=== PATIENT | female | born 1950 | race Caucasian/White ===

== ENCOUNTER 2017-04-21 22:06 | Inpatient (IN) ==
[2017-04-22] MEDS ORDERED: Naloxone 0.4 MG/ML INJ IVP PRN (01:51)
[2017-04-22] MEDS ORDERED: 0.9 % Sodium Chloride 1,000 ML IVC SCH (02:00)
[2017-04-22] MEDS ORDERED: *HR* Dextrose 50 % in Water (Syg) 50 ML SYRINGE IVP PRN (02:02)
[2017-04-22] MEDS ORDERED: D5% in Water 1,000 ML IVC PRN (02:02)
[2017-04-22] MEDS ORDERED: Dextrose Gel 15 GM PO PRN ×2 (02:02)
--- NOTE | 2017-04-22 02:11 | Internal Med History&Physical ---
Date of Encounter: 04/22/17 Time of Encounter: 02:07 Assessment and Plan (1) Pulmonary embolism Current visit: No Status: Acute check TTE for RHS, b/l doppler, lovenox 1mg/kg BID Qualifiers: Pulmonary embolism type: other Chronicity: acute Acute cor pulmonale presence: without acute cor pulmonale Qualified Code(s): I26.99 - Other pulmonary embolism without acute cor pulmonale (2) DMII (diabetes mellitus, type 2) Current visit: Yes Status: Acute she is unsure of her home dose, she tells me that she takes 60 U "humalog" q HS and 75 U "humalog" q AM along with ISS which does not sound accurate. I suspect this is NPH instead of humalog - will place holding insulin consisting of NPH 75 qAM, high dose ISS and await family to bring in accurate insulin prescription to avoid overdosing and resultant hypoglycemia. Qualifiers: Diabetes mellitus complication status: without complication Diabetes mellitus detention insulin use: with detention use Qualified Code(s): E11.9 - Type 2 diabetes mellitus without complications; Z79.4 - jail (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 (3) HTN (hypertension), benign Current visit: Yes Status: Acute continue BP med if BP tolerates (4) Morbid obesity Current visit: Yes Status: Acute education. detention goal setting (5) Spinal stenosis Current visit: Yes Status: Acute conservative management. Continue regular pain med Qualifiers: Spinal region: thoracolumbar Qualified Code(s): M48.05 - Spinal stenosis, thoracolumbar region Internal Medicine - H&P: HPI Chief complaint: SOB History of present illness: Ms. Salmon is a 67 year old female who presents with acute PE b/l. She reported 3-4 weeks of worsening SOB associated with abdominal tightness. ED found b/l PE. She reports a hx of spinal stenosis and is sedentary for most of the days. She is obese and describes herself as a "couch potato". Denies any recent hospitalization. Episode likely provoked due to sedentary lifestyle related to obesity and severe spinal stenosis FINDINGS: Pulmonary Arteries: Pulmonary arteries are adequately opacified for evaluation. Pulmonary emboli are identified within the right middle, lower, and upper lobe segmental arteries and extending into the subsegmental branches. Pulmonary embolus also identified within the left upper lobe segmental branches supplying the anterior segment of the left upper lobe. Main pulmonary artery is normal in caliber.RV:LV ratio measures 1. No significant reflux of contrast into the IVC at this time. Mediastinum: No evidence of mediastinal lymphadenopathy. The heart and pericardium demonstrate no acute abnormality. There is no acute abnormality of the thoracic aorta. Lungs/pleura: The lungs are without acute process. No focal consolidation or pulmonary edema. No evidence of pleural effusion or pneumothorax. Upper Abdomen: Limited images of the upper abdomen again demonstrate partially visualized bilateral adrenal adenomas which appear grossly similar to prior exam from 2013. Soft Tissues/Bones: No acute bone or soft tissue abnormality. CT/CT angio chest IMPRESSION: 1. Bilateral pulmonary emboli, right greater than left. The pulmonary artery is normal in caliber and the RV:LV ratio measures 1. Critical results were called by Dr. Yousfu Mcknight MD to Jama Campos MD on 04/21/2017 at 21:19. Past Med Surg Social Fam HX - Past Medical History Medical history: arthritis, DVT, diabetes, hypertension, pulmonary embolus, RA Psychiatric history: anxiety, depression - Social History Smoking Status: Never smoker Smokeless Tobacco Status: No Alcohol use: none Drug use: none - Family History Father Name: Monroe adam Living Status: Age at : 78 Cause of : CHF Hx Family Cardiac Disorders: Yes Hx Family Medical Disorders: Yes (alzheimer) Internal Medicine - H&P: Meds Amlodipine Besylate 10 mg PO DAILY 04/21/17 [History] Gabapentin [Neurontin] 800 mg PO TID 04/21/17 [History] Insulin NPH, HUMAN [HumuLIN N] 75 unit SQ AD 04/21/17 [History] Insulin Regular, Human [Novolin R] 100 unit IJ AD 04/21/17 [History] Lisinopril [Zestril] 40 mg PO DAILY 04/21/17 [History] Metformin HCl [Glucophage] 1,000 mg PO BID 04/21/17 [History] Metoprolol [Lopressor] 50 mg PO BID 04/21/17 [History] Multivitamin [Multi-Day Vitamins] 1 tab PO DAILY 04/21/17 [History] [place]-3/Dha/Epa/Fish Oil [[place] 3 500 Softgel] 2 cap PO DAILY 04/21/17 [History] Tramadol HCl 100 mg PO TID 04/21/17 [History] Venlafaxine [Effexor] 75 mg PO BID 04/21/17 [History] Zolpidem [Ambien] 10 mg PO HS 04/21/17 [History] hydroCHLOROthiazide [Hydrochlorothiazide] 25 mg PO DAILY 04/21/17 [History] Insulin NPH, HUMAN 60 SQ HS 04/22/17 [History] 3 Allergy/AdvReac Type Severity Reaction Status Date / Time prochlorperazine Allergy See Verified 04/08/17 12:44 [From Compazine] Comments Sulfa (Sulfonamide Allergy See Verified 04/08/17 12:44 Antibiotics) Comments All Systems PM: A 10-system review of systems was performed and is negative for pertinent findings except as documented above in the HPI. Review of systems: ROS 14 point review of systems reviewed as best as possible given presentation. Pertinent positive or negative as per HPI or otherwise reviewed as negative - Constitutional Vitals: Temp Pulse Resp BP Pulse Ox 98.3 F 85 21 153/87 94 04/22/17 00:33 04/22/17 00:33 04/22/17 00:33 04/22/17 00:33 04/22/17 00:33 Exam: General - AAO x 3. Morbidly obese Psych - Appropriate affect/speech. No agitation Eyes - LUIS. Eye lids intact. No scleral icterus Heart - Sinus. RRR. S1 and S2 present. No added HS/murmurs appreciated. No elevated JVD appreciated. B/l LE swelling, appearing symmetrical Lung - Adequate air entry b/l, No crackes/wheezes appreciated GI - Upper abdominal discomfort but no guarding or rigidity. Soft, non-tender. No hepatosplenomegaly/ascites. BS+ - No CVA/suprapubic tenderness or palpable bladder distension Skin - Intact. No rash/petechiae/ecchymosis. Warm extremities MSK - Joints with normal ROM. No joint swellings - VTE Reasons for not Prescribing Prophylaxis: Not indicated-Anticoagulated or INR therapeutic
[2017-04-22] MEDS: Gabapentin 400 MG CAPSULE PO SCH ×4 (02:35→21:09)
[2017-04-22 06:04] LABS: Basophils % 0.4 %; Eosinophils # 0.2 K/mcL (0.0-0.6); Eosinophils % 2.1 %; Hematocrit 42.2 % (35.3-44.9); Hemoglobin 12.7 g/dL (11.5-15.4); Immature Granulocytes % 0.3 % (0-4); Lymphocytes # 2.7 K/mcL (0.6-4.6); Lymphocytes % 27.4 %; Mean Corpuscular HGB Conc 30.1 g/dL (31.6-35.5); Mean Corpuscular Hemoglobin 25.8 pg (28.0-33.3); Mean Corpuscular Volume 85.6 fL (83.0-100.0); Mean Platelet Volume 10.2 fL (9.4-12.4); Monocytes % 10.5 %; Neutrophils # 5.7 K/mcL (1.6-8.9); Platelet Count 268 K/mcL (140-400); Red Blood Count 4.93 M/mcL (3.82-4.97); Red Cell Distribution Width 16.5 % (11.5-14.5); Segmented Neutrophils % 59.3 %
[2017-04-22 06:20] LABS: BUN/Creatinine Ratio 19 (6-26); Blood Urea Nitrogen 19 mg/dL (7-20); Carbon Dioxide 26 mEq/L (19-29); Chloride 104 mEq/L (98-109); Glucose 220 mg/dL (70-99); Osmolality,Calculated 299 (280-300); Potassium 4.1 mEq/L (3.5-4.5); Sodium 140 mEq/L (136-145); eGFR For African Americans > 60 (> 60); eGFR For Non-African Americans 55 (> 60)
[2017-04-22] MEDS: hydroCHLOROthiazide 25 MG TABLET PO SCH (07:42)
[2017-04-22] MEDS: amLODIPine 5 MG TABLET PO SCH (07:42)
[2017-04-22] MEDS: traMADol 50 MG TABLET PO SCH ×3 (07:43→21:09)
[2017-04-22] MEDS: Lisinopril 20 MG TABLET PO SCH (07:44)
[2017-04-22] MEDS: Insulin LISPRO 300 UNITS/3 ML VIAL SQ SCH ×4 (07:48→21:07)
[2017-04-22] MEDS: Insulin NPH 100 UNIT/ML (x5UNIT) SQ SCH ×2 (08:35→17:39)
[2017-04-22] MEDS ORDERED: *HR* Enoxaparin 150 MG/ML SYRINGE SQ SCH (09:00)
--- NOTE | 2017-04-22 16:39 | Event Note ---
Date of Encounter: 04/22/17 Time of Encounter: 12:30 Patient admitted early this morning due to acute pulmonary embolism. Patient has a history of pulmonary embolism in the past and multiple DVTs in the past. She is not on any antiplatelet regulation at home. Currently, she is on Lovenox. Currently, patient states that her breathing is better than yesterday. However , she continues to report shortness of breath with exertion. She is currently on 2 L via nasal cannula oxygen. In mild to moderate respiratory distress. Clear breath sounds bilaterally. Acute pulmonary embolus-continue Lovenox. Patient will be started on Coumadin. Discussed the options of Novel anticoagulants. However, patient is currently in the donut hole and is worried about the cost of anticoagulation. Hence, she would like to continue with Coumadin. She will be started on Coumadin tonight. Anticipate discharge on Tuesday/Tuesday to home. She will likely require home oxygen on discharge for a short period
[2017-04-22] MEDS: *HR* Enoxaparin 150 MG/ML SYRINGE SQ SCH (17:32)
[2017-04-22] MEDS ORDERED: *HR* Warfarin 5 MG TABLET PO ONE (18:00)
[2017-04-22] MEDS ORDERED: Warfarin perPT PO PRN (18:00)
[2017-04-23] MEDS: *HR* Enoxaparin 150 MG/ML SYRINGE SQ SCH ×2 (05:27→17:16)
[2017-04-23 05:34] LABS: INR 1.1; Prothrombin Time 11.3 Seconds (9.4-12.1)
[2017-04-23] MEDS: hydroCHLOROthiazide 25 MG TABLET PO SCH (08:40)
[2017-04-23] MEDS: Insulin NPH 100 UNIT/ML (x5UNIT) SQ SCH ×2 (08:40→18:10)
[2017-04-23] MEDS: Insulin LISPRO 300 UNITS/3 ML VIAL SQ SCH ×4 (08:40→19:51)
[2017-04-23] MEDS: amLODIPine 5 MG TABLET PO SCH (08:41)
[2017-04-23] MEDS: Gabapentin 400 MG CAPSULE PO SCH ×3 (08:41→19:51)
[2017-04-23] MEDS: Lisinopril 20 MG TABLET PO SCH (08:41)
[2017-04-23] MEDS: traMADol 50 MG TABLET PO SCH ×3 (08:41→19:50)
[2017-04-23] MEDS ORDERED: Saline Nasal Spray 44 ML BOTTLE NS PRN (10:45)
--- NOTE | 2017-04-23 10:48 | Internal Med Progress Note ---
Date of Encounter: 04/23/17 Time of Encounter: 10:15 - Assessment and plan (1) Pulmonary embolism Current Visit: Yes Status: Acute Assessment and plan: Continue Lovenox subcutaneously. Continue bridging Coumadin. Anticipate discharge on Tuesday. Monitor INR and adjust Coumadin dose accordingly. Monitor CBC. Patient is is high risk due to need for bridging for Coumadin prior to discharge. Qualifiers: Pulmonary embolism type: other Chronicity: acute Acute cor pulmonale presence: without acute cor pulmonale Qualified Code(s): I26.99 - Other pulmonary embolism without acute cor pulmonale (2) Respiratory failure Current Visit: Yes Status: Acute Assessment and plan: Related to pulmonary embolism. Continue oxygen supplementation. Qualifiers: Chronicity: acute Respiratory failure complication: hypoxia Qualified Code(s): J96.01 - Acute respiratory failure with hypoxia (3) DMII (diabetes mellitus, type 2) Current Visit: Yes Status: Chronic Assessment and plan: Resume home dose of insulin therapy. Continue metformin tomorrow and sliding scale insulin. Qualifiers: Diabetes mellitus complication status: with hyperglycemia Diabetes mellitus computer terminal operator insulin use: with long-term use Qualified Code(s): E11.65 - Type 2 diabetes mellitus with hyperglycemia; Z79.4 - terminal gauger supervisor (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 (4) HTN (hypertension), benign Current Visit: Yes Status: Chronic Assessment and plan: Controlled blood pressure. Continue current medications. (5) Morbid obesity Current Visit: No Status: Chronic - Subjective Interval history: Patient states that she started having diarrhea yesterday evening. She describes it as loose stool but denies any watery stool. Denies any blood in the stool. She also reports continued shortness of breath with exertion especially with going to the restroom. Denies any nausea or vomiting. Denies any abdominal pain, fever or chills. - Constitutional Vitals: Temp Pulse Resp BP Pulse Ox 98.3 F 96 16 119/71 100 04/23/17 08:10 04/23/17 08:10 04/23/17 08:10 04/23/17 08:10 04/23/17 08:10 Exam: Gen.: Sitting in bed. Mild to moderate respiratory distress distress. Chest: Clear to auscultation bilaterally. No adventitious sounds present. CVS: First and second heart sounds present. No murmurs, rubs or gallops. Abdomen: Soft, nontender, obese. Bowel sounds present. No hepatosplenomegaly. Skin: No decubitus ulcers appreciated. Internal Medicine: Result - Labs CBC & Chem 7: 04/22/17 05:37 04/22/17 05:37 - ABG Interpretation ABG results: PT/INR, D-dimer PT 11.3 Seconds (9.4-12.1) 04/23/17 04:31 - VTE Reasons for not Prescribing Prophylaxis: Not indicated-Anticoagulated or INR therapeutic Consult Discharge Plan - Plan Referrals: Alonzo Resendiz MD [Primary Care Provider] - Prescriptions: Enoxaparin [Lovenox] 130 mg SQ Q12HR #10 syr
[2017-04-23] MEDS ORDERED: *HR* Warfarin 5 MG TABLET PO ONE (18:00)
[2017-04-24 04:07] LABS: Basophils % 0.3 %; Eosinophils # 0.2 K/mcL (0.0-0.6); Eosinophils % 1.6 %; Hematocrit 41.9 % (35.3-44.9); Hemoglobin 12.3 g/dL (11.5-15.4); Immature Granulocytes % 0.3 % (0-4); Lymphocytes # 2.1 K/mcL (0.6-4.6); Lymphocytes % 22.4 %; Mean Corpuscular HGB Conc 29.4 g/dL (31.6-35.5); Mean Corpuscular Hemoglobin 25.5 pg (28.0-33.3); Mean Corpuscular Volume 86.7 fL (83.0-100.0); Mean Platelet Volume 10.2 fL (9.4-12.4); Monocytes # 1.1 K/mcL (0.0-1.3); Monocytes % 11.3 %; Platelet Count 269 K/mcL (140-400); Red Blood Count 4.83 M/mcL (3.82-4.97); Red Cell Distribution Width 16.9 % (11.5-14.5); Segmented Neutrophils % 64.1 %
[2017-04-24 04:12] LABS: INR 1.1; Prothrombin Time 11.6 Seconds (9.4-12.1)
[2017-04-24 04:18] LABS: Calcium 9.2 mg/dL (8.6-10.8); Potassium 4.2 mEq/L (3.5-4.5)
[2017-04-24] MEDS: *HR* Enoxaparin 150 MG/ML SYRINGE SQ SCH ×2 (05:36→19:34)
[2017-04-24] MEDS: Gabapentin 400 MG CAPSULE PO SCH ×3 (08:35→20:20)
[2017-04-24] MEDS: traMADol 50 MG TABLET PO SCH ×3 (08:35→20:20)
[2017-04-24] MEDS: hydroCHLOROthiazide 25 MG TABLET PO SCH (08:35)
[2017-04-24] MEDS: amLODIPine 5 MG TABLET PO SCH (08:36)
[2017-04-24] MEDS: Lisinopril 20 MG TABLET PO SCH (08:36)
[2017-04-24] MEDS: Insulin LISPRO 300 UNITS/3 ML VIAL SQ SCH ×4 (08:37→21:32)
[2017-04-24] MEDS: Insulin NPH 100 UNIT/ML (x5UNIT) SQ SCH ×2 (08:38→19:34)
--- NOTE | 2017-04-24 12:32 | Internal Med Progress Note ---
Date of Encounter: 04/24/17 Time of Encounter: 08:45 - Assessment and plan (1) Pulmonary embolism Current Visit: Yes Status: Acute Assessment and plan: Continue Lovenox and Coumadin. Anticipate discharge on Tuesday. Monitor INR and adjust Coumadin dose accordingly. Monitor CBC. Patient is moderate risk due to need for bridging for Coumadin prior to discharge. Qualifiers: Pulmonary embolism type: other Chronicity: acute Acute cor pulmonale presence: without acute cor pulmonale Qualified Code(s): I26.99 - Other pulmonary embolism without acute cor pulmonale (2) Respiratory failure Current Visit: Yes Status: Acute Assessment and plan: Related to pulmonary embolism. Continue oxygen supplementation. Home oxygen has been arranged. Qualifiers: Chronicity: acute Respiratory failure complication: hypoxia Qualified Code(s): J96.01 - Acute respiratory failure with hypoxia (3) DMII (diabetes mellitus, type 2) Current Visit: Yes Status: Chronic Assessment and plan: Continue metformin and sliding scale insulin. Qualifiers: Diabetes mellitus complication status: with hyperglycemia Diabetes mellitus fdc insulin use: with dedicated intermodal truck driver use Qualified Code(s): E11.65 - Type 2 diabetes mellitus with hyperglycemia; Z79.4 - detention (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 (4) HTN (hypertension), benign Current Visit: Yes Status: Chronic Assessment and plan: Controlled blood pressure. Continue current medications. (5) Morbid obesity Current Visit: No Status: Chronic - Subjective Interval history: Patient continues to report shortness of breath with exertion. She states that she does not use oxygen when she goes to the restroom. She denies having any lightheadedness. Denies palpitations or wheezing. - Constitutional Vitals: Temp Pulse Resp BP Pulse Ox 98.0 F 76 16 143/88 99 04/24/17 06:54 04/24/17 06:54 04/24/17 06:54 04/24/17 06:54 04/24/17 07:28 Exam: Gen.: Lying in bed. No acute distress. Chest: Clear to auscultation bilaterally. No adventitious sounds present. CVS: First and second heart sounds present. No murmurs, rubs or gallops. Abdomen: Soft, nontender, obese. Bowel sounds present. Internal Medicine: Result - Labs CBC & Chem 7: 04/24/17 03:12 04/24/17 03:12 Labs: Short CBC 04/24/17 Range/Units 03:12 WBC 9.4 (4.3-11.1) K/mcL Hgb 12.3 (11.5-15.4) g/dL Hct 41.9 (35.3-44.9) % Plt Count 269 (140-400) K/mcL Neutrophils # 6.0 (1.6-8.9) K/mcL BMP 04/24/17 03:12 Sodium 141 Potassium 4.2 Chloride 102 Carbon Dioxide 29 BUN 20 Creatinine 1.15 H Glucose 144 H Calcium 9.2 - ABG Interpretation ABG results: PT/INR, D-dimer PT 11.6 Seconds (9.4-12.1) 04/24/17 03:12 - VTE Reasons for not Prescribing Prophylaxis: Not indicated-Anticoagulated or INR therapeutic Consult Discharge Plan - Plan Referrals: Alonzo Resendiz MD [Primary Care Provider] - Prescriptions: Enoxaparin [Lovenox] 130 mg SQ Q12HR #10 syr
[2017-04-24] MEDS: *HR* Metformin 500 MG TABLET PO SCH ×2 (13:40→19:34)
[2017-04-24] MEDS ORDERED: *HR* Warfarin 5 MG TABLET PO ONE (18:00)
[2017-04-25 04:46] LABS: Prothrombin Time 11.2 Seconds (9.4-12.1)
[2017-04-25 04:56] LABS: Calcium 9.5 mg/dL (8.6-10.8); Potassium 3.6 mEq/L (3.5-4.5)
[2017-04-25] MEDS: *HR* Enoxaparin 150 MG/ML SYRINGE SQ SCH (05:10)
[2017-04-25] MEDS: *HR* Metformin 500 MG TABLET PO SCH (08:23)
[2017-04-25] MEDS: hydroCHLOROthiazide 25 MG TABLET PO SCH (08:23)
[2017-04-25] MEDS: amLODIPine 5 MG TABLET PO SCH (08:23)
[2017-04-25] MEDS: Lisinopril 20 MG TABLET PO SCH (08:23)
[2017-04-25] MEDS: traMADol 50 MG TABLET PO SCH (08:23)
[2017-04-25] MEDS: Gabapentin 400 MG CAPSULE PO SCH (08:24)
[2017-04-25] MEDS: Insulin LISPRO 300 UNITS/3 ML VIAL SQ SCH ×2 (08:26→11:49)
--- NOTE | 2017-04-25 08:31 | Venous Imaging Report ---
LE Venous Duplex Patient Name:Kala Salmon Order Number:[id number] Procedure Date:04/22/2017 Date:1950ge:67 yrs Gender:Female Location:[facility] Room #: [id number] Egg Packer:Rosana Sands RDCS Referring MD:Dory Berry MD logistics planner:Alonzo Resendiz MD Reading MD:Yang Prieto MD Primary Indications:PE, r/o DVT Secondary Indications: Risk Factors Yes/No Hx of DVT Impressions: Bilateral lower extremity: normal superficial and deep exam. Findings Prior Study: No prior study available for comparison. Lower Extremity Venous Duplex Side Vein Compress Spontaneous Flow Augment Diameter (cm) Depth (cm) Right Distal Iliac Normal Yes Phasic Yes Right Common Femoral Normal Yes Phasic Yes Right Superficial Femoral Normal Yes Phasic Yes Right Popliteal Normal Yes Phasic Yes Right Posterior Tibial Normal Yes Phasic Yes Right Peroneal Normal Yes Phasic Yes Right Saphenofemoral [place] Normal Yes Phasic Yes Right Great Saphenous Normal Yes Phasic Yes Right Lesser Saphenous Normal Yes Phasic Yes Left Distal Iliac Normal Yes Phasic Yes Left Common Femoral Normal Yes Phasic Yes Left Superficial Femoral Normal Yes Phasic Yes Left Popliteal Normal Yes Phasic Yes Left Posterior Tibial Normal Yes Phasic Yes Left Peroneal Normal Yes Phasic Yes Left Saphenofemoral [place] Normal Yes Phasic Yes Left Great Saphenous Normal Yes Phasic Yes Left Lesser Saphenous Normal Yes Phasic Yes Updated by Yang Prieto MD on 04/23/2017 4:34:42 PM electronically signed on 04/23/2017 4:35:09 PM with status of Final
[2017-04-25] MEDS ORDERED: Insulin NPH 100 UNIT/ML (x5UNIT) SQ SCH ×2 (09:00→18:00)
--- NOTE | 2017-04-25 10:30 | Discharge Summary ---
Date of Encounter: 04/25/17 Time of Encounter: 10:10 - Discharge Diagnosis (1) Pulmonary embolism Priority: Primary Status: Acute Qualifiers: Pulmonary embolism type: other Chronicity: acute Acute cor pulmonale presence: without acute cor pulmonale Qualified Code(s): I26.99 - Other pulmonary embolism without acute cor pulmonale (2) Respiratory failure Priority: Secondary Status: Acute Qualifiers: Chronicity: acute Respiratory failure complication: hypoxia Qualified Code(s): J96.01 - Acute respiratory failure with hypoxia (3) DMII (diabetes mellitus, type 2) Priority: Secondary Status: Chronic Qualifiers: Diabetes mellitus complication status: with kidney complications Diabetes mellitus complication detail: with chronic kidney disease Diabetes mellitus exterminator termite insulin use: with exterminator termite use Chronic kidney disease stage: stage 3 (moderate) Qualified Code(s): E11.22 - Type 2 diabetes mellitus with diabetic chronic kidney disease; N18.3 - Chronic kidney disease, stage 3 ( moderate); Z79.4 - termite helper (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 (4) HTN (hypertension), benign Priority: Secondary Status: Chronic (5) Morbid obesity Priority: Secondary Status: Chronic - Discharge Medications Prescriptions: Enoxaparin [Lovenox] 130 mg SQ Q12HR #10 syr Metformin HCl [Glucophage] 1,000 mg PO BID #60 Warfarin [Coumadin] 1 mg PO AD #30 tablet Warfarin [Coumadin] 2 mg PO AD #30 tablet Warfarin [Coumadin] 3 mg PO AD #30 tablet Warfarin [Coumadin] 5 mg PO AD #30 tablet Home Medications: Amlodipine Besylate 10 mg PO DAILY 04/21/17 [History] Gabapentin [Neurontin] 800 mg PO TID 04/21/17 [History] Insulin Regular, Human [Novolin R] 21 - 22 unit SQ TID PRN 04/21/17 [History] Lisinopril [Zestril] 40 mg PO DAILY 04/21/17 [History] Metoprolol [Lopressor] 50 mg PO BID 04/21/17 [History] Multivitamin [Multi-Day Vitamins] 1 tab PO DAILY 04/21/17 [History] [place]-3/Dha/Epa/Fish Oil [[place] 3 500 Softgel] 2 cap PO DAILY 04/21/17 [History] Tramadol HCl [Ultram] 50 mg PO TID 04/21/17 [History] Venlafaxine [Effexor] 75 mg PO BID 04/21/17 [History] Zolpidem [Ambien] 10 mg PO HS 04/21/17 [History] hydroCHLOROthiazide [Hydrochlorothiazide] 25 mg PO DAILY 04/21/17 [History] Enoxaparin [Lovenox] 130 mg SQ Q12HR #10 syr 04/22/17 [Rx] Pravastatin Sodium [Pravachol] 40 mg PO DAILY 04/22/17 [History] Insulin NPH, HUMAN [HumuLIN N] 50 unit SQ QPM #0 04/25/17 [Rx] Insulin NPH, HUMAN [HumuLIN N] 65 unit SQ QAM #0 04/25/17 [Rx] Metformin HCl [Glucophage] 1,000 mg PO BID #60 04/25/17 [Rx] Warfarin [Coumadin] 1 mg PO AD #30 tablet 04/25/17 [Rx] Warfarin [Coumadin] 2 mg PO AD #30 tablet 04/25/17 [Rx] Warfarin [Coumadin] 3 mg PO AD #30 tablet 04/25/17 [Rx] Warfarin [Coumadin] 5 mg PO AD #30 tablet 04/25/17 [Rx] Allergies/Adverse Reactions: 3 Allergy/AdvReac Type Severity Reaction Status Date / Time prochlorperazine Allergy See Verified 04/08/17 12:44 [From Compazine] Comments Sulfa (Sulfonamide Allergy See Verified 04/08/17 12:44 Antibiotics) Comments - Notes to Outpatient Provider 1. Follow-up INR on 04/27/2017 and adjust Coumadin accordingly. Patient being discharged on 8 mg by mouth daily of warfarin Date of admission: 04/22/17 01:51 Primary care physician: Alonzo Resendiz MD Discharging clinician: Marito Arriaga Anticipated date of discharge: 04/25/17 - Patient Status Disposition: Home, Self-Care Condition: Good Functional capacity at discharge: uses cane/walker Overall status at discharge: patient is progressing back to baseline - Discharge Instructions Follow Up With: Alonzo Resendiz MD [Primary Care Provider] - (1 week) - Diet and Activity Activity: increase activity as tolerated, resume usual activities as tolerated, wear oxygen at all times Hospital course: Ms. Salmon is a 67 year old female with a history of spinal stenosis, diabetes mellitus type 2 who is mostly sedentary presented to the emergency room due to shortness of breath of 3 weeks' duration. In the emergency room, CT angiogram revealed bilateral pulmonary embolus without any evidence of right heart strain pattern. She was admitted to the hospital and given subcutaneous Lovenox. She was bridged to Coumadin. However, despite receiving 3 doses of 5 mg, her INR has remained at 1. The patient is eager to be discharged home. Hence, she is being given a prescription for subcutaneous Lovenox for 5 more days. She has been instructed to increase the dose of Coumadin to 8 mg daily. She has been instructed to obtain INR test on 04/27/2017. Her primary care physician will be contacted and given report regarding the need for adjustment of Coumadin as an outpatient. The patient has developed hypoxic respiratory failure due to pulmonary embolus and has been qualified for home oxygen. Her shortness of breath has significantly improved and she does not have any lightheadedness. Hence, she has been deemed stable to be discharged home today. - Time Spent with Patient Total time spent providing and/or coordinating discharge services: Greater than 30 minutes (50 min) - Constitutional Vitals: Temp Pulse Resp BP Pulse Ox 98.0 F 72 16 110/36 92 04/25/17 07:21 04/25/17 07:21 04/25/17 07:21 04/25/17 07:21 04/25/17 07:21 Exam: Gen.: Lying in bed. No acute distress. Chest: Clear to auscultation bilaterally. No adventitious sounds present. CVS: First and second heart sounds present. No murmurs, rubs or gallops. Abdomen: Soft, nontender, obese. Bowel sounds present. No hepatosplenomegaly. - VTE Reasons for not Prescribing Prophylaxis: Not indicated-Anticoagulated or INR therapeutic
[2017-04-25 11:43] VITALS: BP 129/82
[2017-04-25] MEDS ORDERED: *HR* Warfarin 7.5 MG TABLET PO ONE (18:00)
== END 2017-04-25 16:00 | disposition home or self-care (01) | DRG 175 ==
LOC: 2NENU → SUATTDRO 04-22 01:51
PROVIDERS: ADMIT Internal Medicine Hematology & Oncology; ATTEND Internal Medicine Sleep Medicine

== ENCOUNTER 2018-03-02 07:43 | Inpatient (IN) ==
--- NOTE | 2018-03-02 07:49 | Emergency Department Note ---
Disposition Clinical Impression: Sepsis, Cellulitis, Hyperglycemia, HERIBERTO (acute kidney injury) Disposition: Admitted As Inpatient Condition: Undetermined General Adult HPI - General Time Seen by Provider: 03/02/18 07:46 - Related Data Home Medications Medication Instructions Recorded Confirmed Amlodipine Besylate 10 mg PO DAILY 04/21/17 03/02/18 Gabapentin [Neurontin] 800 mg PO TID 04/21/17 03/02/18 Insulin Regular, Human [Novolin R] 21 - 22 unit SQ TID PRN 04/21/17 03/02/18 Lisinopril [Zestril] 40 mg PO DAILY 04/21/17 03/02/18 Metoprolol [Lopressor] 50 mg PO BID 04/21/17 03/02/18 [place]-3/Dha/Epa/Fish Oil [[place] 3 2 cap PO DAILY 04/21/17 03/02/18 500 Softgel] Tramadol HCl [Ultram] 100 mg PO TID 04/21/17 03/02/18 Venlafaxine [Effexor] 75 mg PO BID 04/21/17 03/02/18 Zolpidem [Ambien] 10 mg PO HS 04/21/17 03/02/18 hydroCHLOROthiazide 25 mg PO DAILY 04/21/17 03/02/18 [Hydrochlorothiazide] Pravastatin Sodium [Pravachol] 40 mg PO DAILY 04/22/17 03/02/18 Albuterol Sulfate [Albuterol 2 puff IH Q6H PRN 03/02/18 03/02/18 Inhaler] Budesonide/Formoterol 160/4.5 2 puff IH BIDR 03/02/18 03/02/18 [Symbicort 160/4.5] Ferrous Sulfate [Iron] 325 mg PO DAILY 03/02/18 03/02/18 Insulin NPH, HUMAN [HumuLIN N] 55 unit SQ QPM 03/02/18 03/02/18 Insulin NPH, HUMAN [HumuLIN N] 75 unit SQ QAM 03/02/18 03/02/18 Mv W-Ca/Iron/FA/Lutein/Hrb#179 1 each PO DAILY 03/02/18 03/02/18 [Michael Multivit For Women Caplet] Nystatin POWDER [Nystop] 1 appl TP DAILY PRN 03/02/18 03/02/18 Warfarin [Coumadin] 7.5 mg PO MOTUWEFRSA 03/02/18 03/02/18 Warfarin [Coumadin] 10 mg PO SUTH 03/02/18 03/02/18 Previous Rx's Medication Instructions Recorded Metformin HCl [Glucophage] 1,000 mg PO BID #60 04/25/17 Allergies Allergy/AdvReac Type Severity Reaction Status Date / Time prochlorperazine Allergy Dry Mucus Verified 03/02/18 09:30 [From Compazine] Membranes Sulfa (Sulfonamide Allergy Blister Verified 03/02/18 09:30 Antibiotics) Past Medical History - Past Medical History Medical history: Reports: arthritis, DVT, diabetes, hypertension, pulmonary embolus, RA Psychiatric history: Reports: anxiety, depression - Social History Smoking Status: Never smoker Smokeless Tobacco Status: No Alcohol use: Reports: none Drug use: Reports: none Course Vital Signs Temperature 100.3 F H 03/02/18 07:45 Pulse Rate 140 03/02/18 07:45 Respiratory Rate 26 03/02/18 07:45 Blood Pressure 142/105 03/02/18 07:45 O2 Sat by Pulse Oximetry 94 03/02/18 07:45 Temperature 99.3 F 03/02/18 11:19 Pulse Rate 119 03/02/18 11:10 Respiratory Rate 20 03/02/18 10:19 Blood Pressure 125/55 03/02/18 11:13 O2 Sat by Pulse Oximetry 98 03/02/18 11:13 Oxygen Delivery Oxygen Delivery Nasal Cannula Medical Decision Making - Lab Data Result diagrams: 03/02/18 07:59 03/02/18 07:59 Lab Results 03/02/18 03/02/18 03/02/18 Range/Units 07:59 07:59 07:59 WBC 22.1 H (4.3-11.1) K/mcL RBC 4.29 (3.82-4.97) M/mcL Hgb 11.3 L (11.5-15.4) g/dL Hct 35.9 (35.3-44.9) % MCV 83.7 (83.0-100.0) fL MCH 26.3 L (28.0-33.3) pg MCHC 31.5 L (31.6-35.5) g/dL RDW 14.6 H (11.5-14.5) % Plt Count 308 (140-400) K/mcL MPV 10.5 (9.4-12.4) fL Seg Neutrophils % 72.0 % Band Neutrophils % 14.0 H (0-4) % Lymphocytes % 8.0 % Monocytes % 4.0 % Metamyelocytes % 2.0 H (0) % Neutrophils # 19.0 H (1.6-8.9) K/mcL Lymphocytes # 1.8 (0.6-4.6) K/mcL Monocytes # 0.9 (0.0-1.3) K/mcL Toxic Granulation Present A (Not Present) Toxic Vacuolation Present A (Not Present) Platelet Estimate Normal (Normal) PT 23.1 H (9.4-12.1) Seconds INR 2.0 VBG pH (7.32-7.42) pH Units VBG pCO2 (41-51) mmHg VBG pO2 (25-50) mmHg VBG HCO3 (21-27) mEq/L Sodium 132 L (136-145) mEq/L Potassium 4.0 (3.5-5.1) mEq/L Chloride 96 L (98-107) mEq/L Carbon Dioxide 23 (23-29) mEq/L BUN 31 H (8-23) mg/dL Creatinine 1.28 H (0.60-1.20) mg/dL Est GFR ( Amer) 50 L (> 60) Est GFR (Non-Af Amer) 42 L (> 60) BUN/Creatinine Ratio 24 (6-26) Glucose 390 H (70-105) mg/dL Calculated Osmolality 297 (280-300) Lactic Acid (0.5-2.2) mmol/L Calcium 9.0 (8.6-10.3) mg/dL Magnesium 1.5 L (1.6-2.6) mg/dL Total Bilirubin 0.4 (0.3-1.0) mg/dL AST 10 L (13-39) Units/L ALT 11 (7-52) Units/L Alkaline Phosphatase 68 (34-104) Units/L Troponin I < 0.03 (< 0.04) ng/mL Serum Total Protein 7.0 (6.4-8.9) g/dL Albumin 3.5 (3.5-5.7) g/dL Globulin 3.5 (2.4-3.5) g/dL Albumin/Globulin Ratio 1.0 L (1.1-2.2) Beta-Hydroxybutyric Acd (0.02-0.27) mmol/L Urine Color (Yellow) Urine Clarity (Clear) Urine pH (5.0-8.0) pH Units Ur Specific [place] (1.010-1.025) Urine Protein (Neg-Trace) mg/dL Urine Glucose (UA) (Normal) mg/dL Urine Ketones (Negative) mg/dL Urine Blood (Negative) Urine Nitrite (Negative) Urine Bilirubin (Negative) Urine Urobilinogen (Normal) mg/dL Ur Leukocyte Esterase (Negative) Urine Microscopic RBC (0-3) per hpf Urine Microscopic WBC (0-3) per hpf Ur Squamous Epith Cells (None-Few) per lpf Ur Transition Epith Cell (None-Few) per hpf Amorphous Sediment (Few) Urine Bacteria (None-Few) per hpf Granular Casts (None Seen) per lpf 03/02/18 03/02/18 03/02/18 Range/Units 07:59 07:59 08:18 WBC (4.3-11.1) K/mcL RBC (3.82-4.97) M/mcL Hgb (11.5-15.4) g/dL Hct (35.3-44.9) % MCV (83.0-100.0) fL MCH (28.0-33.3) pg MCHC (31.6-35.5) g/dL RDW (11.5-14.5) % Plt Count (140-400) K/mcL MPV (9.4-12.4) fL Seg Neutrophils % % Band Neutrophils % (0-4) % Lymphocytes % % Monocytes % % Metamyelocytes % (0) % Neutrophils # (1.6-8.9) K/mcL Lymphocytes # (0.6-4.6) K/mcL Monocytes # (0.0-1.3) K/mcL Toxic Granulation (Not Present) Toxic Vacuolation (Not Present) Platelet Estimate (Normal) PT (9.4-12.1) Seconds INR VBG pH 7.43 H (7.32-7.42) pH Units VBG pCO2 38 L (41-51) mmHg VBG pO2 94 H (25-50) mmHg VBG HCO3 25 (21-27) mEq/L Sodium (136-145) mEq/L Potassium (3.5-5.1) mEq/L Chloride (98-107) mEq/L Carbon Dioxide (23-29) mEq/L BUN (8-23) mg/dL Creatinine (0.60-1.20) mg/dL Est GFR ( Amer) (> 60) Est GFR (Non-Af Amer) (> 60) BUN/Creatinine Ratio (6-26) Glucose (70-105) mg/dL Calculated Osmolality (280-300) Lactic Acid 2.7 H (0.5-2.2) mmol/L Calcium (8.6-10.3) mg/dL Magnesium (1.6-2.6) mg/dL Total Bilirubin (0.3-1.0) mg/dL AST (13-39) Units/L ALT (7-52) Units/L Alkaline Phosphatase (34-104) Units/L Troponin I (< 0.04) ng/mL Serum Total Protein (6.4-8.9) g/dL Albumin (3.5-5.7) g/dL Globulin (2.4-3.5) g/dL Albumin/Globulin Ratio (1.1-2.2) Beta-Hydroxybutyric Acd 1.02 H (0.02-0.27) mmol/L Urine Color (Yellow) Urine Clarity (Clear) Urine pH (5.0-8.0) pH Units Ur Specific [place] (1.010-1.025) Urine Protein (Neg-Trace) mg/dL Urine Glucose (UA) (Normal) mg/dL Urine Ketones (Negative) mg/dL Urine Blood (Negative) Urine Nitrite (Negative) Urine Bilirubin (Negative) Urine Urobilinogen (Normal) mg/dL Ur Leukocyte Esterase (Negative) Urine Microscopic RBC (0-3) per hpf Urine Microscopic WBC (0-3) per hpf Ur Squamous Epith Cells (None-Few) per lpf Ur Transition Epith Cell (None-Few) per hpf Amorphous Sediment (Few) Urine Bacteria (None-Few) per hpf Granular Casts (None Seen) per lpf 03/02/18 03/02/18 Range/Units 08:45 10:35 WBC (4.3-11.1) K/mcL RBC (3.82-4.97) M/mcL Hgb (11.5-15.4) g/dL Hct (35.3-44.9) % MCV (83.0-100.0) fL MCH (28.0-33.3) pg MCHC (31.6-35.5) g/dL RDW (11.5-14.5) % Plt Count (140-400) K/mcL MPV (9.4-12.4) fL Seg Neutrophils % % Band Neutrophils % (0-4) % Lymphocytes % % Monocytes % % Metamyelocytes % (0) % Neutrophils # (1.6-8.9) K/mcL Lymphocytes # (0.6-4.6) K/mcL Monocytes # (0.0-1.3) K/mcL Toxic Granulation (Not Present) Toxic Vacuolation (Not Present) Platelet Estimate (Normal) PT (9.4-12.1) Seconds INR VBG pH (7.32-7.42) pH Units VBG pCO2 (41-51) mmHg VBG pO2 (25-50) mmHg VBG HCO3 (21-27) mEq/L Sodium (136-145) mEq/L Potassium (3.5-5.1) mEq/L Chloride (98-107) mEq/L Carbon Dioxide (23-29) mEq/L BUN (8-23) mg/dL Creatinine (0.60-1.20) mg/dL Est GFR ( Amer) (> 60) Est GFR (Non-Af Amer) (> 60) BUN/Creatinine Ratio (6-26) Glucose (70-105) mg/dL Calculated Osmolality (280-300) Lactic Acid 2.0 (0.5-2.2) mmol/L Calcium (8.6-10.3) mg/dL Magnesium (1.6-2.6) mg/dL Total Bilirubin (0.3-1.0) mg/dL AST (13-39) Units/L ALT (7-52) Units/L Alkaline Phosphatase (34-104) Units/L Troponin I (< 0.04) ng/mL Serum Total Protein (6.4-8.9) g/dL Albumin (3.5-5.7) g/dL Globulin (2.4-3.5) g/dL Albumin/Globulin Ratio (1.1-2.2) Beta-Hydroxybutyric Acd (0.02-0.27) mmol/L Urine Color Yellow (Yellow) Urine Clarity Turbid A (Clear) Urine pH 5.0 (5.0-8.0) pH Units Ur Specific [place] > 1.030 H (1.010-1.025) Urine Protein 100 H (Neg-Trace) mg/dL Urine Glucose (UA) 500 H (Normal) mg/dL Urine Ketones Trace H (Negative) mg/dL Urine Blood Large H (Negative) Urine Nitrite Negative (Negative) Urine Bilirubin Small H (Negative) Urine Urobilinogen Normal (Normal) mg/dL Ur Leukocyte Esterase Negative (Negative) Urine Microscopic RBC 0-3 (0-3) per hpf Urine Microscopic WBC 5-15 H (0-3) per hpf Ur Squamous Epith Cells Many H (None-Few) per lpf Ur Transition Epith Cell Few (None-Few) per hpf Amorphous Sediment Many H (Few) Urine Bacteria None Seen (None-Few) per hpf Granular Casts Many H (None Seen) per lpf Critical Care Time Critical Care Time: Yes Total Critical Care Time: 30 Attestation: The high probability of a clinically significant, sudden or life threatening deterioration of the [] system(s) required my full and direct attention, intervention and personal management. The aggregate critical care time was [] minutes. This time is in addition to time spent performing reported procedures but includes the following: [] Data Review and interpretation [] Patient assessment and monitoring of vital signs [] Documentation [] Medication orders and management Attestation Statement - Attestation Attestation: I examined this patient and my medical decision-making was reviewed with the Resident Physician. I agree with the documented findings, disposition and treatment plan as described except to the extent set forth below. [id number] time provided Patient evaluated immediately upon arrival. She has experienced increased intermittent confusion. She sustained a fall. She has a history of diabetes and also takes Coumadin. She is alert and lucid at the time of arrival but is somewhat of a limited historian
[2018-03-02] MEDS ORDERED: 0.9 % Sodium Chloride 1,000 ML IVC ONE ×2 (07:52→08:25)
--- NOTE | 2018-03-02 08:02 | Emergency Department Note ---
Disposition Clinical Impression: Hyperglycemia, HERIBERTO (acute kidney injury) Sepsis Qualifiers: Sepsis type: sepsis due to unspecified organism Qualified Code(s): A41.9 - Sepsis, unspecified organism Cellulitis Qualifiers: Site of cellulitis: extremity Site of cellulitis of extremity: lower extremity Laterality: left Qualified Code(s): L03.116 - Cellulitis of left lower limb Disposition: Admitted As Inpatient Condition: Undetermined Referrals: Alonzo Resendiz MD [Primary Care Provider] - Forms: ED Satisfaction Letter Time of Disposition: 09:54 General Adult HPI - General Chief complaint: ED Weakness Stated complaint: Weakness Time Seen by Provider: 03/02/18 07:46 Source: patient, EMS Mode of arrival: EMS Limitations: no limitations Nursing Notes Reviewed: Yes Vital Signs Reviewed: Yes - History of Present Illness HPI Narrative: 68 year old female with history of afib on warfarin, diabetes, arrives to the ED with complaint of fevers, chills and weakness. The patient states that she has been experiencing episodes where her glucose is been elevated as well. The patient is unsure exactly what is going on. The patient denies any cough, abdominal pain but does admit to some nausea and vomiting. The patient denies actually hitting her head on the ground when she fell off the couch. Patient states that her primary concern is weakness and she feels as though "it is all gone in soon". Pain Scale: 0 - Related Data Home Medications Medication Instructions Recorded Confirmed Amlodipine Besylate 10 mg PO DAILY 04/21/17 03/02/18 Gabapentin [Neurontin] 800 mg PO TID 04/21/17 03/02/18 Insulin Regular, Human [Novolin R] 21 - 22 unit SQ TID PRN 04/21/17 03/02/18 Lisinopril [Zestril] 40 mg PO DAILY 04/21/17 03/02/18 Metoprolol [Lopressor] 50 mg PO BID 04/21/17 03/02/18 [place]-3/Dha/Epa/Fish Oil [[place] 3 2 cap PO DAILY 04/21/17 03/02/18 500 Softgel] Tramadol HCl [Ultram] 100 mg PO TID 04/21/17 03/02/18 Venlafaxine [Effexor] 75 mg PO BID 04/21/17 03/02/18 Zolpidem [Ambien] 10 mg PO HS 04/21/17 03/02/18 hydroCHLOROthiazide 25 mg PO DAILY 04/21/17 03/02/18 [Hydrochlorothiazide] Pravastatin Sodium [Pravachol] 40 mg PO DAILY 04/22/17 03/02/18 Albuterol Sulfate [Albuterol 2 puff IH Q6H PRN 03/02/18 03/02/18 Inhaler] Budesonide/Formoterol 160/4.5 2 puff IH BIDR 03/02/18 03/02/18 [Symbicort 160/4.5] Ferrous Sulfate [Iron] 325 mg PO DAILY 03/02/18 03/02/18 Insulin NPH, HUMAN [HumuLIN N] 55 unit SQ QPM 03/02/18 03/02/18 Insulin NPH, HUMAN [HumuLIN N] 75 unit SQ QAM 03/02/18 03/02/18 Mv W-Ca/Iron/FA/Lutein/Hrb#179 1 each PO DAILY 03/02/18 03/02/18 [Michael Multivit For Women Caplet] Nystatin POWDER [Nystop] 1 appl TP DAILY PRN 03/02/18 03/02/18 Warfarin [Coumadin] 7.5 mg PO MOTUWEFRSA 03/02/18 03/02/18 Warfarin [Coumadin] 10 mg PO SUTH 03/02/18 03/02/18 Previous Rx's Medication Instructions Recorded Metformin HCl [Glucophage] 1,000 mg PO BID #60 04/25/17 Allergies Allergy/AdvReac Type Severity Reaction Status Date / Time prochlorperazine Allergy Dry Mucus Verified 03/02/18 09:30 [From Compazine] Membranes Sulfa (Sulfonamide Allergy Blister Verified 03/02/18 09:30 Antibiotics) All systems ED: reviewed and negative except as stated. Constitutional: Reports: fever, chills, weakness ENT ED: Denies: epistaxis Cardiovascular: Denies: chest pain Respiratory: Reports: cough. Denies: dyspnea, wheezes, hemoptysis, sputum production Gastrointestinal: Reports: nausea, vomiting. Denies: abdominal pain, diarrhea, constipation, hematemesis, melena, hematochezia Genitourinary: Denies: urgency, dysuria, frequency, hematuria Musculoskeletal: Reports: back pain, myalgia. Denies: neck pain, arthralgia Integumentary: Denies: rash Neurological: Reports: weakness. Denies: headache, numbness, paresthesias Past Medical History - Past Medical History Attestation: Yes The following information was validated with the patient. Source: patient, old records reviewed Medical history: Reports: arthritis, DVT, diabetes, hypertension, pulmonary embolus, RA Surgical history: Reports: non-contributory Psychiatric history: Reports: anxiety, depression - Social History Smoking Status: Never smoker Smokeless Tobacco Status: No Alcohol use: Reports: none Drug use: Reports: none Physical Exam - General Limitations: no limitations General appearance: alert, in no apparent distress, other (Diaphoretic) - Head Head exam: atraumatic, normocephalic, normal inspection - Eye Eye exam: Present: normal appearance, PERRL, EOMI - ENT ENT exam: normal exam, normal oropharynx, mucous membranes moist - Neck Neck exam: Present: normal inspection, full ROM, trachea midline - Chest Chest inspection: Present: normal inspection, symmetric chest wall rise - Respiratory Respiratory exam: Present: normal lung sounds bilaterally - Cardiovascular Cardiovascular exam: Present: normal rhythm, tachycardia, normal heart sounds - Abdominal Exam Abdominal exam: Present: soft, Non-Tender. Absent: tenderness, distention, guarding, rebound, rigidity, Olivo's sign, Rovsing's sign, tenderness at McBurney's Point, pulsatile mass - Extremities Exam Extremities exam: Present: full ROM, other (Patient has area of erythema on left medial 5. There is no overt abscess but there is some induration noted. It is hot to the touch. Patient is unsure when this started.). Absent: tenderness, pedal edema - Neurological Exam Neurological exam: Present: alert, oriented X3, CN II-XII intact - Skin Skin exam: Present: warm, dry, intact, normal color Course - Reevaluation(s) Reevaluation #1: Patient's labs demonstrate concerning findings for sepsis. The patient appears to have a cellulitis on her left medial 5. There is no abscess associated with it. There is induration. The patient was started on vancomycin and Zosyn. Urine is pending at this time. We will admit the patient to the hospital at this time with diagnosis of sepsis. Time: 09:13 Vital Signs Temperature 100.3 F H 03/02/18 07:45 Pulse Rate 140 03/02/18 07:45 Respiratory Rate 26 03/02/18 07:45 Blood Pressure 142/105 03/02/18 07:45 O2 Sat by Pulse Oximetry 94 03/02/18 07:45 Temperature 100.3 F H 03/02/18 07:45 Pulse Rate 140 03/02/18 07:45 Respiratory Rate 26 03/02/18 07:45 Blood Pressure 142/105 03/02/18 07:45 O2 Sat by Pulse Oximetry 94 03/02/18 07:45 Oxygen Delivery Oxygen Delivery Nasal Cannula Medical Decision Making - [facility] Narrative Medical decision making narrative: Patient's workup in the emergency department given streets findings concerning for sepsis. The patient appears to have cellulitis of her anterior thigh on the medial aspect without concern for [place]. The patient will be admitted to the hospital at this time. Patient is not in septic shock. Cultures were obtained. The patient was given IV fluids. The patient was made aware and agrees to plan. No further questions or concerns noted. Head CT and chest x- ray demonstrate no acute process. Given the patient's sinus tachycardia likely associated with sepsis, the diltiazem drip was discontinued at this time. The patient will be admitted to the hospital, accepted by Dr. Richardson. - Lab Data Lab results reviewed: Yes I reviewed the patient's lab results. Result diagrams: 03/02/18 07:59 03/02/18 07:59 Lab Results 03/02/18 03/02/18 03/02/18 Range/Units 07:59 07:59 07:59 WBC 22.1 H (4.3-11.1) K/mcL RBC 4.29 (3.82-4.97) M/mcL Hgb 11.3 L (11.5-15.4) g/dL Hct 35.9 (35.3-44.9) % MCV 83.7 (83.0-100.0) fL MCH 26.3 L (28.0-33.3) pg MCHC 31.5 L (31.6-35.5) g/dL RDW 14.6 H (11.5-14.5) % Plt Count 308 (140-400) K/mcL MPV 10.5 (9.4-12.4) fL Seg Neutrophils % 72.0 % Band Neutrophils % 14.0 H (0-4) % Lymphocytes % 8.0 % Monocytes % 4.0 % Metamyelocytes % 2.0 H (0) % Neutrophils # 19.0 H (1.6-8.9) K/mcL Lymphocytes # 1.8 (0.6-4.6) K/mcL Monocytes # 0.9 (0.0-1.3) K/mcL Toxic Granulation Present A (Not Present) Toxic Vacuolation Present A (Not Present) Platelet Estimate Normal (Normal) PT 23.1 H (9.4-12.1) Seconds INR 2.0 VBG pH (7.32-7.42) pH Units VBG pCO2 (41-51) mmHg VBG pO2 (25-50) mmHg VBG HCO3 (21-27) mEq/L Sodium 132 L (136-145) mEq/L Potassium 4.0 (3.5-5.1) mEq/L Chloride 96 L (98-107) mEq/L Carbon Dioxide 23 (23-29) mEq/L BUN 31 H (8-23) mg/dL Creatinine 1.28 H (0.60-1.20) mg/dL Est GFR ( Amer) 50 L (> 60) Est GFR (Non-Af Amer) 42 L (> 60) BUN/Creatinine Ratio 24 (6-26) Glucose 390 H (70-105) mg/dL Calculated Osmolality 297 (280-300) Lactic Acid (0.5-2.2) mmol/L Calcium 9.0 (8.6-10.3) mg/dL Magnesium 1.5 L (1.6-2.6) mg/dL Total Bilirubin 0.4 (0.3-1.0) mg/dL AST 10 L (13-39) Units/L ALT 11 (7-52) Units/L Alkaline Phosphatase 68 (34-104) Units/L Troponin I < 0.03 (< 0.04) ng/mL Serum Total Protein 7.0 (6.4-8.9) g/dL Albumin 3.5 (3.5-5.7) g/dL Globulin 3.5 (2.4-3.5) g/dL Albumin/Globulin Ratio 1.0 L (1.1-2.2) Beta-Hydroxybutyric Acd (0.02-0.27) mmol/L Urine Color (Yellow) Urine Clarity (Clear) Urine pH (5.0-8.0) pH Units Ur Specific [place] (1.010-1.025) Urine Protein (Neg-Trace) mg/dL Urine Glucose (UA) (Normal) mg/dL Urine Ketones (Negative) mg/dL Urine Blood (Negative) Urine Nitrite (Negative) Urine Bilirubin (Negative) Urine Urobilinogen (Normal) mg/dL Ur Leukocyte Esterase (Negative) Urine Microscopic RBC (0-3) per hpf Urine Microscopic WBC (0-3) per hpf Ur Squamous Epith Cells (None-Few) per lpf Ur Transition Epith Cell (None-Few) per hpf Amorphous Sediment (Few) Urine Bacteria (None-Few) per hpf Granular Casts (None Seen) per lpf 03/02/18 03/02/18 03/02/18 Range/Units 07:59 07:59 08:18 WBC (4.3-11.1) K/mcL RBC (3.82-4.97) M/mcL Hgb (11.5-15.4) g/dL Hct (35.3-44.9) % MCV (83.0-100.0) fL MCH (28.0-33.3) pg MCHC (31.6-35.5) g/dL RDW (11.5-14.5) % Plt Count (140-400) K/mcL MPV (9.4-12.4) fL Seg Neutrophils % % Band Neutrophils % (0-4) % Lymphocytes % % Monocytes % % Metamyelocytes % (0) % Neutrophils # (1.6-8.9) K/mcL Lymphocytes # (0.6-4.6) K/mcL Monocytes # (0.0-1.3) K/mcL Toxic Granulation (Not Present) Toxic Vacuolation (Not Present) Platelet Estimate (Normal) PT (9.4-12.1) Seconds INR VBG pH 7.43 H (7.32-7.42) pH Units VBG pCO2 38 L (41-51) mmHg VBG pO2 94 H (25-50) mmHg VBG HCO3 25 (21-27) mEq/L Sodium (136-145) mEq/L Potassium (3.5-5.1) mEq/L Chloride (98-107) mEq/L Carbon Dioxide (23-29) mEq/L BUN (8-23) mg/dL Creatinine (0.60-1.20) mg/dL Est GFR ( Amer) (> 60) Est GFR (Non-Af Amer) (> 60) BUN/Creatinine Ratio (6-26) Glucose (70-105) mg/dL Calculated Osmolality (280-300) Lactic Acid 2.7 H (0.5-2.2) mmol/L Calcium (8.6-10.3) mg/dL Magnesium (1.6-2.6) mg/dL Total Bilirubin (0.3-1.0) mg/dL AST (13-39) Units/L ALT (7-52) Units/L Alkaline Phosphatase (34-104) Units/L Troponin I (< 0.04) ng/mL Serum Total Protein (6.4-8.9) g/dL Albumin (3.5-5.7) g/dL Globulin (2.4-3.5) g/dL Albumin/Globulin Ratio (1.1-2.2) Beta-Hydroxybutyric Acd 1.02 H (0.02-0.27) mmol/L Urine Color (Yellow) Urine Clarity (Clear) Urine pH (5.0-8.0) pH Units Ur Specific [place] (1.010-1.025) Urine Protein (Neg-Trace) mg/dL Urine Glucose (UA) (Normal) mg/dL Urine Ketones (Negative) mg/dL Urine Blood (Negative) Urine Nitrite (Negative) Urine Bilirubin (Negative) Urine Urobilinogen (Normal) mg/dL Ur Leukocyte Esterase (Negative) Urine Microscopic RBC (0-3) per hpf Urine Microscopic WBC (0-3) per hpf Ur Squamous Epith Cells (None-Few) per lpf Ur Transition Epith Cell (None-Few) per hpf Amorphous Sediment (Few) Urine Bacteria (None-Few) per hpf Granular Casts (None Seen) per lpf 03/02/18 Range/Units 08:45 WBC (4.3-11.1) K/mcL RBC (3.82-4.97) M/mcL Hgb (11.5-15.4) g/dL Hct (35.3-44.9) % MCV (83.0-100.0) fL MCH (28.0-33.3) pg MCHC (31.6-35.5) g/dL RDW (11.5-14.5) % Plt Count (140-400) K/mcL MPV (9.4-12.4) fL Seg Neutrophils % % Band Neutrophils % (0-4) % Lymphocytes % % Monocytes % % Metamyelocytes % (0) % Neutrophils # (1.6-8.9) K/mcL Lymphocytes # (0.6-4.6) K/mcL Monocytes # (0.0-1.3) K/mcL Toxic Granulation (Not Present) Toxic Vacuolation (Not Present) Platelet Estimate (Normal) PT (9.4-12.1) Seconds INR VBG pH (7.32-7.42) pH Units VBG pCO2 (41-51) mmHg VBG pO2 (25-50) mmHg VBG HCO3 (21-27) mEq/L Sodium (136-145) mEq/L Potassium (3.5-5.1) mEq/L Chloride (98-107) mEq/L Carbon Dioxide (23-29) mEq/L BUN (8-23) mg/dL Creatinine (0.60-1.20) mg/dL Est GFR ( Amer) (> 60) Est GFR (Non-Af Amer) (> 60) BUN/Creatinine Ratio (6-26) Glucose (70-105) mg/dL Calculated Osmolality (280-300) Lactic Acid (0.5-2.2) mmol/L Calcium (8.6-10.3) mg/dL Magnesium (1.6-2.6) mg/dL Total Bilirubin (0.3-1.0) mg/dL AST (13-39) Units/L ALT (7-52) Units/L Alkaline Phosphatase (34-104) Units/L Troponin I (< 0.04) ng/mL Serum Total Protein (6.4-8.9) g/dL Albumin (3.5-5.7) g/dL Globulin (2.4-3.5) g/dL Albumin/Globulin Ratio (1.1-2.2) Beta-Hydroxybutyric Acd (0.02-0.27) mmol/L Urine Color Yellow (Yellow) Urine Clarity Turbid A (Clear) Urine pH 5.0 (5.0-8.0) pH Units Ur Specific [place] > 1.030 H (1.010-1.025) Urine Protein 100 H (Neg-Trace) mg/dL Urine Glucose (UA) 500 H (Normal) mg/dL Urine Ketones Trace H (Negative) mg/dL Urine Blood Large H (Negative) Urine Nitrite Negative (Negative) Urine Bilirubin Small H (Negative) Urine Urobilinogen Normal (Normal) mg/dL Ur Leukocyte Esterase Negative (Negative) Urine Microscopic RBC 0-3 (0-3) per hpf Urine Microscopic WBC 5-15 H (0-3) per hpf Ur Squamous Epith Cells Many H (None-Few) per lpf Ur Transition Epith Cell Few (None-Few) per hpf Amorphous Sediment Many H (Few) Urine Bacteria None Seen (None-Few) per hpf Granular Casts Many H (None Seen) per lpf - Radiology Data Radiology results reviewed: Yes I reviewed the patient's radiology results. Chest X-Ray 03/02/18 07:49 IMPRESSION: No acute cardiopulmonary abnormality. D/ / Del Whitt MD / Del Whitt MD Interpreting Provider: Del Whitt MD Head CT 03/02/18 07:49 IMPRESSION: No acute intracranial abnormality. D/ / Braden Muro MD / Braden Muro MD Interpreting Provider: Braden Muro MD - EKG Data EKG #1 EKG attestation: Yes I reviewed and interpreted this EKG. EKG results narrative: Heart rate 134. Sinus tachycardia. No ST elevation or ST depression noted.
[2018-03-02 08:17] LABS: Hematocrit 35.9 % (35.3-44.9); Hemoglobin 11.3 g/dL (11.5-15.4); Mean Corpuscular HGB Conc 31.5 g/dL (31.6-35.5); Mean Corpuscular Hemoglobin 26.3 pg (28.0-33.3); Mean Corpuscular Volume 83.7 fL (83.0-100.0); Mean Platelet Volume 10.5 fL (9.4-12.4); Platelet Count 308 K/mcL (140-400); Red Blood Count 4.29 M/mcL (3.82-4.97); Red Cell Distribution Width 14.6 % (11.5-14.5)
[2018-03-02 08:21] LABS: VBG HCO3 25 mEq/L (21-27); VBG PCO2 38 mmHg (41-51); VBG PH 7.43 pH Units (7.32-7.42); VBG PO2 94 mmHg (25-50)
[2018-03-02 08:25] LABS: Prothrombin Time 23.1 Seconds (9.4-12.1)
[2018-03-02 08:36] LABS: Lymphocytes # 1.8 K/mcL (0.6-4.6); Monocytes # 0.9 K/mcL (0.0-1.3)
[2018-03-02 08:37] LABS: Platelet Estimate Normal (Normal); Toxic Granulation Present (Not Present); Toxic Vacuolation Present (Not Present)
[2018-03-02 08:39] LABS: Alanine Aminotransferase 11 Units/L (7-52); Albumin 3.5 g/dL (3.5-5.7); Alkaline Phosphatase 68 Units/L (34-104); Aspartate Amino Transferase 10 Units/L (13-39); BUN/Creatinine Ratio 24 (6-26); Bilirubin,Total 0.4 mg/dL (0.3-1.0); Blood Urea Nitrogen 31 mg/dL (8-23); Carbon Dioxide 23 mEq/L (23-29); Chloride 96 mEq/L (98-107); Globulin 3.5 g/dL (2.4-3.5); Glucose 390 mg/dL (70-105); Magnesium 1.5 mg/dL (1.6-2.6); Osmolality,Calculated 297 (280-300); Sodium 132 mEq/L (136-145); eGFR For African Americans 50 (> 60); eGFR For Non-African Americans 42 (> 60)
[2018-03-02 08:40] LABS: Troponin I < 0.03 ng/mL (< 0.04)
[2018-03-02] MEDS ORDERED: cefTRIAXone 1,000 MG in Water for inj. (sterile) 20 ML 10 ML IVP ONE (08:53)
[2018-03-02 09:19] LABS: Bilirubin,Urine Small (Negative); Blood,Urine Large (Negative); Clarity,Urine Turbid (Clear); Color,Urine Yellow (Yellow); Glucose,Urine (UA) 500 mg/dL (Normal); Ketones,Urine Trace mg/dL (Negative); Leukocyte Esterase,Urine Negative (Negative); Nitrite,Urine Negative (Negative); Protein,Urine 100 mg/dL (Neg-Trace); Specific Gravity,Urine > 1.030 (1.010-1.025); Urobilinogen,Urine Normal (Normal)
[2018-03-02 09:21] LABS: Bacteria,Urine None Seen per hpf (None-Few); RBC,Urine 0-3 per hpf (0-3); Squamous Epithelial Cell,Urine Many per lpf (None-Few)
[2018-03-02 09:32] LABS: Granular Casts,Urine Many per lpf (None Seen)
[2018-03-02 09:37] LABS: Amorphous Sediment,Urine Many (Few)
[2018-03-02 09:40] LABS: Transitional Epi Cells,Urine Few per hpf (None-Few)
[2018-03-02] MEDS ORDERED: Naloxone 0.4 MG/ML INJ IVP PRN (10:15)
[2018-03-02] MEDS ORDERED: Nystatin POWDER 30 GM BOTTLE TP PRN (10:19)
[2018-03-02] MEDS ORDERED: D5% in Water 1,000 ML IVC PRN (11:44)
[2018-03-02] MEDS ORDERED: *HR* Dextrose 50 % in Water (Syg) 50 ML SYRINGE IVP PRN (11:44)
[2018-03-02] MEDS ORDERED: Dextrose Gel 15 GM/37.5 ML TUBE PO PRN ×2 (11:44)
--- NOTE | 2018-03-02 11:51 | Internal Med History&Physical ---
Date of Encounter: 03/03/18 Time of Encounter: 11:45 Internal Medicine - H&P: HPI Chief complaint: Swelling and redness of left thigh and not feeling well since tuesday History of present illness: Ms. Salmon is a 68 year old female with pmh of diabetes, PE and DVT on coumadin , presenting with complaints of malaise and generally feeling unwell for about 2 weeks. She notes she has had increased difficulty moving and noticed since tuesday she has had left inner thigh swelling and redness and pain. she also complains of vomiting last night. denies any abdominal pain, admits to subjective fevers. In the ER she was noted to have a leukocytosis of 22 and she was started on vancomycin and ceftriaxone for cellulitis. She is being admitted for further management Past Med Surg Social Fam HX - Past Medical History Medical history: arthritis, DVT, diabetes, hypertension, pulmonary embolus, RA Psychiatric history: anxiety, depression - Past Surgical History Surgical History: non-contributory - Social History Smoking Status: Never smoker Smokeless Tobacco Status: No Alcohol use: none Drug use: none - Family History Father Living Status: Hx Family Cardiac Disorders: Yes Internal Medicine - H&P: Meds Amlodipine Besylate 10 mg PO DAILY 04/21/17 [History] Gabapentin [Neurontin] 800 mg PO TID 04/21/17 [History] Insulin Regular, Human [Novolin R] 21 - 22 unit SQ TID PRN 04/21/17 [History] Lisinopril [Zestril] 40 mg PO DAILY 04/21/17 [History] Metoprolol [Lopressor] 50 mg PO BID 04/21/17 [History] Boqueron-3/Dha/Epa/Fish Oil [Boqueron 3 500 Softgel] 2 cap PO DAILY 04/21/17 [History] Tramadol HCl [Ultram] 100 mg PO TID 04/21/17 [History] Venlafaxine [Effexor] 75 mg PO BID 04/21/17 [History] Zolpidem [Ambien] 10 mg PO HS 04/21/17 [History] hydroCHLOROthiazide [Hydrochlorothiazide] 25 mg PO DAILY 04/21/17 [History] Pravastatin Sodium [Pravachol] 40 mg PO DAILY 04/22/17 [History] Metformin HCl [Glucophage] 1,000 mg PO BID #60 04/25/17 [Rx] Albuterol Sulfate [Albuterol Inhaler] 2 puff IH Q6H PRN 03/02/18 [History] Budesonide/Formoterol 160/4.5 [Symbicort 160/4.5] 2 puff IH BIDR 03/02/18 [ History] Ferrous Sulfate [Iron] 325 mg PO DAILY 03/02/18 [History] Insulin NPH, HUMAN [HumuLIN N] 55 unit SQ QPM 03/02/18 [History] Insulin NPH, HUMAN [HumuLIN N] 75 unit SQ QAM 03/02/18 [History] Mv W-Ca/Iron/FA/Lutein/Hrb#179 [Michael Multivit For Women Caplet] 1 each PO DAILY 03/02/18 [History] Nystatin POWDER [Nystop] 1 appl TP DAILY PRN 03/02/18 [History] Warfarin [Coumadin] 7.5 mg PO MOTUWEFRSA 03/02/18 [History] Warfarin [Coumadin] 10 mg PO SUTH 03/02/18 [History] 3 Allergy/AdvReac Type Severity Reaction Status Date / Time prochlorperazine Allergy Dry Mucus Verified 03/02/18 09:30 [From Compazine] Membranes Sulfa (Sulfonamide Allergy Blister Verified 03/02/18 09:30 Antibiotics) All Systems PM: A 10-system review of systems was performed and is negative for pertinent findings except as documented above in the HPI. - Constitutional Constitutional: fatigue, lethargy, malaise - EENT Eyes: no change in vision, no discharge, no pain, no photophobia Ears: no ear discharge, no ear pain, no tinnitus Nose, mouth and throat: no dysphagia, no nasal discharge, no neck pain, no sore throat - Cardiovascular Cardiovascular ROS IM: no chest pain, no diaphoresis, no dyspnea, no lightheadedness, no palpitations, no syncope - Respiratory Respiratory: no cough, no dyspnea, no wheezing, no excessive phlegm production - Gastrointestinal Gastrointestinal: no abdominal pain, no diarrhea, no hematemesis, no hematochezia, no melena, no nausea, no vomiting - Genitourinary Genitourinary: no change in urinary stream, no dysuria, no flank pain, no hematuria - Musculoskeletal Musculoskeletal ROS IM: no numbness, no tingling - Integumentary Integumentary IM: erythema, no rash, no unusual bruising - Neurological Neurological ROS: no confusion, no convulsions, no focal weakness, no numbness, no tingling, no tremor(s) - Hematologic/Lymphatic Hematologic/Lymphatic: no easy bruising - Constitutional Vitals: Temp Pulse Resp BP Pulse Ox 99.3 F 119 20 125/55 98 03/02/18 11:19 03/02/18 11:10 03/02/18 10:19 03/02/18 11:13 03/02/18 11:13 Exam: obese female - Head Head exam: Present: atraumatic, normocephalic - Eye Eye exam: Present: PERRL, conjuntiva pink, sclera anicteric Pupils: Present: PERRL - Neck Neck exam general surgery: Present: supple, trachea midline. Absent: lymphadenopathy - Respiratory Respiratory exam: Present: CTAB. Absent: accessory muscle use, rales, rhonchi, wheezes - Cardiovascular Cardiovascular exam: Present: RRR, +S1, +S2. Absent: diastolic murmur, gallop, rubs, systolic murmur - GI/Abdominal GI/Abdominal exam: Present: normal bowel sounds, soft, no peritoneal signs. Absent: distended, tenderness - Extremities Exam Extremities exam: Present: warm, radial pulses palpable and symmetrical. Absent : calf tenderness, cyanotic, pedal edema Additional comments: swelling, redness and warmth along left inner thigh - Neurological Exam Neurological exam: Present: CN II-XII intact, oriented X3, no focal deficits. Absent: pronater drift, facial droop, speech deficit - Skin Skin exam: Present: dry, intact Internal Med - H&P Results - Labs CBC & Chem 7: 03/03/18 04:34 03/03/18 04:34 - Assessment and plan (1) Sepsis Current Visit: Yes Status: Acute Assessment and plan: Likely 2/2 to cellulitis of left thigh. CXR negative. F/U blood and urine cultures. Start on vancomycin and zosyn Qualifiers: Sepsis type: sepsis due to unspecified organism Qualified Code(s): A41.9 - Sepsis, unspecified organism (2) Cellulitis Current Visit: Yes Status: Acute Assessment and plan: Continue on vanc and zosyn Qualifiers: Site of cellulitis: extremity Site of cellulitis of extremity: lower extremity Laterality: left Qualified Code(s): L03.116 - Cellulitis of left lower limb (3) DMII (diabetes mellitus, type 2) Current Visit: No Status: Chronic Assessment and plan: Continue home regimen of insulin. Place on MDSS. monitor fingersticks Qualifiers: Diabetes mellitus residential insulin use: with termite control servicer use Diabetes mellitus complication status: with kidney complications Diabetes mellitus complication detail: with chronic kidney disease Chronic kidney disease stage : stage 3 (moderate) Qualified Code(s): E11.22 - Type 2 diabetes mellitus with diabetic chronic kidney disease; N18.3 - Chronic kidney disease, stage 3 ( moderate); Z79.4 - intermediate frame tender (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 (4) HTN (hypertension), benign Current Visit: No Status: Chronic Assessment and plan: Continue home meds (5) DVT prophylaxis Current Visit: Yes Status: Acute Assessment and plan: On heparin (6) HERIBERTO (acute kidney injury) Current Visit: Yes Status: Acute Assessment and plan: On IV fluids - Time Spent With Patient Total time spent is greater than 50% in coordination of care (as documented) at patient's floor/unit and/or counseling patient:
[2018-03-02 12:51] LABS: Estimated Average Glucose 237 mg/dl; Hemoglobin A1C 9.9 %
[2018-03-02] MEDS: Insulin LISPRO 300 UNITS/3 ML VIAL SQ SCH ×2 (13:22→16:59)
[2018-03-02] MEDS: Piperacillin/Tazobactam 3.375 GM in 0.9 % Sodium Chloride Mini Bag 100 ML IVPB SCH ×2 (13:23→15:16)
[2018-03-02] MEDS: 0.9 % Sodium Chloride 1,000 ML IVC SCH ×2 (13:23→23:51)
[2018-03-02] MEDS: Gabapentin 400 MG CAPSULE PO SCH ×2 (15:38→20:02)
[2018-03-02] MEDS: traMADol 50 MG TABLET PO SCH ×2 (15:38→20:02)
[2018-03-02] MEDS: Insulin NPH 100 UNIT/ML (x5UNIT) SQ SCH (16:59)
[2018-03-02] MEDS ORDERED: Warfarin perPT PO PRN (18:00)
[2018-03-02] MEDS ORDERED: *HR* Warfarin 10 MG TABLET PO ONE (18:00)
[2018-03-02] MEDS ORDERED: *HR* Heparin 5,000 UNIT/ML VIAL SQ SCH ×2 (18:00)
[2018-03-02] MEDS ORDERED: *HR* Warfarin 10 MG TABLET PO SCH (18:00)
[2018-03-02] MEDS: Budesonide/Formoterol 160/4.5 MDI IH SCH (20:10)
--- NOTE | 2018-03-02 23:20 | Electrocardiograph Report ---
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
[2018-03-03] MEDS: Piperacillin/Tazobactam 3.375 GM in 0.9 % Sodium Chloride Mini Bag 100 ML IVPB SCH ×2 (01:13→08:55)
[2018-03-03 05:15] LABS: Basophils % 0.1 %; Hematocrit 32.2 % (35.3-44.9); Hemoglobin 9.9 g/dL (11.5-15.4); Immature Granulocytes % 0.6 % (0-4); Lymphocytes # 1.9 K/mcL (0.6-4.6); Lymphocytes % 12.3 %; Mean Corpuscular HGB Conc 30.7 g/dL (31.6-35.5); Mean Corpuscular Hemoglobin 26.1 pg (28.0-33.3); Mean Corpuscular Volume 84.7 fL (83.0-100.0); Mean Platelet Volume 10.7 fL (9.4-12.4); Monocytes % 6.4 %; Platelet Count 267 K/mcL (140-400); Red Cell Distribution Width 14.5 % (11.5-14.5); Segmented Neutrophils % 80.6 %
[2018-03-03 05:27] LABS: Neutrophils # 12.7 K/mcL (1.6-8.9)
[2018-03-03 05:32] LABS: Calcium 8.3 mg/dL (8.6-10.3); INR 1.9; Magnesium 1.6 mg/dL (1.6-2.6); Phosphorous 2.5 mg/dL (2.7-4.5); Potassium 3.8 mEq/L (3.5-5.1); Prothrombin Time 21.1 Seconds (9.4-12.1)
[2018-03-03 05:56] LABS: Platelet Estimate Normal (Normal)
[2018-03-03] MEDS: Budesonide/Formoterol 160/4.5 MDI IH SCH ×2 (08:01→20:01)
[2018-03-03] MEDS: Gabapentin 400 MG CAPSULE PO SCH ×3 (08:54→21:07)
[2018-03-03] MEDS: hydroCHLOROthiazide 25 MG TABLET PO SCH (08:54)
[2018-03-03] MEDS: Lisinopril 20 MG TABLET PO SCH (08:55)
[2018-03-03] MEDS: Multivit/Ca/Min/Fe/FA 1 TAB TABLET PO SCH (08:55)
[2018-03-03] MEDS: traMADol 50 MG TABLET PO SCH ×3 (08:55→21:08)
[2018-03-03] MEDS: Insulin NPH 100 UNIT/ML (x5UNIT) SQ SCH ×2 (08:55→16:04)
[2018-03-03] MEDS: amLODIPine 5 MG TABLET PO SCH (08:55)
[2018-03-03] MEDS: Insulin LISPRO 300 UNITS/3 ML VIAL SQ SCH ×4 (08:56→21:10)
[2018-03-03] MEDS ORDERED: [UNRECOGNIZED DRUG - OTHER] PO SCH (09:00)
[2018-03-03] MEDS ORDERED: OMEGA PO SCH (09:00)
[2018-03-03] MEDS ORDERED: EPA PO SCH (09:00)
[2018-03-03] MEDS ORDERED: DHA PO SCH (09:00)
[2018-03-03] MEDS ORDERED: FISH OIL PO SCH (09:00)
--- NOTE | 2018-03-03 09:22 | Internal Med Progress Note ---
Date of Encounter: 03/03/18 Time of Encounter: 11:00 - Assessment and plan (1) Cellulitis Current Visit: Yes Status: Acute Assessment and plan: Patient with left inner thigh cellulitis extending up to groin area Will discontinue IV Zosyn and continue IV vancomycin. Will also start patient on topical Nystatin for coverage of yeast Qualifiers: Site of cellulitis: extremity Site of cellulitis of extremity: lower extremity Laterality: left Qualified Code(s): L03.116 - Cellulitis of left lower limb (2) Sepsis Current Visit: Yes Status: Resolved Assessment and plan: Resolved; continue IV antibiotics as above Qualifiers: Sepsis type: sepsis due to unspecified organism Qualified Code(s): A41.9 - Sepsis, unspecified organism (3) HERIBERTO (acute kidney injury) Current Visit: Yes Status: Resolved Assessment and plan: Resolved; continue to monitor (4) Impaired ambulation Current Visit: Yes Status: Acute Assessment and plan: Patient reports lower extremity weakness and difficulty with ambulation. Physical therapy was consulted with recommendations for residential facility placement for strengthening/conditioning and rehabilitation (5) HTN (hypertension), benign Current Visit: No Status: Chronic Assessment and plan: Controlled; continue ROSENDA inhibitor (6) DMII (diabetes mellitus, type 2) Current Visit: No Status: Chronic Assessment and plan: Blood glucose levels elevated so will increase sliding scale to high while continue home dose of Humulin Qualifiers: Diabetes mellitus terminal superintendent insulin use: with terminal superintendent use Diabetes mellitus complication status: with kidney complications Diabetes mellitus complication detail: with chronic kidney disease Chronic kidney disease stage : stage 3 (moderate) Qualified Code(s): E11.22 - Type 2 diabetes mellitus with diabetic chronic kidney disease; N18.3 - Chronic kidney disease, stage 3 ( moderate); Z79.4 - long term care administrator (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 (7) DVT prophylaxis Current Visit: Yes Status: Acute Assessment and plan: Continue home dose of Coumadin (INR 1.9) - Time Spent With Patient Total time spent is greater than 50% in coordination of care (as documented) at patient's floor/unit and/or counseling patient: - Subjective Interval history: Patient's leukocytosis has improved on 24 hours of IV antibiotics and acute renal failure has resolved with IV fluids. Patient reports of lower extremity weakness with difficulty ambulating so physical therapy consulted. - Constitutional Vitals: Temp Pulse Resp BP Pulse Ox 98.5 F 99 18 152/82 93 03/03/18 07:02 03/03/18 07:02 03/03/18 08:01 03/03/18 07:02 03/03/18 08:01 General appearance: Present: A&O X 3, no acute distress - Respiratory Respiratory exam: Present: CTAB. Absent: accessory muscle use, rales, rhonchi, wheezes - Cardiovascular Cardiovascular exam: Present: RRR, +S1, +S2. Absent: diastolic murmur, gallop, rubs, systolic murmur - Expanded Skin Exam Description of rash: Present: erythematous (Erythematous rash on left inner thigh extending to groin area) Internal Medicine: Result - Labs CBC & Chem 7: 03/03/18 04:34 03/03/18 04:34 Labs: Short CBC 03/03/18 Range/Units 04:34 WBC 15.7 H (4.3-11.1) K/mcL Hgb 9.9 L (11.5-15.4) g/dL Hct 32.2 L (35.3-44.9) % Plt Count 267 (140-400) K/mcL Neutrophils # 12.7 H (1.6-8.9) K/mcL BMP 03/03/18 04:34 Sodium 135 L Potassium 3.8 Chloride 101 Carbon Dioxide 25 BUN 29 H Creatinine 1.17 Glucose 359 H Calcium 8.3 L - ABG Interpretation ABG results: PT/INR, D-dimer PT 21.1 Seconds (9.4-12.1) H 03/03/18 04:34 Consult Discharge Plan - Plan Referrals: Alonzo Resendiz MD [Primary Care Provider] -
[2018-03-03 09:24] LABS: Acinetobacter baumannii by PCR Not Detected (Not Detect); Candida albicans by PCR Not Detected (Not Detect); Candida glabrata by PCR Not Detected (Not Detect); Candida krusei by PCR Not Detected (Not Detect); Candida parapsilosis by PCR Not Detected (Not Detect); Candida tropicalis by PCR Not Detected (Not Detect); Enterococcus by PCR Not Detected (Not Detect); Escherichia coli by PCR Not Detected (Not Detect); Klebsiella oxytoca by PCR Not Detected (Not Detect); Klebsiella pneumoniae by PCR Not Detected (Not Detect); Pseudomonas aeruginosa by PCR Not Detected (Not Detect); Serratia marcescens by PCR Not Detected (Not Detect); Staphylococcus aureus by PCR Not Detected (Not Detect); Streptococcus agalactiae(B)PCR Not Detected (Not Detect); Streptococcus by PCR Not Detected (Not Detect); Streptococcus pneumoniae PCR Not Detected (Not Detect); Streptococcus pyogenes (A) PCR Not Detected (Not Detect); blaKPC Carbapenem-Resist Gene Not Detected (Not Detect); vanA/B Vancomycin-Resist Genes Not Detected (Not Detect)
[2018-03-03 09:25] LABS: mecA Methicillin-Resist Gene ***DETECTED*** (Not Detect)
[2018-03-03] MEDS: *HR* Warfarin 7.5 MG TABLET PO SCH (16:03)
[2018-03-03] MEDS: Nystatin POWDER 30 GM BOTTLE TP SCH (21:12)
[2018-03-04 03:43] LABS: Hematocrit 33.6 % (35.3-44.9); Hemoglobin 10.1 g/dL (11.5-15.4); Mean Corpuscular HGB Conc 30.1 g/dL (31.6-35.5); Mean Corpuscular Hemoglobin 25.7 pg (28.0-33.3); Mean Corpuscular Volume 85.5 fL (83.0-100.0); Mean Platelet Volume 10.3 fL (9.4-12.4); Platelet Count 309 K/mcL (140-400); Red Blood Count 3.93 M/mcL (3.82-4.97); Red Cell Distribution Width 14.5 % (11.5-14.5)
[2018-03-04 03:53] LABS: INR 2.3; Prothrombin Time 26.3 Seconds (9.4-12.1)
[2018-03-04 04:04] LABS: Calcium 8.3 mg/dL (8.6-10.3); Magnesium 2.1 mg/dL (1.6-2.6); Potassium 3.9 mEq/L (3.5-5.1)
[2018-03-04 04:12] LABS: Lymphocytes # 1.7 K/mcL (0.6-4.6); Monocytes # 2.4 K/mcL (0.0-1.3); Neutrophils # 13.2 K/mcL (1.6-8.9); Platelet Estimate Normal (Normal)
[2018-03-04] MEDS: Budesonide/Formoterol 160/4.5 MDI IH SCH ×2 (07:59→20:30)
[2018-03-04] MEDS: amLODIPine 5 MG TABLET PO SCH (08:22)
[2018-03-04] MEDS: Insulin NPH 100 UNIT/ML (x5UNIT) SQ SCH ×2 (08:22→17:00)
[2018-03-04] MEDS: traMADol 50 MG TABLET PO SCH ×3 (08:22→21:38)
[2018-03-04] MEDS: hydroCHLOROthiazide 25 MG TABLET PO SCH (08:22)
[2018-03-04] MEDS: Multivit/Ca/Min/Fe/FA 1 TAB TABLET PO SCH (08:22)
[2018-03-04] MEDS: Nystatin POWDER 30 GM BOTTLE TP SCH ×2 (08:23→22:02)
[2018-03-04] MEDS: Gabapentin 400 MG CAPSULE PO SCH ×3 (08:23→22:03)
[2018-03-04] MEDS: Lisinopril 20 MG TABLET PO SCH (08:23)
[2018-03-04] MEDS: Insulin LISPRO 300 UNITS/3 ML VIAL SQ SCH ×4 (08:24→21:37)
[2018-03-04] MEDS: *HR* Warfarin 7.5 MG TABLET PO SCH (17:00)
--- NOTE | 2018-03-04 19:48 | Internal Med Progress Note ---
Date of Encounter: 03/05/18 Time of Encounter: 11:00 - Assessment and plan (1) Cellulitis Current Visit: Yes Status: Acute Assessment and plan: Patient with left inner thigh cellulitis extending up to groin area which appears to be improving this morning with decreased erythema Patient with fevers overnight however with a MAXIMUM TEMPERATURE of 101.5 Will continue IV vancomycin and topical Nystatin for coverage of yeast Qualifiers: Site of cellulitis: extremity Site of cellulitis of extremity: lower extremity Laterality: left Qualified Code(s): L03.116 - Cellulitis of left lower limb (2) Sepsis Current Visit: Yes Status: Resolved Assessment and plan: Resolved; continue IV antibiotics as above Qualifiers: Sepsis type: sepsis due to unspecified organism Qualified Code(s): A41.9 - Sepsis, unspecified organism (3) HERIBERTO (acute kidney injury) Current Visit: Yes Status: Resolved Assessment and plan: Resolved; continue to monitor (4) Impaired ambulation Current Visit: Yes Status: Acute Assessment and plan: Patient reports lower extremity weakness and difficulty with ambulation. Physical therapy was consulted with recommendations for [facility] facility placement for strengthening/conditioning and rehabilitation (5) HTN (hypertension), benign Current Visit: No Status: Chronic Assessment and plan: Controlled; continue ROSENDA inhibitor (6) DMII (diabetes mellitus, type 2) Current Visit: No Status: Chronic Assessment and plan: Blood glucose levels elevated so will increase sliding scale to high while continue home dose of Humulin Qualifiers: Diabetes mellitus [facility] insulin use: with lobsterman use Diabetes mellitus complication status: with kidney complications Diabetes mellitus complication detail: with chronic kidney disease Chronic kidney disease stage : stage 3 (moderate) Qualified Code(s): E11.22 - Type 2 diabetes mellitus with diabetic chronic kidney disease; N18.3 - Chronic kidney disease, stage 3 ( moderate); Z79.4 - intermediate (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 (7) DVT prophylaxis Current Visit: Yes Status: Acute Assessment and plan: Continue home dose of Coumadin (INR 1.9) - Time Spent With Patient Total time spent is greater than 50% in coordination of care (as documented) at patient's floor/unit and/or counseling patient: - Subjective Interval history: Patient's leukocytosis continues to improve on IV antibiotics. However patient's mental status more altered this morning in addition of having fevers with a MAXIMUM TEMPERATURE of 101.5 Patient reports of lower extremity weakness with difficulty ambulating so physical therapy consulted with recommendations for [facility] facility placement - Constitutional Vitals: Temp Pulse Resp BP Pulse Ox 100.5 F H 90 17 113/67 95 03/04/18 16:41 03/04/18 16:41 03/04/18 16:41 03/04/18 16:41 03/04/18 16:41 General appearance: Present: A&O X 2, A&O X 3, no acute distress - Respiratory Respiratory exam: Present: CTAB. Absent: accessory muscle use, rales, rhonchi, wheezes - Cardiovascular Cardiovascular exam: Present: RRR, +S1, +S2. Absent: diastolic murmur, gallop, rubs, systolic murmur Internal Medicine: Result - Labs CBC & Chem 7: 03/05/18 05:57 03/04/18 03:07 Labs: Short CBC 03/04/18 Range/Units 03:07 WBC 17.4 H (4.3-11.1) K/mcL Hgb 10.1 L (11.5-15.4) g/dL Hct 33.6 L (35.3-44.9) % Plt Count 309 (140-400) K/mcL Neutrophils # 13.2 H (1.6-8.9) K/mcL BMP 03/04/18 03:07 Sodium 135 L Potassium 3.9 Chloride 101 Carbon Dioxide 25 BUN 35 H Creatinine 1.74 H Glucose 241 H Calcium 8.3 L - ABG Interpretation ABG results: PT/INR, D-dimer PT 26.3 Seconds (9.4-12.1) H 03/04/18 03:07 Consult Discharge Plan - Plan Referrals: Alonzo Resendiz MD [Primary Care Provider] -
[2018-03-05 02:35] LABS: ABG Base Excess 2 mEq/L (-2 to 3); ABG HCO3 28 mEq/L (21-27); ABG Oxygen Saturation 94 % (95-98); ABG PCO2 50 mmHg (35-45); ABG PH 7.36 pH Units (7.32-7.45); ABG PO2 76 mmHg (85-104); ABG TCO2 30 mEq/L (20-26)
[2018-03-05 06:35] LABS: INR 2.9; Prothrombin Time 32.5 Seconds (9.4-12.1)
[2018-03-05] MEDS ORDERED: Aminoglycoside Consult 1 EACH MC ONE (07:37)
[2018-03-05] MEDS: Insulin LISPRO 300 UNITS/3 ML VIAL SQ SCH ×4 (07:42→20:23)
[2018-03-05 07:47] LABS: Hematocrit 32.1 % (35.3-44.9); Hemoglobin 9.9 g/dL (11.5-15.4); Mean Corpuscular HGB Conc 30.8 g/dL (31.6-35.5); Mean Corpuscular Hemoglobin 26.4 pg (28.0-33.3); Mean Corpuscular Volume 85.6 fL (83.0-100.0); Mean Platelet Volume 10.8 fL (9.4-12.4); Platelet Count 312 K/mcL (140-400); Red Blood Count 3.75 M/mcL (3.82-4.97); Red Cell Distribution Width 14.7 % (11.5-14.5)
--- NOTE | 2018-03-05 07:52 | Internal Med Progress Note ---
Date of Encounter: 03/05/18 Time of Encounter: 11:00 - Assessment and plan (1) Cellulitis Current Visit: Yes Status: Acute Assessment and plan: Patient with left inner thigh cellulitis extending up to groin area which continues to improve as erythema resolving Patient with continued fevers overnight however with a MAXIMUM TEMPERATURE of 101.8 Will continue IV vancomycin and started IV Zosyn; continue topical Nystatin for coverage of yeast Qualifiers: Site of cellulitis: extremity Site of cellulitis of extremity: lower extremity Laterality: left Qualified Code(s): L03.116 - Cellulitis of left lower limb (2) Sepsis Current Visit: Yes Status: Resolved Assessment and plan: Resolved; continue IV antibiotics as above Qualifiers: Sepsis type: sepsis due to unspecified organism Qualified Code(s): A41.9 - Sepsis, unspecified organism (3) HERIBERTO (acute kidney injury) Current Visit: Yes Status: Acute Assessment and plan: Function was improving but now worsening Suspect secondary to IV vancomycin Continue to monitor (4) Impaired ambulation Current Visit: Yes Status: Acute Assessment and plan: Patient reports lower extremity weakness and difficulty with ambulation. Physical therapy was consulted with recommendations for [facility] facility placement for strengthening/conditioning and rehabilitation (5) HTN (hypertension), benign Current Visit: No Status: Chronic Assessment and plan: Controlled; continue ROSENDA inhibitor (6) DMII (diabetes mellitus, type 2) Current Visit: No Status: Chronic Assessment and plan: Blood glucose levels elevated so will increase sliding scale to high while continue home dose of Humulin Qualifiers: Diabetes mellitus [facility] insulin use: with terminologist use Diabetes mellitus complication status: with kidney complications Diabetes mellitus complication detail: with chronic kidney disease Chronic kidney disease stage : stage 3 (moderate) Qualified Code(s): E11.22 - Type 2 diabetes mellitus with diabetic chronic kidney disease; N18.3 - Chronic kidney disease, stage 3 ( moderate); Z79.4 - extermination supervisor (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 (7) DVT prophylaxis Current Visit: Yes Status: Acute Assessment and plan: Continue home dose of Coumadin (INR 2.9) - Time Spent With Patient Total time spent is greater than 50% in coordination of care (as documented) at patient's floor/unit and/or counseling patient: - Subjective Interval history: Patient less confused this morning and left thigh cellulitis improving Patient reported of lower extremity weakness with difficulty ambulating so physical therapy consulted with recommendations for [facility] facility placement - Constitutional Vitals: Temp Pulse Resp BP Pulse Ox 99.0 F 91 17 128/73 93 03/05/18 04:53 03/05/18 06:39 03/05/18 06:39 03/05/18 06:39 03/05/18 06:39 General appearance: Present: A&O X 2, A&O X 3, no acute distress - Respiratory Respiratory exam: Present: CTAB. Absent: accessory muscle use, rales, rhonchi, wheezes - Cardiovascular Cardiovascular exam: Present: RRR, +S1, +S2. Absent: diastolic murmur, gallop, rubs, systolic murmur Internal Medicine: Result - Labs CBC & Chem 7: 03/05/18 05:57 03/05/18 05:57 Labs: Short CBC 03/05/18 Range/Units 05:57 WBC 19.0 H (4.3-11.1) K/mcL Hgb 9.9 L (11.5-15.4) g/dL Hct 32.1 L (35.3-44.9) % Plt Count 312 (140-400) K/mcL - ABG Interpretation ABG results: ABG ABG pH 7.36 pH Units (7.32-7.45) 03/05/18 02:31 ABG pCO2 50 mmHg (35-45) H 03/05/18 02:31 ABG pO2 76 mmHg (85-104) L 03/05/18 02:31 ABG O2 Saturation 94 % (95-98) L 03/05/18 02:31 PT/INR, D-dimer PT 32.5 Seconds (9.4-12.1) H 03/05/18 05:57 Consult Discharge Plan - Plan Referrals: Alonzo Resendiz MD [Primary Care Provider] -
[2018-03-05] MEDS: hydroCHLOROthiazide 25 MG TABLET PO SCH (07:58)
[2018-03-05] MEDS: Lisinopril 20 MG TABLET PO SCH (07:59)
[2018-03-05] MEDS: Multivit/Ca/Min/Fe/FA 1 TAB TABLET PO SCH (07:59)
[2018-03-05] MEDS: amLODIPine 5 MG TABLET PO SCH (07:59)
[2018-03-05] MEDS: Budesonide/Formoterol 160/4.5 MDI IH SCH ×2 (08:02→20:54)
[2018-03-05 08:06] LABS: Calcium 8.3 mg/dL (8.6-10.3); Potassium 4.1 mEq/L (3.5-5.1)
[2018-03-05] MEDS: Gabapentin 400 MG CAPSULE PO SCH ×3 (08:07→20:23)
[2018-03-05] MEDS: traMADol 50 MG TABLET PO SCH ×3 (08:07→20:22)
[2018-03-05] MEDS: Insulin NPH 100 UNIT/ML (x5UNIT) SQ SCH ×2 (08:07→16:47)
[2018-03-05 08:14] LABS: Eosinophils # 0.4 K/mcL (0.0-0.6); Lymphocytes # 1.5 K/mcL (0.6-4.6); Monocytes # 2.3 K/mcL (0.0-1.3); Neutrophils # 14.8 K/mcL (1.6-8.9); Platelet Estimate Normal (Normal)
[2018-03-05] MEDS: Piperacillin/Tazobactam 3.375 GM in 0.9 % Sodium Chloride Mini Bag 100 ML IVPB SCH ×2 (08:14→14:40)
[2018-03-05] MEDS: Nystatin POWDER 30 GM BOTTLE TP SCH ×2 (11:47→20:25)
[2018-03-05] MEDS ORDERED: *HR* Warfarin 5 MG TABLET PO ONE (18:00)
[2018-03-06] MEDS: Piperacillin/Tazobactam 3.375 GM in 0.9 % Sodium Chloride Mini Bag 100 ML IVPB SCH (03:17)
[2018-03-06 05:10] LABS: INR 3.5; Prothrombin Time 39.1 Seconds (9.4-12.1)
[2018-03-06] MEDS: Budesonide/Formoterol 160/4.5 MDI IH SCH ×2 (08:05→19:56)
[2018-03-06] MEDS: Insulin LISPRO 300 UNITS/3 ML VIAL SQ SCH ×4 (09:15→20:15)
[2018-03-06 09:53] LABS: Basophils # 0.1 K/mcL (0.0-0.2); Basophils % 0.4 %; Eosinophils # 0.1 K/mcL (0.0-0.6); Eosinophils % 0.4 %; Hematocrit 32.7 % (35.3-44.9); Hemoglobin 9.7 g/dL (11.5-15.4); Immature Granulocytes % 3.9 % (0-4); Lymphocytes # 3.6 K/mcL (0.6-4.6); Lymphocytes % 18.8 %; Mean Corpuscular HGB Conc 29.7 g/dL (31.6-35.5); Mean Corpuscular Hemoglobin 25.3 pg (28.0-33.3); Mean Corpuscular Volume 85.2 fL (83.0-100.0); Mean Platelet Volume 10.2 fL (9.4-12.4); Monocytes # 1.7 K/mcL (0.0-1.3); Monocytes % 8.9 %; Neutrophils # 13.1 K/mcL (1.6-8.9); Nucleated Red Blood Cells 0.3 /100 WBC (0); Platelet Count 388 K/mcL (140-400); Red Blood Count 3.84 M/mcL (3.82-4.97); Red Cell Distribution Width 15.1 % (11.5-14.5); Segmented Neutrophils % 67.6 %
[2018-03-06] MEDS: Insulin NPH 100 UNIT/ML (x5UNIT) SQ SCH (09:57)
[2018-03-06] MEDS: Multivit/Ca/Min/Fe/FA 1 TAB TABLET PO SCH (10:01)
[2018-03-06] MEDS: amLODIPine 5 MG TABLET PO SCH (10:01)
[2018-03-06] MEDS: traMADol 50 MG TABLET PO SCH ×3 (10:01→22:53)
[2018-03-06] MEDS: Nystatin POWDER 30 GM BOTTLE TP SCH ×2 (10:02→20:14)
[2018-03-06 10:10] LABS: Calcium 8.6 mg/dL (8.6-10.3); Potassium 4.5 mEq/L (3.5-5.1)
[2018-03-06] MEDS ORDERED: Piperacillin/Tazobactam 3.375 GM in 0.9 % Sodium Chloride Mini Bag 100 ML IVPB SCH (11:00)
[2018-03-06] MEDS: Gabapentin 400 MG CAPSULE PO SCH ×3 (11:36→20:14)
[2018-03-06] MEDS: 0.9 % Sodium Chloride 1,000 ML IVC SCH ×2 (12:35→22:25)
--- NOTE | 2018-03-06 19:18 | Internal Med Progress Note ---
Date of Encounter: 03/06/18 Time of Encounter: 11:00 - Assessment and plan (1) Pneumonia Current Visit: Yes Status: Acute Assessment and plan: Patient with fevers and no improvement with leukocytosis Chest x-ray was ordered which showed new developing right perihilar airspace of patient the concerning for developing pneumonia Will discontinue IV Zosyn and start patient on IV Unasyn for concerns of aspiration pneumonia. Qualifiers: Lung location: unspecified part of lung Qualified Code(s): J18.9 - Pneumonia, unspecified organism (2) Cellulitis Current Visit: Yes Status: Acute Assessment and plan: Patient with left inner thigh cellulitis extending up to groin area which has almost resolved IV vancomycin discontinued; continue topical Nystatin for coverage of yeast Qualifiers: Site of cellulitis: extremity Site of cellulitis of extremity: lower extremity Laterality: left Qualified Code(s): L03.116 - Cellulitis of left lower limb (3) Sepsis Current Visit: Yes Status: Resolved Assessment and plan: Continue IV antibiotics and IV fluids Qualifiers: Sepsis type: sepsis due to unspecified organism Qualified Code(s): A41.9 - Sepsis, unspecified organism (4) HERIBERTO (acute kidney injury) Current Visit: Yes Status: Acute Assessment and plan: Function was improving but now worsening Suspect secondary to IV vancomycin which was discontinued Continue to monitor with IV fluids (5) Impaired ambulation Current Visit: Yes Status: Acute Assessment and plan: Patient reports lower extremity weakness and difficulty with ambulation. Physical therapy was consulted with recommendations for [facility] facility placement for strengthening/conditioning and rehabilitation (6) HTN (hypertension), benign Current Visit: No Status: Chronic Assessment and plan: Controlled; continue ROSENDA inhibitor (7) DMII (diabetes mellitus, type 2) Current Visit: No Status: Chronic Assessment and plan: Blood glucose levels elevated so will increase sliding scale to high while continue home dose of Humulin Qualifiers: Diabetes mellitus prison insulin use: with prison use Diabetes mellitus complication status: with kidney complications Diabetes mellitus complication detail: with chronic kidney disease Chronic kidney disease stage : stage 3 (moderate) Qualified Code(s): E11.22 - Type 2 diabetes mellitus with diabetic chronic kidney disease; N18.3 - Chronic kidney disease, stage 3 ( moderate); Z79.4 - configuration analyst (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 (8) DVT prophylaxis Current Visit: Yes Status: Acute Assessment and plan: Continue home dose of Coumadin (INR 3.5) - Time Spent With Patient Total time spent is greater than 50% in coordination of care (as documented) at patient's floor/unit and/or counseling patient: - Subjective Interval history: Patient presented with generalized weakness and left thigh cellulitis Patient's altered mental status has resolved but has been febrile with leukocytosis Patient reported of lower extremity weakness with difficulty ambulating so physical therapy consulted with recommendations for snf facility placement - Constitutional Vitals: Temp Pulse Resp BP Pulse Ox 98.7 F 68 19 139/67 94 03/06/18 16:03 03/06/18 16:03 03/06/18 16:03 03/06/18 16:03 03/06/18 16:03 General appearance: Present: A&O X 2, A&O X 3, no acute distress - Respiratory Respiratory exam: Present: CTAB. Absent: accessory muscle use, rales, rhonchi, wheezes - Cardiovascular Cardiovascular exam: Present: RRR, +S1, +S2. Absent: diastolic murmur, gallop, rubs, systolic murmur Internal Medicine: Result - Labs CBC & Chem 7: 03/06/18 09:28 03/06/18 09:28 Labs: Short CBC 03/06/18 Range/Units 09:28 WBC 19.3 H (4.3-11.1) K/mcL Hgb 9.7 L (11.5-15.4) g/dL Hct 32.7 L (35.3-44.9) % Plt Count 388 (140-400) K/mcL Neutrophils # 13.1 H (1.6-8.9) K/mcL BMP 03/06/18 09:28 Sodium 134 L Potassium 4.5 Chloride 101 Carbon Dioxide 22 L BUN 70 H Creatinine 2.91 H Glucose 127 H Calcium 8.6 - ABG Interpretation ABG results: ABG ABG pH 7.36 pH Units (7.32-7.45) 03/05/18 02:31 ABG pCO2 50 mmHg (35-45) H 03/05/18 02:31 ABG pO2 76 mmHg (85-104) L 03/05/18 02:31 ABG O2 Saturation 94 % (95-98) L 03/05/18 02:31 PT/INR, D-dimer PT 39.1 Seconds (9.4-12.1) H 03/06/18 04:20 - Impressions Impressions Chest X-Ray 03/06/18 12:53 IMPRESSION: Low lung volumes with new developing right perihilar airspace opacity, representing either asymmetric edema or developing pneumonia. D/ /06/2018 15:17:19 Korey Hall MD / [facility] Interpreting Provider: Korey Hall MD Consult Discharge Plan - Plan Referrals: Alonzo Resendiz MD [Primary Care Provider] -
[2018-03-06] MEDS: Ampicillin/Sulbactam 3,000 MG in 0.9 % Sodium Chloride Mini Bag 100 ML IVPB SCH (20:14)
[2018-03-07 00:23] LABS: Bilirubin,Urine Negative (Negative); Blood,Urine Small (Negative); Clarity,Urine Cloudy (Clear); Color,Urine Yellow (Yellow); Glucose,Urine (UA) 500 mg/dL (Normal); Ketones,Urine Negative (Negative); Leukocyte Esterase,Urine Negative (Negative); Nitrite,Urine Negative (Negative); PH,Urine 5.5 pH Units (5.0-8.0); Protein,Urine 30 mg/dL (Neg-Trace); Urobilinogen,Urine Normal (Normal)
[2018-03-07 00:24] LABS: Hyaline Casts,Urine None Seen per lpf (None-Few); Squamous Epithelial Cell,Urine Many per lpf (None-Few)
[2018-03-07 00:34] LABS: RBC,Urine 0-3 per hpf (0-3)
[2018-03-07 00:35] LABS: Amorphous Sediment,Urine Moderate (Few); Bacteria,Urine Many per hpf (None-Few)
[2018-03-07 04:50] LABS: INR 3.7; Prothrombin Time 41.3 Seconds (9.4-12.1)
[2018-03-07] MEDS: Budesonide/Formoterol 160/4.5 MDI IH SCH ×2 (08:02→19:52)
[2018-03-07] MEDS: Insulin LISPRO 300 UNITS/3 ML VIAL SQ SCH ×4 (08:28→22:04)
[2018-03-07] MEDS: Gabapentin 400 MG CAPSULE PO SCH ×3 (08:29→22:02)
[2018-03-07] MEDS: amLODIPine 5 MG TABLET PO SCH (08:29)
[2018-03-07] MEDS: traMADol 50 MG TABLET PO SCH ×3 (08:29→22:02)
[2018-03-07] MEDS: Multivit/Ca/Min/Fe/FA 1 TAB TABLET PO SCH (08:29)
[2018-03-07] MEDS: Ampicillin/Sulbactam 3,000 MG in 0.9 % Sodium Chloride Mini Bag 100 ML IVPB SCH (08:30)
[2018-03-07] MEDS: Nystatin POWDER 30 GM BOTTLE TP SCH ×2 (08:30→22:04)
[2018-03-07 09:46] LABS: Basophils # 0.1 K/mcL (0.0-0.2); Basophils % 0.3 %; Eosinophils # 0.1 K/mcL (0.0-0.6); Eosinophils % 0.6 %; Hematocrit 33.7 % (35.3-44.9); Immature Granulocytes % 4.5 % (0-4); Lymphocytes # 2.1 K/mcL (0.6-4.6); Lymphocytes % 12.4 %; Mean Corpuscular HGB Conc 29.7 g/dL (31.6-35.5); Mean Corpuscular Volume 84.3 fL (83.0-100.0); Mean Platelet Volume 10.5 fL (9.4-12.4); Monocytes # 1.2 K/mcL (0.0-1.3); Monocytes % 6.8 %; Neutrophils # 13.1 K/mcL (1.6-8.9); Nucleated Red Blood Cells 0.2 /100 WBC (0); Platelet Count 432 K/mcL (140-400); Red Cell Distribution Width 14.9 % (11.5-14.5); Segmented Neutrophils % 75.4 %
[2018-03-07 10:10] LABS: Potassium 4.7 mEq/L (3.5-5.1)
[2018-03-07] MEDS ORDERED: Acetaminophen 325 MG TABLET PO PRN (10:34)
--- NOTE | 2018-03-07 13:01 | Nephrology Progress Note ---
Date of Encounter: 03/07/18 Time of Encounter: 12:57 - Assessment and Plan (1) HERIBERTO (acute kidney injury) Current Visit: Yes Status: Acute Baseline Scr 1.17 and GFR 42. Retroperitoneal US, urine and serum studies ordered. Continue to renal dose all medications and avoid nephrotoxins. Agree with holding Lasix and Vanco at this time. Was given 2 Liters NS yesterday. (2) Cellulitis Current Visit: Yes Status: Acute Per primary team. Qualifiers: Site of cellulitis: extremity Site of cellulitis of extremity: lower extremity Laterality: left Qualified Code(s): L03.116 - Cellulitis of left lower limb (3) Sepsis Current Visit: Yes Status: Resolved Per primary. Qualifiers: Sepsis type: sepsis due to unspecified organism Qualified Code(s): A41.9 - Sepsis, unspecified organism Subjective Principal diagnosis: fever/chills weakness Interval history: Ms. Salmon is a 68 year old female that came to the ED with fever, chills, and weakness. PMH: afib on warfarin, diabetes, PE, DVT. Denies diarrhea but admited to vomiting before coming to ED. 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 Resendiz. Baseline Scr was normal before entering hospital (1.17). GFR baseline 42 with CKD 3A. Is not on any new medications, does admit she did take Naproxen routinely but that was stopped over a year ago. The patient is being treated for cellulitis with IV vancomycin and this is probably the cause of the HERIBERTO. Will do Retroperitoneal US and lab/ urine studies to rule out other processes. Denies a FH of kidney issues. Objective - Vital Signs Vital signs: Vital Signs Temp Pulse Resp BP Pulse Ox 03/07/18 11:21 97.7 F 62 20 115/53 95 03/07/18 08:52 95 03/07/18 08:02 18 95 03/07/18 06:47 98.0 F 71 20 125/84 96 03/07/18 04:58 98.5 F 85 16 111/61 90 03/07/18 03:37 96 03/07/18 00:00 98.2 F 66 16 118/66 96 03/06/18 19:59 16 92 03/06/18 19:09 98.2 F 72 16 156/92 96 03/06/18 16:03 98.7 F 68 19 139/67 94 Intake and Output 03/06/18 03/07/18 03/07/18 23:59 07:59 15:59 Intake Total 1100 / 1100 0 / 0 1360 / 1360 Output Total 0 / 0 1000 / 1000 Balance 1100 / 1100 -1000 / -1000 1360 / 1360 Intake: IV Fluids 1100 / 1100 1000 / 1000 0.9 % Sodium Chloride 1,000 ML 1000 / 1000 1000 / 1000 @ 100 mls/hr IVC .Q10H [facility] Rx#: [id number] Unasyn 3,000 MG In 0.9 % Sodium 100 / 100 Chloride (Mini-Bag +) 100 ML @ 200 mls/hr IVPB Q12H [facility] Rx#: [id number] Oral 0 / 0 0 / 0 360 / 360 Output: Urine 0 / 0 100 / 100 Catheter 900 / 900 Other: Meal Breakfast Percent of Meal Consumed 100% Weight 147.9 kg Blood Glucose* 254 142 167 Patient Weight 03/07/18 23:59 Weight 147.9 kg - General Appearance General appearance: Present: well-developed, well-nourished, obese EENT: Present: ATNC, hearing intact, vision intact Neck: Present: supple Respiratory: Present: clear Cardiology: Present: no edema, normal S1, normal S2 Gastrointestinal: Present: normoactive bowel sounds, no tenderness, no guarding Integumentary: Present: no rash, warm and dry Neurologic: Present: alert and oriented x3 Psychiatric: Present: mood/affect appropriate, cooperative - Lab 03/07/18 08:54 03/07/18 08:54 Most recent lab results ABG pH 7.36 pH Units (7.32-7.45) 03/05/18 02:31 ABG pCO2 50 mmHg (35-45) H 03/05/18 02:31 ABG pO2 76 mmHg (85-104) L 03/05/18 02:31 ABG HCO3 28 mEq/L (21-27) H 03/05/18 02:31 ABG O2 Saturation 94 % (95-98) L 03/05/18 02:31 Calcium 8.0 mg/dL (8.6-10.3) L 03/07/18 08:54 Phosphorus 2.5 mg/dL (2.7-4.5) L 03/03/18 04:34 Magnesium 2.1 mg/dL (1.6-2.6) 03/04/18 03:07 Consult Discharge Plan - Plan Referrals: Alonzo Resendiz MD [Primary Care Provider] -
--- NOTE | 2018-03-07 13:50 | Internal Med Progress Note ---
<Oseas Allison - Last Filed: 03/07/18 16:44> Date of Encounter: 03/07/18 Time of Encounter: 10:00 - Assessment and plan (1) HERIBERTO (acute kidney injury) Current Visit: Yes Status: Acute Assessment and plan: Function was improving but now worsening Suspect secondary to IV vancomycin which was discontinued Continue to monitor with IV fluids 03/07 The patient continues to have worsening renal function despite adequate fluid rehydration Serum creatinine has risen to 3.1, patient has recieved fluids sufficient to produce +4.7L fluid balance This is most likely secondary to ATN due to Vancomycin use, however I will consult nephrology for evaluation Order urine electrolytes, retroperitoneal ultrasound Appreciate nephrology recommendations (2) DMII (diabetes mellitus, type 2) Current Visit: Yes Status: Chronic Assessment and plan: DM2 which is poorly controlled on this admission, however improving Remain with sliding scale insulin, accu-checks ACHS Maintain medium dose SSI ACHS Consider adding prandial insulin if remains high, goal glucose 120-140 Qualifiers: Diabetes mellitus skilled nursing insulin use: with remote computer terminal operator use Diabetes mellitus complication status: with kidney complications Diabetes mellitus complication detail: with chronic kidney disease Chronic kidney disease stage : stage 3 (moderate) Qualified Code(s): E11.22 - Type 2 diabetes mellitus with diabetic chronic kidney disease; N18.3 - Chronic kidney disease, stage 3 ( moderate); Z79.4 - remote computer terminal operator (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 (3) HTN (hypertension), benign Current Visit: No Status: Chronic Assessment and plan: Controlled; continue ROSENDA inhibitor (4) Sepsis Current Visit: Yes Status: Resolved Assessment and plan: Continue IV antibiotics and IV fluids as needed Sepsis has resolved, see above note for pneumonia for current antibiotic regimen Qualifiers: Sepsis type: sepsis due to unspecified organism Qualified Code(s): A41.9 - Sepsis, unspecified organism (5) Cellulitis Current Visit: Yes Status: Acute Assessment and plan: Patient with left inner thigh cellulitis extending up to groin area which has almost resolved Although this is my first time seeing the patient, it does appear to be healing appropriately, and the patient endorses improvment from previous day IV vancomycin discontinued; continue topical Nystatin for coverage of yeast Patient is being treated for PNA with Augmentin, which has decent skin penetration for possible cellulitis Qualifiers: Site of cellulitis: extremity Site of cellulitis of extremity: lower extremity Laterality: left Qualified Code(s): L03.116 - Cellulitis of left lower limb (6) Impaired ambulation Current Visit: Yes Status: Acute Assessment and plan: Patient reports lower extremity weakness and difficulty with ambulation. Physical therapy was consulted with recommendations for snf facility placement for strengthening/conditioning and rehabilitation (7) DVT prophylaxis Current Visit: Yes Status: Acute Assessment and plan: Continue Coumadin (INR 3.5) Supratherapeutic today, dosed by pharmacy We will recheck INR in the morning (8) Pneumonia Current Visit: Yes Status: Acute Assessment and plan: Patient with fevers and no improvement with leukocytosis Chest x-ray was ordered which showed new developing right perihilar airspace of patient the concerning for developing pneumonia Will discontinue IV Zosyn and start patient on IV Unasyn for concerns of aspiration pneumonia. 03/07 The patient continues to improve on unasyn day 2, previously on zosyn and vancomycin WBC 17.3 (trending down from 19.3), remains afebrile with normal heart rate and without hypotension Blood cultures from 03/05 remain negative We will transition the patient to Augmentin PO, monitor signs of infection Qualifiers: Pneumonia type: due to methicillin-sensitive Staphylococcus aureus (MSSA) Laterality: right Lung location: unspecified part of lung Qualified Code(s) : J15.211 - Pneumonia due to Methicillin susceptible Staphylococcus aureus - Time Spent With Patient Total time spent is greater than 50% in coordination of care (as documented) at patient's floor/unit and/or counseling patient: - Subjective Interval history: The patient is seen and examined at bedside. She has no acute complaints at this time. - Constitutional Vitals: Temp Pulse Resp BP Pulse Ox 97.7 F 62 20 115/53 95 03/07/18 11:21 03/07/18 11:21 03/07/18 11:21 03/07/18 11:21 03/07/18 11:21 General appearance: Present: A&O X 3, no acute distress - Head Head exam: Present: atraumatic, normocephalic - Respiratory Respiratory exam: Present: CTAB. Absent: accessory muscle use, rales, rhonchi, wheezes - Cardiovascular Cardiovascular exam: Present: RRR, +S1, +S2. Absent: diastolic murmur, gallop, rubs, systolic murmur - Extremities Exam Extremities exam: Present: warm, radial pulses palpable and symmetrical. Absent : calf tenderness, cyanotic Additional comments: Left leg cellulitis located on medial thigh which has improved Internal Medicine: Result - Labs CBC & Chem 7: 03/07/18 08:54 03/07/18 08:54 Labs: Short CBC 03/07/18 Range/Units 08:54 WBC 17.3 H (4.3-11.1) K/mcL Hgb 10.0 L (11.5-15.4) g/dL Hct 33.7 L (35.3-44.9) % Plt Count 432 H (140-400) K/mcL Neutrophils # 13.1 H (1.6-8.9) K/mcL BMP 03/07/18 08:54 Sodium 137 Potassium 4.7 Chloride 99 Carbon Dioxide 21 L BUN 90 H Creatinine 3.10 H Glucose 184 H Calcium 8.0 L Urine 03/07/18 Range/Units 00:10 Urine Color Yellow (Yellow) Urine Clarity Cloudy A (Clear) Urine pH 5.5 (5.0-8.0) pH Units Ur Specific [place] 1.020 (1.010-1.025) Urine Protein 30 H (Neg-Trace) mg/dL Urine Glucose (UA) 500 H (Normal) mg/dL - ABG Interpretation ABG results: ABG ABG pH 7.36 pH Units (7.32-7.45) 03/05/18 02:31 ABG pCO2 50 mmHg (35-45) H 03/05/18 02:31 ABG pO2 76 mmHg (85-104) L 03/05/18 02:31 ABG O2 Saturation 94 % (95-98) L 03/05/18 02:31 PT/INR, D-dimer PT 41.3 Seconds (9.4-12.1) H 03/07/18 03:59 - Impressions Impressions Chest X-Ray 03/06/18 12:53 IMPRESSION: Low lung volumes with new developing right perihilar airspace opacity, representing either asymmetric edema or developing pneumonia. D/ /06/2018 15:17:19 Korey Hall MD / [facility] Interpreting Provider: Korey Hall MD Consult Discharge Plan - Plan Referrals: Alonzo Resendiz MD [Primary Care Provider] - <Sarah Rubio - Last Filed: 03/07/18 17:25> Date of Encounter: 03/07/18 - Assessment and plan (1) DMII (diabetes mellitus, type 2) Current Visit: Yes Status: Chronic Qualifiers: Diabetes mellitus skilled nursing insulin use: with skilled nursing use Diabetes mellitus complication status: with kidney complications Diabetes mellitus complication detail: with chronic kidney disease Chronic kidney disease stage : stage 3 (moderate) Qualified Code(s): E11.22 - Type 2 diabetes mellitus with diabetic chronic kidney disease; N18.3 - Chronic kidney disease, stage 3 ( moderate); Z79.4 - nursing home (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 (2) HTN (hypertension), benign Current Visit: No Status: Chronic (3) Sepsis Current Visit: Yes Status: Resolved Qualifiers: Sepsis type: sepsis due to unspecified organism Qualified Code(s): A41.9 - Sepsis, unspecified organism (4) Cellulitis Current Visit: Yes Status: Acute Qualifiers: Site of cellulitis: extremity Site of cellulitis of extremity: lower extremity Laterality: left Qualified Code(s): L03.116 - Cellulitis of left lower limb (5) HERIBERTO (acute kidney injury) Current Visit: Yes Status: Acute (6) DVT prophylaxis Current Visit: Yes Status: Acute (7) Impaired ambulation Current Visit: Yes Status: Acute (8) Pneumonia Current Visit: Yes Status: Acute Qualifiers: Pneumonia type: due to methicillin-sensitive Staphylococcus aureus (MSSA) Laterality: right Lung location: unspecified part of lung Qualified Code(s) : J15.211 - Pneumonia due to Methicillin susceptible Staphylococcus aureus - Time Spent With Patient Total time spent is greater than 50% in coordination of care (as documented) at patient's floor/unit and/or counseling patient: - Constitutional Vitals: Temp Pulse Resp BP Pulse Ox 97.7 F 62 20 115/53 95 03/07/18 11:21 03/07/18 11:21 03/07/18 11:21 03/07/18 11:21 03/07/18 11:21 Internal Medicine: Result - Labs CBC & Chem 7: 03/07/18 08:54 03/07/18 08:54 Labs: Short CBC 03/07/18 Range/Units 08:54 WBC 17.3 H (4.3-11.1) K/mcL Hgb 10.0 L (11.5-15.4) g/dL Hct 33.7 L (35.3-44.9) % Plt Count 432 H (140-400) K/mcL Neutrophils # 13.1 H (1.6-8.9) K/mcL BMP 03/07/18 08:54 Sodium 137 Potassium 4.7 Chloride 99 Carbon Dioxide 21 L BUN 90 H Creatinine 3.10 H Glucose 184 H Calcium 8.0 L Urine 03/07/18 Range/Units 00:10 Urine Color Yellow (Yellow) Urine Clarity Cloudy A (Clear) Urine pH 5.5 (5.0-8.0) pH Units Ur Specific [place] 1.020 (1.010-1.025) Urine Protein 30 H (Neg-Trace) mg/dL Urine Glucose (UA) 500 H (Normal) mg/dL - ABG Interpretation ABG results: ABG ABG pH 7.36 pH Units (7.32-7.45) 03/05/18 02:31 ABG pCO2 50 mmHg (35-45) H 03/05/18 02:31 ABG pO2 76 mmHg (85-104) L 03/05/18 02:31 ABG O2 Saturation 94 % (95-98) L 03/05/18 02:31 PT/INR, D-dimer PT 41.3 Seconds (9.4-12.1) H 03/07/18 03:59 - Impressions Impressions Chest X-Ray 03/06/18 12:53 IMPRESSION: Low lung volumes with new developing right perihilar airspace opacity, representing either asymmetric edema or developing pneumonia. D/ /06/2018 15:17:19 Korey Hall MD / [facility] Interpreting Provider: Korey Hall MD Retroperitoneum Ultrasound 03/07/18 15:30 IMPRESSION: Renal cortical thinning present bilaterally compatible with medical renal disease. No hydronephrosis. Shadowing echogenic focus at the superior pole of the left kidney may represent a vascular calcification or nonobstructing renal stone. D/ / Pipo Ornelas MD / Pipo Ornelas MD Interpreting Provider: Pipo Ornelas MD - Attending Attestation I examined this patient and my medical decision-making was reviewed with the Resident Physician Dr. Allison. I agree with the documented findings, disposition and treatment plan as described except to the extent set forth below. Ms. Salmon is a 68 year old female with pmh of diabetes, PE and DVT on coumadin , presenting with complaints of malaise and generally feeling unwell for about 2 weeks. She did have left thigh cellulites and pneumonia. Pt was treated with empirical abx. Her sob and REYES are better today. Denied any CP. Denied any cough. Gen: A, A, O x 3 Chest: Diminished BS b/l Heart: S1S2+ RRR a/p 1. Acute pneumonia - mostly bacterial switch to PO Abx 2. HERIBERTO with CKD-2 Worsening Cr mostly due to Abx / Medication induced ATN Avoid nephro toxic meds Nephro consulted
[2018-03-07 19:44] LABS: Protein/Creatinine Ratio,Urine 1.59 mg/mg (0.00-0.20); Sodium, Urine 36.5 mEq/L
[2018-03-08 05:26] LABS: INR 3.4; Prothrombin Time 38.6 Seconds (9.4-12.1)
[2018-03-08 05:36] LABS: Uric Acid 11.4 mg/dL (2.3-7.6)
[2018-03-08] MEDS: Budesonide/Formoterol 160/4.5 MDI IH SCH ×2 (07:36→19:58)
[2018-03-08] MEDS: Gabapentin 400 MG CAPSULE PO SCH (09:31)
[2018-03-08] MEDS: amLODIPine 5 MG TABLET PO SCH (09:32)
[2018-03-08] MEDS: Multivit/Ca/Min/Fe/FA 1 TAB TABLET PO SCH (09:33)
[2018-03-08] MEDS: Nystatin POWDER 30 GM BOTTLE TP SCH ×2 (09:34→21:07)
[2018-03-08] MEDS: Insulin LISPRO 300 UNITS/3 ML VIAL SQ SCH ×4 (09:34→21:07)
[2018-03-08] MEDS: traMADol 50 MG TABLET PO SCH (09:46)
[2018-03-08 09:49] LABS: Basophils # 0.1 K/mcL (0.0-0.2); Basophils % 0.5 %; Eosinophils # 0.2 K/mcL (0.0-0.6); Eosinophils % 0.7 %; Hematocrit 35.4 % (35.3-44.9); Hemoglobin 10.5 g/dL (11.5-15.4); Immature Granulocytes % 4.8 % (0-4); Lymphocytes # 2.1 K/mcL (0.6-4.6); Lymphocytes % 10.3 %; Mean Corpuscular HGB Conc 29.7 g/dL (31.6-35.5); Mean Corpuscular Hemoglobin 24.8 pg (28.0-33.3); Mean Corpuscular Volume 83.7 fL (83.0-100.0); Mean Platelet Volume 10.3 fL (9.4-12.4); Monocytes # 0.9 K/mcL (0.0-1.3); Monocytes % 4.6 %; Neutrophils # 16.3 K/mcL (1.6-8.9); Nucleated Red Blood Cells 0.2 /100 WBC (0); Platelet Count 495 K/mcL (140-400); Red Blood Count 4.23 M/mcL (3.82-4.97); Red Cell Distribution Width 15.2 % (11.5-14.5); Segmented Neutrophils % 79.1 %
[2018-03-08] MEDS ORDERED: traMADol 50 MG TABLET PO PRN (10:06)
[2018-03-08 10:14] LABS: Calcium 8.1 mg/dL (8.6-10.3); Potassium 4.7 mEq/L (3.5-5.1)
[2018-03-08] MEDS ORDERED: Doxycycline 100 MG in 0.9 % Sodium Chloride Mini Bag 100 ML IVPB SCH (10:16)
--- NOTE | 2018-03-08 10:45 | Nephrology Progress Note ---
Date of Encounter: 03/08/18 Time of Encounter: 10:43 - Assessment and Plan (1) HERIBERTO (acute kidney injury) Current Visit: Yes Status: Acute Baseline Scr 1.17 and GFR 42. Scr 3.30 and GFR 14. Uop 900 yesterday, 600 today. Retroperitoneal US unremarkable. Continue to renal dose all medications and avoid nephrotoxins. Agree with holding Lasix and Vanco at this time. Sodium Bicarb infusion ordered at 100/hr. Will recheck CK and BMP in am. (2) Cellulitis Current Visit: Yes Status: Acute Per primary team. Qualifiers: Site of cellulitis: extremity Site of cellulitis of extremity: lower extremity Laterality: left Qualified Code(s): L03.116 - Cellulitis of left lower limb (3) DMII (diabetes mellitus, type 2) Current Visit: Yes Status: Chronic Per primary. 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 NAD. Objective - Vital Signs Vital signs: Vital Signs Temp Pulse Resp BP Pulse Ox 03/08/18 07:58 97.5 F L 63 18 138/67 94 03/08/18 07:36 16 96 03/08/18 04:06 61 18 130/63 94 03/07/18 21:56 97.6 F 86 18 136/68 97 03/07/18 19:53 16 98 03/07/18 17:26 97.8 F 63 18 128/63 97 03/07/18 11:21 97.7 F 62 20 115/53 95 Intake and Output 03/07/18 03/08/18 03/08/18 23:59 07:59 15:59 Intake Total 120 / 120 240 / 240 Output Total 500 / 500 600 / 600 400 / 400 Balance -380 / -380 -600 / -600 -160 / -160 Intake: Oral 120 / 120 240 / 240 Output: Urine 500 / 500 400 / 400 Catheter 0 / 0 600 / 600 Other: Meal Breakfast Percent of Meal Consumed 90% Stool Size Copious Small Stool Consistency loose soft Stool Color Brown Green # Bowel Movements 1 1 Weight 149.1 kg Blood Glucose* 223 198 Patient Weight 03/08/18 23:59 Weight 149.1 kg - General Appearance General appearance: Present: obese, chronically ill EENT: Present: ATNC, hearing intact, vision intact Neck: Present: supple Respiratory: Present: clear Cardiology: Present: edema (+1 pitting edema to bilateral lower extremities. ), normal S1, normal S2 Gastrointestinal: Present: normoactive bowel sounds, no tenderness, no guarding Integumentary: Present: no rash, warm and dry Neurologic: Present: alert and oriented x3 Psychiatric: Present: mood/affect appropriate, cooperative - Lab 03/08/18 09:20 03/08/18 09:20 Most recent lab results ABG pH 7.36 pH Units (7.32-7.45) 03/05/18 02:31 ABG pCO2 50 mmHg (35-45) H 03/05/18 02:31 ABG pO2 76 mmHg (85-104) L 03/05/18 02:31 ABG HCO3 28 mEq/L (21-27) H 03/05/18 02:31 ABG O2 Saturation 94 % (95-98) L 03/05/18 02:31 Calcium 8.1 mg/dL (8.6-10.3) L 03/08/18 09:20 Phosphorus 2.5 mg/dL (2.7-4.5) L 03/03/18 04:34 Magnesium 2.1 mg/dL (1.6-2.6) 03/04/18 03:07 Urine Creatinine 87 mg/dL 03/07/18 00:10 Urine Sodium 36.5 mEq/L 03/07/18 00:10 Urine Total Protein 138 mg/dL (1-14) H 03/07/18 00:10 Consult Discharge Plan - Plan Referrals: Alonzo Resendiz MD [Primary Care Provider] -
[2018-03-08] MEDS: Sodium Bicarbonate 75 MEQ in 0.45 % Sodium Chloride 1,000 ML IVC SCH (14:46)
--- NOTE | 2018-03-08 14:53 | Internal Med Progress Note ---
<Oseas Allison - Last Filed: 03/08/18 16:04> Date of Encounter: 03/08/18 Time of Encounter: 09:25 - Assessment and plan (1) Cellulitis Current Visit: Yes Status: Acute Assessment and plan: Patient with left inner thigh cellulitis extending up to groin area which has almost resolved Although this is my first time seeing the patient, it does appear to be healing appropriately, and the patient endorses improvment from previous day IV vancomycin discontinued; continue topical Nystatin for coverage of yeast Patient is being treated for PNA with Augmentin, which has decent skin penetration for possible cellulitis 03/08 Significantly worsened cellulitis of left leg on exam, and much more pain WBC count remains elevated, and increased from prior day I ordered a CT of the LLE in order to evaluate depth of infection which showed large subcutaneous gas without obvious necrotizing fascitis or abscess, hoewver it was a limited CT due to inability to use IV contrast. The patient was started on IV Doxycycline this morning because she could not tolerate vancomycin, and transitioned back to IV Zosyn I did consult Dr. Barnes with surgery who agrees to see this patient for evaluation of surgical needs Consult to Infectious disease, recommendations as below: IV Zosyn IV Clindamycin IV Daptomycin We will continue to monitor this patient closely Treat pain PRN Qualifiers: Site of cellulitis: extremity Site of cellulitis of extremity: lower extremity Laterality: left Qualified Code(s): L03.116 - Cellulitis of left lower limb (2) Sepsis Current Visit: Yes Status: Resolved Assessment and plan: Continue IV antibiotics and IV fluids as needed Sepsis has resolved, see above note for pneumonia for current antibiotic regimen 03/08 Although infection is worsened, patient is still not septic Continue to monitor Qualifiers: Sepsis type: sepsis due to unspecified organism Qualified Code(s): A41.9 - Sepsis, unspecified organism (3) HERIBERTO (acute kidney injury) Current Visit: Yes Status: Acute Assessment and plan: Function was improving but now worsening Suspect secondary to IV vancomycin which was discontinued Continue to monitor with IV fluids 03/07 The patient continues to have worsening renal function despite adequate fluid rehydration Serum creatinine has risen to 3.1, patient has recieved fluids sufficient to produce +4.7L fluid balance This is most likely secondary to ATN due to Vancomycin use, however I will consult nephrology for evaluation Order urine electrolytes, retroperitoneal ultrasound Appreciate nephrology recommendations 03/08 Non-oliguric HERIBERTO Retroperitoneal US shows cortical thinning suggestive of medical renal disease without obvious obstruction or hydronephrosis The patient does continue to make urine, UOP 600 overnight Nephrology did see this patient, recommended bicarb drip which was started We will continue to monitor renal function with daily labs (4) Pneumonia Current Visit: Yes Status: Acute Assessment and plan: Patient with fevers and no improvement with leukocytosis Chest x-ray was ordered which showed new developing right perihilar airspace of patient the concerning for developing pneumonia Will discontinue IV Zosyn and start patient on IV Unasyn for concerns of aspiration pneumonia. 03/07 The patient continues to improve on unasyn day 2, previously on zosyn and vancomycin WBC 17.3 (trending down from 19.3), remains afebrile with normal heart rate and without hypotension Blood cultures from 03/05 remain negative We will transition the patient to Augmentin PO, monitor signs of infection 03/08 Suspect pneumonia is likely limited and resolving Patient had been transitioned to Augmentin PO, however WBC increased again to 20.6 I suspect this elevation is primarily caused by worsened cellulitis and not by worsening lung infection Due to cellulitis, the patient will be transitioned back to zosyn IV Qualifiers: Pneumonia type: due to methicillin-sensitive Staphylococcus aureus (MSSA) Laterality: right Lung location: unspecified part of lung Qualified Code(s) : J15.211 - Pneumonia due to Methicillin susceptible Staphylococcus aureus (5) DMII (diabetes mellitus, type 2) Current Visit: Yes Status: Chronic Assessment and plan: DM2 which is poorly controlled on this admission, however improving Remain with sliding scale insulin, accu-checks ACHS Maintain medium dose SSI ACHS Consider adding prandial insulin if remains high, goal glucose 120-140 03/08 Glucose remains elevated overnight and through the day today SSI is transitioned to High dose Added 15U Levemir BID Continue to monitor Qualifiers: Diabetes mellitus dye range operator insulin use: with dye range operator use Diabetes mellitus complication status: with kidney complications Diabetes mellitus complication detail: with chronic kidney disease Chronic kidney disease stage : stage 3 (moderate) Qualified Code(s): E11.22 - Type 2 diabetes mellitus with diabetic chronic kidney disease; N18.3 - Chronic kidney disease, stage 3 ( moderate); 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 Barnes who agrees that reversal is appropriate in this patient I will give the patient two units FFP this evening in anticipation of procedure Recheck coags in the AM - Time Spent With Patient Total time spent is greater than 50% in coordination of care (as documented) at patient's floor/unit and/or counseling patient: - Subjective Interval history: The patient is seen and examined at bedside. This morning she says that she's having increasing pain in her left leg and that her malaise seems to be worsening. She says that this got particularly bad overnight, and that her pain has increased as well. - Constitutional Vitals: Temp Pulse Resp BP Pulse Ox 97.7 F 55 19 125/67 97 03/08/18 11:55 03/08/18 11:55 03/08/18 11:55 03/08/18 11:55 03/08/18 11:55 General appearance: Present: A&O X 3, no acute distress, obese - Head Head exam: Present: atraumatic, normocephalic - Neck Neck exam general surgery: Present: supple, trachea midline. Absent: lymphadenopathy - Respiratory Respiratory exam: Present: CTAB, rales (few fine inspiratory crackles resolved on multiple inspirations). Absent: accessory muscle use, rhonchi, wheezes - Cardiovascular Cardiovascular exam: Present: RRR, +S1, +S2. Absent: diastolic murmur, gallop, rubs, systolic murmur - GI/Abdominal GI/Abdominal exam: Present: soft. Absent: distended, firm, guarding - Extremities Exam Additional comments: Left thigh significantly more edematous with firm feeling tissue anteriorly and medially. There is erythema present without obvious breaks in the skin or drainage. The area is quite warm to the touch. Right leg is generally normal in gross appearance and examination - Neurological Exam Neurological exam: Present: alert, oriented X3, no focal deficits Internal Medicine: Result - Labs CBC & Chem 7: 03/08/18 09:20 03/08/18 09:20 Labs: Short CBC 03/08/18 Range/Units 09:20 WBC 20.6 H (4.3-11.1) K/mcL Hgb 10.5 L (11.5-15.4) g/dL Hct 35.4 (35.3-44.9) % Plt Count 495 H (140-400) K/mcL Neutrophils # 16.3 H (1.6-8.9) K/mcL BMP 03/08/18 09:20 Sodium 135 L Potassium 4.7 Chloride 100 Carbon Dioxide 18 L BUN 101 H Creatinine 3.30 H Glucose 236 H Calcium 8.1 L - ABG Interpretation ABG results: ABG ABG pH 7.36 pH Units (7.32-7.45) 03/05/18 02:31 ABG pCO2 50 mmHg (35-45) H 03/05/18 02:31 ABG pO2 76 mmHg (85-104) L 03/05/18 02:31 ABG O2 Saturation 94 % (95-98) L 03/05/18 02:31 PT/INR, D-dimer PT 38.6 Seconds (9.4-12.1) H 03/08/18 04:33 - Impressions Impressions Retroperitoneum Ultrasound 03/07/18 15:30 IMPRESSION: Renal cortical thinning present bilaterally compatible with medical renal disease. No hydronephrosis. Shadowing echogenic focus at the superior pole of the left kidney may represent a vascular calcification or nonobstructing renal stone. D/ / Pipo Ornelas MD / Pipo Ornelas MD Interpreting Provider: Pipo Ornelas MD Lower Extremity CT 03/08/18 10:15 IMPRESSION: 1. A large amount of subcutaneous gas centered within the medial and anterior soft tissues of the proximal mid thigh which is most compatible with necrotizing soft tissue infection. No well-defined drainable fluid collection identified within limits of this noncontrast exam. 2. Extensive subcutaneous edema throughout the soft tissues of the left lower extremity and also involving the partially visualized soft tissues of the right lower extremity. While findings may be related to chronic venous stasis in lymph edema, superimposed cellulitis is of concern given findings within proximal left thigh. 3. No acute osseous abnormality identified. No evidence for osteomyelitis. 4. Tricompartmental moderate to severe osteoarthritis of the left knee which is most pronounced within the medial compartment. 5. Moderate left knee effusion. 6. Severe atherosclerotic disease. D/ / Yousuf Mcknight MD / Yousuf Mcknight MD Interpreting Provider: Yousuf Mcknight MD Consult Discharge Plan - Plan Referrals: Alonzo Resendiz MD [Primary Care Provider] - <Sarah Rubio - Last Filed: 03/08/18 16:30> Date of Encounter: 03/08/18 - Assessment and plan (1) DMII (diabetes mellitus, type 2) Current Visit: Yes Status: Chronic Qualifiers: Diabetes mellitus care home insulin use: with dye range operator use Diabetes mellitus complication status: with kidney complications Diabetes mellitus complication detail: with chronic kidney disease Chronic kidney disease stage : stage 3 (moderate) Qualified Code(s): E11.22 - Type 2 diabetes mellitus with diabetic chronic kidney disease; N18.3 - Chronic kidney disease, stage 3 ( moderate); 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 (2) HTN (hypertension), benign Current Visit: No Status: Chronic (3) Sepsis Current Visit: Yes Status: Resolved Qualifiers: Sepsis type: sepsis due to unspecified organism Qualified Code(s): A41.9 - Sepsis, unspecified organism (4) Cellulitis Current Visit: Yes Status: Acute Qualifiers: Site of cellulitis: extremity Site of cellulitis of extremity: lower extremity Laterality: left Qualified Code(s): L03.116 - Cellulitis of left lower limb (5) HERIBERTO (acute kidney injury) Current Visit: Yes Status: Acute (6) DVT prophylaxis Current Visit: Yes Status: Acute (7) Pneumonia Current Visit: Yes Status: Acute Qualifiers: Pneumonia type: due to methicillin-sensitive Staphylococcus aureus (MSSA) Laterality: right Lung location: unspecified part of lung Qualified Code(s) : J15.211 - Pneumonia due to Methicillin susceptible Staphylococcus aureus (8) Supratherapeutic INR Current Visit: Yes Status: Acute - Time Spent With Patient Total time spent is greater than 50% in coordination of care (as documented) at patient's floor/unit and/or counseling patient: - Constitutional Vitals: Temp Pulse Resp BP Pulse Ox 97.7 F 55 19 125/67 97 03/08/18 11:55 03/08/18 11:55 03/08/18 11:55 03/08/18 11:55 03/08/18 11:55 Internal Medicine: Result - Labs CBC & Chem 7: 03/08/18 09:20 03/08/18 09:20 Labs: Short CBC 03/08/18 Range/Units 09:20 WBC 20.6 H (4.3-11.1) K/mcL Hgb 10.5 L (11.5-15.4) g/dL Hct 35.4 (35.3-44.9) % Plt Count 495 H (140-400) K/mcL Neutrophils # 16.3 H (1.6-8.9) K/mcL BMP 03/08/18 09:20 Sodium 135 L Potassium 4.7 Chloride 100 Carbon Dioxide 18 L BUN 101 H Creatinine 3.30 H Glucose 236 H Calcium 8.1 L - ABG Interpretation ABG results: ABG ABG pH 7.36 pH Units (7.32-7.45) 03/05/18 02:31 ABG pCO2 50 mmHg (35-45) H 03/05/18 02:31 ABG pO2 76 mmHg (85-104) L 03/05/18 02:31 ABG O2 Saturation 94 % (95-98) L 03/05/18 02:31 PT/INR, D-dimer PT 38.6 Seconds (9.4-12.1) H 03/08/18 04:33 - Impressions Impressions Retroperitoneum Ultrasound 03/07/18 15:30 IMPRESSION: Renal cortical thinning present bilaterally compatible with medical renal disease. No hydronephrosis. Shadowing echogenic focus at the superior pole of the left kidney may represent a vascular calcification or nonobstructing renal stone. D/ / Pipo Ornelas MD / Pipo Ornelas MD Interpreting Provider: Pipo Ornelas MD Lower Extremity CT 03/08/18 10:15 IMPRESSION: 1. A large amount of subcutaneous gas centered within the medial and anterior soft tissues of the proximal mid thigh which is most compatible with necrotizing soft tissue infection. No well-defined drainable fluid collection identified within limits of this noncontrast exam. 2. Extensive subcutaneous edema throughout the soft tissues of the left lower extremity and also involving the partially visualized soft tissues of the right lower extremity. While findings may be related to chronic venous stasis in lymph edema, superimposed cellulitis is of concern given findings within proximal left thigh. 3. No acute osseous abnormality identified. No evidence for osteomyelitis. 4. Tricompartmental moderate to severe osteoarthritis of the left knee which is most pronounced within the medial compartment. 5. Moderate left knee effusion. 6. Severe atherosclerotic disease. D/ / Yousuf Mcknight MD / Yousuf Mcknight MD Interpreting Provider: Yousuf Mcknight MD - Attending Attestation I examined this patient and my medical decision-making was reviewed with the Resident Physician Dr. Allison. I agree with the documented findings, disposition and treatment plan as described except to the extent set forth below. Ms. Salmon is a 68 year old female with pmh of diabetes, PE and DVT on coumadin , presenting with complaints of malaise and generally feeling unwell for about 2 weeks. She did have left thigh cellulites and pneumonia. Pt was treated with empirical abx. Her sob and REYES are better today. Denied any CP. Denied any cough. However michael Left thigh swelling and erythema seems to be worsening today. Gen: A, A, O x 3 Chest: Diminished BS b/l Heart: S1S2+ RRR Ext; 6x6 cm size induration over left thigh.. Erythema+ Tenderness + a/p 1. Sepsis with Left thigh necrotizing soft tissue infection CT of Thigh showed necrotozing soft tissue infection with gas changed the abx to Clindaycin + Zosyn ID consulted Surgery consulted NPO for now If surgery planning on doing surgery today will give her Vit K IV x 1 dose and FFP x 2 doses 2. Acute pneumonia - mostly bacterial empiricla abx 3. HERIBERTO with CKD-2 Worsening Cr mostly due to Abx / Medication induced ATN Avoid nephro toxic meds Nephro consulted Started on NaHCo3 gtt
--- NOTE | 2018-03-08 15:38 | Infectious Disease Consult ---
Date of Encounter: 03/08/18 Time of Encounter: 15:38 Infectious Disease HPI - Data of Consult Patient: new to practice Consult date: 03/08/18 Requesting Physician: Noé Lopez Primary Care Provider: Alonzo Resendiz MD - Consult Narrative Reason for consult: RLE Cellulitis History of present illness: Ms. Salmon is a 68 year old female with a past medical history of osteoarthritis , DVT on warfarin, diabetes, hypertension, rheumatoid arthritis, anxiety, and depression. The patient was diminished the hospital March 02 for sepsis and left thigh cellulitis. We are consulted March 08 for further recommendations her left thigh cellulitis. Briefly, the patient's a 68-year-old female with past medical history as stated above. The patient presented to the emergency department with complaints of altered mental status, fevers, chills. The patient is somewhat of a poor historian regarding the events leading up to her hospitalization, therefore, most of the information is obtained from the medical record. Apparently, the patient had had increased redness, swelling, and pain to the medial aspect of her left thigh for several days prior to presentation. Upon arrival, the patient was febrile, tachycardic, and tachypneic. She had leukocytosis with bandemia as well as lactic acidosis and acute kidney injury. Urinalysis was obtained and was negative. Blood cultures were +1 out of 2 sets for staph epi. She had a CT of the head that was negative. Chest x-ray was negative. She is started empirically on IV Vanco and Zosyn and admitted to the hospital for further evaluation. Since admission, the patient has had persistent leukocytosis. Zosyn was discontinued on 03/03/18 and Vanc was continued. She continued to have fevers until March 05, but has been afebrile since then. Vancomycin was stopped on due to HERIBERTO and Zosyn was re-started. Repeat blood cultures obtained March 05 are no growth to date 2 sets. She had a chest x-ray on March 06 that showed a possible right perihilar airspace opacity concerning for asymmetric edema versus pneumonia. Zosyn was stopped and Unasyn was started. Nephrology was consulted to assist with the patient's worsening HERIBERTO. She had a retroperitoneal ultrasound that showed findings consistent with medical renal disease. A repeat urinalysis was obtained and appeared contaminated, but the culture was negative. On 03/07/18 Unasyn was discontinued and Augmentin was started in preparation for discharge. Today, the patient reported worsening of her symptoms. She does CT of the left lower extreme and that showed a large amount of subcutaneous gas in the medial and anterior soft tissues of the proximal mid thigh consistent with necrotizing fasciitis and findings consistent with cellulitis. CK level was 354. General surgery has been consulted. Her antibiotics were escalated to include IV clindamycin, IV doxycycline, and IV Zosyn. We have been asked to evaluate and make further recommendations. During my exam today, the patient endorses a history as stated above. She states that overall she feels okay, but continues to have chronic low back and coccyx pain secondary to osteoarthritis. She does report significant pain and tightness in the left lower extremity. She states the pain is from her thigh to her toes. She denies any known fevers or chills or rigors. She denies chest pain or cough. She reports chronic shortness of breath that appears to be at baseline. She denies nausea, vomiting, diarrhea, or constipation. She denies abdominal pain or urinary complaints. She did have a Williamson catheter placed to assist with monitoring of her urinary output with her acute kidney injury. She reports her last bowel movement was this morning. She reports a poor appetite. She denies oral thrush or other skin lesions. She states she is not sure what caused the left thigh cellulitis, but does report a cat bite to the left foot about 3 weeks ago that still has not healed. The patient lives at home with her . She does have an inside cat. She denies any recent travel outside the [facility]. She denies any tobacco, alcohol, or illicit drug use. She does not work outside the home. CC: Noé Lopez Past Med Surg Social Fam HX - Past Medical History Attestation: Yes The following information was validated with the patient. Source: patient, old records reviewed, nursing notes reviewed Medical history: arthritis, DVT, diabetes, hypertension, pulmonary embolus, RA Psychiatric history: anxiety, depression - Past Surgical History Surgical History: non-contributory - Social History Smoking Status: Never smoker Smokeless Tobacco Status: No Alcohol use: none Drug use: none - Family History Father Living Status: Hx Family Cardiac Disorders: Yes Infectious Disease-CN:Meds Amlodipine Besylate 10 mg PO DAILY 04/21/17 [History] Gabapentin [Neurontin] 800 mg PO TID 04/21/17 [History] Insulin Regular, Human [Novolin R] 21 - 22 unit SQ TID PRN 04/21/17 [History] Lisinopril [Zestril] 40 mg PO DAILY 04/21/17 [History] Metoprolol [Lopressor] 50 mg PO BID 04/21/17 [History] [place]-3/Dha/Epa/Fish Oil [[place] 3 500 Softgel] 2 cap PO DAILY 04/21/17 [History] Tramadol HCl [Ultram] 100 mg PO TID 04/21/17 [History] Venlafaxine [Effexor] 75 mg PO BID 04/21/17 [History] Zolpidem [Ambien] 10 mg PO HS 04/21/17 [History] hydroCHLOROthiazide [Hydrochlorothiazide] 25 mg PO DAILY 04/21/17 [History] Pravastatin Sodium [Pravachol] 40 mg PO DAILY 04/22/17 [History] Metformin HCl [Glucophage] 1,000 mg PO BID #60 04/25/17 [Rx] Albuterol Sulfate [Albuterol Inhaler] 2 puff IH Q6H PRN 03/02/18 [History] Budesonide/Formoterol 160/4.5 [Symbicort 160/4.5] 2 puff IH BIDR 03/02/18 [ History] Ferrous Sulfate [Iron] 325 mg PO DAILY 03/02/18 [History] Insulin NPH, HUMAN [HumuLIN N] 55 unit SQ QPM 03/02/18 [History] Insulin NPH, HUMAN [HumuLIN N] 75 unit SQ QAM 03/02/18 [History] Mv W-Ca/Iron/FA/Lutein/Hrb#179 [Michael Multivit For Women Caplet] 1 each PO DAILY 03/02/18 [History] Nystatin POWDER [Nystop] 1 appl TP DAILY PRN 03/02/18 [History] Warfarin [Coumadin] 7.5 mg PO MOTUWEFRSA 03/02/18 [History] Warfarin [Coumadin] 10 mg PO SUTH 03/02/18 [History] 3 Allergy/AdvReac Type Severity Reaction Status Date / Time prochlorperazine Allergy Dry Mucus Verified 03/02/18 09:30 [From Compazine] Membranes Sulfa (Sulfonamide Allergy Blister Verified 03/02/18 09:30 Antibiotics) All systems: reviewed and no additional remarkable complaints except as stated Exam - Constitutional Vitals: Temp Pulse Resp BP Pulse Ox 97.7 F 55 19 125/67 97 03/08/18 11:55 03/08/18 11:55 03/08/18 11:55 03/08/18 11:55 03/08/18 11:55 General appearance: cooperative, morbidly obese, no acute distress - Head Head exam: Present: atraumatic, normal inspection, normocephalic - Eye Eye exam: Present: EOMI, normal appearance, PERRL Pupils: Present: normal accommodation - ENT ENT exam: Present: mucous membranes moist - Neck Neck exam: Present: normal inspection - Respiratory Respiratory exam: Present: CTAB. Absent: rales, respiratory distress, rhonchi, wheezes - Cardiovascular Cardiovascular exam: Present: RRR, +S1, +S2 - GI/Abdominal GI/Abdominal exam: Present: distended (obese), normal bowel sounds, soft. Absent: tenderness Additional comments: Umbilical hernia noted, non-tender. - Extremities Exam Extremities exam: Present: joint swelling (1+ Left knee), pedal edema (2+ LLE), tenderness (Left LE, worse at the site of the cellulitis of the left thigh.) - Expanded Lower Extremity Exam 1 - Erythema, warmth, tenderness, skin thickening consistent with cellulitis to the left anterior, medial, and posterior thigh from the inguinal fold to the middle of the thigh. No open sores or drainage. - Neurological Exam Neurological exam: Present: alert, oriented X3, no focal deficits - Psychiatric Psychiatric exam: Present: normal affect, normal mood - Skin Skin exam: Present: dry, intact, normal color, warm Infectious Disease CN: Results - Labs CBC & Chem 7: 03/09/18 04:18 03/09/18 04:18 Cultures: Cultures 03/07/18 00:10 Urine Culture - Preliminary Urine,Clean Catch No growth. 03/05/18 08:34 Blood Culture - Preliminary Peripheral Venipuncture Culture is incubating and being continuously monitored for growth. Final report to follow. 03/05/18 08:34 Blood Culture - Preliminary Peripheral Venipuncture Culture is incubating and being continuously monitored for growth. Final report to follow. Serology: Serology 03/07/18 03/07/18 03/07/18 Range/Units 19:05 00:10 00:10 Urine Color (Yellow) Urine Clarity (Clear) Urine pH (5.0-8.0) pH Units Ur Specific [place] (1.010-1.025) Urine Protein (Neg-Trace) mg/dL Urine Glucose (UA) (Normal) mg/dL Urine Ketones (Negative) mg/dL Urine Blood (Negative) Urine Nitrite (Negative) Urine Bilirubin (Negative) Urine Urobilinogen (Normal) mg/dL Ur Leukocyte Esterase (Negative) Urine Microscopic RBC (0-3) per hpf Urine Microscopic WBC (0-3) per hpf Ur Eosinophil Smear 0 (None Seen) % Ur Squamous Epith Cells (None-Few) per lpf Amorphous Sediment (Few) Urine Bacteria (None-Few) per hpf Hyaline Casts (None-Few) per lpf Ur Culture Indicated? Urine Osmolality 377 (300-1090) mOsm/kg Urine Creatinine mg/dL Protein/Creatinin Ratio (0.00-0.20) mg/mg Urine Sodium mEq/L Ur Uric Acid 33 mg/dL Urine Total Protein (1-14) mg/dL 03/07/18 03/07/18 Range/Units 00:10 00:10 Urine Color Yellow (Yellow) Urine Clarity Cloudy A (Clear) Urine pH 5.5 (5.0-8.0) pH Units Ur Specific [place] 1.020 (1.010-1.025) Urine Protein 30 H (Neg-Trace) mg/dL Urine Glucose (UA) 500 H (Normal) mg/dL Urine Ketones Negative (Negative) mg/dL Urine Blood Small H (Negative) Urine Nitrite Negative (Negative) Urine Bilirubin Negative (Negative) Urine Urobilinogen Normal (Normal) mg/dL Ur Leukocyte Esterase Negative (Negative) Urine Microscopic RBC 0-3 (0-3) per hpf Urine Microscopic WBC 3-5 H (0-3) per hpf Ur Eosinophil Smear (None Seen) % Ur Squamous Epith Cells Many H (None-Few) per lpf Amorphous Sediment Moderate H (Few) Urine Bacteria Many H (None-Few) per hpf Hyaline Casts None Seen (None-Few) per lpf Ur Culture Indicated? Cancelled Urine Osmolality (300-1090) mOsm/kg Urine Creatinine 87 mg/dL Protein/Creatinin Ratio 1.59 H (0.00-0.20) mg/mg Urine Sodium 36.5 mEq/L Ur Uric Acid mg/dL Urine Total Protein 138 H (1-14) mg/dL Consult Discharge Plan - Plan Referrals: Alonzo Resendiz MD [Primary Care Provider] - - Attending Attestation I examined this patient and my medical decision-making was reviewed with the Resident Physician. I agree with the documented findings, disposition and treatment plan as described except to the extent set forth below. This is an addendum to original report dictated by Kristine Sands CNP. Please refer to Kristine's note for full detail. Patient is 68-year-old woman with past medical history mentioned below presented to the hospital on March 02 with sepsis and left thigh cellulitis. Patient initially came in with complaints of altered mental status, fevers and chills. Patient was noted to have redness and erythema of the left thigh. Patient had blood cultures done which 1 out of 2 came back positive for coag- negative staph. Patient was started on empiric vancomycin and Zosyn but patient went acute kidney injury secondary to ATN and vancomycin was stopped it. A chest x-ray revealed possible pneumonia Zosyn was stopped and Unasyn was started. On 03/07/18 Unasyn was discontinued and Augmentin was started in preparation for discharge. Apparently her symptoms start getting worse. (1) Severe sepsis Status: Acute Assessment and plan: The patient had four SIRS criteria on admission with HERIBERTO and lactic acidosis. Likely we secondary to left thigh cellulitis and necrotizing fasciitis. Patient continues to have persistent leukocytosis, worse today, with intermittent bandemia. Tachycardia has improved. She has been afebrile for 48 hours. Blood cultures drawn March 02 were +1 out of 2 sets for staph epi. Repeat blood cultures drawn March 05 are no growth to date 2 sets. (2) Necrotizing fasciitis Status: Acute Assessment and plan: Location: Left thigh. Causative organism: unclear. Etiology unclear. CT of the LLE showed large amount of subcutaneous gas in the medial and anterior soft tissues of the proximal mid thigh consistent with necrotizing fasciitis and cellulitis. CK level 354. General surgery consulted. Await recommendations. Check ESR and CRP. Repeat blood cultures x 2 sets now. Continue clindamycin, but increase dose to 900mg IV Q8H. Continue Zosyn 3.375 grams IV Q8H. Start Daptomycin 6mg/kg IV daily. Start probiotics. Duration of treatment depends on the clinical picture. Stop simvastatin while on Daptomycin. Monitor renal function and for drug toxicity and dose-adjust antibiotics. (3) Cellulitis Status: Acute Assessment and plan: Location: Left thigh. Causative organism unclear.. Etiology unclear. The patient reports a cat bite to the left foot about three weeks ago that has not healed, but otherwise denies known trauma to the extremity. Continue antibiotics as above. Qualifiers: Site of cellulitis: extremity Site of cellulitis of extremity: lower extremity Laterality: left Qualified Code(s): L03.116 - Cellulitis of left lower limb (4) Pneumonia Status: Acute Assessment and plan: Location: Right perihilar region. Causative organism unclear. Chest XR showed right perihilar airspace opacity concerning for asymmetrical edema vs. PNA. Continue antibiotics as above. Qualifiers: Pneumonia type: due to methicillin-sensitive Staphylococcus aureus (MSSA) Laterality: right Lung location: unspecified part of lung Qualified Code(s) : J15.211 - Pneumonia due to Methicillin susceptible Staphylococcus aureus (5) Bacteremia Status: Acute Assessment and plan: Blood cultures drawn 03/02/18 are positive 1/2 sets for S. epi. Repeat blood cultures drawn 03/05/18 are NGTD x 2 sets. Likely a contaminant. No further treatment indicated. (6) HERIBERTO (acute kidney injury) Status: Acute Assessment and plan: Serum creatinine elevated on admission, likely secondary to sepsis. Resolved initially, but worsened. Nephology consulted. Likely secondary to ATN from Vancomycin, which was discontinued. Serum creatinine continues to worsen despite discontinuance of Vancomycin. Continue to trend. Dose-adjust antibiotics. Avoid nephrotoxins as able. Strict I's and O's. (7) DMII (diabetes mellitus, type 2) Status: Chronic Assessment and plan: Uncontrolled. HgbA1C 9.9% on admission. Recommend aggressive glucose monitoring and control to promote wound healing and prevent re-infection. Management per the primary team. Qualifiers: Diabetes mellitus snf insulin use: with snf use Diabetes mellitus complication status: with kidney complications Diabetes mellitus complication detail: with chronic kidney disease Chronic kidney disease stage : stage 3 (moderate) Qualified Code(s): E11.22 - Type 2 diabetes mellitus with diabetic chronic kidney disease; N18.3 - Chronic kidney disease, stage 3 ( moderate); Z79.4 - penitentiary (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 (8) HTN (hypertension), benign Status: Chronic (9) Morbid obesity Status: Chronic (10) Hyperglycemia Status: Acute
[2018-03-08] MEDS ORDERED: Clindamycin 600 MG/50 ML 600 MG/50 ML IV.SOLN IVPB SCH (16:00)
[2018-03-08 16:32] LABS: ABG Base Excess -7 mEq/L (-2 to 3); ABG HCO3 20 mEq/L (21-27); ABG Oxygen Saturation 95 % (95-98); ABG PCO2 41 mmHg (35-45); ABG PH 7.29 pH Units (7.32-7.45); ABG PO2 87 mmHg (85-104); ABG TCO2 21 mEq/L (20-26)
[2018-03-08] MEDS: Lactobacillus 1 EACH CAP.SPRINK PO SCH (16:54)
[2018-03-08] MEDS: Clindamycin 900 MG/50 ML 900 MG/50 ML IV.SOLN IVPB SCH (16:54)
[2018-03-08] MEDS ORDERED: DAPTOmycin 600 MG in 0.9 % Sodium Chloride 100 ML IVPB SCH (18:00)
[2018-03-08] MEDS ORDERED: DAPTOmycin 900 MG in 0.9 % Sodium Chloride 100 ML IVPB SCH (18:00)
--- NOTE | 2018-03-08 18:24 | General Surgery Consult Note ---
Date of Encounter: 03/08/18 Time of Encounter: 17:30 History of Present Illness Consult date: 03/08/18 Reason for consult: other (Cellulitis, subcutaneous infection upper medial left leg) Requesting physician: Oseas Allison History of present illness: 68-year-old, morbidly obese, diabetic female admitted to [facility] after presenting to the emergency department with progressive pain, swelling, and redness consistent with cellulitis of the left lower extremity, 03/02/2018. The patient was treated for localized infection and seemed to be improving until this date when the patient had recurrent pain and swelling upper medial left thigh. CT of the extremity demonstrated extensive subcutaneous edema with associated skin thickening. A large amount of subcutaneous gas proximal left thigh medially anteriorly extending to the level of the proximal superficial femoral artery is also described. No definite fluid collection was identified, however, the exam was limited by the lack of contrast. Based on the worsening pain, swelling of the proximal left leg and CT finding surgical consultation was placed. Past medical history: Morbid obesity, diabetes, hypertension, history of DVT and pulmonary embolism, chronic anticoagulation. Patient also has a history of generalized anxiety and depression. Allergies: Prochlorperazine and sulfa Medications: (On admission) Amlodipine 10 mg by mouth daily Gabapentin 800 mg by mouth 3 times a day Novolin R 21-22 units subcutaneous 3 times a day as needed Lisinopril 40 mg by mouth daily Metoprolol 50 mg by mouth twice a day [place]-3 fish oil 500 mg 2 caps by mouth daily Tramadol 100 mg by mouth 3 times a day Venlafaxine 75 mg by mouth twice a day Zolpidem 10 mg by mouth daily at bedtime Hydrochlorothiazide 25 mg by mouth daily Pravastatin 40 mg by mouth daily Metformin thousand milligrams by mouth twice a day Albuterol inhaler 2 puffs every 6 hours as needed for shortness of breath or wheezing Budesonide/formoterol 160/4.5 g 2 puffs twice a day Ferrous sulfate 325 mg by mouth daily NPH insulin 75 units subcutaneous every morning; 55 units subcutaneous every afternoon Megavitamin for women 1 by mouth daily Nystatin powder applied topically as needed Coumadin 7.5 mg Tuesday, Tuesday, Tuesday, Tuesday, Tuesday Coumadin 10 mg by mouth every Tuesday and Since admission: Antibiotics have been initiated - current antibiotics include clindamycin 900 mg IV every 8 hours Daptomycin 100 mg IV every 24 hours (initiated by infectious disease consultation today) Zosyn 3.375 g IV every 12 Anticoagulation Has continued through this date - most recent PTT 38.6, INR 3.4 Surgical history: Cholecystectomy with coincidental appendectomy; ORIF of the right lower extremity disease patient describes a fractured leg 2) Tubal ligation Social history: Patient denies alcohol or tobacco use; she is G3, P3. Physical examination: Morbidly obese female who appears to be resting comfortably in her hospital bed. The patient is 1.55 m tall, 149.1 kg with a BMI of 62.1 She is currently afebrile at 97.5, pulse ranging 55-63, respirations 21, blood pressure 140/72. SPO2 on 2-3 L/m nasal cannula, 97-100% Skin: No obvious jaundice; induration, and erythema upper medial left thigh. Obvious skin thickening consistent with the CT findings Lungs: Diminished breath sounds with no audible wheezes or rales; exam limited by body habitus Cardiac: Regular rate with no obvious murmurs, exam limited by body habitus Abdomen: Morbidly obese, soft without obvious tenderness. Bowel sounds were barely audible but exam was limited by body habitus Laboratories: White count 20.6, hemoglobin 10.5 with hematocrit 35.4; platelet count 495,000. Differential notable for 4.8% immature granulocytes, 16.3 neutrophils PT/INR as noted Sodium 135, potassium 4.7, bicarbonate 18, BUN has risen to 101, with creatinine rising to 3.3. Estimated GFR 14 Impression: 68-year-old morbidly obese diabetic woman with subcutaneous infection/abscess upper medial left thigh. There is radiologic evidence of subcutaneous air dispersed throughout the medial/anterior left thigh The patient will require incision and drainage however her current anticoagulated state is problematic. The patient's rapidly deteriorating renal function is a concern. [facility] has been consulted. Recommendations: Stop anticoagulation (Coumadin) Active reversal with fresh frozen plasma - at least 2 units to be administered this evening Check PT/INR in a.m.; surgical incision and drainage if INR less than 1.8 is achieved Nothing by mouth except for medications after midnight in preparation for surgery in the a.m. if possible Discuss further antibiotic therapy with Infectious Disease Past Med Surg Social Fam HX - Past Medical History Medical history: arthritis, DVT, diabetes, hypertension, pulmonary embolus, RA Psychiatric history: anxiety, depression - Past Surgical History Surgical History: non-contributory - Social History Smoking Status: Never smoker Smokeless Tobacco Status: No Alcohol use: none Drug use: none - Family History Father Living Status: Hx Family Cardiac Disorders: Yes Medications and Allergies Amlodipine Besylate 10 mg PO DAILY 04/21/17 [History] Gabapentin [Neurontin] 800 mg PO TID 04/21/17 [History] Insulin Regular, Human [Novolin R] 21 - 22 unit SQ TID PRN 04/21/17 [History] Lisinopril [Zestril] 40 mg PO DAILY 04/21/17 [History] Metoprolol [Lopressor] 50 mg PO BID 04/21/17 [History] [place]-3/Dha/Epa/Fish Oil [[place] 3 500 Softgel] 2 cap PO DAILY 04/21/17 [History] Tramadol HCl [Ultram] 100 mg PO TID 04/21/17 [History] Venlafaxine [Effexor] 75 mg PO BID 04/21/17 [History] Zolpidem [Ambien] 10 mg PO HS 04/21/17 [History] hydroCHLOROthiazide [Hydrochlorothiazide] 25 mg PO DAILY 04/21/17 [History] Pravastatin Sodium [Pravachol] 40 mg PO DAILY 04/22/17 [History] Metformin HCl [Glucophage] 1,000 mg PO BID #60 04/25/17 [Rx] Albuterol Sulfate [Albuterol Inhaler] 2 puff IH Q6H PRN 03/02/18 [History] Budesonide/Formoterol 160/4.5 [Symbicort 160/4.5] 2 puff IH BIDR 03/02/18 [ History] Ferrous Sulfate [Iron] 325 mg PO DAILY 03/02/18 [History] Insulin NPH, HUMAN [HumuLIN N] 55 unit SQ QPM 03/02/18 [History] Insulin NPH, HUMAN [HumuLIN N] 75 unit SQ QAM 03/02/18 [History] Mv W-Ca/Iron/FA/Lutein/Hrb#179 [Michael Multivit For Women Caplet] 1 each PO DAILY 03/02/18 [History] Nystatin POWDER [Nystop] 1 appl TP DAILY PRN 03/02/18 [History] Warfarin [Coumadin] 7.5 mg PO [id number] 03/02/18 [History] Warfarin [Coumadin] 10 mg PO SUTH 03/02/18 [History] 3 Allergy/AdvReac Type Severity Reaction Status Date / Time prochlorperazine Allergy Dry Mucus Verified 03/02/18 09:30 [From Compazine] Membranes Sulfa (Sulfonamide Allergy Blister Verified 03/02/18 09:30 Antibiotics) Review of Systems All systems PM: The remainder of the systems were reviewed and are negative General Surgery Exam Initial Vital Signs Temp Pulse Resp BP Pulse Ox 100.3 F H 140 26 142/105 94 03/02/18 07:45 03/02/18 07:45 03/02/18 07:45 03/02/18 07:45 03/02/18 07:45 Exam Initial Vital Signs Temp Pulse Resp BP Pulse Ox 100.3 F H 140 26 142/105 94 03/02/18 07:45 03/02/18 07:45 03/02/18 07:45 03/02/18 07:45 03/02/18 07:45 Results - Labs 03/08/18 09:20 03/08/18 09:20 Abnormal lab results WBC 20.6 K/mcL (4.3-11.1) H 03/08/18 09:20 Hgb 10.5 g/dL (11.5-15.4) L 03/08/18 09:20 MCH 24.8 pg (28.0-33.3) L 03/08/18 09:20 MCHC 29.7 g/dL (31.6-35.5) L 03/08/18 09:20 RDW 15.2 % (11.5-14.5) H 03/08/18 09:20 Plt Count 495 K/mcL (140-400) H 03/08/18 09:20 Immature Gran % 4.8 % (0-4) H 03/08/18 09:20 Band Neutrophils % 22.0 % (0-4) H 03/05/18 05:57 Metamyelocytes % 2.0 % (0) H 03/02/18 07:59 Neutrophils # 16.3 K/mcL (1.6-8.9) H 07/11/18 09:20 Nucleated RBCs/100 WBC 0.2 /100 WBC (0) H 03/08/18 09:20 Toxic Granulation Present (Not Present) A 03/02/18 07:59 Toxic Vacuolation Present (Not Present) A 03/02/18 07:59 ESR >= 130 mm/hr (0-15) H 03/08/18 16:30 PT 38.6 Seconds (9.4-12.1) H 03/08/18 04:33 ABG pH 7.29 pH Units (7.32-7.45) L 03/08/18 16:28 ABG HCO3 20 mEq/L (21-27) L 03/08/18 16:28 ABG Base Excess -7 mEq/L (-2 to 3) L 03/08/18 16:28 VBG pH 7.43 pH Units (7.32-7.42) H 03/02/18 08:18 VBG pCO2 38 mmHg (41-51) L 03/02/18 08:18 VBG pO2 94 mmHg (25-50) H 03/02/18 08:18 Sodium 135 mEq/L (136-145) L 03/08/18 09:20 Carbon Dioxide 18 mEq/L (23-29) L 03/08/18 09:20 BUN 101 mg/dL (8-23) H 03/08/18 09:20 Creatinine 3.30 mg/dL (0.60-1.20) H 03/08/18 09:20 Est GFR ( Amer) 17 (> 60) L 03/08/18 09:20 Est GFR (Non-Af Amer) 14 (> 60) L 03/08/18 09:20 BUN/Creatinine Ratio 31 (6-26) H 03/08/18 09:20 Glucose 236 mg/dL (70-105) H 03/08/18 09:20 POC Glucose 264 mg/dL (70-99) H 03/08/18 11:58 Hemoglobin A1c 9.9 % (-5.6) H 03/02/18 12:00 Calculated Osmolality 319 (280-300) H 03/08/18 09:20 Uric Acid 11.4 mg/dL (2.3-7.6) H 03/08/18 04:33 Calcium 8.1 mg/dL (8.6-10.3) L 03/08/18 09:20 Phosphorus 2.5 mg/dL (2.7-4.5) L 03/03/18 04:34 AST 10 Units/L (13-39) L 03/02/18 07:59 Creatine Kinase 354 Units/L (30-223) H 03/08/18 04:33 C-Reactive Protein 93 mg/L (Less than 10) H 03/08/18 16:30 Albumin/Globulin Ratio 1.0 (1.1-2.2) L 03/02/18 07:59 Beta-Hydroxybutyric Acd 1.02 mmol/L (0.02-0.27) H 03/02/18 07:59 Urine Clarity Cloudy (Clear) A 03/07/18 00:10 Urine Protein 30 mg/dL (Neg-Trace) H 03/07/18 00:10 Urine Glucose (UA) 500 mg/dL (Normal) H 03/07/18 00:10 Urine Blood Small (Negative) H 03/07/18 00:10 Urine Microscopic WBC 3-5 per hpf (0-3) H 03/07/18 00:10 Ur Squamous Epith Cells Many per lpf (None-Few) H 03/07/18 00:10 Amorphous Sediment Moderate (Few) H 03/07/18 00:10 Urine Bacteria Many per hpf (None-Few) H 03/07/18 00:10 Granular Casts Many per lpf (None Seen) H 03/02/18 08:45 Protein/Creatinin Ratio 1.59 mg/mg (0.00-0.20) H 03/07/18 00:10 Urine Total Protein 138 mg/dL (1-14) H 03/07/18 00:10 Vancomycin Trough 20 mcg/mL (5-10) H 03/04/18 20:54 Staphylococcus sp PCR DETECTED (Not Detect) A 03/02/18 07:59 mecA-Methicil Res Gene DETECTED (Not Detect) A 03/02/18 07:59 Diabetes panel 03/08/18 Range/Units 09:20 Sodium 135 L (136-145) mEq/L Potassium 4.7 (3.5-5.1) mEq/L Chloride 100 (98-107) mEq/L Carbon Dioxide 18 L (23-29) mEq/L BUN 101 H (8-23) mg/dL Creatinine 3.30 H (0.60-1.20) mg/dL Glucose 236 H (70-105) mg/dL Calcium 8.1 L (8.6-10.3) mg/dL Calcium panel 03/08/18 Range/Units 09:20 Calcium 8.1 L (8.6-10.3) mg/dL Pituitary panel 03/08/18 Range/Units 09:20 Sodium 135 L (136-145) mEq/L Potassium 4.7 (3.5-5.1) mEq/L Chloride 100 (98-107) mEq/L Carbon Dioxide 18 L (23-29) mEq/L BUN 101 H (8-23) mg/dL Creatinine 3.30 H (0.60-1.20) mg/dL Glucose 236 H (70-105) mg/dL Calcium 8.1 L (8.6-10.3) mg/dL Adrenal panel 03/08/18 Range/Units 09:20 Sodium 135 L (136-145) mEq/L Potassium 4.7 (3.5-5.1) mEq/L Chloride 100 (98-107) mEq/L Carbon Dioxide 18 L (23-29) mEq/L BUN 101 H (8-23) mg/dL Creatinine 3.30 H (0.60-1.20) mg/dL Glucose 236 H (70-105) mg/dL Calcium 8.1 L (8.6-10.3) mg/dL All other labs normal. Consult Discharge Plan - Plan Referrals: Alonzo Resendiz MD [Primary Care Provider] -
[2018-03-08] MEDS: Piperacillin/Tazobactam 3.375 GM in 0.9 % Sodium Chloride Mini Bag 100 ML IVPB SCH (18:27)
[2018-03-08] MEDS ORDERED: 0.9 % Sodium Chloride 250 ML ONE (20:36)
[2018-03-08] MEDS: Gabapentin 300 MG CAPSULE PO SCH (21:06)
[2018-03-08] MEDS: Insulin DETEMIR 100 UNIT/ML X5UNITS SQ SCH (21:07)
[2018-03-08] MEDS ORDERED: 0.9 % Sodium Chloride 500 ML ONE (23:19)
[2018-03-09] MEDS: Clindamycin 900 MG/50 ML 900 MG/50 ML IV.SOLN IVPB SCH ×3 (00:37→16:26)
[2018-03-09] MEDS: Sodium Bicarbonate 75 MEQ in 0.45 % Sodium Chloride 1,000 ML IVC SCH (02:06)
[2018-03-09 04:24] LABS: Basophils # 0.1 K/mcL (0.0-0.2); Basophils % 0.3 %; Eosinophils # 0.2 K/mcL (0.0-0.6); Hematocrit 27.7 % (35.3-44.9); Immature Granulocytes % 4.1 % (0-4); Lymphocytes # 1.8 K/mcL (0.6-4.6); Lymphocytes % 8.5 %; Mean Corpuscular Hemoglobin 25.4 pg (28.0-33.3); Mean Corpuscular Volume 81.7 fL (83.0-100.0); Mean Platelet Volume 9.9 fL (9.4-12.4); Monocytes # 1.1 K/mcL (0.0-1.3); Nucleated Red Blood Cells 0.1 /100 WBC (0); Platelet Count 448 K/mcL (140-400); Red Blood Count 3.39 M/mcL (3.82-4.97); Red Cell Distribution Width 14.9 % (11.5-14.5); Segmented Neutrophils % 81.1 %
[2018-03-09 04:26] LABS: Hemoglobin 8.6 g/dL (11.5-15.4)
[2018-03-09 04:30] LABS: INR 1.5; Prothrombin Time 17.2 Seconds (9.4-12.1)
[2018-03-09 04:48] LABS: Calcium 7.5 mg/dL (8.6-10.3); Magnesium 2.7 mg/dL (1.6-2.6); Phosphorous 8.9 mg/dL (2.7-4.5); Potassium 4.5 mEq/L (3.5-5.1)
[2018-03-09 04:50] LABS: Albumin 2.6 g/dL (3.5-5.7); Albumin/Globulin Ratio 0.9 (1.1-2.2); Bilirubin,Total 0.2 mg/dL (0.3-1.0); Calcium 7.6 mg/dL (8.6-10.3); Globulin 2.8 g/dL (2.4-3.5); Potassium 4.5 mEq/L (3.5-5.1); Total Protein 5.4 g/dL (6.4-8.9)
[2018-03-09] MEDS: Piperacillin/Tazobactam 3.375 GM in 0.9 % Sodium Chloride Mini Bag 100 ML IVPB SCH ×2 (04:53→18:33)
[2018-03-09] MEDS: Budesonide/Formoterol 160/4.5 MDI IH SCH ×2 (07:30→19:53)
[2018-03-09] MEDS ORDERED: Sodium Bicarbonate 75 MEQ in 0.45 % Sodium Chloride 1,000 ML IVC SCH (09:34)
[2018-03-09] MEDS: Lactobacillus 1 EACH CAP.SPRINK PO SCH (09:56)
[2018-03-09] MEDS: amLODIPine 5 MG TABLET PO SCH (09:57)
[2018-03-09] MEDS: Gabapentin 300 MG CAPSULE PO SCH ×2 (09:57→21:32)
[2018-03-09] MEDS: Multivit/Ca/Min/Fe/FA 1 TAB TABLET PO SCH (09:57)
--- NOTE | 2018-03-09 09:57 | Nephrology Progress Note ---
Date of Encounter: 03/09/18 Time of Encounter: 09:54 - Assessment and Plan (1) HERIBERTO (acute kidney injury) Current Visit: Yes Status: Acute Baseline Scr 1.17 and GFR 42. Scr 3.37 and GFR 14 today Uop 1300 yesterday and 200 today. Continue to renal dose all medications and avoid nephrotoxins. Agree with holding Lasix and Vanco at this time. Sodium Bicarb infusion increased to 150/hr. (2) Cellulitis Current Visit: Yes Status: Acute Surgery consult. Qualifiers: Site of cellulitis: extremity Site of cellulitis of extremity: lower extremity Laterality: left Qualified Code(s): L03.116 - Cellulitis of left lower limb (3) DMII (diabetes mellitus, type 2) Current Visit: Yes Status: Chronic Per primary. Qualifiers: Diabetes mellitus group home insulin use: with group home use Diabetes mellitus complication status: with kidney complications Diabetes mellitus complication detail: with chronic kidney disease Chronic kidney disease stage : stage 3 (moderate) Qualified Code(s): E11.22 - Type 2 diabetes mellitus with diabetic chronic kidney disease; N18.3 - Chronic kidney disease, stage 3 ( moderate); Z79.4 - custodial (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 (4) Anemia Current Visit: Yes Status: Acute Goal Hgb 10-11. Hgb 8.6 today. Will check Iron profile, Vitamin B 12 and Folate in AM. Qualifiers: Qualified Code(s): D64.9 - Anemia, unspecified Subjective Principal diagnosis: fever/chills weakness Interval history: Pt seen and examined. NAD. Objective - Vital Signs Vital signs: Vital Signs Temp Pulse Resp BP Pulse Ox 03/09/18 07:31 17 94 03/09/18 07:00 97.5 F L 61 17 128/55 95 03/09/18 02:47 97.5 F L 58 18 119/65 98 03/09/18 00:18 97.6 F 56 18 107/55 93 03/09/18 00:13 97.7 F 58 15 134/85 95 03/09/18 00:05 98.0 F 56 16 122/64 97 03/08/18 23:31 97.5 F L 55 16 124/65 96 03/08/18 20:57 97.5 F L 61 18 119/60 99 03/08/18 20:52 100 03/08/18 20:42 97.8 F 62 18 116/49 97 03/08/18 19:58 16 98 03/08/18 19:14 97.7 F 61 16 118/60 98 03/08/18 16:38 97.5 F L 60 21 140/72 100 03/08/18 11:55 97.7 F 55 19 125/67 97 Intake and Output 03/08/18 03/09/18 03/09/18 23:59 07:59 15:59 Intake Total 670 / 670 1375 / 1375 0 / 0 Output Total 300 / 300 200 / 200 Balance 370 / 370 1175 / 1175 0 / 0 Intake: IV Fluids 150 / 150 1075 / 1075 Sodium Bicarbonate 75 MEQ In 0. 1075 / 1075 45% Sodium Chloride 1000 Ml 1000 Ml 1,000 ML @ 100 mls/hr IVC .[id number] [facility] Rx#:[id number] Cleocin Premix 900 MG/50 ML 900 50 / 50 mg In 50 ml @ 50 mls/hr IVPB Q8HR [facility] Rx#:[id number] Zosyn 3.375 GM In 0.9 % Sodium 100 / 100 Chloride (Mini-Bag +) 100 ML @ 25 mls/hr IVPB Q12HR [facility] Rx#: [id number] Oral 220 / 220 0 / 0 0 / 0 Blood Product 300 / 300 300 / 300 Plasma Unit [id number] 300 / 300 Plasma Unit [id number] 300 / 300 Output: Urine 0 / 0 Catheter 300 / 300 200 / 200 Other: Meal Dinner Breakfast Percent of Meal Consumed 50% 0% Stool Size Small Stool Consistency liquid Stool Characteristics Tarry Stool Color Brown # Bowel Movements 1 Weight 147.5 kg Blood Glucose* 305 212 Patient Weight 03/09/18 23:59 Weight 147.5 kg - General Appearance General appearance: Present: obese, chronically ill EENT: Present: ATNC, hearing intact, vision intact Neck: Present: supple Respiratory: Present: clear Cardiology: Present: no edema Gastrointestinal: Present: normoactive bowel sounds, no tenderness, no guarding Integumentary: Present: no rash, warm and dry Neurologic: Present: alert and oriented x3 Psychiatric: Present: mood/affect appropriate, cooperative - Lab 03/09/18 04:18 03/09/18 04:18 Most recent lab results ABG pH 7.29 pH Units (7.32-7.45) L 03/08/18 16:28 ABG pCO2 41 mmHg (35-45) 03/08/18 16:28 ABG pO2 87 mmHg (85-104) 03/08/18 16:28 ABG HCO3 20 mEq/L (21-27) L 03/08/18 16:28 ABG O2 Saturation 95 % (95-98) 03/08/18 16:28 Calcium 7.6 mg/dL (8.6-10.3) L 03/09/18 04:18 Phosphorus 8.9 mg/dL (2.7-4.5) H 03/09/18 04:18 Magnesium 2.7 mg/dL (1.6-2.6) H 03/09/18 04:18 Urine Creatinine 87 mg/dL 03/07/18 00:10 Urine Sodium 36.5 mEq/L 03/07/18 00:10 Urine Total Protein 138 mg/dL (1-14) H 03/07/18 00:10 - VTE Documentation of Mechanical Device: Intermittent pneumatic compression device Consult Discharge Plan - Plan Referrals: Alonzo Resendiz MD [Primary Care Provider] -
[2018-03-09] MEDS: Insulin DETEMIR 100 UNIT/ML X5UNITS SQ SCH ×2 (10:00→21:44)
[2018-03-09] MEDS: Insulin LISPRO 300 UNITS/3 ML VIAL SQ SCH ×3 (10:00→16:27)
--- NOTE | 2018-03-09 10:44 | Internal Med Progress Note ---
<Gianni Victor - Last Filed: 03/09/18 20:08> Date of Encounter: 03/09/18 Time of Encounter: 10:44 - Assessment and plan (1) Cellulitis Current Visit: Yes Status: Acute Assessment and plan: Patient with left inner thigh cellulitis extending up to groin area CT of the LLE showed large subcutaneous gas without obvious necrotizing fascitis or abscess, hoewver it was a limited CT due to inability to use IV contrast. 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 Diabetes mellitus complication status: with kidney complications Diabetes mellitus complication detail: with chronic kidney disease Chronic kidney disease stage : stage 3 (moderate) Qualified Code(s): E11.22 - Type 2 diabetes mellitus with diabetic chronic kidney disease; N18.3 - Chronic kidney disease, stage 3 ( moderate); Z79.4 - custodial (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 (3) HERIBERTO (acute kidney injury) Current Visit: Yes Status: Acute Assessment and plan: 03/06: Function was improving but now worsening Suspect secondary to IV vancomycin which was discontinued Continue to monitor with IV fluids 03/07 The patient continues to have worsening renal function despite adequate fluid rehydration Serum creatinine has risen to 3.1, patient has recieved fluids sufficient to produce +4.7L fluid balance This is most likely secondary to ATN due to Vancomycin use, however I will consult nephrology for evaluation Order urine electrolytes, retroperitoneal ultrasound Appreciate nephrology recommendations 03/08 Non-oliguric HERIBERTO Retroperitoneal US shows cortical thinning suggestive of medical renal disease without obvious obstruction or hydronephrosis The patient does continue to make urine, UOP 600 overnight Nephrology did see this patient, recommended bicarb drip which was started We will continue to monitor renal function with daily labs 03/09 Urine output yesterday 1300mL yesterday On bicarb drip per nephrology at 150/hr Continue to hold Lasix and vanco Avoid nephrotoxins Renal dose all medications (4) HTN (hypertension), benign Current Visit: No Status: Chronic Assessment and plan: Controlled Continue Lopressor, hold ROSENDA per HERIBERTO (5) Pneumonia Current Visit: Yes Status: Acute Assessment and plan: Chest x-ray on 03/06 showed new developing right perihilar airspace of patient the concerning for developing pneumonia 03/07 The patient continues to improve on unasyn day 2, previously on zosyn and vancomycin WBC 17.3 (trending down from 19.3), remains afebrile with normal heart rate and without hypotension Blood cultures from 03/05 remain negative We will transition the patient to Augmentin PO, monitor signs of infection 03/08 Suspect pneumonia is likely limited and resolving Patient had been transitioned to Augmentin PO, however WBC increased again to 20.6 I suspect this elevation is primarily caused by worsened cellulitis and not by worsening lung infection Due to cellulitis, the patient will be transitioned back to zosyn IV 03/09 Pt afebrile Persistent leukocytosis at 20.9 PNA picture complicated by cellulitis with subcutaneous necrosis on IV Zosyn, clindamycin, and daptomycin Qualifiers: Pneumonia type: due to methicillin-sensitive Staphylococcus aureus (MSSA) Laterality: right Lung location: unspecified part of lung Qualified Code(s) : J15.211 - Pneumonia due to Methicillin susceptible Staphylococcus aureus (6) Supratherapeutic INR Current Visit: Yes Status: Acute Assessment and plan: Supratherapeutic INR of 3.4 on 03/08 patient received two units FFP INR this AM was 1.5 Will hold anticoagulation after surgery in the event repeat surgery is necessitated Continue SCD use (7) DVT prophylaxis Current Visit: Yes Status: Acute Assessment and plan: as above - Time Spent With Patient Total time spent is greater than 50% in coordination of care (as documented) at patient's floor/unit and/or counseling patient: - Subjective Interval history: Ms. Salmon is a 68F with a hx of diabetes, PE and DVT, was admitted on 03/02 for malaise. She had left inner leg cellulitis as was treated with zosyn and vancomycin 03/06: Cellulitis had improved. Kidney functions worsening with Cr 2.91. Vanco was discontinued and IVF given. nystatin cream for cellulitis. At this time the patient was still experiencing fevers and leukocytosis was not improving. pt was found to have perihilar opacity on CXR suggesting pneumonia. Abx therapy was changed from zosyn to unasyn due to concerns of aspiration PNA. 03/07: Pt was transitioned from Unasyn to Augmentin po. HERIBERTO continues to worsen with Cr 3.10. 03/08: Cellulitis worsens with increasing erythema and pain upon exam. CT revealed subcutaneous air representing necrosis in but not extending to the fascia of the left upper leg and groin area. Started on Doxycycline and transitioned back to Zosyn. After ID consult pt was placed on IV Zosyn, Clindamycin, and Daptomycin. Surgery was consulted and anticoagulation was stopped due to supratherapeutic INR at 3.4. HERIBERTO continues to worsen with Cr at 3.30 03/09: Pt resting comfortably in bed during this encounter, states she did not sleep well last night. No new or acute complaints at this time. Denies any chest pain , increased SOB, increased cough, nausea, vomiting, headache, numbness, or tingling. States she does not believe the cellulitis has changed much overnight. - Constitutional Vitals: Temp Pulse Resp BP Pulse Ox 97.5 F L 61 17 128/55 94 03/09/18 07:00 03/09/18 07:00 03/09/18 07:31 03/09/18 07:00 03/09/18 07:31 General appearance: Present: A&O X 3, no acute distress, obese Exam: Head: normocephalic, atraumatic Eyes: PERRL, EOMI, conjunctiva pink, sclera anicteric Neck: supple, trachea midline, difficult to evaluate JVD due to body habitus Lungs: CTA bilaterally. no wheezes, rales, or rhonchi appreciated Heart: RRR +S1 +S2. no murmurs, clicks, or rubs appreciated GI: abdomen soft, non-tender, distended, normoactive bowel sounds Extremities: Erythema and TTP upper left leg. +2 pitting edema in bilateral LEs. no cyanosis Neuro: A&Ox3. no focal deficits. no speech difficulty Skin: warm, dry, intact. area of erythema on upper left leg and groin as noted above Internal Medicine: Result - Labs CBC & Chem 7: 03/09/18 04:18 03/09/18 04:18 Labs: Short CBC 03/09/18 Range/Units 04:18 WBC 20.9 H (4.3-11.1) K/mcL Hgb 8.6 L D (11.5-15.4) g/dL Hct 27.7 L (35.3-44.9) % Plt Count 448 H (140-400) K/mcL Neutrophils # 17.0 H (1.6-8.9) K/mcL BMP 03/09/18 03/09/18 04:18 04:18 Sodium 137 136 Potassium 4.5 4.5 Chloride 102 101 Carbon Dioxide 19 L 20 L BUN 107 H 107 H Creatinine 3.36 H 3.37 H Glucose 228 H 235 H Calcium 7.5 L 7.6 L Liver Function 03/09/18 Range/Units 04:18 Total Bilirubin 0.2 L (0.3-1.0) mg/dL AST 16 (13-39) Units/L ALT 23 (7-52) Units/L Alkaline Phosphatase 180 H (34-104) Units/L Albumin 2.6 L (3.5-5.7) g/dL Urine 03/07/18 Range/Units 00:10 Urine Color Yellow (Yellow) Urine Clarity Cloudy A (Clear) Urine pH 5.5 (5.0-8.0) pH Units Ur Specific Reading 1.020 (1.010-1.025) Urine Protein 30 H (Neg-Trace) mg/dL Urine Glucose (UA) 500 H (Normal) mg/dL - ABG Interpretation ABG results: ABG ABG pH 7.29 pH Units (7.32-7.45) L 03/08/18 16:28 ABG pCO2 41 mmHg (35-45) 03/08/18 16:28 ABG pO2 87 mmHg (85-104) 03/08/18 16:28 ABG O2 Saturation 95 % (95-98) 03/08/18 16:28 PT/INR, D-dimer PT 17.2 Seconds (9.4-12.1) H D 03/09/18 04:18 - Impressions Impressions Lower Extremity CT 03/08/18 10:15 IMPRESSION: 1. A large amount of subcutaneous gas centered within the medial and anterior soft tissues of the proximal mid thigh which is most compatible with necrotizing soft tissue infection. No well-defined drainable fluid collection identified within limits of this noncontrast exam. 2. Extensive subcutaneous edema throughout the soft tissues of the left lower extremity and also involving the partially visualized soft tissues of the right lower extremity. While findings may be related to chronic venous stasis in lymph edema, superimposed cellulitis is of concern given findings within proximal left thigh. 3. No acute osseous abnormality identified. No evidence for osteomyelitis. 4. Tricompartmental moderate to severe osteoarthritis of the left knee which is most pronounced within the medial compartment. 5. Moderate left knee effusion. 6. Severe atherosclerotic disease. 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 Diabetes mellitus complication status: with kidney complications Diabetes mellitus complication detail: with chronic kidney disease Chronic kidney disease stage : stage 3 (moderate) Qualified Code(s): E11.22 - Type 2 diabetes mellitus with diabetic chronic kidney disease; N18.3 - Chronic kidney disease, stage 3 ( moderate); Z79.4 - custodial (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 (2) HTN (hypertension), benign Current Visit: No Status: Chronic (3) Sepsis Current Visit: Yes Status: Resolved Qualifiers: Sepsis type: sepsis due to unspecified organism Qualified Code(s): A41.9 - Sepsis, unspecified organism (4) Cellulitis Current Visit: Yes Status: Acute Qualifiers: Site of cellulitis: extremity Site of cellulitis of extremity: lower extremity Laterality: left Qualified Code(s): L03.116 - Cellulitis of left lower limb (5) HERIBERTO (acute kidney injury) Current Visit: Yes Status: Acute (6) DVT prophylaxis Current Visit: Yes Status: Acute (7) Pneumonia Current Visit: Yes Status: Acute Qualifiers: Pneumonia type: due to methicillin-sensitive Staphylococcus aureus (MSSA) Laterality: right Lung location: unspecified part of lung Qualified Code(s) : J15.211 - Pneumonia due to Methicillin susceptible Staphylococcus aureus (8) Supratherapeutic INR Current Visit: Yes Status: Acute - Time Spent With Patient Total time spent is greater than 50% in coordination of care (as documented) at patient's floor/unit and/or counseling patient: - Constitutional Vitals: Temp Pulse Resp BP Pulse Ox 97.9 F 74 14 140/99 92 03/09/18 16:00 03/09/18 16:00 03/09/18 16:00 03/09/18 16:00 03/09/18 16:00 Internal Medicine: Result - Labs CBC & Chem 7: 03/10/18 04:04 03/10/18 04:04 Labs: Short CBC 03/09/18 Range/Units 04:18 WBC 20.9 H (4.3-11.1) K/mcL Hgb 8.6 L D (11.5-15.4) g/dL Hct 27.7 L (35.3-44.9) % Plt Count 448 H (140-400) K/mcL Neutrophils # 17.0 H (1.6-8.9) K/mcL BMP 03/09/18 03/09/18 04:18 04:18 Sodium 137 136 Potassium 4.5 4.5 Chloride 102 101 Carbon Dioxide 19 L 20 L BUN 107 H 107 H Creatinine 3.36 H 3.37 H Glucose 228 H 235 H Calcium 7.5 L 7.6 L Liver Function 03/09/18 Range/Units 04:18 Total Bilirubin 0.2 L (0.3-1.0) mg/dL AST 16 (13-39) Units/L ALT 23 (7-52) Units/L Alkaline Phosphatase 180 H (34-104) Units/L Albumin 2.6 L (3.5-5.7) g/dL Urine 03/07/18 Range/Units 00:10 Urine Color Yellow (Yellow) Urine Clarity Cloudy A (Clear) Urine pH 5.5 (5.0-8.0) pH Units Ur Specific Reading 1.020 (1.010-1.025) Urine Protein 30 H (Neg-Trace) mg/dL Urine Glucose (UA) 500 H (Normal) mg/dL - ABG Interpretation ABG results: ABG ABG pH 7.29 pH Units (7.32-7.45) L 03/08/18 16:28 ABG pCO2 41 mmHg (35-45) 03/08/18 16:28 ABG pO2 87 mmHg (85-104) 03/08/18 16:28 ABG O2 Saturation 95 % (95-98) 03/08/18 16:28 PT/INR, D-dimer PT 17.2 Seconds (9.4-12.1) H D 03/09/18 04:18 - Attending Attestation I examined this patient and my medical decision-making was reviewed with the Resident Physician Dr. Victor. I agree with the documented findings, disposition and treatment plan as described except to the extent set forth below. Ms. Salmon is a 68 year old female with pmh of diabetes, PE and DVT on coumadin , presenting with complaints of malaise and generally feeling unwell for about 2 weeks. She did have left thigh cellulites and pneumonia. Pt was treated with empirical abx. Her sob and REYES are better today. Denied any CP. Denied any cough. Her Left thigh swelling and erythema seems to no change. Gen: A, A, O x 3 Chest: Diminished BS b/l Heart: S1S2+ RRR Ext; 6x6 cm size induration over left thigh.. Erythema+ Tenderness + a/p 1. Sepsis with Left thigh necrotizing soft tissue infection CT of Thigh showed necrotozing soft tissue infection with gas changed the abx to Clindamycin + Zosyn + Daptomycin ID consulted Surgery consulted NPO for now INR 1.5 Scheduled for surgery today 2. Acute pneumonia - mostly bacterial empirical abx 3. HERIBERTO with CKD-2 Worsening Cr mostly due to Abx / Medication induced ATN Avoid nephro toxic meds Nephro consulted Cont NaHCo3 gtt
[2018-03-09] MEDS ORDERED: *HR* FentaNYL (PF) 100 MCG/2 ML VIAL ONE (10:45)
[2018-03-09] MEDS ORDERED: Lidocaine -MPF 2% 2 ML VIAL ONE (10:45)
[2018-03-09] MEDS ORDERED: Dexamethasone 4 MG/ML VIAL ONE (10:45)
[2018-03-09] MEDS ORDERED: Ondansetron 4 MG/2 ML VIAL ONE (10:45)
[2018-03-09] MEDS ORDERED: *HR* Propofol 200 MG/20 ML VIAL IVP ONE (10:46)
[2018-03-09] MEDS ORDERED: *HR* Midazolam HCl 2 MG/2 ML VIAL ONE (10:46)
--- NOTE | 2018-03-09 10:58 | Anesthesia Evaluation PreOp ---
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: Other (chronic back pain) Other Medical History: Renal (acute kidney injury), Diabetes Type II, Other ( obesity BMI=61.4, anxiety/depression, OA) Anesthesia History: No Prior Anesthetic Complications, Past Anesthesia Alcohol Use: none Drug use: none Medications and Allergies Amlodipine Besylate 10 mg PO DAILY 04/21/17 [History] Gabapentin [Neurontin] 800 mg PO TID 04/21/17 [History] Insulin Regular, Human [Novolin R] 21 - 22 unit SQ TID PRN 04/21/17 [History] Lisinopril [Zestril] 40 mg PO DAILY 04/21/17 [History] Metoprolol [Lopressor] 50 mg PO BID 04/21/17 [History] Troy-3/Dha/Epa/Fish Oil [[place]roy 3 500 Softgel] 2 cap PO DAILY 04/21/17 [History] Tramadol HCl [Ultram] 100 mg PO TID 04/21/17 [History] Venlafaxine [Effexor] 75 mg PO BID 04/21/17 [History] Zolpidem [Ambien] 10 mg PO HS 04/21/17 [History] hydroCHLOROthiazide [Hydrochlorothiazide] 25 mg PO DAILY 04/21/17 [History] Pravastatin Sodium [Pravachol] 40 mg PO DAILY 04/22/17 [History] Metformin HCl [Glucophage] 1,000 mg PO BID #60 04/25/17 [Rx] Albuterol Sulfate [Albuterol Inhaler] 2 puff IH Q6H PRN 03/02/18 [History] Budesonide/Formoterol 160/4.5 [Symbicort 160/4.5] 2 puff IH BIDR 03/02/18 [ History] Ferrous Sulfate [Iron] 325 mg PO DAILY 03/02/18 [History] Insulin NPH, HUMAN [HumuLIN N] 55 unit SQ QPM 03/02/18 [History] Insulin NPH, HUMAN [HumuLIN N] 75 unit SQ QAM 03/02/18 [History] Mv W-Ca/Iron/FA/Lutein/Hrb#179 [Michael Multivit For Women Caplet] 1 each PO DAILY 03/02/18 [History] Nystatin POWDER [Nystop] 1 appl TP DAILY PRN 03/02/18 [History] Warfarin [Coumadin] 7.5 mg PO MOTUWEFRSA 03/02/18 [History] Warfarin [Coumadin] 10 mg PO SUTH 03/02/18 [History] 3 Allergy/AdvReac Type Severity Reaction Status Date / Time prochlorperazine Allergy Dry Mucus Verified 03/02/18 09:30 [From Compazine] Membranes Sulfa (Sulfonamide Allergy Blister Verified 03/02/18 09:30 Antibiotics) - Meds/Allergy Pre-op Review Medications Reviewed: Yes Allergies Reviewed: Yes Beta Blockers on Current Med List: Yes If Beta Blockers taken, Date/Time (Last Dose taken): 03/09/2018 at 0957 Anesthesia Results - Labs 03/09/18 04:18 03/09/18 04:18 - Imaging EKG: report reviewed (03/02/2018 SINUS TACHYCARDIA BORDERLINE LEFT AXIS DEVIATION [QRS AXIS < -20] ABNORMAL RHYTHM ECG POOR R WAVE PROGRESSION) Additional studies: 12/27/2017 Stress Impression: Perfusion imaging was negative for ischemia or infarct. Pharmacologic stress ECG is negative for ischemia at level of heart rate achieved. No appreciable change from baseline ECG. Patient described 2/10 chest pressure prior to the start of testing, increasing to 3/10 during pharmacologic infusion. Recommend clinical correlation. Gated EF = 50%. 04/22/2017 Echo Impressions: LVEF 60-65%. Normal LV chamber size and function. Mild concentric left ventricular hypertrophy. Mild left ventricular diastolic dysfunction. Normal right ventricular structure and function. No evidence of pulmonary hypertension. RVSP not well obtained and could be underestimated. No significant valvular dysfunction. No significant right ventricular strain noted on this study. Anesthesia Exam Vital Signs/O2 Sat/Glucose, Most Recent Temp Pulse Resp BP Pulse Ox 97.5 F L 61 17 128/55 94 03/09/18 07:00 03/09/18 07:00 03/09/18 07:31 03/09/18 07:00 03/09/18 07:31 Blood Glucose* 212 Height: 5'1''/1.55m Weight: 325 lbs/147.5 kg NPO (# of Hours): 8 Pain Scale: 0 Pain Scale Used: Numeric (1 - 10) - HEENT Pupil (Motor): EOMI Mallampati: III Teeth: Normal Oral Opening: Greater than 3 - PAPER CORE MACHINE OPERATOR LOC: Oriented PAPER CORE MACHINE OPERATOR Motor: Normal RUE, Normal LUE, Normal RLE, Normal LLE, Normal Face PAPER CORE MACHINE OPERATOR Sensory: Normal: RUE, LUE, Face, Deficit: RLE, LLE - Cardiac Rhythm: Regular Murmur: None - Pulmonary Breath Sounds: bilateral Clear, bilateral Rhonchi Respiratory Effort: Labored Anesthesia Assess/Plan ASA Score: 4 Modified [place] Scale for Level of Consciousness: Cooperative, oriented, and tranquil Anesthetic Plan: MAC Monitoring Plan: Standard Monitors
--- NOTE | 2018-03-09 11:08 | Infectious Disease Progress No ---
Date of Encounter: 03/09/18 Time of Encounter: 10:30 - Assessment and Plan (1) Severe sepsis Current Visit: Yes Status: Acute The patient had four SIRS criteria on admission with HERIBERTO and lactic acidosis. Likely we secondary to left thigh cellulitis and necrotizing fasciitis. Patient continues to have persistent leukocytosis, worse today, with intermittent bandemia. Tachycardia has improved. She has been afebrile for 48 hours. Blood cultures drawn March 02 were +1 out of 2 sets for staph epi. Repeat blood cultures drawn March 05 are no growth to date 2 sets. Additional blood cultures drawn March 08 2 sets are pending. (2) Necrotizing fasciitis Current Visit: Yes Status: Acute Location: Left thigh. Causative organism: unclear. Etiology unclear. CT of the LLE showed large amount of subcutaneous gas in the medial and anterior soft tissues of the proximal mid thigh consistent with necrotizing fasciitis and cellulitis. CK level 354. Repeat CK level this morning is normal. General surgery consulted. Planning for surgery later today. ESR and CRP markedly elevated. Repeat blood cultures x 2 sets drawn March 08 are pending. Continue clindamycin 900mg IV Q8H. Continue Zosyn 3.375 grams IV Q8H. Continue Daptomycin 6mg/kg IV daily. Continue probiotics. Duration of treatment depends on the clinical picture. Hold simvastatin while on Daptomycin. Monitor renal function and for drug toxicity and dose-adjust antibiotics. (3) Cellulitis Current Visit: Yes Status: Acute Location: Left thigh. Causative organism unclear.. Etiology unclear. The patient reports a cat bite to the left foot about three weeks ago that has not healed, but otherwise denies known trauma to the extremity. Continue antibiotics as above. Qualifiers: Site of cellulitis: extremity Site of cellulitis of extremity: lower extremity Laterality: left Qualified Code(s): L03.116 - Cellulitis of left lower limb (4) Pneumonia Current Visit: Yes Status: Acute Location: Right perihilar region. Causative organism unclear. Chest XR showed right perihilar airspace opacity concerning for asymmetrical edema vs. PNA. Continue antibiotics as above. Qualifiers: Pneumonia type: due to methicillin-sensitive Staphylococcus aureus (MSSA) Laterality: right Lung location: unspecified part of lung Qualified Code(s) : J15.211 - Pneumonia due to Methicillin susceptible Staphylococcus aureus (5) Bacteremia Current Visit: Yes Status: Acute Blood cultures drawn 03/02/18 are positive 1/2 sets for S. epi. Repeat blood cultures drawn 03/05/18 are NGTD x 2 sets. Likely a contaminant. No further treatment indicated. (6) HERIBERTO (acute kidney injury) Current Visit: Yes Status: Acute Serum creatinine elevated on admission, likely secondary to sepsis. Resolved initially, but worsened. Nephology consulted. Likely secondary to ATN from Vancomycin per hospitalist, which was discontinued , but nephrology not sure yet. Serum creatinine continues to worsen despite discontinuance of Vancomycin. Continue to trend. Dose-adjust antibiotics. Avoid nephrotoxins as able. Strict I's and O's. (7) DMII (diabetes mellitus, type 2) Current Visit: Yes Status: Chronic Uncontrolled. HgbA1C 9.9% on admission. Recommend aggressive glucose monitoring and control to promote wound healing and prevent re-infection. Management per the primary team. 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: with detention use Diabetes mellitus complication status: with kidney complications Diabetes mellitus complication detail: with chronic kidney disease Chronic kidney disease stage : stage 3 (moderate) Qualified Code(s): E11.22 - Type 2 diabetes mellitus with diabetic chronic kidney disease; N18.3 - Chronic kidney disease, stage 3 ( moderate); Z79.4 - FDC (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 (8) HTN (hypertension), benign Current Visit: No Status: Chronic (9) Morbid obesity Current Visit: No Status: Chronic (10) Hyperglycemia Current Visit: Yes Status: Acute - Subjective Interval history: Patient seen and examined. No acute events noted overnight. Patient states overall she does not feel very well today. She denies any fevers or chills or rigors. She denies any headache or neck pain. She does complain of chronic lower back pain that is at baseline. His chest pain, shortness of breath, or cough. She denies nausea or vomiting he reached his report some loose stools yesterday 2. She denies abdominal pain. She is currently nothing by mouth. Williamson catheter remains patent. She denies oral thrush or new skin lesions. She states her left lower extremity is unchanged from yesterday. Infect Dis PN-Objective Data - Labs CBC & Chem 7: 03/09/18 04:18 03/09/18 04:18 Labs: Laboratory Results - last 24 hr 03/07/18 03/08/1803/08/18 00:10 11:58 15:46 WBC RBC Hgb Hct MCV MCH MCHC RDW Plt Count MPV Immature Gran % Seg Neutrophils % Lymphocytes % Monocytes % Eosinophils % Basophils % Neutrophils # Lymphocytes # Monocytes # Eosinophils # Basophils # Nucleated RBCs/100 WBC ESR PT INR Sample Site ABG pH ABG pCO2 ABG pO2 ABG HCO3 ABG Total CO2 ABG O2 Saturation ABG Base Excess Pepe Test O2 Delivery Device Inspired O2 Sodium Potassium Chloride Carbon Dioxide BUN Creatinine Est GFR ( Amer) Est GFR (Non-Af Amer) BUN/Creatinine Ratio Glucose POC Glucose 264 H Calculated Osmolality Lactic Acid Calcium Phosphorus Magnesium Total Bilirubin AST ALT Alkaline Phosphatase Creatine Kinase C-Reactive Protein Serum Total Protein Albumin Globulin Albumin/Globulin Ratio Urine Color Yellow Urine Clarity Cloudy A Urine pH 5.5 Ur Specific [place] 1.020 Urine Protein 30 H Urine Glucose (UA) 500 H Urine Ketones Negative Urine Blood Small H Urine Nitrite Negative Urine Bilirubin Negative Urine Urobilinogen Normal Ur Leukocyte Esterase Negative Urine Microscopic RBC 0-3 Urine Microscopic WBC 3-5 H Ur Squamous Epith Cells Many H Amorphous Sediment Moderate H Urine Bacteria Many H Hyaline Casts None Seen Ur Culture Indicated? Cancelled Blood Type A POSITIVE Antibody Screen NEGATIVE 03/08/18 03/08/18 03/08/18 16:28 16:30 16:30 WBC RBC Hgb Hct MCV MCH MCHC RDW Plt Count MPV Immature Gran % Seg Neutrophils % Lymphocytes % Monocytes % Eosinophils % Basophils % Neutrophils # Lymphocytes # Monocytes # Eosinophils # Basophils # Nucleated RBCs/100 WBC ESR >= 130 H PT INR Sample Site L Radial ABG pH 7.29 L ABG pCO2 41 ABG pO2 87 ABG HCO3 20 L ABG Total CO2 21 ABG O2 Saturation 95 ABG Base Excess -7 L Pepe Test Positive O2 Delivery Device Cannula Inspired O2 28.0 Sodium Potassium Chloride Carbon Dioxide BUN Creatinine Est GFR ( Amer) Est GFR (Non-Af Amer) BUN/Creatinine Ratio Glucose POC Glucose Calculated Osmolality Lactic Acid Calcium Phosphorus Magnesium Total Bilirubin AST ALT Alkaline Phosphatase Creatine Kinase C-Reactive Protein 93 H Serum Total Protein Albumin Globulin Albumin/Globulin Ratio Urine Color Urine Clarity Urine pH Ur Specific [place] Urine Protein Urine Glucose (UA) Urine Ketones Urine Blood Urine Nitrite Urine Bilirubin Urine Urobilinogen Ur Leukocyte Esterase Urine Microscopic RBC Urine Microscopic WBC Ur Squamous Epith Cells Amorphous Sediment Urine Bacteria Hyaline Casts Ur Culture Indicated? Blood Type Antibody Screen 03/08/18 03/08/18 03/08/18 16:40 16:45 20:22 WBC RBC Hgb Hct MCV MCH MCHC RDW Plt Count MPV Immature Gran % Seg Neutrophils % Lymphocytes % Monocytes % Eosinophils % Basophils % Neutrophils # Lymphocytes # Monocytes # Eosinophils # Basophils # Nucleated RBCs/100 WBC ESR PT INR Sample Site ABG pH ABG pCO2 ABG pO2 ABG HCO3 ABG Total CO2 ABG O2 Saturation ABG Base Excess Pepe Test O2 Delivery Device Inspired O2 Sodium Potassium Chloride Carbon Dioxide BUN Creatinine Est GFR ( Amer) Est GFR (Non-Af Amer) BUN/Creatinine Ratio Glucose POC Glucose 286 H 305 H Calculated Osmolality Lactic Acid 0.8 Calcium Phosphorus Magnesium Total Bilirubin AST ALT Alkaline Phosphatase Creatine Kinase C-Reactive Protein Serum Total Protein Albumin Globulin Albumin/Globulin Ratio Urine Color Urine Clarity Urine pH Ur Specific [place] Urine Protein Urine Glucose (UA) Urine Ketones Urine Blood Urine Nitrite Urine Bilirubin Urine Urobilinogen Ur Leukocyte Esterase Urine Microscopic RBC Urine Microscopic WBC Ur Squamous Epith Cells Amorphous Sediment Urine Bacteria Hyaline Casts Ur Culture Indicated? Blood Type Antibody Screen 03/09/18 03/09/18 03/09/18 04:18 04:18 04:18 WBC 20.9 H RBC 3.39 L Hgb 8.6 L D Hct 27.7 L MCV 81.7 L MCH 25.4 L MCHC 31.0 L RDW 14.9 H Plt Count 448 H MPV 9.9 Immature Gran % 4.1 H Seg Neutrophils % 81.1 Lymphocytes % 8.5 Monocytes % 5.0 Eosinophils % 1.0 Basophils % 0.3 Neutrophils # 17.0 H Lymphocytes # 1.8 Monocytes # 1.1 Eosinophils # 0.2 Basophils # 0.1 Nucleated RBCs/100 WBC 0.1 H ESR PT 17.2 H D INR 1.5 D Sample Site ABG pH ABG pCO2 ABG pO2 ABG HCO3 ABG Total CO2 ABG O2 Saturation ABG Base Excess Pepe Test O2 Delivery Device Inspired O2 Sodium 137 Potassium 4.5 Chloride 102 Carbon Dioxide 19 L BUN 107 H Creatinine 3.36 H Est GFR ( Amer) 17 L Est GFR (Non-Af Amer) 14 L BUN/Creatinine Ratio 32 H Glucose 228 H POC Glucose Calculated Osmolality 325 H Lactic Acid Calcium 7.5 L Phosphorus 8.9 H Magnesium 2.7 H Total Bilirubin AST ALT Alkaline Phosphatase Creatine Kinase 163 C-Reactive Protein Serum Total Protein Albumin Globulin Albumin/Globulin Ratio Urine Color Urine Clarity Urine pH Ur Specific [place] Urine Protein Urine Glucose (UA) Urine Ketones Urine Blood Urine Nitrite Urine Bilirubin Urine Urobilinogen Ur Leukocyte Esterase Urine Microscopic RBC Urine Microscopic WBC Ur Squamous Epith Cells Amorphous Sediment Urine Bacteria Hyaline Casts Ur Culture Indicated? Blood Type Antibody Screen 03/09/18 03/09/18 03/09/18 04:18 05:57 07:26 WBC RBC Hgb Hct MCV MCH MCHC RDW Plt Count MPV Immature Gran % Seg Neutrophils % Lymphocytes % Monocytes % Eosinophils % Basophils % Neutrophils # Lymphocytes # Monocytes # Eosinophils # Basophils # Nucleated RBCs/100 WBC ESR PT INR Sample Site ABG pH ABG pCO2 ABG pO2 ABG HCO3 ABG Total CO2 ABG O2 Saturation ABG Base Excess Pepe Test O2 Delivery Device Inspired O2 Sodium 136 Potassium 4.5 Chloride 101 Carbon Dioxide 20 L BUN 107 H Creatinine 3.37 H Est GFR ( Amer) 16 L Est GFR (Non-Af Amer) 14 L BUN/Creatinine Ratio 32 H Glucose 235 H POC Glucose 220 H 212 H Calculated Osmolality 323 H Lactic Acid Calcium 7.6 L Phosphorus Magnesium Total Bilirubin 0.2 L AST 16 ALT 23 Alkaline Phosphatase 180 H Creatine Kinase C-Reactive Protein Serum Total Protein 5.4 L Albumin 2.6 L Globulin 2.8 Albumin/Globulin Ratio 0.9 L Urine Color Urine Clarity Urine pH Ur Specific [place] Urine Protein Urine Glucose (UA) Urine Ketones Urine Blood Urine Nitrite Urine Bilirubin Urine Urobilinogen Ur Leukocyte Esterase Urine Microscopic RBC Urine Microscopic WBC Ur Squamous Epith Cells Amorphous Sediment Urine Bacteria Hyaline Casts Ur Culture Indicated? Blood Type Antibody Screen Cultures: Cultures 03/07/18 00:10 Urine Culture - Final Urine,Clean Catch No growth. 03/08/18 15:16 Blood Culture - Preliminary Peripheral Venipuncture Culture is incubating and being continuously monitored for growth. Final report to follow. 03/08/18 15:46 Blood Culture - Preliminary Peripheral Venipuncture Culture is incubating and being continuously monitored for growth. Final report to follow. 03/05/18 08:34 Blood Culture - Preliminary Peripheral Venipuncture Culture is incubating and being continuously monitored for growth. Final report to follow. 03/05/18 08:34 Blood Culture - Preliminary Peripheral Venipuncture Culture is incubating and being continuously monitored for growth. Final report to follow. Serology 03/07/18 03/07/1818 Range/Units 19:05 00:10 00:10 Urine Color (Yellow) Urine Clarity (Clear) Urine pH (5.0-8.0) pH Units Ur Specific [place] (1.010-1.025) Urine Protein (Neg-Trace) mg/dL Urine Glucose (UA) (Normal) mg/dL Urine Ketones (Negative) mg/dL Urine Blood (Negative) Urine Nitrite (Negative) Urine Bilirubin (Negative) Urine Urobilinogen (Normal) mg/dL Ur Leukocyte Esterase (Negative) Urine Microscopic RBC (0-3) per hpf Urine Microscopic WBC (0-3) per hpf Ur Eosinophil Smear 0 (None Seen) % Ur Squamous Epith Cells (None-Few) per lpf Amorphous Sediment (Few) Urine Bacteria (None-Few) per hpf Hyaline Casts (None-Few) per lpf Ur Culture Indicated? Urine Osmolality 377 (300-1090) mOsm/kg Urine Creatinine mg/dL Protein/Creatinin Ratio (0.00-0.20) mg/mg Urine Sodium mEq/L Ur Uric Acid 33 mg/dL Urine Total Protein (1-14) mg/dL 03/07/18 03/07/18 Range/Units 00:10 00:10 Urine Color Yellow (Yellow) Urine Clarity Cloudy A (Clear) Urine pH 5.5 (5.0-8.0) pH Units Ur Specific [place] 1.020 (1.010-1.025) Urine Protein 30 H (Neg-Trace) mg/dL Urine Glucose (UA) 500 H (Normal) mg/dL Urine Ketones Negative (Negative) mg/dL Urine Blood Small H (Negative) Urine Nitrite Negative (Negative) Urine Bilirubin Negative (Negative) Urine Urobilinogen Normal (Normal) mg/dL Ur Leukocyte Esterase Negative (Negative) Urine Microscopic RBC 0-3 (0-3) per hpf Urine Microscopic WBC 3-5 H (0-3) per hpf Ur Eosinophil Smear (None Seen) % Ur Squamous Epith Cells Many H (None-Few) per lpf Amorphous Sediment Moderate H (Few) Urine Bacteria Many H (None-Few) per hpf Hyaline Casts None Seen (None-Few) per lpf Ur Culture Indicated? Cancelled Urine Osmolality (300-1090) mOsm/kg Urine Creatinine 87 mg/dL Protein/Creatinin Ratio 1.59 H (0.00-0.20) mg/mg Urine Sodium 36.5 mEq/L Ur Uric Acid mg/dL Urine Total Protein 138 H (1-14) mg/dL - Impressions Impressions Lower Extremity CT 03/08/18 10:15 IMPRESSION: 1. A large amount of subcutaneous gas centered within the medial and anterior soft tissues of the proximal mid thigh which is most compatible with necrotizing soft tissue infection. No well-defined drainable fluid collection identified within limits of this noncontrast exam. 2. Extensive subcutaneous edema throughout the soft tissues of the left lower extremity and also involving the partially visualized soft tissues of the right lower extremity. While findings may be related to chronic venous stasis in lymph edema, superimposed cellulitis is of concern given findings within proximal left thigh. 3. No acute osseous abnormality identified. No evidence for osteomyelitis. 4. Tricompartmental moderate to severe osteoarthritis of the left knee which is most pronounced within the medial compartment. 5. Moderate left knee effusion. 6. Severe atherosclerotic disease. D/ / Yousuf Mcknight MD / Yousuf Mcknight MD Interpreting Provider: Yousuf Mcknight MD Exam - Constitutional Vitals: Temp Pulse Resp BP Pulse Ox 97.5 F L 61 17 128/55 94 03/09/18 07:00 03/09/18 07:00 03/09/18 07:31 03/09/18 07:00 03/09/18 07:31 General appearance: cooperative, morbidly obese, no acute distress - Head Head exam: Present: atraumatic, normal inspection, normocephalic - Eye Eye exam: Present: EOMI, normal appearance, PERRL Pupils: Present: normal accommodation - ENT ENT exam: Present: mucous membranes dry - Neck Neck exam: Present: normal inspection - Respiratory Respiratory exam: Present: CTAB. Absent: rales, respiratory distress, rhonchi, wheezes - Cardiovascular Cardiovascular exam: Present: RRR, +S1, +S2 - GI/Abdominal GI/Abdominal exam: Present: distended (Obese), normal bowel sounds, soft. Absent: tenderness - Extremities Exam Extremities exam: Present: pedal edema (2+ left lower extremity.), tenderness ( Left lower extremity) Additional comments: Erythema and skin thickening with tenderness and warmth noted to the anterior, medial, and posterior aspects of the left upper thigh. No open lesions or purulence noted. - Neurological Exam Neurological exam: Present: alert, oriented X3, no focal deficits - Psychiatric Psychiatric exam: Present: normal affect, normal mood - Skin Skin exam: Present: dry, intact, normal color, warm - VTE Documentation of Mechanical Device: Intermittent pneumatic compression device Consult Discharge Plan - Plan Referrals: Alonzo Resendiz MD [Primary Care Provider] - - Attending Attestation I examined this patient and my medical decision-making was reviewed with the Resident Physician. I agree with the documented findings, disposition and treatment plan as described except to the extent set forth below.
[2018-03-09] MEDS: Nystatin POWDER 30 GM BOTTLE TP SCH ×2 (11:12→21:33)
[2018-03-09] MEDS ORDERED: Lidocaine -MPF 4% 5 ML AMPUL ONE (11:29)
[2018-03-09] MEDS ORDERED: *HR* Succinylcholine 200 MG/10 ML VIAL IVP ONE (11:30)
[2018-03-09] MEDS ORDERED: Calcium Acetate 667 MG CAPSULE PO SCH (12:00)
--- NOTE | 2018-03-09 12:31 | Operative Note ---
Date of procedure: 03/09/18 Pre-op diagnosis: abscess proximal medial left thigh Post-op diagnosis: same Procedure: incision and drainage abscess medial left thigh Complications: None apparent Anesthesia: GETA Surgeon: Paul Barnes Was there an assistant store manager trainee present: No Estimated blood loss (cc): 25 IV fluids (cc): 100 Specimen: aerobic and anaerobic cultures Condition: stable Disposition: PACU Procedure in Detail: The patient was brought to the operating room where she was placed supine on the procedure table. The patient was appropriately identified as to person, procedure, and laterality. The accuracy of this information confirmed by the patient and procedure team. The patient was intubated and anesthetized under the supervision of Dr. Carlos Pennington. The abdominal pannus was retracted cephalad , the legs were frog legged. The readily apparent abscess proximal, medial, left thigh was prepped and draped in usual sterile fashion. An oblique skin incision was placed over the area of maximal fluctuance. Pus was immediately encountered. Aerobic and anaerobic cultures were obtained. Internal loculations were divided. The wound was copiously irrigated with 2 L of sterile saline using a pulsatile irrigation system (Pulsavac Plus). Cutaneous bleeding points were controlled with electrocautery. The wound was packed with one-inch iodoform gauze covered by 4 x 4 gauze followed by ABDs and tape. The patient was taken to recovery in stable condition. Needle, sponge, and instrument counts were correct at the close of the case.
[2018-03-09] MEDS ORDERED: Acetaminophen IV 1,000 MG/100 ML INFUS..BTL IVPB ONE (12:36)
[2018-03-09] MEDS ORDERED: *HR* Promethazine 25 MG/ML VIAL IVP PRN (12:36)
[2018-03-09] MEDS ORDERED: Albuterol 2.5 MG/3 ML NEBULIZER IH PRN (12:36)
--- NOTE | 2018-03-09 12:54 | Anesthesia Evaluation Post Op ---
Date of Encounter: 03/09/18 Time of Encounter: 12:53 - Vital Signs Vital Signs: Vital Signs/O2 Sat, Most Current Temp Pulse Resp BP Pulse Ox 97.4 F L 63 12 133/56 94 03/09/18 12:25 03/09/18 12:25 03/09/18 12:25 03/09/18 12:25 03/09/18 12:25 - Lungs Lungs: Clear Ascult./Percussion - Airway Airway: Non-obstructed - Cardiovascular Regular Rate - Mental Status Mental Status: Alert & Oriented, Answers Appropriately - Pain Pain Scale: 0 Pain Scale used: Numeric (1 - 10) - Nausea Vomiting Nausea Vomiting: Not Present - Hydration Hydration: Ice chips, Has not voided Notes: 03/09/18 12:53 pt resting quietly, denies any complaints - Discharge PostOp Status: Transfer Patient to floor
[2018-03-09] MEDS ORDERED: D5% in Water 1,000 ML IVC PRN (15:22)
[2018-03-09] MEDS ORDERED: Dextrose Gel 15 GM/37.5 ML TUBE PO PRN ×2 (15:22)
[2018-03-09] MEDS ORDERED: Naloxone 0.4 MG/ML INJ IVP PRN (15:22)
[2018-03-09] MEDS ORDERED: *HR* OxyCODONE Immed Rel 5 MG TABLET PO PRN (15:22)
[2018-03-09] MEDS ORDERED: *HR* Dextrose 50 % in Water (Syg) 50 ML SYRINGE IVP PRN (15:22)
[2018-03-09] MEDS: Calcium Acetate 667 MG CAPSULE PO SCH (16:26)
[2018-03-09] MEDS ORDERED: Insulin LISPRO 300 UNITS/3 ML VIAL SQ SCH (21:00)
[2018-03-09 21:41] LABS: Lymphocytes % 6.1 %; Mean Platelet Volume 10.1 fL (9.4-12.4); Nucleated Red Blood Cells 0.1 /100 WBC (0)
[2018-03-09 21:42] LABS: Basophils # 0.1 K/mcL (0.0-0.2); Basophils % 0.2 %; Hemoglobin 9.3 g/dL (11.5-15.4); Immature Granulocytes % 4.8 % (0-4); Mean Corpuscular HGB Conc 32.1 g/dL (31.6-35.5); Mean Corpuscular Hemoglobin 26.3 pg (28.0-33.3); Mean Corpuscular Volume 82.2 fL (83.0-100.0); Monocytes # 0.3 K/mcL (0.0-1.3); Monocytes % 1.2 %; Platelet Count 474 K/mcL (140-400); Red Blood Count 3.53 M/mcL (3.82-4.97); Segmented Neutrophils % 87.7 %
[2018-03-09 22:22] LABS: Lymphocytes # 1.6 K/mcL (0.6-4.6); Neutrophils # 23.6 K/mcL (1.6-8.9)
[2018-03-09 22:24] LABS: Toxic Granulation Present (Not Present)
[2018-03-10] MEDS: Sodium Bicarbonate 75 MEQ in 0.45 % Sodium Chloride 1,000 ML IVC SCH ×3 (00:39→17:35)
[2018-03-10] MEDS: Clindamycin 900 MG/50 ML 900 MG/50 ML IV.SOLN IVPB SCH ×2 (00:39→08:19)
[2018-03-10 04:12] LABS: VBG Ionized Calcium 0.89 mmol/L (1.15-1.35)
[2018-03-10 04:28] LABS: INR 1.3; Prothrombin Time 14.6 Seconds (9.4-12.1)
[2018-03-10 04:34] LABS: Calcium 7.4 mg/dL (8.6-10.3); Potassium 4.6 mEq/L (3.5-5.1)
[2018-03-10 04:36] LABS: % Iron Saturation 15 % (15-50); Iron 40 mcg/dL (50-170); Transferrin 191 mg/dL (203-362)
[2018-03-10 04:40] LABS: Basophils # 0.1 K/mcL (0.0-0.2); Basophils % 0.2 %; Hematocrit 26.5 % (35.3-44.9); Hemoglobin 8.2 g/dL (11.5-15.4); Immature Granulocytes % 4.4 % (0-4); Lymphocytes # 1.7 K/mcL (0.6-4.6); Mean Corpuscular HGB Conc 30.9 g/dL (31.6-35.5); Mean Corpuscular Hemoglobin 25.2 pg (28.0-33.3); Mean Corpuscular Volume 81.5 fL (83.0-100.0); Mean Platelet Volume 10.3 fL (9.4-12.4); Monocytes # 0.6 K/mcL (0.0-1.3); Monocytes % 2.5 %; Neutrophils # 20.8 K/mcL (1.6-8.9); Nucleated Red Blood Cells 0.1 /100 WBC (0); Platelet Count 439 K/mcL (140-400); Red Blood Count 3.25 M/mcL (3.82-4.97); Red Cell Distribution Width 14.9 % (11.5-14.5); Segmented Neutrophils % 85.9 %
[2018-03-10 04:54] LABS: Ferritin 154 ng/mL (10-120); Folate 18.9 ng/mL (3.0-16.0)
[2018-03-10] MEDS: Piperacillin/Tazobactam 3.375 GM in 0.9 % Sodium Chloride Mini Bag 100 ML IVPB SCH ×2 (06:08→16:52)
[2018-03-10] MEDS: Budesonide/Formoterol 160/4.5 MDI IH SCH ×2 (07:39→20:30)
[2018-03-10] MEDS: Lactobacillus 1 EACH CAP.SPRINK PO SCH (08:18)
[2018-03-10] MEDS: Calcium Acetate 667 MG CAPSULE PO SCH ×3 (08:18→16:42)
[2018-03-10] MEDS: Gabapentin 300 MG CAPSULE PO SCH ×2 (08:18→20:25)
[2018-03-10] MEDS: Multivit/Ca/Min/Fe/FA 1 TAB TABLET PO SCH (08:18)
[2018-03-10] MEDS: amLODIPine 5 MG TABLET PO SCH (08:19)
[2018-03-10] MEDS: Insulin DETEMIR 100 UNIT/ML X5UNITS SQ SCH ×2 (08:21→20:30)
[2018-03-10] MEDS: Insulin LISPRO 300 UNITS/3 ML VIAL SQ SCH ×5 (08:23→20:27)
--- NOTE | 2018-03-10 09:21 | Infectious Disease Progress No ---
Date of Encounter: 03/09/18 Time of Encounter: 09:19 - Assessment and Plan (1) Severe sepsis Current Visit: Yes Status: Acute The patient had four SIRS criteria on admission with HERIBERTO and lactic acidosis. Likely we secondary to left thigh cellulitis and necrotizing fasciitis. Patient continues to have persistent leukocytosis, initially worse yesterday after surgery, but improved this morning. Tachycardia has improved. She has been afebrile. Blood cultures drawn March 02 were +1 out of 2 sets for staph epi. Repeat blood cultures drawn March 05 are negative 2 sets. Additional blood cultures drawn March 08 2 sets are NGTD. (2) Necrotizing fasciitis Current Visit: Yes Status: Acute Location: Left thigh. Causative organism: unclear. Etiology unclear. CT of the LLE showed large amount of subcutaneous gas in the medial and anterior soft tissues of the proximal mid thigh consistent with necrotizing fasciitis and cellulitis. CK level 354. Repeat CK level this morning is normal. General surgery consulted. Status post I & D 03/09/[address] Barnes. Operative note reviewed. Large amount of pus noted intra-op. Cultures are pending. ESR and CRP markedly elevated. Repeat blood cultures x 2 sets drawn March 08 are NGTD. Continue clindamycin 900mg IV Q8H. Continue Zosyn 3.375 grams IV Q8H. Continue Daptomycin 6mg/kg IV daily. Continue probiotics. Duration of treatment depends on the clinical picture. Hold simvastatin while on Daptomycin. Monitor renal function and for drug toxicity and dose-adjust antibiotics. (3) Cellulitis Current Visit: Yes Status: Acute Location: Left thigh. Causative organism unclear.. Etiology unclear. The patient reports a cat bite to the left foot about three weeks ago that has not healed, but otherwise denies known trauma to the extremity. Continue antibiotics as above. Qualifiers: Site of cellulitis: extremity Site of cellulitis of extremity: lower extremity Laterality: left Qualified Code(s): L03.116 - Cellulitis of left lower limb (4) Pneumonia Current Visit: Yes Status: Acute Location: Right perihilar region. Causative organism unclear. Chest XR showed right perihilar airspace opacity concerning for asymmetrical edema vs. PNA. Continue antibiotics as above. Qualifiers: Pneumonia type: due to methicillin-sensitive Staphylococcus aureus (MSSA) Laterality: right Lung location: unspecified part of lung Qualified Code(s) : J15.211 - Pneumonia due to Methicillin susceptible Staphylococcus aureus (5) Bacteremia Current Visit: Yes Status: Acute Blood cultures drawn 03/02/18 are positive 1/2 sets for S. epi. Repeat blood cultures drawn 03/05/18 are negative x 2 sets. Likely a contaminant. No further treatment indicated. (6) HERIBERTO (acute kidney injury) Current Visit: Yes Status: Acute Serum creatinine elevated on admission, likely secondary to sepsis. Resolved initially, but worsened. Nephology consulted. Likely secondary to ATN from Vancomycin per hospitalist, which was discontinued , but nephrology not sure yet. Serum creatinine improved today. Continue to trend. Dose-adjust antibiotics. Avoid nephrotoxins as able. Strict I's and O's. (7) DMII (diabetes mellitus, type 2) Current Visit: Yes Status: Chronic Uncontrolled. HgbA1C 9.9% on admission. Recommend aggressive glucose monitoring and control to promote wound healing and prevent re-infection. Management per the primary team. Qualifiers: Diabetes mellitus intermediate insulin use: with intermediate use Diabetes mellitus complication status: with kidney complications Diabetes mellitus complication detail: with chronic kidney disease Chronic kidney disease stage : stage 3 (moderate) Qualified Code(s): E11.22 - Type 2 diabetes mellitus with diabetic chronic kidney disease; N18.3 - Chronic kidney disease, stage 3 ( moderate); Z79.4 - shelter (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 (8) HTN (hypertension), benign Current Visit: No Status: Chronic (9) Morbid obesity Current Visit: No Status: Chronic (10) Hyperglycemia Current Visit: Yes Status: Acute - Subjective Interval history: Patient seen and examined. No acute events noted overnight. Status post I&D of the left thigh 03/09/[address] Barnes. The patient states that she feels better today. She denies any fevers or chills or rigors. She denies any headache or neck pain. She does complain of chronic lower back pain that is at baseline. Denies chest pain, shortness of breath, or cough. She denies nausea or vomiting. She report some loose stools yesterday 2. She denies abdominal pain. She states her appetite is better. Williamson catheter remains patent. She denies oral thrush or new skin lesions. She states her left lower extremity is better today. Infect Dis PN-Objective Data - Labs CBC & Chem 7: 07/13/18 04:04 03/10/18 04:04 Labs: Laboratory Results - last 24 hr 03/09/18 03/09/18 03/09/18 07:26 15:39 21:28 WBC 26.9 H RBC 3.53 L Hgb 9.3 L Hct 29.0 L MCV 82.2 L MCH 26.3 L MCHC 32.1 RDW 15.0 H Plt Count 474 H MPV 10.1 Immature Gran % 4.8 H Seg Neutrophils % 87.7 Lymphocytes % 6.1 Monocytes % 1.2 Eosinophils % 0.0 Basophils % 0.2 Neutrophils # 23.6 H Lymphocytes # 1.6 Monocytes # 0.3 Eosinophils # 0.0 Basophils # 0.1 Nucleated RBCs/100 WBC 0.1 H Toxic Granulation Present A PT INR Sodium Potassium Chloride Carbon Dioxide BUN Creatinine Est GFR ( Amer) Est GFR (Non-Af Amer) BUN/Creatinine Ratio Glucose POC Glucose 212 H 280 H Calculated Osmolality Calcium Venous Ioniz Calcium Iron % Saturation Transferrin Ferritin Vitamin B12 Folate 03/09/18 03/10/18 03/10/18 21:42 04:04 04:04 WBC RBC Hgb Hct MCV MCH MCHC RDW Plt Count MPV Immature Gran % Seg Neutrophils % Lymphocytes % Monocytes % Eosinophils % Basophils % Neutrophils # Lymphocytes # Monocytes # Eosinophils # Basophils # Nucleated RBCs/100 WBC Toxic Granulation PT 14.6 H INR 1.3 Sodium Potassium Chloride Carbon Dioxide BUN Creatinine Est GFR ( Amer) Est GFR (Non-Af Amer) BUN/Creatinine Ratio Glucose POC Glucose 259 H Calculated Osmolality Calcium Venous Ioniz Calcium Iron % Saturation Transferrin Ferritin Vitamin B12 552 Folate 18.9 H 03/10/18 03/10/18 03/10/18 04:04 04:04 04:04 WBC 24.2 H RBC 3.25 L Hgb 8.2 L Hct 26.5 L MCV 81.5 L MCH 25.2 L MCHC 30.9 L RDW 14.9 H Plt Count 439 H MPV 10.3 Immature Gran % 4.4 H Seg Neutrophils % 85.9 Lymphocytes % 7.0 Monocytes % 2.5 Eosinophils % 0.0 Basophils % 0.2 Neutrophils # 20.8 H Lymphocytes # 1.7 Monocytes # 0.6 Eosinophils # 0.0 Basophils # 0.1 Nucleated RBCs/100 WBC 0.1 H Toxic Granulation PT INR Sodium 136 Potassium 4.6 Chloride 101 Carbon Dioxide 22 L BUN 110 H Creatinine 3.13 H Est GFR ( Amer) 18 L Est GFR (Non-Af Amer) 15 L BUN/Creatinine Ratio 35 H Glucose 264 H POC Glucose Calculated Osmolality 326 H Calcium 7.4 L Venous Ioniz Calcium Iron 40 L % Saturation 15 Transferrin 191 L Ferritin 154 H Vitamin B12 Folate 03/10/18 03/10/18 04:09 08:03 WBC RBC Hgb Hct MCV MCH MCHC RDW Plt Count MPV Immature Gran % Seg Neutrophils % Lymphocytes % Monocytes % Eosinophils % Basophils % Neutrophils # Lymphocytes # Monocytes # Eosinophils # Basophils # Nucleated RBCs/100 WBC Toxic Granulation PT INR Sodium Potassium Chloride Carbon Dioxide BUN Creatinine Est GFR ( Amer) Est GFR (Non-Af Amer) BUN/Creatinine Ratio Glucose POC Glucose 228 H Calculated Osmolality Calcium Venous Ioniz Calcium 0.89 L Iron % Saturation Transferrin Ferritin Vitamin B12 Folate Cultures: Cultures 03/07/18 00:10 Urine Culture - Final Urine,Clean Catch No growth. 03/08/18 15:16 Blood Culture - Preliminary Peripheral Venipuncture Culture is incubating and being continuously monitored for growth. Final report to follow. 03/08/18 15:46 Blood Culture - Preliminary Peripheral Venipuncture Culture is incubating and being continuously monitored for growth. Final report to follow. 03/05/18 08:34 Blood Culture - Preliminary Peripheral Venipuncture Culture is incubating and being continuously monitored for growth. Final report to follow. 03/05/18 08:34 Blood Culture - Preliminary Peripheral Venipuncture Culture is incubating and being continuously monitored for growth. Final report to follow. Serology 03/07/18 03/07/18 03/07/18 Range/Units 19:05 00:10 00:10 Urine Color (Yellow) Urine Clarity (Clear) Urine pH (5.0-8.0) pH Units Ur Specific Shirley (1.010-1.025) Urine Protein (Neg-Trace) mg/dL Urine Glucose (UA) (Normal) mg/dL Urine Ketones (Negative) mg/dL Urine Blood (Negative) Urine Nitrite (Negative) Urine Bilirubin (Negative) Urine Urobilinogen (Normal) mg/dL Ur Leukocyte Esterase (Negative) Urine Microscopic RBC (0-3) per hpf Urine Microscopic WBC (0-3) per hpf Ur Eosinophil Smear 0 (None Seen) % Ur Squamous Epith Cells (None-Few) per lpf Amorphous Sediment (Few) Urine Bacteria (None-Few) per hpf Hyaline Casts (None-Few) per lpf Ur Culture Indicated? Urine Osmolality 377 (300-1090) mOsm/kg Urine Creatinine mg/dL Protein/Creatinin Ratio (0.00-0.20) mg/mg Urine Sodium mEq/L Ur Uric Acid 33 mg/dL Urine Total Protein (1-14) mg/dL 03/07/18 03/07/18 Range/Units 00:10 00:10 Urine Color Yellow (Yellow) Urine Clarity Cloudy A (Clear) Urine pH 5.5 (5.0-8.0) pH Units Ur Specific Shirley 1.020 (1.010-1.025) Urine Protein 30 H (Neg-Trace) mg/dL Urine Glucose (UA) 500 H (Normal) mg/dL Urine Ketones Negative (Negative) mg/dL Urine Blood Small H (Negative) Urine Nitrite Negative (Negative) Urine Bilirubin Negative (Negative) Urine Urobilinogen Normal (Normal) mg/dL Ur Leukocyte Esterase Negative (Negative) Urine Microscopic RBC 0-3 (0-3) per hpf Urine Microscopic WBC 3-5 H (0-3) per hpf Ur Eosinophil Smear (None Seen) % Ur Squamous Epith Cells Many H (None-Few) per lpf Amorphous Sediment Moderate H (Few) Urine Bacteria Many H (None-Few) per hpf Hyaline Casts None Seen (None-Few) per lpf Ur Culture Indicated? Cancelled Urine Osmolality (300-1090) mOsm/kg Urine Creatinine 87 mg/dL Protein/Creatinin Ratio 1.59 H (0.00-0.20) mg/mg Urine Sodium 36.5 mEq/L Ur Uric Acid mg/dL Urine Total Protein 138 H (1-14) mg/dL Exam - Constitutional Vitals: Temp Pulse Resp BP Pulse Ox 97.8 F 59 20 131/76 95 03/10/18 07:29 03/10/18 07:29 03/10/18 07:40 03/10/18 07:29 03/10/18 07:40 General appearance: cooperative, morbidly obese, no acute distress - Head Head exam: Present: atraumatic, normal inspection, normocephalic - Eye Eye exam: Present: EOMI, normal appearance, PERRL Pupils: Present: normal accommodation - ENT ENT exam: Present: mucous membranes moist - Neck Neck exam: Present: normal inspection - Respiratory Respiratory exam: Present: CTAB. Absent: rales, respiratory distress, rhonchi, wheezes - Cardiovascular Cardiovascular exam: Present: RRR, +S1, +S2 - GI/Abdominal GI/Abdominal exam: Present: distended (Obese), normal bowel sounds, soft. Absent: tenderness - Extremities Exam Extremities exam: Present: pedal edema (2+ LLE), tenderness (Left thigh) Additional comments: Left thigh dressing with small amount of shadow drainage. Erythema surrounding the dressing improved. - Neurological Exam Neurological exam: Present: alert, oriented X3, no focal deficits - Psychiatric Psychiatric exam: Present: normal affect, normal mood - Skin Skin exam: Present: dry, intact, normal color, warm - VTE Documentation of Mechanical Device: Intermittent pneumatic compression device Consult Discharge Plan - Plan Referrals: Alonzo Resendiz MD [Primary Care Provider] - - Attending Attestation I examined this patient and my medical decision-making was reviewed with the Resident Physician. I agree with the documented findings, disposition and treatment plan as described except to the extent set forth below.
--- NOTE | 2018-03-10 09:29 | Internal Med Progress Note ---
<Gianni Victor - Last Filed: 03/10/18 16:10> Date of Encounter: 03/10/18 Time of Encounter: 09:00 - Assessment and plan (1) DMII (diabetes mellitus, type 2) Current Visit: Yes Status: Chronic Assessment and plan: DM2 which was poorly controlled on this admission Glucose remains elevated at 280 Levemir 20u BID Lispro 5u TIDWM and medium dose SSI Qualifiers: Diabetes mellitus fdc insulin use: with terminal operations manager use Diabetes mellitus complication status: with kidney complications Diabetes mellitus complication detail: with chronic kidney disease Chronic kidney disease stage : stage 3 (moderate) Qualified Code(s): E11.22 - Type 2 diabetes mellitus with diabetic chronic kidney disease; N18.3 - Chronic kidney disease, stage 3 ( moderate); Z79.4 - alf (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 (2) Cellulitis Current Visit: Yes Status: Acute Assessment and plan: Patient with left inner thigh cellulitis extending up to groin area CT of the LLE showed large subcutaneous gas without obvious necrotizing fascitis or abscess, hoewver it was a limited CT due to inability to use IV contrast. Per Infectious disease: -IV Zosyn -IV Daptomycin I&D with cultures collected on 03/09 Erythema on left leg has improved Wound care post op per surgery Qualifiers: Site of cellulitis: extremity Site of cellulitis of extremity: lower extremity Laterality: left Qualified Code(s): L03.116 - Cellulitis of left lower limb (3) Sepsis Current Visit: Yes Status: Resolved Assessment and plan: Continue IV antibiotics and IV fluids as needed Sepsis has resolved, see above note for pneumonia for current antibiotic regimen 03/10 Although infection is persistent, patient is still not septic afebrile stable leukocytosis no hypotension Continue to monitor Qualifiers: Sepsis type: sepsis due to unspecified organism Qualified Code(s): A41.9 - Sepsis, unspecified organism (4) DVT prophylaxis Current Visit: Yes Status: Acute Assessment and plan: spoke with surgery, no need for repeat I&D at this time ok to restart Coumadin (5) HTN (hypertension), benign Current Visit: No Status: Chronic Assessment and plan: Controlled Continue Lopressor, hold ROSENDA per HERIBERTO (6) HERIBERTO (acute kidney injury) Current Visit: Yes Status: Acute Assessment and plan: 03/06: Function was improving but now worsening Suspect secondary to IV vancomycin which was discontinued Continue to monitor with IV fluids 03/07 The patient continues to have worsening renal function despite adequate fluid rehydration Serum creatinine has risen to 3.1, patient has recieved fluids sufficient to produce +4.7L fluid balance This is most likely secondary to ATN due to Vancomycin use, however I will consult nephrology for evaluation Order urine electrolytes, retroperitoneal ultrasound Appreciate nephrology recommendations 03/08 Non-oliguric HERIBERTO Retroperitoneal US shows cortical thinning suggestive of medical renal disease without obvious obstruction or hydronephrosis The patient does continue to make urine, UOP 600 overnight Nephrology did see this patient, recommended bicarb drip which was started We will continue to monitor renal function with daily labs 03/09 Urine output yesterday 1300mL yesterday On bicarb drip per nephrology at 150/hr Continue to hold Lasix and vanco Avoid nephrotoxins Renal dose all medications 03/10 Urine output yesterday 1275mL Cr 3.13 today which is improved from 3.37 yesterday Continue bicarb drip at 100/hr per nephrology Continue to hold Lasix and vanco Avoid nephrotoxins Renal dose all medications (7) Pneumonia Current Visit: Yes Status: Acute Assessment and plan: Chest x-ray on 03/06 showed new developing right perihilar airspace of patient the concerning for developing pneumonia 03/07 The patient continues to improve on unasyn day 2, previously on zosyn and vancomycin WBC 17.3 (trending down from 19.3), remains afebrile with normal heart rate and without hypotension Blood cultures from 03/05 remain negative We will transition the patient to Augmentin PO, monitor signs of infection 03/08 Suspect pneumonia is likely limited and resolving Patient had been transitioned to Augmentin PO, however WBC increased again to 20.6 I suspect this elevation is primarily caused by worsened cellulitis and not by worsening lung infection Due to cellulitis, the patient will be transitioned back to zosyn IV 03/09 Pt afebrile Persistent leukocytosis at 20.9 PNA picture complicated by cellulitis with subcutaneous necrosis on IV Zosyn, clindamycin, and daptomycin 03/10 remains afebrile WBC 24.2 abx per ID on Zosyn and daptomycin Qualifiers: Pneumonia type: due to methicillin-sensitive Staphylococcus aureus (MSSA) Laterality: right Lung location: unspecified part of lung Qualified Code(s) : J15.211 - Pneumonia due to Methicillin susceptible Staphylococcus aureus - Time Spent With Patient Total time spent is greater than 50% in coordination of care (as documented) at patient's floor/unit and/or counseling patient: - Subjective Interval history: Ms. Salmon is a 68F with a hx of diabetes, PE and DVT, was admitted on 03/02 for malaise. She had left inner leg cellulitis as was treated with zosyn and vancomycin 03/06: Cellulitis had improved. Kidney functions worsening with Cr 2.91. Vanco was discontinued and IVF given. nystatin cream for cellulitis. At this time the patient was still experiencing fevers and leukocytosis was not improving. pt was found to have perihilar opacity on CXR suggesting pneumonia. Abx therapy was changed from zosyn to unasyn due to concerns of aspiration PNA. 03/07: Pt was transitioned from Unasyn to Augmentin po. HERIBERTO continues to worsen with Cr 3.10. 03/08: Cellulitis worsens with increasing erythema and pain upon exam. CT revealed subcutaneous air representing necrosis in but not extending to the fascia of the left upper leg and groin area. Started on Doxycycline and transitioned back to Zosyn. After ID consult pt was placed on IV Zosyn, Clindamycin, and Daptomycin. Surgery was consulted and anticoagulation was stopped due to supratherapeutic INR at 3.4. HERIBERTO continues to worsen with Cr at 3.30 03/09: Pt resting comfortably in bed during this encounter, states she did not sleep well last night. No new or acute complaints at this time. Denies any chest pain , increased SOB, increased cough, nausea, vomiting, headache, numbness, or tingling. States she does not believe the cellulitis has changed much overnight. 03/10: No acute events overnight. Pt sitting in bed eating breakfast. States she feels much better today. Admits to some increased cough with brown sputum production, but states she feels like she can breathe easier now Denies chest pain, increased SOB, nausea, vomiting, headache, numbness, or tingling - Constitutional Vitals: Temp Pulse Resp BP Pulse Ox 97.8 F 59 20 131/76 95 03/10/18 07:29 03/10/18 07:29 03/10/18 07:40 07/13/18 07:29 03/10/18 07:40 General appearance: Present: A&O X 3, no acute distress, obese Exam: Head: normocephalic, atraumatic Eyes: PERRL, EOMI, conjunctiva pink, sclera anicteric Neck: supple, trachea midline Lungs: CTA bilaterally. non-labored breathing. no wheezes, rales, or rhonchi noted Heart: RRR. distant heart sounds. no murmurs, clicks, or rubs appreciated GI: abdomen soft, distended, tender near lower left pannus crease. normoactive bowel sounds Extremities: warm, radial pulses palpable and symmetrical. +1 pitting pedal edema. no cyanosis Neuro: A&Ox3. No focal deficits. no speech difficulty or abnormality. Skin: warm, dry, intact. Internal Medicine: Result - Labs CBC & Chem 7: 03/10/18 04:04 03/10/18 04:04 Labs: Short CBC 03/09/18 03/10/18 Range/Units 21:28 04:04 WBC 26.9 H 24.2 H (4.3-11.1) K/mcL Hgb 9.3 L 8.2 L (11.5-15.4) g/dL Hct 29.0 L 26.5 L (35.3-44.9) % Plt Count 474 H 439 H (140-400) K/mcL Neutrophils # 23.6 H 20.8 H (1.6-8.9) K/mcL BMP 03/10/18 04:04 Sodium 136 Potassium 4.6 Chloride 101 Carbon Dioxide 22 L BUN 110 H Creatinine 3.13 H Glucose 264 H Calcium 7.4 L - ABG Interpretation ABG results: ABG ABG pH 7.29 pH Units (7.32-7.45) L 03/08/18 16:28 ABG pCO2 41 mmHg (35-45) 03/08/18 16:28 ABG pO2 87 mmHg (85-104) 03/08/18 16:28 ABG O2 Saturation 95 % (95-98) 03/08/18 16:28 PT/INR, D-dimer PT 14.6 Seconds (9.4-12.1) H 03/10/18 04:04 - VTE Documentation of Mechanical Device: Intermittent pneumatic compression device Consult Discharge Plan - Plan Referrals: Alonzo Resendiz MD [Primary Care Provider] - <HollandyovanygurpreetSarah pedersen - Last Filed: 03/10/18 16:59> Date of Encounter: 03/10/18 - Assessment and plan (1) DMII (diabetes mellitus, type 2) Current Visit: Yes Status: Chronic Qualifiers: Diabetes mellitus fdc insulin use: with terminal operations manager use Diabetes mellitus complication status: with kidney complications Diabetes mellitus complication detail: with chronic kidney disease Chronic kidney disease stage : stage 3 (moderate) Qualified Code(s): E11.22 - Type 2 diabetes mellitus with diabetic chronic kidney disease; N18.3 - Chronic kidney disease, stage 3 ( moderate); Z79.4 - alf (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 (2) HTN (hypertension), benign Current Visit: No Status: Chronic (3) Sepsis Current Visit: Yes Status: Resolved Qualifiers: Sepsis type: sepsis due to unspecified organism Qualified Code(s): A41.9 - Sepsis, unspecified organism (4) Cellulitis Current Visit: Yes Status: Acute Qualifiers: Site of cellulitis: extremity Site of cellulitis of extremity: lower extremity Laterality: left Qualified Code(s): L03.116 - Cellulitis of left lower limb (5) HERIBERTO (acute kidney injury) Current Visit: Yes Status: Acute (6) DVT prophylaxis Current Visit: Yes Status: Acute (7) Pneumonia Current Visit: Yes Status: Acute Qualifiers: Pneumonia type: due to methicillin-sensitive Staphylococcus aureus (MSSA) Laterality: right Lung location: unspecified part of lung Qualified Code(s) : J15.211 - Pneumonia due to Methicillin susceptible Staphylococcus aureus - Time Spent With Patient Total time spent is greater than 50% in coordination of care (as documented) at patient's floor/unit and/or counseling patient: - Constitutional Vitals: Temp Pulse Resp BP Pulse Ox 97.4 F L 60 18 126/59 93 03/10/18 15:43 03/10/18 15:43 03/10/18 15:43 03/10/18 15:43 03/10/18 15:43 Internal Medicine: Result - Labs CBC & Chem 7: 03/10/18 04:04 03/10/18 04:04 Labs: Short CBC 03/09/18 03/10/18 Range/Units 21:28 04:04 WBC 26.9 H 24.2 H (4.3-11.1) K/mcL Hgb 9.3 L 8.2 L (11.5-15.4) g/dL Hct 29.0 L 26.5 L (35.3-44.9) % Plt Count 474 H 439 H (140-400) K/mcL Neutrophils # 23.6 H 20.8 H (1.6-8.9) K/mcL BMP 03/10/18 04:04 Sodium 136 Potassium 4.6 Chloride 101 Carbon Dioxide 22 L BUN 110 H Creatinine 3.13 H Glucose 264 H Calcium 7.4 L - ABG Interpretation ABG results: ABG ABG pH 7.29 pH Units (7.32-7.45) L 03/08/18 16:28 ABG pCO2 41 mmHg (35-45) 03/08/18 16:28 ABG pO2 87 mmHg (85-104) 03/08/18 16:28 ABG O2 Saturation 95 % (95-98) 03/08/18 16:28 PT/INR, D-dimer PT 14.6 Seconds (9.4-12.1) H 03/10/18 04:04 - Attending Attestation I examined this patient and my medical decision-making was reviewed with the Resident Physician Dr. Victor. I agree with the documented findings, disposition and treatment plan as described except to the extent set forth below. Ms. Salmon is a 68 year old female with pmh of diabetes, PE and DVT on coumadin , presenting with complaints of malaise and generally feeling unwell for about 2 weeks. She did have left thigh cellulites and pneumonia. Pt was treated with empirical abx. Her sob and REYES are better today. Denied any CP. Denied any cough. No diarrhea. Gen: A, A, O x 3 Chest: Diminished BS b/l Heart: S1S2+ RRR Ext: dressing placed over Left thigh.. Wound packed + a/p 1. Sepsis with Left thigh necrotizing soft tissue infection s/p I & D - POD # 1 CT of Thigh showed necrotizing soft tissue infection with gas Cont empirical abx to Zosyn + Daptomycin Appreciate ID recommendations Appreciate surgery help Resumed Coumadin 2. Acute pneumonia - mostly bacterial empirical abx 3. HERIBERTO with CKD-2 mostly due to Abx / Medication induced ATN Cr started trending down slowly Avoid nephro toxic meds Nephro consulted Cont NaHCo3 gtt
--- NOTE | 2018-03-10 09:33 | Nephrology Progress Note ---
Date of Encounter: 03/10/18 Time of Encounter: 09:30 - Assessment and Plan (1) HERIBERTO (acute kidney injury) Current Visit: Yes Status: Acute Baseline Scr 1.17 and GFR 42. Scr 3.13 GFR 15. Uop 375 yesterday 450 for today. Continue to renal dose all medications and avoid nephrotoxins. Sodium Bicarb infusion decreased to100/hr, primary team to change order. No signs/symptoms of uremia with patient. Will continue to watch for signs of renal recovery. (2) Cellulitis Current Visit: Yes Status: Acute Surgery consult. Qualifiers: Site of cellulitis: extremity Site of cellulitis of extremity: lower extremity Laterality: left Qualified Code(s): L03.116 - Cellulitis of left lower limb (3) DMII (diabetes mellitus, type 2) Current Visit: Yes Status: Chronic Per primary. Qualifiers: Diabetes mellitus rn long term care insulin use: with rn long term care use Diabetes mellitus complication status: with kidney complications Diabetes mellitus complication detail: with chronic kidney disease Chronic kidney disease stage : stage 3 (moderate) Qualified Code(s): E11.22 - Type 2 diabetes mellitus with diabetic chronic kidney disease; N18.3 - Chronic kidney disease, stage 3 ( moderate); Z79.4 - residential (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 (4) Anemia Current Visit: Yes Status: Acute Goal Hgb 10-11. Hgb 8.6 today. Will check Iron profile, Vitamin B 12 and Folate in AM. Iron 40, on Ferrous Sulfate 325 daily. Qualifiers: Qualified Code(s): D64.9 - Anemia, unspecified (5) Hypocalcemia Current Visit: Yes Status: Acute Ionized Ca 0.89, Calcium gluconate ordered by primary. Subjective Principal diagnosis: fever/chills weakness Interval history: Pt seen and examined. NAD. Objective - Vital Signs Vital signs: Vital Signs Temp Pulse Resp BP Pulse Ox 03/10/18 07:40 20 95 03/10/18 07:29 97.8 F 59 16 131/76 99 03/10/18 06:21 97.4 F L 56 15 132/76 96 03/10/18 00:30 97.4 F L 58 22 138/72 97 03/09/18 22:03 93 03/09/18 19:54 18 97 03/09/18 19:00 98.1 F 67 20 121/61 97 03/09/18 16:00 97.9 F 74 14 140/99 92 03/09/18 13:05 97.9 F 69 12 121/65 92 03/09/18 12:55 97.8 F 69 12 129/69 92 03/09/18 12:45 60 12 122/67 92 03/09/18 12:35 61 12 134/65 93 03/09/18 12:25 97.4 F L 63 12 133/56 94 Intake and Output 03/09/18 03/10/18 03/10/18 23:59 07:59 15:59 Intake Total 150 / 150 1125 / 1125 Output Total 150 / 150 450 / 450 Balance 0 / 0 675 / 675 Intake: IV Fluids 150 / 150 1125 / 1125 Sodium Bicarbonate 75 MEQ In 0. 1075 / 1075 45% Sodium Chloride 1000 Ml 1000 Ml 1,000 ML @ 150 mls/hr IVC .[id number] [facility] Rx#:[id number] Cleocin Premix 900 MG/50 ML 900 50 / 50 50 / 50 mg In 50 ml @ 50 mls/hr IVPB Q8HR [facility] Rx#:[id number] Zosyn 3.375 GM In 0.9 % Sodium 100 / 100 Chloride (Mini-Bag +) 100 ML @ 25 mls/hr IVPB Q12HR [facility] Rx#: [id number] Oral 0 / 0 0 / 0 Output: Catheter 150 / 150 450 / 450 Other: Stool Size Large Moderate Moderate Stool Consistency liquid loose loose Stool Color Brown Brown Brown Green # Bowel Movements 1 Weight 148.9 kg Blood Glucose* 280 Patient Weight 03/10/18 23:59 Weight 148.9 kg - General Appearance General appearance: Present: obese, chronically ill EENT: Present: ATNC, hearing intact, vision intact Neck: Present: supple Respiratory: Present: clear Cardiology: Present: edema (+2 pitting edema noted bilat lower extremities.), normal S1, normal S2 Gastrointestinal: Present: normoactive bowel sounds, no tenderness, no guarding Integumentary: Present: no rash, warm and dry Neurologic: Present: alert and oriented x3 Psychiatric: Present: mood/affect appropriate, cooperative - Lab 03/10/18 04:04 03/10/18 04:04 Most recent lab results ABG pH 7.29 pH Units (7.32-7.45) L 07/11/18 16:28 ABG pCO2 41 mmHg (35-45) 03/08/18 16:28 ABG pO2 87 mmHg (85-104) 03/08/18 16:28 ABG HCO3 20 mEq/L (21-27) L 03/08/18 16:28 ABG O2 Saturation 95 % (95-98) 03/08/18 16:28 Calcium 7.4 mg/dL (8.6-10.3) L 03/10/18 04:04 Phosphorus 8.9 mg/dL (2.7-4.5) H 03/09/18 04:18 Magnesium 2.7 mg/dL (1.6-2.6) H 03/09/18 04:18 Urine Creatinine 87 mg/dL 03/07/18 00:10 Urine Sodium 36.5 mEq/L 03/07/18 00:10 Urine Total Protein 138 mg/dL (1-14) H 03/07/18 00:10 - VTE Documentation of Mechanical Device: Intermittent pneumatic compression device Consult Discharge Plan - Plan Referrals: Alonzo Resendiz MD [Primary Care Provider] -
[2018-03-10] MEDS: Nystatin POWDER 30 GM BOTTLE TP SCH ×2 (12:23→20:30)
--- NOTE | 2018-03-10 13:10 | General Surgery Progress Note ---
Date of Encounter: 03/10/18 Time of Encounter: 13:04 Subjective Patient reports: feels better Narrative: General Surgery - POD #1 Patient feeling better; denies pain at the surgical site proximal, medial left thigh. Patient has remained afebrile, most recently 97.8, pulse 59, respirations 20 , blood pressure 131/76. Wound proximal medial left thigh appears intact. Dressing was changed due to the expected serosanguineous drainage Surrounding erythema and induration is much improved Operative cultures pending Abdomen: Obese, soft, nontender. Patient is complaining of diarrhea; possibly due to antibiotic associated colitis. Laboratories: White count 24.2 (slightly improved) hemoglobin 8.2, hematocrit 26.5.. Neutrophiles slightly improved to 20.8 (previously 23.6) PT 14.6, INR 1.3 Electrolytes notable for bicarbonate 22, BUN 110; creatinine slightly improved to 3.13, estimated GFR slightly improved to 15 (previously 14) Impression: Postoperative day 1, status post incision and drainage abscess medial left thigh. Acceptable postoperative status. Wound appears significantly improved Plan: Will begin to remove packing tomorrow Recommendations: May resume anticoagulation with daily monitoring PT/INR Monitor diarrhea; treat appropriately if C. difficile colitis is identified Objective Vital Signs - Last 8 Hours Temp Pulse Resp BP Pulse Ox 03/10/18 07:40 20 95 03/10/18 07:29 97.8 F 59 16 131/76 99 03/10/18 06:21 97.4 F L 56 15 132/76 96 Intake and Output 03/09/18 03/10/18 03/10/18 23:59 07:59 15:59 Intake Total 150 / 150 1125 / 1125 Output Total 150 / 150 450 / 450 Balance 0 / 0 675 / 675 Intake: IV Fluids 150 / 150 1125 / 1125 Sodium Bicarbonate 75 MEQ In 0. 1075 / 1075 45% Sodium Chloride 1000 Ml 1000 Ml 1,000 ML @ 150 mls/hr IVC .[id number] [facility] Rx#:[id number] Cleocin Premix 900 MG/50 ML 900 50 / 50 50 / 50 mg In 50 ml @ 50 mls/hr IVPB Q8HR [facility] Rx#:[id number] Zosyn 3.375 GM In 0.9 % Sodium 100 / 100 Chloride (Mini-Bag +) 100 ML @ 25 mls/hr IVPB Q12HR [facility] Rx#: [id number] Oral 0 / 0 0 / 0 Output: Catheter 150 / 150 450 / 450 Other: Stool Size Large Moderate Small Stool Consistency liquid loose loose Stool Color Brown Brown Brown Green Yellow # Bowel Movements 1 Weight 148.9 kg Blood Glucose* 280 Patient Weight 03/10/18 23:59 Weight 148.9 kg - Labs 03/10/18 04:04 03/10/18 04:04 Diabetes panel 03/10/18 Range/Units 04:04 Sodium 136 (136-145) mEq/L Potassium 4.6 (3.5-5.1) mEq/L Chloride 101 (98-107) mEq/L Carbon Dioxide 22 L (23-29) mEq/L BUN 110 H (8-23) mg/dL Creatinine 3.13 H (0.60-1.20) mg/dL Glucose 264 H (70-105) mg/dL Calcium 7.4 L (8.6-10.3) mg/dL Calcium panel 03/10/18 Range/Units 04:04 Calcium 7.4 L (8.6-10.3) mg/dL Pituitary panel 03/10/18 Range/Units 04:04 Sodium 136 (136-145) mEq/L Potassium 4.6 (3.5-5.1) mEq/L Chloride 101 (98-107) mEq/L Carbon Dioxide 22 L (23-29) mEq/L BUN 110 H (8-23) mg/dL Creatinine 3.13 H (0.60-1.20) mg/dL Glucose 264 H (70-105) mg/dL Calcium 7.4 L (8.6-10.3) mg/dL Adrenal panel 03/10/18 Range/Units 04:04 Sodium 136 (136-145) mEq/L Potassium 4.6 (3.5-5.1) mEq/L Chloride 101 (98-107) mEq/L Carbon Dioxide 22 L (23-29) mEq/L BUN 110 H (8-23) mg/dL Creatinine 3.13 H (0.60-1.20) mg/dL Glucose 264 H (70-105) mg/dL Calcium 7.4 L (8.6-10.3) mg/dL - VTE Documentation of Mechanical Device: Intermittent pneumatic compression device Consult Discharge Plan - Plan Referrals: Alonzo Resendiz MD [Primary Care Provider] -
[2018-03-10 16:57] LABS: VBG Ionized Calcium 0.92 mmol/L (1.15-1.35)
[2018-03-10] MEDS: DAPTOmycin 900 MG in 0.9 % Sodium Chloride 100 ML IVPB SCH (17:36)
[2018-03-10] MEDS ORDERED: DAPTOmycin 900 MG in 0.9 % Sodium Chloride 100 ML IVPB SCH (18:00)
[2018-03-10] MEDS ORDERED: *HR* Warfarin 5 MG TABLET PO ONE (18:00)
[2018-03-10] MEDS ORDERED: Warfarin perPT PO PRN (18:00)
[2018-03-11 04:46] LABS: Basophils # 0.1 K/mcL (0.0-0.2); Basophils % 0.3 %; Eosinophils # 0.3 K/mcL (0.0-0.6); Eosinophils % 1.7 %; Hematocrit 28.5 % (35.3-44.9); Hemoglobin 9.1 g/dL (11.5-15.4); Immature Granulocytes % 5.4 % (0-4); Lymphocytes # 2.3 K/mcL (0.6-4.6); Lymphocytes % 11.8 %; Mean Corpuscular HGB Conc 31.9 g/dL (31.6-35.5); Mean Corpuscular Volume 81.4 fL (83.0-100.0); Mean Platelet Volume 9.9 fL (9.4-12.4); Monocytes # 0.8 K/mcL (0.0-1.3); Nucleated Red Blood Cells 0.2 /100 WBC (0); Platelet Count 448 K/mcL (140-400); Segmented Neutrophils % 76.8 %
[2018-03-11] MEDS: Piperacillin/Tazobactam 3.375 GM in 0.9 % Sodium Chloride Mini Bag 100 ML IVPB SCH ×2 (04:48→17:48)
[2018-03-11] MEDS: Sodium Bicarbonate 75 MEQ in 0.45 % Sodium Chloride 1,000 ML IVC SCH (04:51)
[2018-03-11 04:52] LABS: INR 1.2; Prothrombin Time 13.7 Seconds (9.4-12.1)
[2018-03-11 04:57] LABS: Calcium 7.4 mg/dL (8.6-10.3); Potassium 4.2 mEq/L (3.5-5.1)
[2018-03-11 05:18] LABS: Hypochromasia Present (Not Present)
[2018-03-11] MEDS: Acetaminophen 325 MG TABLET PO PRN (05:40)
[2018-03-11] MEDS: Budesonide/Formoterol 160/4.5 MDI IH SCH ×2 (08:10→20:39)
[2018-03-11] MEDS: Lactobacillus 1 EACH CAP.SPRINK PO SCH (10:06)
[2018-03-11] MEDS: Gabapentin 300 MG CAPSULE PO SCH ×2 (10:07→23:38)
[2018-03-11] MEDS: amLODIPine 5 MG TABLET PO SCH (10:07)
[2018-03-11] MEDS: Calcium Acetate 667 MG CAPSULE PO SCH ×3 (10:07→17:48)
[2018-03-11] MEDS: Multivit/Ca/Min/Fe/FA 1 TAB TABLET PO SCH (10:07)
[2018-03-11] MEDS: Nystatin POWDER 30 GM BOTTLE TP SCH ×2 (10:08→23:38)
[2018-03-11] MEDS: Insulin DETEMIR 100 UNIT/ML X5UNITS SQ SCH (10:14)
[2018-03-11] MEDS: Insulin LISPRO 300 UNITS/3 ML VIAL SQ SCH ×6 (10:15→17:50)
--- NOTE | 2018-03-11 11:03 | General Surgery Progress Note ---
Date of Encounter: 03/11/18 Time of Encounter: 11:20 Subjective Narrative: General Surgery - POD #2 Wound status appears stable; patient not complaining of left thigh pain, she is complaining of severe "tailbone" pain Patient has remained afebrile, hemodynamically stable. Preliminary operative culture results - negative for growth Exam: Wound appears clean and dry; dressing removed; approximately half of the packing placed during surgery was removed without difficulty. The deep tissue is healthy without obvious recurrent purulence or abscess. The wound was dressed with 4 x 4's and tape. Laboratories: White count continues to improve, 19.5; hemoglobin stable 9.1 with hematocrit 28.5. Platelet count 448,000. Neutrophils have improved from 20.8 to 15.0. PT 13.7, INR 1.2 Electrolytes within acceptable range, bicarbonate 21. BUN 111, creatinine 3.74 with estimated GFR decreasing to 12 Impression: Postoperative day #2, status post incision and drainage abscess proximal, medial left thigh Acceptable postoperative status - abscess proximal, medial left thigh appears intact, responding to intervention. Worsening renal status. Objective Vital Signs - Last 8 Hours Temp Pulse Resp BP Pulse Ox 03/11/18 08:14 97.4 F L 61 18 147/73 94 03/11/18 08:10 16 94 03/11/18 03:00 97.4 F L 59 18 130/72 97 Intake and Output 03/10/18 03/11/18 03/11/18 23:59 07:59 15:59 Intake Total 100 / 100 1315 / 1315 120 / 120 Output Total 700 / 700 200 / 200 Balance 100 / 100 615 / 615 -80 / -80 Intake: IV Fluids 100 / 100 1075 / 1075 Sodium Bicarbonate 75 MEQ In 0. 1075 / 1075 45% Sodium Chloride 1000 Ml 1000 Ml 1,000 ML @ 100 mls/hr IVC .[id number] [facility] Rx#:[id number] Zosyn 3.375 GM In 0.9 % Sodium 100 / 100 Chloride (Mini-Bag +) 100 ML @ 25 mls/hr IVPB Q12HR [facility] Rx#: [id number] Oral 240 / 240 120 / 120 Output: Urine 700 / 700 Catheter 200 / 200 Other: Meal Breakfast Percent of Meal Consumed 95% Stool Size Large Large Stool Consistency loose loose liquid Stool Color Brown Brown Green # Bowel Movements 1 Weight 150 kg Blood Glucose* 164 Patient Weight 03/11/18 23:59 Weight 150 kg - Labs 03/11/18 04:00 03/11/18 04:00 Diabetes panel 03/10/18 03/11/18 Range/Units 16:54 04:00 Sodium 138 (136-145) mEq/L Potassium 4.2 (3.5-5.1) mEq/L Chloride 101 (98-107) mEq/L Carbon Dioxide 21 L (23-29) mEq/L BUN 111 H (8-23) mg/dL Creatinine 3.74 H (0.60-1.20) mg/dL Glucose 138 H (70-105) mg/dL Calcium 7.4 L 7.4 L (8.6-10.3) mg/dL Calcium panel 03/10/18 03/11/18 Range/Units 16:54 04:00 Calcium 7.4 L 7.4 L (8.6-10.3) mg/dL Pituitary panel 03/10/18 03/11/18 Range/Units 16:54 04:00 Sodium 138 (136-145) mEq/L Potassium 4.2 (3.5-5.1) mEq/L Chloride 101 (98-107) mEq/L Carbon Dioxide 21 L (23-29) mEq/L BUN 111 H (8-23) mg/dL Creatinine 3.74 H (0.60-1.20) mg/dL Glucose 138 H (70-105) mg/dL Calcium 7.4 L 7.4 L (8.6-10.3) mg/dL Adrenal panel 03/10/18 03/11/18 Range/Units 16:54 04:00 Sodium 138 (136-145) mEq/L Potassium 4.2 (3.5-5.1) mEq/L Chloride 101 (98-107) mEq/L Carbon Dioxide 21 L (23-29) mEq/L BUN 111 H (8-23) mg/dL Creatinine 3.74 H (0.60-1.20) mg/dL Glucose 138 H (70-105) mg/dL Calcium 7.4 L 7.4 L (8.6-10.3) mg/dL - VTE Documentation of Mechanical Device: Venous foot pump, device Consult Discharge Plan - Plan Referrals: Alonzo Resendiz MD [Primary Care Provider] -
--- NOTE | 2018-03-11 12:14 | Internal Med Progress Note ---
Date of Encounter: 03/11/18 Time of Encounter: 11:00 - Assessment and plan (1) Sepsis Current Visit: Yes Status: Resolved Assessment and plan: Due to necrotizing soft tissue infection of thigh s/p I & D improving WBC started trending down cont broad spec abx Qualifiers: Sepsis type: sepsis due to unspecified organism Qualified Code(s): A41.9 - Sepsis, unspecified organism (2) Cellulitis Current Visit: Yes Status: Acute Assessment and plan: CT of the LLE showed large subcutaneous gas without obvious necrotizing fascitis or absces Cont IV Zosyn and IV Daptomycin Wound cx - no growth so far Wound care post op per surgery Qualifiers: Site of cellulitis: extremity Site of cellulitis of extremity: lower extremity Laterality: left Qualified Code(s): L03.116 - Cellulitis of left lower limb (3) Diarrhea Current Visit: Yes Status: Acute Assessment and plan: Due to abx d/c Clindamycin check C. Diff Qualifiers: Diarrhea type: unspecified type Qualified Code(s): R19.7 - Diarrhea, unspecified (4) HERIBERTO (acute kidney injury) Current Visit: Yes Status: Acute Assessment and plan: HERIBERTO with CKD-2 Cr started trending up again today.. 3.74 Pt is non oliguric most likely due to ATN induced by sepsis and medications Nephro on board d/c NahCo3 gtt cont close monitoring If no improvement on Cr by Tuesday may need to go for temporary HD (5) DMII (diabetes mellitus, type 2) Current Visit: Yes Status: Chronic Assessment and plan: with changed regimen Levemir 20u BID and Lispro 5U TIDWM and medium dose SSI her BS are better now Qualifiers: Diabetes mellitus penitentiary insulin use: with terminal block assembler use Diabetes mellitus complication status: with kidney complications Diabetes mellitus complication detail: with chronic kidney disease Chronic kidney disease stage : stage 3 (moderate) Qualified Code(s): E11.22 - Type 2 diabetes mellitus with diabetic chronic kidney disease; N18.3 - Chronic kidney disease, stage 3 ( moderate); 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.4 - 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 dispatcher (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 (6) HTN (hypertension), benign Current Visit: No Status: Chronic Assessment and plan: Controlled Continue Lopressor, hold ROSENDA per HERIBERTO (7) DVT prophylaxis Current Visit: Yes Status: Acute Assessment and plan: resumed coumadin (8) Pneumonia Current Visit: Yes Status: Acute Assessment and plan: Chest x-ray on 03/06 showed new developing right perihilar airspace of patient the concerning for developing pneumonia cont empirical abx on Zosyn and daptomycin Qualifiers: Pneumonia type: due to methicillin-sensitive Staphylococcus aureus (MSSA) Laterality: right Lung location: unspecified part of lung Qualified Code(s) : J15.211 - Pneumonia due to Methicillin susceptible Staphylococcus aureus - Time Spent With Patient Total time spent is greater than 50% in coordination of care (as documented) at patient's floor/unit and/or counseling patient: - Subjective Interval history: Ms. Salmon is a 68 year old female with pmh of diabetes, PE and DVT on coumadin , presenting with complaints of malaise and generally feeling unwell for about 2 weeks. She did have left thigh cellulites and pneumonia. Pt was started on empirical abx initially. however her Left thigh swelling / cellulities have not improved. So CT of the Left thigh performed which showed necorotizine soft tissue infection. She had an I & D done by surgery Dr. Barnes on 03/09/18. Her pain is better today. Thigh swelling also better. Denied any fever / chills. Started having diarrhea again today. - Constitutional Vitals: Temp Pulse Resp BP Pulse Ox 97.4 F L 77 18 164/69 98 03/11/18 11:51 03/11/18 11:51 03/11/18 11:51 03/11/18 11:51 03/11/18 11:51 General appearance: Present: A&O X 3, no acute distress, obese - Head Head exam: Present: atraumatic, normal inspection - Neck Neck exam general surgery: Present: supple - Respiratory Respiratory exam: Present: decreased breath sounds. Absent: rales, respiratory distress, rhonchi, wheezes - Cardiovascular Cardiovascular exam: Present: RRR, +S1, +S2. Absent: tachycardia - GI/Abdominal GI/Abdominal exam: Present: distended, normal bowel sounds, soft. Absent: rebound, rigid - Extremities Exam Extremities exam: Present: pedal edema. Absent: calf tenderness, tenderness Additional comments: improved erythema and swelling over Letf thigh.. Dressing placed over Left thigh medially. Wound packing removed by surgery today. - Back Exam Back exam: Absent: CVA tenderness (L), CVA tenderness (R) - Neurological Exam Neurological exam: Present: alert, oriented X3 - Psychiatric Psychiatric exam: Present: normal affect, normal mood Internal Medicine: Result - Labs CBC & Chem 7: 03/11/18 04:00 03/11/18 04:00 Labs: Short CBC 03/11/18 Range/Units 04:00 WBC 19.5 H (4.3-11.1) K/mcL Hgb 9.1 L (11.5-15.4) g/dL Hct 28.5 L (35.3-44.9) % Plt Count 448 H (140-400) K/mcL Neutrophils # 15.0 H (1.6-8.9) K/mcL BMP 03/10/18 03/11/18 16:54 04:00 Sodium 138 Potassium 4.2 Chloride 101 Carbon Dioxide 21 L BUN 111 H Creatinine 3.74 H Glucose 138 H Calcium 7.4 L 7.4 L - ABG Interpretation ABG results: ABG ABG pH 7.29 pH Units (7.32-7.45) L 03/08/18 16:28 ABG pCO2 41 mmHg (35-45) 03/08/18 16:28 ABG pO2 87 mmHg (85-104) 03/08/18 16:28 ABG O2 Saturation 95 % (95-98) 03/08/18 16:28 PT/INR, D-dimer PT 13.7 Seconds (9.4-12.1) H 03/11/18 04:00 - VTE Documentation of Mechanical Device: Venous foot pump, device Consult Discharge Plan - Plan Referrals: Alonzo Resendiz MD [Primary Care Provider] -
[2018-03-11] MEDS: traMADol 50 MG TABLET PO PRN ×2 (14:29→20:00)
--- NOTE | 2018-03-11 16:46 | Nephrology Progress Note ---
Date of Encounter: 03/11/18 Time of Encounter: 16:44 - Assessment and Plan (1) HERIBERTO (acute kidney injury) Current Visit: Yes Status: Acute Patient with multifactorial HERIBERTO. No immediate need for dialysis. Will continue current management, but she is euvolemic so I will discontinue MIV. Avoid nephrotoxins. Adjust medications as needed. Subjective Principal diagnosis: fever/chills weakness Interval history: Patient has no new complaint. She feels better. Objective - Vital Signs Vital signs: Vital Signs Temp Pulse Resp BP Pulse Ox 03/11/18 16:35 97.6 F 62 136/60 98 03/11/18 11:51 97.4 F L 77 18 164/69 98 03/11/18 10:36 94 03/11/18 08:14 97.4 F L 61 18 147/73 94 03/11/18 08:10 16 94 03/11/18 03:00 97.4 F L 59 18 130/72 97 03/10/18 21:01 95 03/10/18 20:32 14 96 Intake and Output 03/11/18 03/11/18 03/11/18 07:59 15:59 23:59 Intake Total 1315 / 1315 120 / 120 Output Total 700 / 700 200 / 200 Balance 615 / 615 -80 / -80 Intake: IV Fluids 1075 / 1075 Sodium Bicarbonate 75 MEQ In 0. 1075 / 1075 45% Sodium Chloride 1000 Ml 1000 Ml 1,000 ML @ 100 mls/hr IVC .[id number] [facility] Rx#:[id number] Oral 240 / 240 120 / 120 Output: Urine 700 / 700 Catheter 200 / 200 Other: Meal Breakfast Percent of Meal Consumed 95% Stool Size Large Stool Consistency loose Stool Color Brown # Bowel Movements 1 Weight 150 kg Blood Glucose* 233 340 Patient Weight 03/11/18 23:59 Weight 150 kg - General Appearance General appearance: Present: well-developed, well-nourished, obese EENT: Present: ATNC Neck: Present: supple Neurologic: Present: alert and oriented x3 Musculoskeletal: Present: no cyanosis - Lab 03/11/18 04:00 03/11/18 04:00 Most recent lab results ABG pH 7.29 pH Units (7.32-7.45) L 03/08/18 16:28 ABG pCO2 41 mmHg (35-45) 03/08/18 16:28 ABG pO2 87 mmHg (85-104) 03/08/18 16:28 ABG HCO3 20 mEq/L (21-27) L 03/08/18 16:28 ABG O2 Saturation 95 % (95-98) 03/08/18 16:28 Calcium 7.4 mg/dL (8.6-10.3) L 03/11/18 04:00 Phosphorus 8.9 mg/dL (2.7-4.5) H 03/09/18 04:18 Magnesium 2.7 mg/dL (1.6-2.6) H 03/09/18 04:18 Urine Creatinine 87 mg/dL 03/07/18 00:10 Urine Sodium 36.5 mEq/L 03/07/18 00:10 Urine Total Protein 138 mg/dL (1-14) H 03/07/18 00:10 - VTE Documentation of Mechanical Device: Intermittent pneumatic compression device Consult Discharge Plan - Plan Referrals: Alonzo Resendiz MD [Primary Care Provider] -
[2018-03-11] MEDS ORDERED: *HR* Warfarin 5 MG TABLET PO ONE (18:00)
[2018-03-12] MEDS: Insulin DETEMIR 100 UNIT/ML X5UNITS SQ SCH ×3 (00:08→22:41)
[2018-03-12] MEDS: Insulin LISPRO 300 UNITS/3 ML VIAL SQ SCH ×8 (00:08→22:38)
[2018-03-12 01:38] LABS: Hematocrit 28.7 % (35.3-44.9)
[2018-03-12] MEDS: Piperacillin/Tazobactam 3.375 GM in 0.9 % Sodium Chloride Mini Bag 100 ML IVPB SCH ×2 (06:07→17:14)
[2018-03-12 06:42] LABS: INR 1.2; Prothrombin Time 13.1 Seconds (9.4-12.1)
[2018-03-12] MEDS: Gabapentin 300 MG CAPSULE PO SCH ×2 (08:29→22:37)
[2018-03-12] MEDS: amLODIPine 5 MG TABLET PO SCH (08:29)
[2018-03-12] MEDS: Calcium Acetate 667 MG CAPSULE PO SCH ×3 (08:30→17:13)
[2018-03-12] MEDS: Multivit/Ca/Min/Fe/FA 1 TAB TABLET PO SCH (08:30)
[2018-03-12] MEDS: Nystatin POWDER 30 GM BOTTLE TP SCH ×2 (08:31→22:38)
[2018-03-12] MEDS: Lactobacillus 1 EACH CAP.SPRINK PO SCH (08:31)
[2018-03-12] MEDS: traMADol 50 MG TABLET PO PRN ×2 (10:37→18:39)
--- NOTE | 2018-03-12 11:47 | General Surgery Progress Note ---
Date of Encounter: 03/12/18 Time of Encounter: 11:43 Subjective Patient reports: no new complaints Narrative: General Surgery - POD #3 Patient voicing no new complaints Afebrile, pulse 63, respirations 16, blood pressure 176/95 Wound appears clean with minimal seropurulent drainage. The remainder of the packing is been removed. Operative cultures: No growth to date Plan: Begin wound irrigations with half-strength hydrogen peroxide BID Care discussed with Dr Rubio Objective Vital Signs - Last 8 Hours Temp Pulse BP Pulse Ox 03/12/18 07:49 97.5 F L 63 176/95 94 Intake and Output 03/11/18 03/12/18 03/12/18 23:59 07:59 15:59 Intake Total 700 / 700 200 / 200 460 / 460 Output Total 850 / 850 200 / 200 Balance -150 / -150 0 / 0 460 / 460 Intake: IV Fluids 100 / 100 100 / 100 Zosyn 3.375 GM In 0.9 % Sodium 100 / 100 100 / 100 Chloride (Mini-Bag +) 100 ML @ 25 mls/hr IVPB Q12HR [facility] Rx#: [id number] Oral 600 / 600 200 / 200 360 / 360 Output: Catheter 850 / 850 200 / 200 Other: Meal Dinner Breakfast Percent of Meal Consumed 75% 100% Stool Size Smear Large Stool Consistency soft loose soft Stool Characteristics Normal for Patient Stool Color Brown Brown Green # Bowel Movements 1 Weight 159.8 kg Blood Glucose* 263 Patient Weight 03/12/18 23:59 Weight 159.8 kg - Labs 03/12/18 01:10 03/11/18 04:00 - VTE Documentation of Mechanical Device: Venous foot pump, device Consult Discharge Plan - Plan Referrals: Alonzo Resendiz MD [Primary Care Provider] -
[2018-03-12] MEDS: Budesonide/Formoterol 160/4.5 MDI IH SCH ×2 (11:52→20:07)
[2018-03-12 12:45] LABS: Basophils # 0.1 K/mcL (0.0-0.2); Basophils % 0.3 %; Eosinophils # 0.3 K/mcL (0.0-0.6); Eosinophils % 1.7 %; Hematocrit 30.5 % (35.3-44.9); Hemoglobin 9.4 g/dL (11.5-15.4); Immature Granulocytes % 4.9 % (0-4); Lymphocytes # 2.4 K/mcL (0.6-4.6); Lymphocytes % 13.4 %; Mean Corpuscular HGB Conc 30.8 g/dL (31.6-35.5); Mean Corpuscular Volume 84.3 fL (83.0-100.0); Mean Platelet Volume 9.7 fL (9.4-12.4); Monocytes # 0.7 K/mcL (0.0-1.3); Monocytes % 3.9 %; Neutrophils # 13.6 K/mcL (1.6-8.9); Nucleated Red Blood Cells 0.2 /100 WBC (0); Platelet Count 466 K/mcL (140-400); Red Blood Count 3.62 M/mcL (3.82-4.97); Red Cell Distribution Width 15.1 % (11.5-14.5); Segmented Neutrophils % 75.8 %
--- NOTE | 2018-03-12 13:00 | Internal Med Progress Note ---
Date of Encounter: 03/12/18 Time of Encounter: 11:00 - Assessment and plan (1) Sepsis Current Visit: Yes Status: Resolved Assessment and plan: Due to necrotizing soft tissue infection of thigh s/p I & D improving WBC started trending down cont broad spec abx Wound cx no growth so far Qualifiers: Sepsis type: sepsis due to unspecified organism Qualified Code(s): A41.9 - Sepsis, unspecified organism (2) Cellulitis Current Visit: Yes Status: Acute Assessment and plan: CT of the LLE showed large subcutaneous gas without obvious necrotizing fascitis or absces Cont IV Zosyn and IV Daptomycin Wound cx - no growth so far Wound care post op per surgery Qualifiers: Site of cellulitis: extremity Site of cellulitis of extremity: lower extremity Laterality: left Qualified Code(s): L03.116 - Cellulitis of left lower limb (3) Diarrhea Current Visit: Yes Status: Acute Assessment and plan: Due to abx improving d/c Clindamycin check C. Diff Qualifiers: Diarrhea type: unspecified type Qualified Code(s): R19.7 - Diarrhea, unspecified (4) HERIBERTO (acute kidney injury) Current Visit: Yes Status: Acute Assessment and plan: HERIBERTO with CKD-2 Cr started trending up again - 3.74 y.d today's labs pending Pt is non oliguric most likely due to ATN induced by sepsis and medications Nephro on board d/c NahCo3 gtt cont close monitoring If no improvement of Cr by Tuesday may need to go for temporary HD (5) DMII (diabetes mellitus, type 2) Current Visit: Yes Status: Chronic Assessment and plan: with changed regimen Levemir 20u BID and Lispro 5U TIDWM and medium dose SSI her BS are better now Qualifiers: Diabetes mellitus halfway insulin 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 use Diabetes mellitus complication status: with kidney complications Diabetes mellitus complication detail: with chronic kidney disease Chronic kidney disease stage : stage 3 (moderate) Qualified Code(s): E11.22 - Type 2 diabetes mellitus with diabetic chronic kidney disease; N18.3 - Chronic kidney disease, stage 3 ( moderate); 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 (6) HTN (hypertension), benign Current Visit: No Status: Chronic Assessment and plan: Controlled Continue Lopressor, hold ROSENDA per HERIBERTO (7) DVT prophylaxis Current Visit: Yes Status: Acute Assessment and plan: resumed coumadin (8) Pneumonia Current Visit: Yes Status: Acute Assessment and plan: Chest x-ray on 03/06 showed new developing right perihilar airspace of patient the concerning for developing pneumonia cont empirical abx on Zosyn and daptomycin Qualifiers: Pneumonia type: due to methicillin-sensitive Staphylococcus aureus (MSSA) Laterality: right Lung location: unspecified part of lung Qualified Code(s) : J15.211 - Pneumonia due to Methicillin susceptible Staphylococcus aureus - Time Spent With Patient Total time spent is greater than 50% in coordination of care (as documented) at patient's floor/unit and/or counseling patient: - Subjective Interval history: Ms. Salmon is a 68 year old female with pmh of diabetes, PE and DVT on coumadin , presenting with complaints of malaise and generally feeling unwell for about 2 weeks. She did have left thigh cellulites and pneumonia. Pt was started on empirical abx initially. however her Left thigh swelling / cellulities have not improved. So CT of the Left thigh performed which showed necrotizing soft tissue infection. She had an I & D done by surgery Dr. Barnes on 03/09/18. Her pain is better today. Thigh swelling also better. Denied any fever / chills. Her diarrhea better today. - Constitutional Vitals: Temp Pulse Resp BP Pulse Ox 98.0 F 55 16 137/66 98 03/12/18 11:51 03/12/18 11:51 03/12/18 03:38 03/12/18 11:51 03/12/18 11:51 General appearance: Present: A&O X 3, no acute distress, obese - Head Head exam: Present: atraumatic, normal inspection - Neck Neck exam general surgery: Present: supple - Respiratory Respiratory exam: Present: decreased breath sounds. Absent: rales, respiratory distress, rhonchi, wheezes - Cardiovascular Cardiovascular exam: Present: RRR, +S1, +S2. Absent: tachycardia - GI/Abdominal GI/Abdominal exam: Present: normal bowel sounds, soft. Absent: rebound, rigid, tenderness - Extremities Exam Extremities exam: Absent: calf tenderness, pedal edema, tenderness Additional comments: improved erythema and swelling of Left thigh.. Wound dressing + - Back Exam Back exam: Absent: CVA tenderness (L), CVA tenderness (R) - Neurological Exam Neurological exam: Present: alert, oriented X3 - Psychiatric Psychiatric exam: Present: normal affect, normal mood Internal Medicine: Result - Labs CBC & Chem 7: 03/12/18 06:16 03/11/18 04:00 Labs: Short CBC 03/12/18 03/12/18 Range/Units 01:10 06:16 WBC 18.0 H (4.3-11.1) K/mcL Hgb 9.0 L 9.4 L (11.5-15.4) g/dL Hct 28.7 L 30.5 L (35.3-44.9) % Plt Count 466 H (140-400) K/mcL Neutrophils # 13.6 H (1.6-8.9) K/mcL - ABG Interpretation ABG results: ABG ABG pH 7.29 pH Units (7.32-7.45) L 03/08/18 16:28 ABG pCO2 41 mmHg (35-45) 03/08/18 16:28 ABG pO2 87 mmHg (85-104) 03/08/18 16:28 ABG O2 Saturation 95 % (95-98) 03/08/18 16:28 PT/INR, D-dimer PT 13.1 Seconds (9.4-12.1) H 03/12/18 06:16 - VTE Documentation of Mechanical Device: Venous foot pump, device Consult Discharge Plan - Plan Referrals: Alonzo Resendiz MD [Primary Care Provider] -
[2018-03-12 13:07] LABS: Calcium 7.5 mg/dL (8.6-10.3); Potassium 4.7 mEq/L (3.5-5.1)
[2018-03-12] MEDS: DAPTOmycin 900 MG in 0.9 % Sodium Chloride 100 ML IVPB SCH (17:16)
[2018-03-12] MEDS ORDERED: *HR* Warfarin 5 MG TABLET PO ONE (18:00)
--- NOTE | 2018-03-12 18:36 | Nephrology Progress Note ---
Date of Encounter: 03/12/18 Time of Encounter: 18:39 - Assessment and Plan (1) HERIBERTO (acute kidney injury) Current Visit: Yes Status: Acute Patient with multifactorial HERIBERTO on CKD. Likely mostly secondary to vancomycin use. Renal function was stabilizing, but now seems to be getting worse. It is nonoliguric. Her MIV was discontinued and the patient appears to be in a volume overload state. She may need a trial of diuretic once her renal function stabilizes. Recheck urine sodium. No immediate need for dialysis, and has been informed that this a possibility if her renal function does not improve. She is not hyperkalemic, but she does have metabolic acidosis. I will medically manage her metabolic acidosis with intravenous sodium bicarbonate. The patient has hyperphosphatemia and this is being managed with phosphate binders. She has underlying chronic kidney disease secondary to uncontrolled diabetes mellitus. There is always a possibility that her renal function is simply worsening secondary to significant diabetic nephropathy. At the very least this may make her chances of recovery from acute kidney injury less likely. Avoid nephrotoxins. Adjust medications as needed. (2) Anemia Current Visit: Yes Status: Acute Her hemoglobin is overall stable. Transfuse as needed. She is on iron supplementation. I also added vitamin B12 supplements. Qualifiers: Vitamin B12 deficiency anemia type: other dietary B12 deficiency Qualified Code(s): D51.3 - Other dietary vitamin B12 deficiency anemia (3) Necrotizing fasciitis Current Visit: Yes Status: Acute Patient is status post surgical intervention by general surgery. (4) DMII (diabetes mellitus, type 2) Current Visit: Yes Status: Chronic Uncontrolled diabetes mellitus. The primary team. 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 She feels better. She does have some pain at the surgical site. She is awaiting her pain medication. She denies dyspnea or chest pain. Objective - Vital Signs Vital signs: Vital Signs Temp Pulse Resp BP Pulse Ox 03/12/18 15:41 97.6 F 60 134/70 99 03/12/18 11:52 16 99 03/12/18 11:51 98.0 F 55 137/66 98 03/12/18 07:49 97.5 F L 63 176/95 94 03/12/18 03:38 97.6 F 55 16 115/63 96 03/11/18 23:29 97.8 F 63 16 144/63 95 03/11/18 20:46 14 97 03/11/18 19:04 97.7 F 64 16 144/63 98 Intake and Output 03/12/18 03/12/18 03/12/18 07:59 15:59 23:59 Intake Total 200 / 200 700 / 700 Output Total 200 / 200 Balance 0 / 0 700 / 700 Intake: IV Fluids 100 / 100 Zosyn 3.375 GM In 0.9 % Sodium 100 / 100 Chloride (Mini-Bag +) 100 ML @ 25 mls/hr IVPB Q12HR MARITZA Rx#: [id number] Oral 200 / 200 600 / 600 Output: Catheter 200 / 200 Other: Meal Lunch Percent of Meal Consumed 100% Stool Size Large Stool Consistency loose soft Stool Characteristics Normal for Patient Stool Color Brown Green # Bowel Movements 1 Weight 159.8 kg Blood Glucose* 213 Patient Weight 03/12/18 23:59 Weight 159.8 kg - General Appearance General appearance: Present: well-developed, well-nourished, obese EENT: Present: ATNC Neck: Present: supple Respiratory: Present: clear Cardiology: Present: edema (2+ pitting edema in the bilateral lower extremities) , regular rate Gastrointestinal: Present: no tenderness Neurologic: Present: alert and oriented x3 Musculoskeletal: Present: no cyanosis Psychiatric: Present: mood/affect appropriate - Lab 03/12/18 06:16 03/12/18 06:16 Most recent lab results ABG pH 7.29 pH Units (7.32-7.45) L 03/08/18 16:28 ABG pCO2 41 mmHg (35-45) 03/08/18 16:28 ABG pO2 87 mmHg (85-104) 03/08/18 16:28 ABG HCO3 20 mEq/L (21-27) L 03/08/18 16:28 ABG O2 Saturation 95 % (95-98) 03/08/18 16:28 Calcium 7.5 mg/dL (8.6-10.3) L 03/12/18 06:16 Phosphorus 8.9 mg/dL (2.7-4.5) H 03/09/18 04:18 Magnesium 2.7 mg/dL (1.6-2.6) H 03/09/18 04:18 Urine Creatinine 87 mg/dL 03/07/18 00:10 Urine Sodium 36.5 mEq/L 03/07/18 00:10 Urine Total Protein 138 mg/dL (1-14) H 03/07/18 00:10 - VTE Documentation of Mechanical Device: Venous foot pump, device Consult Discharge Plan - Plan Referrals: Alonzo Resendiz MD [Primary Care Provider] -
[2018-03-13 05:18] LABS: Basophils # 0.1 K/mcL (0.0-0.2); Basophils % 0.4 %; Eosinophils # 0.3 K/mcL (0.0-0.6); Eosinophils % 2.1 %; Hematocrit 28.6 % (35.3-44.9); Hemoglobin 8.7 g/dL (11.5-15.4); Immature Granulocytes % 3.8 % (0-4); Lymphocytes # 1.7 K/mcL (0.6-4.6); Lymphocytes % 12.2 %; Mean Corpuscular HGB Conc 30.4 g/dL (31.6-35.5); Mean Corpuscular Hemoglobin 25.1 pg (28.0-33.3); Mean Corpuscular Volume 82.4 fL (83.0-100.0); Mean Platelet Volume 9.8 fL (9.4-12.4); Monocytes # 0.6 K/mcL (0.0-1.3); Monocytes % 4.4 %; Neutrophils # 10.9 K/mcL (1.6-8.9); Platelet Count 424 K/mcL (140-400); Red Blood Count 3.47 M/mcL (3.82-4.97); Red Cell Distribution Width 15.3 % (11.5-14.5); Segmented Neutrophils % 77.1 %
[2018-03-13 05:23] LABS: INR 1.2; Prothrombin Time 13.6 Seconds (9.4-12.1)
[2018-03-13 05:33] LABS: Calcium 7.5 mg/dL (8.6-10.3); Potassium 4.6 mEq/L (3.5-5.1)
[2018-03-13] MEDS: Piperacillin/Tazobactam 3.375 GM in 0.9 % Sodium Chloride Mini Bag 100 ML IVPB SCH ×2 (06:02→16:41)
[2018-03-13] MEDS: Budesonide/Formoterol 160/4.5 MDI IH SCH ×2 (08:10→20:29)
[2018-03-13] MEDS: Insulin LISPRO 300 UNITS/3 ML VIAL SQ SCH ×7 (09:17→23:19)
--- NOTE | 2018-03-13 09:20 | Internal Med Progress Note ---
<Gianni Victor - Last Filed: 03/13/18 16:51> Date of Encounter: 03/13/18 Time of Encounter: 09:20 - Assessment and plan (1) HERIBERTO (acute kidney injury) Current Visit: Yes Status: Acute Assessment and plan: HERIBERTO with CKD-2 Cr trending up again - 4.42 today Pt is non oliguric, making adequate urine at 1200mL yday and 1850mL today most likely due to ATN induced by sepsis and medications Lasix 40 IV BID Nephro on board cont close monitoring (2) DMII (diabetes mellitus, type 2) Current Visit: Yes Status: Chronic Assessment and plan: BS running in the 230s Levemir 20u BID Lispro 5U TIDWM and medium dose SSI Continue to monitor closely Qualifiers: 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 Diabetes mellitus complication status: with kidney complications Diabetes mellitus complication detail: with chronic kidney disease Chronic kidney disease stage : stage 3 (moderate) Qualified Code(s): E11.22 - Type 2 diabetes mellitus with diabetic chronic kidney disease; N18.3 - Chronic kidney disease, stage 3 ( moderate); Z79.4 - assisted (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 (3) HTN (hypertension), benign Current Visit: No Status: Chronic Assessment and plan: Controlled Continue Lopressor, hold ROSENDA per HERIBERTO (4) Sepsis Current Visit: Yes Status: Resolved Assessment and plan: Due to necrotizing soft tissue infection of thigh s/p I & D improving WBC started trending down at 14.1 today cont broad spec abx - Zosyn and Daptomycin per ID Wound cx no growth Qualifiers: Sepsis type: sepsis due to unspecified organism Qualified Code(s): A41.9 - Sepsis, unspecified organism (5) Cellulitis Current Visit: Yes Status: Acute Assessment and plan: CT of the LLE showed large subcutaneous gas without obvious necrotizing fascitis or absces Cont IV Zosyn and IV Daptomycin per ID Wound cx - no growth Wound care post op per surgery Qualifiers: Site of cellulitis: extremity Site of cellulitis of extremity: lower extremity Laterality: left Qualified Code(s): L03.116 - Cellulitis of left lower limb (6) DVT prophylaxis Current Visit: Yes Status: Acute Assessment and plan: resumed coumadin Heparin drip due to subtherapeutic INR (7) Pneumonia Current Visit: Yes Status: Acute Assessment and plan: Chest x-ray on 03/06 showed new developing right perihilar airspace of patient the concerning for developing pneumonia cont empirical abx on Zosyn and daptomycin Qualifiers: Pneumonia type: due to methicillin-sensitive Staphylococcus aureus (MSSA) Laterality: right Lung location: unspecified part of lung Qualified Code(s) : J15.211 - Pneumonia due to Methicillin susceptible Staphylococcus aureus (8) Diarrhea Current Visit: Yes Status: Acute Assessment and plan: Due to abx improving d/c Clindamycin C Diff negative Qualifiers: Diarrhea type: unspecified type Qualified Code(s): R19.7 - Diarrhea, unspecified - Time Spent With Patient Total time spent is greater than 50% in coordination of care (as documented) at patient's floor/unit and/or counseling patient: - Subjective Interval history: Ms. Salmon is a 68F with a hx of diabetes, PE and DVT, was admitted on 03/02 for malaise. She had left inner leg cellulitis as was treated with zosyn and vancomycin 03/06: Cellulitis had improved. Kidney functions worsening with Cr 2.91. Vanco was discontinued and IVF given. nystatin cream for cellulitis. At this time the patient was still experiencing fevers and leukocytosis was not improving. pt was found to have perihilar opacity on CXR suggesting pneumonia. Abx therapy was changed from zosyn to unasyn due to concerns of aspiration PNA. 03/07: Pt was transitioned from Unasyn to Augmentin po. HERIBERTO continues to worsen with Cr 3.10. 03/08: Cellulitis worsens with increasing erythema and pain upon exam. CT revealed subcutaneous air representing necrosis in but not extending to the fascia of the left upper leg and groin area. Started on Doxycycline and transitioned back to Zosyn. After ID consult pt was placed on IV Zosyn, Clindamycin, and Daptomycin. Surgery was consulted and anticoagulation was stopped due to supratherapeutic INR at 3.4. HERIBERTO continues to worsen with Cr at 3.30 03/09: Pt resting comfortably in bed during this encounter, states she did not sleep well last night. No new or acute complaints at this time. Denies any chest pain , increased SOB, increased cough, nausea, vomiting, headache, numbness, or tingling. States she does not believe the cellulitis has changed much overnight. 03/10: No acute events overnight. Pt sitting in bed eating breakfast. States she feels much better today. Admits to some increased cough with brown sputum production, but states she feels like she can breathe easier now Denies chest pain, increased SOB, nausea, vomiting, headache, numbness, or tingling. 03/13: No acute events overnight. Pt states she feels "ok" today. Denies any headache, chest pain, increased SOB, increased cough, sputum production, abdominal pain, nausea, vomiting, numbness, or tingling. States she has had multiple watery bowel movements. - Constitutional Vitals: Temp Pulse Resp BP Pulse Ox 97.7 F 59 18 159/81 96 03/13/18 04:30 03/13/18 07:36 03/13/18 08:11 03/13/18 07:36 03/13/18 08:11 General appearance: Present: A&O X 3, no acute distress, obese Exam: Head: atraumatic, normocephalic Eyes: PERR, EOMI, conjunctiva pink, sclera anicteric Neck: supple, trachea midline Lungs: CTA bilaterally. grossly diminished breath sounds. non-labored breathing. No wheezes, rales, or rhonchi noted. Heart: RRR. +S1 +S2. no murmurs, clicks, or rubs appreciated GI: abdomen soft, distended, non-tender. normoactive bowel sounds Extremities: warm, radial pulses palpable and symmetrical, +3 pitting pedal edema bilaterally. no cyanosis. Neuro: A&Ox3. no focal deficits. no speech difficulty or abnormality Skin: warm, dry, intact. Dry dressing in place over left leg/groin I&D site with no extending erythema. Internal Medicine: Result - Labs CBC & Chem 7: 03/13/18 04:06 03/13/18 04:06 Labs: Short CBC 03/12/18 03/13/18 Range/Units : 04:06 WBC 18.0 H 14.1 H (4.3-11.1) K/mcL Hgb 9.4 L 8.7 L (11.5-15.4) g/dL Hct 30.5 L 28.6 L (35.3-44.9) % Plt Count 466 H 424 H (140-400) K/mcL Neutrophils # 13.6 H 10.9 H (1.6-8.9) K/mcL BMP 03/12/18 03/13/18 06:16 04:06 Sodium 139 140 Potassium 4.7 4.6 Chloride 102 102 Carbon Dioxide 20 L 23 BUN 108 H 110 H Creatinine 4.14 H 4.42 H Glucose 201 H 233 H Calcium 7.5 L 7.5 L - ABG Interpretation ABG results: ABG ABG pH 7.29 pH Units (7.32-7.45) L 03/08/18 16:28 ABG pCO2 41 mmHg (35-45) 03/08/18 16:28 ABG pO2 87 mmHg (85-104) 03/08/18 16:28 ABG O2 Saturation 95 % (95-98) 03/08/18 16:28 PT/INR, D-dimer PT 13.6 Seconds (9.4-12.1) H 03/13/18 04:06 - VTE Documentation of Mechanical Device: Venous foot pump, device Consult Discharge Plan - Plan Referrals: Alonzo Resendiz MD [Primary Care Provider] - <Sarah Rubio - Last Filed: 03/13/18 17:31> Date of Encounter: 03/13/18 - Assessment and plan (1) DMII (diabetes mellitus, type 2) Current Visit: Yes Status: Chronic Qualifiers: 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 Diabetes mellitus complication status: with kidney complications Diabetes mellitus complication detail: with chronic kidney disease Chronic kidney disease stage : stage 3 (moderate) Qualified Code(s): E11.22 - Type 2 diabetes mellitus with diabetic chronic kidney disease; N18.3 - Chronic kidney disease, stage 3 ( moderate); 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 (2) HTN (hypertension), benign Current Visit: No Status: Chronic (3) Sepsis Current Visit: Yes Status: Resolved Qualifiers: Sepsis type: sepsis due to unspecified organism Qualified Code(s): A41.9 - Sepsis, unspecified organism (4) Cellulitis Current Visit: Yes Status: Acute Qualifiers: Site of cellulitis: extremity Site of cellulitis of extremity: lower extremity Laterality: left Qualified Code(s): L03.116 - Cellulitis of left lower limb (5) HERIBERTO (acute kidney injury) Current Visit: Yes Status: Acute (6) DVT prophylaxis Current Visit: Yes Status: Acute (7) Pneumonia Current Visit: Yes Status: Acute Qualifiers: Pneumonia type: due to methicillin-sensitive Staphylococcus aureus (MSSA) Laterality: right Lung location: unspecified part of lung Qualified Code(s) : J15.211 - Pneumonia due to Methicillin susceptible Staphylococcus aureus (8) Diarrhea Current Visit: Yes Status: Acute Qualifiers: Diarrhea type: unspecified type Qualified Code(s): R19.7 - Diarrhea, unspecified - Time Spent With Patient Total time spent is greater than 50% in coordination of care (as documented) at patient's floor/unit and/or counseling patient: - Constitutional Vitals: Temp Pulse Resp BP Pulse Ox 97.6 F 71 16 187/90 94 03/13/18 15:47 03/13/18 15:47 03/13/18 15:47 03/13/18 15:47 03/13/18 15:47 Internal Medicine: Result - Labs CBC & Chem 7: 03/13/18 16:23 03/13/18 04:06 Labs: Short CBC 03/13/18 03/13/18 Range/Units 04:06 16:23 WBC 14.1 H 17.4 H (4.3-11.1) K/mcL Hgb 8.7 L 10.0 L (11.5-15.4) g/dL Hct 28.6 L 31.8 L (35.3-44.9) % Plt Count 424 H 459 H (140-400) K/mcL Neutrophils # 10.9 H (1.6-8.9) K/mcL BMP 03/13/18 04:06 Sodium 140 Potassium 4.6 Chloride 102 Carbon Dioxide 23 BUN 110 H Creatinine 4.42 H Glucose 233 H Calcium 7.5 L - ABG Interpretation ABG results: ABG ABG pH 7.29 pH Units (7.32-7.45) L 03/08/18 16:28 ABG pCO2 41 mmHg (35-45) 03/08/18 16:28 ABG pO2 87 mmHg (85-104) 03/08/18 16:28 ABG O2 Saturation 95 % (95-98) 03/08/18 16:28 PT/INR, D-dimer PT 12.9 Seconds (9.4-12.1) H 03/13/18 16:23 - Attending Attestation I examined this patient and my medical decision-making was reviewed with the Resident Physician Dr. Victor. I agree with the documented findings, disposition and treatment plan as described except to the extent set forth below. Ms. Salmon is a 68 year old female with pmh of diabetes, PE and DVT on coumadin , presenting with complaints of malaise and generally feeling unwell for about 2 weeks. She did have left thigh cellulites and pneumonia. Pt was started on empirical abx initially. however her Left thigh swelling / cellulities have not improved. So CT of the Left thigh performed which showed necrotizing soft tissue infection. She had an I & D done by surgery Dr. Barnes on 03/09/18. Her pain is better today. Thigh swelling also better. Denied any fever / chills. Her diarrhea better today. Gen: A, A< O x3 Chest: Diminished BS b/l Ext: 2+ pitting edema a/p 1. Acute necrotizing soft tissue infection of thigh 2. Sepsis cont empirical abx Zosyn + Zyvox Will defer to ID further abx management 3. HERIBERTO with CKD-2 Worsening Cr need temporary HD Nephro on board
[2018-03-13] MEDS: Calcium Acetate 667 MG CAPSULE PO SCH ×3 (09:26→16:41)
[2018-03-13] MEDS: Multivit/Ca/Min/Fe/FA 1 TAB TABLET PO SCH (09:26)
[2018-03-13] MEDS: Gabapentin 300 MG CAPSULE PO SCH ×2 (09:26→20:19)
[2018-03-13] MEDS: traMADol 50 MG TABLET PO PRN ×2 (09:26→16:41)
[2018-03-13] MEDS: Lactobacillus 1 EACH CAP.SPRINK PO SCH (09:26)
[2018-03-13] MEDS: Insulin DETEMIR 100 UNIT/ML X5UNITS SQ SCH ×2 (09:27→20:20)
[2018-03-13] MEDS: amLODIPine 5 MG TABLET PO SCH (09:32)
--- NOTE | 2018-03-13 09:32 | Infectious Disease Progress No ---
Date of Encounter: 03/13/18 Time of Encounter: 09:30 - Assessment and Plan (1) Severe sepsis Current Visit: Yes Status: Acute The patient had four SIRS criteria on admission with HERIBERTO and lactic acidosis. Likely we secondary to left thigh cellulitis and necrotizing fasciitis. Improved. WBC trending down. Tachycardia has resolved. She has been afebrile. Blood cultures drawn March 02 were +1 out of 2 sets for staph epi. Repeat blood cultures drawn March 05 are negative 2 sets. Additional blood cultures drawn March 08 2 sets are negative. (2) Necrotizing fasciitis Current Visit: Yes Status: Acute Location: Left thigh. Causative organism: unclear. Intra-op cultures are negative. Etiology unclear. CT of the LLE showed large amount of subcutaneous gas in the medial and anterior soft tissues of the proximal mid thigh consistent with necrotizing fasciitis and cellulitis. CK level 354. Repeat CK level normal. General surgery consulted. Status post I & D 03/09/[address] Barnes. Operative note reviewed. Large amount of pus noted intra-op. Cultures are negative. ESR and CRP markedly elevated. Repeat blood cultures x 2 sets drawn March 08 are negative. Continue Zosyn 3.375 grams IV Q8H. Continue Daptomycin 6mg/kg IV daily. Continue probiotics. Duration of treatment depends on the clinical picture. Hold simvastatin while on Daptomycin. Monitor renal function and for drug toxicity and dose-adjust antibiotics. (3) Cellulitis Current Visit: Yes Status: Acute Location: Left thigh. Causative organism unclear. Etiology unclear. The patient reports a cat bite to the left foot about three weeks ago that has not healed, but otherwise denies known trauma to the extremity. Continue antibiotics as above. Qualifiers: Site of cellulitis: extremity Site of cellulitis of extremity: lower extremity Laterality: left Qualified Code(s): L03.116 - Cellulitis of left lower limb (4) Pneumonia Current Visit: Yes Status: Acute Location: Right perihilar region. Causative organism unclear. Chest XR showed right perihilar airspace opacity concerning for asymmetrical edema vs. PNA. Continue antibiotics as above. Qualifiers: Pneumonia type: due to methicillin-sensitive Staphylococcus aureus (MSSA) Laterality: right Lung location: unspecified part of lung Qualified Code(s) : J15.211 - Pneumonia due to Methicillin susceptible Staphylococcus aureus (5) Bacteremia Current Visit: Yes Status: Acute Blood cultures drawn 03/02/18 are positive 1/2 sets for S. epi. Repeat blood cultures drawn 03/05/18 are negative x 2 sets. Likely a contaminant. No further treatment indicated. (6) HERIBERTO (acute kidney injury) Current Visit: Yes Status: Acute Serum creatinine elevated on admission, likely secondary to sepsis. Resolved initially, but worsened. Nephology consulted. Serum creatinine has worsened. Continue to trend. Dose-adjust antibiotics. Avoid nephrotoxins as able. Strict I's and O's. (7) DMII (diabetes mellitus, type 2) Current Visit: Yes Status: Chronic Uncontrolled. HgbA1C 9.9% on admission. Recommend aggressive glucose monitoring and control to promote wound healing and prevent re-infection. Management per the primary team. 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 C. diff negative. Continue probiotics. Qualifiers: Diarrhea type: unspecified type Qualified Code(s): R19.7 - Diarrhea, unspecified - Subjective Interval history: Patient seen and examined. No acute events noted overnight. Status post I&D of the left thigh 03/09/[address] Barnes. The patient states that she feels better today physically, but got news that she will likely have to start HD and is upset. She denies any fevers or chills or rigors. She denies any headache or neck pain. She does complain of chronic lower back pain that is at baseline. Denies chest pain or cough. She reports chronic DENZEL that is at baseline. She denies nausea or vomiting. She report some loose stools yesterday 2. C. diff was checked and was negative. She denies abdominal pain. She states her appetite is better. Williamson catheter remains patent. She denies oral thrush or new skin lesions. She states her left lower extremity isn't bothering her at all. Infect Dis PN-Objective Data - Labs CBC & Chem 7: 03/13/18 04:06 03/13/18 04:06 Labs: Laboratory Results - last 24 hr 03/11/18 03/11/18 03/12/18 21:13 23:42 06:16 WBC 18.0 H RBC 3.62 L Hgb 9.4 L Hct 30.5 L MCV 84.3 MCH 26.0 L MCHC 30.8 L RDW 15.1 H Plt Count 466 H MPV 9.7 Immature Gran % 4.9 H Seg Neutrophils % 75.8 Lymphocytes % 13.4 Monocytes % 3.9 Eosinophils % 1.7 Basophils % 0.3 Neutrophils # 13.6 H Lymphocytes # 2.4 Monocytes # 0.7 Eosinophils # 0.3 Basophils # 0.1 Nucleated RBCs/100 WBC 0.2 H PT INR Sodium Potassium Chloride Carbon Dioxide BUN Creatinine Est GFR ( Amer) Est GFR (Non-Af Amer) BUN/Creatinine Ratio Glucose POC Glucose 282 H 263 H Calculated Osmolality Calcium Stl C. diff Tox B Gene 03/12/18 03/12/18 03/12/18 06:16 10:30 11:42 WBC RBC Hgb Hct MCV MCH MCHC RDW Plt Count MPV Immature Gran % Seg Neutrophils % Lymphocytes % Monocytes % Eosinophils % Basophils % Neutrophils # Lymphocytes # Monocytes # Eosinophils # Basophils # Nucleated RBCs/100 WBC PT INR Sodium 139 Potassium 4.7 Chloride 102 Carbon Dioxide 20 L BUN 108 H Creatinine 4.14 H Est GFR ( Amer) 13 L Est GFR (Non-Af Amer) 11 L BUN/Creatinine Ratio 26 Glucose 201 H POC Glucose 213 H Calculated Osmolality 328 H Calcium 7.5 L Stl C. diff Tox B Gene Negative 03/12/18 03/12/18 03/13/18 16:30 20:28 04:06 WBC RBC Hgb Hct MCV MCH MCHC RDW Plt Count MPV Immature Gran % Seg Neutrophils % Lymphocytes % Monocytes % Eosinophils % Basophils % Neutrophils # Lymphocytes # Monocytes # Eosinophils # Basophils # Nucleated RBCs/100 WBC PT 13.6 H INR 1.2 Sodium Potassium Chloride Carbon Dioxide BUN Creatinine Est GFR ( Amer) Est GFR (Non-Af Amer) BUN/Creatinine Ratio Glucose POC Glucose 265 H 265 H Calculated Osmolality Calcium Stl C. diff Tox B Gene 03/13/18 03/13/18 03/13/18 04:06 04:06 07:38 WBC 14.1 H RBC 3.47 L Hgb 8.7 L Hct 28.6 L MCV 82.4 L MCH 25.1 L MCHC 30.4 L RDW 15.3 H Plt Count 424 H MPV 9.8 Immature Gran % 3.8 Seg Neutrophils % 77.1 Lymphocytes % 12.2 Monocytes % 4.4 Eosinophils % 2.1 Basophils % 0.4 Neutrophils # 10.9 H Lymphocytes # 1.7 Monocytes # 0.6 Eosinophils # 0.3 Basophils # 0.1 Nucleated RBCs/100 WBC PT INR Sodium 140 Potassium 4.6 Chloride 102 Carbon Dioxide 23 BUN 110 H Creatinine 4.42 H Est GFR ( Amer) 12 L Est GFR (Non-Af Amer) 10 L BUN/Creatinine Ratio 25 Glucose 233 H POC Glucose 204 H Calculated Osmolality 332 H Calcium 7.5 L Stl C. diff Tox B Gene Cultures: Cultures 03/09/18 12:18 Anaerobic Culture - Preliminary Other-Specify in Comments At this time, no anaerobic growth is present. The culture will be finalized after 5 days of incubation. 03/09/18 12:18 Wound Culture - Final Other-Specify in Comments No growth. 03/05/18 08:34 Blood Culture - Final Peripheral Venipuncture No growth. Final report. 03/05/18 08:34 Blood Culture - Final Peripheral Venipuncture No growth. Final report. 03/07/18 00:10 Urine Culture - Final Urine,Clean Catch No growth. 03/08/18 15:16 Blood Culture - Preliminary Peripheral Venipuncture Culture is incubating and being continuously monitored for growth. Final report to follow. 03/08/18 15:46 Blood Culture - Preliminary Peripheral Venipuncture Culture is incubating and being continuously monitored for growth. Final report to follow. Serology 03/12/18 03/07/18 03/07/18 Range/Units 10:30 19:05 00:10 Urine Color (Yellow) Urine Clarity (Clear) Urine pH (5.0-8.0) pH Units Ur Specific [place] (1.010-1.025) Urine Protein (Neg-Trace) mg/dL Urine Glucose (UA) (Normal) mg/dL Urine Ketones (Negative) mg/dL Urine Blood (Negative) Urine Nitrite (Negative) Urine Bilirubin (Negative) Urine Urobilinogen (Normal) mg/dL Ur Leukocyte Esterase (Negative) Urine Microscopic RBC (0-3) per hpf Urine Microscopic WBC (0-3) per hpf Ur Eosinophil Smear 0 (None Seen) % Ur Squamous Epith Cells (None-Few) per lpf Amorphous Sediment (Few) Urine Bacteria (None-Few) per hpf Hyaline Casts (None-Few) per lpf Ur Culture Indicated? Urine Osmolality 377 (300-1090) mOsm/kg Urine Creatinine mg/dL Protein/Creatinin Ratio (0.00-0.20) mg/mg Urine Sodium mEq/L Ur Uric Acid mg/dL Urine Total Protein (1-14) mg/dL Stl C. diff Tox B Gene Negative (Negative) 03/07/18 03/07/18 03/07/18 Range/Units 00:10 00:10 00:10 Urine Color Yellow (Yellow) Urine Clarity Cloudy A (Clear) Urine pH 5.5 (5.0-8.0) pH Units Ur Specific [place] 1.020 (1.010-1.025) Urine Protein 30 H (Neg-Trace) mg/dL Urine Glucose (UA) 500 H (Normal) mg/dL Urine Ketones Negative (Negative) mg/dL Urine Blood Small H (Negative) Urine Nitrite Negative (Negative) Urine Bilirubin Negative (Negative) Urine Urobilinogen Normal (Normal) mg/dL Ur Leukocyte Esterase Negative (Negative) Urine Microscopic RBC 0-3 (0-3) per hpf Urine Microscopic WBC 3-5 H (0-3) per hpf Ur Eosinophil Smear (None Seen) % Ur Squamous Epith Cells Many H (None-Few) per lpf Amorphous Sediment Moderate H (Few) Urine Bacteria Many H (None-Few) per hpf Hyaline Casts None Seen (None-Few) per lpf Ur Culture Indicated? Cancelled Urine Osmolality (300-1090) mOsm/kg Urine Creatinine 87 mg/dL Protein/Creatinin Ratio 1.59 H (0.00-0.20) mg/mg Urine Sodium 36.5 mEq/L Ur Uric Acid 33 mg/dL Urine Total Protein 138 H (1-14) mg/dL Stl C. diff Tox B Gene (Negative) Exam - Constitutional Vitals: Temp Pulse Resp BP Pulse Ox 97.7 F 59 18 159/81 96 03/13/18 04:30 03/13/18 07:36 03/13/18 08:11 03/13/18 07:36 03/13/18 08:11 General appearance: cooperative, morbidly obese, no acute distress - Head Head exam: Present: atraumatic, normal inspection, normocephalic - Eye Eye exam: Present: EOMI, normal appearance, PERRL Pupils: Present: normal accommodation - ENT ENT exam: Present: mucous membranes moist - Neck Neck exam: Present: normal inspection - Respiratory Respiratory exam: Present: CTAB. Absent: rales, respiratory distress, rhonchi, wheezes - Cardiovascular Cardiovascular exam: Present: RRR, +S1, +S2 - GI/Abdominal GI/Abdominal exam: Present: distended (obese), normal bowel sounds, soft. Absent: tenderness Additional comments: Williamson catheter noted to be draining clear yellow urine. - Extremities Exam Extremities exam: Present: pedal edema (1+ BLE). Absent: joint swelling, tenderness Additional comments: Left upper thigh dressing C/D/I. Skin surrounding the dressing is non- erythematous. Non-tender. No warmth on palpation. - Neurological Exam Neurological exam: Present: alert, oriented X3, no focal deficits - Psychiatric Psychiatric exam: Present: normal affect, normal mood - Skin Skin exam: Present: dry, intact, normal color, warm - VTE Documentation of Mechanical Device: Venous foot pump, device Consult Discharge Plan - Plan Referrals: Alonzo Resendiz MD [Primary Care Provider] - - Attending Attestation I examined this patient and my medical decision-making was reviewed with the Resident Physician. I agree with the documented findings, disposition and treatment plan as described except to the extent set forth below.
[2018-03-13] MEDS: Nystatin POWDER 30 GM BOTTLE TP SCH ×2 (10:08→23:19)
[2018-03-13] MEDS: Acetaminophen 325 MG TABLET PO PRN (10:11)
[2018-03-13] MEDS ORDERED: 0.9 % Sodium Chloride 250 ML IVC PRN (12:38)
[2018-03-13 14:05] LABS: Hepatitis B Surface Antigen Nonreactive (Nonreactive)
[2018-03-13 14:07] LABS: Hepatitis B Surface Antibody 107.97 mIU/mL
--- NOTE | 2018-03-13 14:32 | Nephrology Progress Note ---
Date of Encounter: 03/13/18 Time of Encounter: 11:05 - Assessment and Plan (1) HERIBERTO (acute kidney injury) Current Visit: Yes Status: Acute Progressively worsening nonoliguric HERIBERTO. At this point the benefits of dialysis outweigh the risks of HD. I'd recommend starting with a temporary HD catheter, and plan for HD for the next 2-3 consecutive days with slowly/safely increasing the Qb and Qd flows. I spoke to IR and they may not be able to place the line until late today or early tomorrow AM (this would be reasonably safe since she is not urgently fluid overloaded nearing intubation and not hyperkalemic). For a temporary HD catheter, she does not need to be NPO. Discussed with the floor RN and dialysis RNs. Subjective Principal diagnosis: fever/chills weakness Interval history: Pt was s/e earlier today. She affirmed feeling fatigued and said that her son has renal failure s/p renal transplant, though she could not recall the reason for his ESRD. I spoke with Lizett GUAJARDO today as well. Objective - Vital Signs Vital signs: Vital Signs Temp Pulse Resp BP Pulse Ox 03/13/18 08:11 18 96 03/13/18 07:36 59 18 159/81 96 03/13/18 04:30 97.7 F 58 20 139/65 96 03/12/18 20:08 14 95 03/12/18 20:00 97.4 F L 61 20 131/55 95 03/12/18 15:41 97.6 F 60 134/70 99 Intake and Output 03/12/18 03/13/18 03/13/18 23:59 07:59 15:59 Intake Total 200 / 200 100 / 100 240 / 240 Output Total 1000 / 1000 1200 / 1200 Balance -800 / -800 -1100 / -1100 240 / 240 Intake: IV Fluids 200 / 200 Cubicin 900 MG In 0.9 % Sodium 100 / 100 Chloride 100 ML @ 200 mls/hr IVPB Q48H [facility] Rx#:[id number] Zosyn 3.375 GM In 0.9 % Sodium 100 / 100 Chloride (Mini-Bag +) 100 ML @ 25 mls/hr IVPB Q12HR [facility] Rx#: [id number] Oral 0 / 0 100 / 100 240 / 240 Output: Catheter 1000 / 1000 1200 / 1200 Other: Meal Breakfast Percent of Meal Consumed 50% Stool Size Moderate Moderate Stool Consistency loose loose liquid liquid Stool Color Brown Brown # Bowel Movements 1 1 Weight 154.5 kg Blood Glucose* 265 204 239 Patient Weight 03/13/18 23:59 Weight 154.5 kg - General Appearance General appearance: Present: well-developed, well-nourished, obese, fatigue, frail EENT: Present: ATNC, PERRL, mucous membranes moist Neck: Present: supple Respiratory: Present: clear Cardiology: Present: edema, regular rate, normal S1, normal S2 Gastrointestinal: Present: normoactive bowel sounds, no tenderness, no guarding Additional Comments: Reported posterior wound Neurologic: Present: no focal deficit, no asterixis, alert and oriented x3 Musculoskeletal: Present: no deformities, no erythema Psychiatric: Present: mood/affect appropriate, cooperative - Lab 03/13/18 16:23 03/13/18 04:06 Most recent lab results ABG pH 7.29 pH Units (7.32-7.45) L 03/08/18 16:28 ABG pCO2 41 mmHg (35-45) 03/08/18 16:28 ABG pO2 87 mmHg (85-104) 03/08/18 16:28 ABG HCO3 20 mEq/L (21-27) L 03/08/18 16:28 ABG O2 Saturation 95 % (95-98) 03/08/18 16:28 Calcium 7.5 mg/dL (8.6-10.3) L 03/13/18 04:06 Phosphorus 8.9 mg/dL (2.7-4.5) H 03/09/18 04:18 Magnesium 2.7 mg/dL (1.6-2.6) H 03/09/18 04:18 Urine Creatinine 87 mg/dL 03/07/18 00:10 Urine Sodium 36.5 mEq/L 03/07/18 00:10 Urine Total Protein 138 mg/dL (1-14) H 03/07/18 00:10 - Imaging Kidney/bladder ultrasound: image reviewed (and no hydronephrosis) - VTE Documentation of Mechanical Device: Venous foot pump, device Consult Discharge Plan - Plan Referrals: Alonzo Resendiz MD [Primary Care Provider] -
[2018-03-13] MEDS ORDERED: *HR* Heparin 5,000 UNIT/ML VIAL IVP PRN (16:15)
[2018-03-13] MEDS ORDERED: *HR* Heparin 5,000 UNIT/ML VIAL IVP ONE (16:15)
[2018-03-13] MEDS: Heparin 25,000 UNIT/500 ML D5W 25,000 UNIT/500 ML BAG IVC SCH (16:42)
[2018-03-13 17:00] LABS: Hematocrit 31.8 % (35.3-44.9); Mean Corpuscular HGB Conc 31.4 g/dL (31.6-35.5); Mean Corpuscular Hemoglobin 26.1 pg (28.0-33.3); Mean Platelet Volume 9.8 fL (9.4-12.4); Platelet Count 459 K/mcL (140-400); Red Blood Count 3.83 M/mcL (3.82-4.97); Red Cell Distribution Width 15.2 % (11.5-14.5)
[2018-03-13 17:11] LABS: Heparin anti-factor XA UFH 0.03 IU/mL (0.30-0.70); INR 1.1; Prothrombin Time 12.9 Seconds (9.4-12.1)
[2018-03-13] MEDS: Furosemide 40 MG/4 ML VIAL IVP SCH (20:19)
[2018-03-14] MEDS: Piperacillin/Tazobactam 3.375 GM in 0.9 % Sodium Chloride Mini Bag 100 ML IVPB SCH (06:11)
[2018-03-14] MEDS: Heparin 25,000 UNIT/500 ML D5W 25,000 UNIT/500 ML BAG IVC SCH ×2 (06:12→20:32)
[2018-03-14] MEDS ORDERED: 0.9 % Sodium Chloride 1,000 ML ONE (07:17)
[2018-03-14 07:25] LABS: Basophils % 0.3 %; Eosinophils # 0.3 K/mcL (0.0-0.6); Eosinophils % 1.9 %; Hematocrit 30.4 % (35.3-44.9); Hemoglobin 9.5 g/dL (11.5-15.4); Immature Granulocytes % 2.7 % (0-4); Lymphocytes % 13.1 %; Mean Corpuscular HGB Conc 31.3 g/dL (31.6-35.5); Mean Corpuscular Hemoglobin 25.9 pg (28.0-33.3); Mean Corpuscular Volume 82.8 fL (83.0-100.0); Mean Platelet Volume 9.6 fL (9.4-12.4); Monocytes # 0.6 K/mcL (0.0-1.3); Monocytes % 3.6 %; Neutrophils # 12.1 K/mcL (1.6-8.9); Nucleated Red Blood Cells 0.2 /100 WBC (0); Platelet Count 415 K/mcL (140-400); Red Blood Count 3.67 M/mcL (3.82-4.97); Red Cell Distribution Width 15.2 % (11.5-14.5); Segmented Neutrophils % 78.4 %
[2018-03-14 07:27] LABS: Heparin anti-factor XA UFH 0.37 IU/mL (0.30-0.70)
[2018-03-14 07:28] LABS: INR 1.2; Prothrombin Time 13.7 Seconds (9.4-12.1)
[2018-03-14] MEDS: Budesonide/Formoterol 160/4.5 MDI IH SCH ×2 (07:35→21:51)
[2018-03-14 07:42] LABS: Calcium 7.7 mg/dL (8.6-10.3); Potassium 4.9 mEq/L (3.5-5.1)
[2018-03-14] MEDS ORDERED: 0.9 % Sodium Chloride 250 ML IVC PRN (07:51)
[2018-03-14] MEDS: Furosemide 40 MG/4 ML VIAL IVP SCH (08:12)
[2018-03-14] MEDS: Gabapentin 300 MG CAPSULE PO SCH ×2 (08:13→20:21)
[2018-03-14] MEDS: Lactobacillus 1 EACH CAP.SPRINK PO SCH (08:13)
[2018-03-14] MEDS: Multivit/Ca/Min/Fe/FA 1 TAB TABLET PO SCH (08:13)
[2018-03-14] MEDS: Calcium Acetate 667 MG CAPSULE PO SCH ×3 (08:14→17:29)
[2018-03-14] MEDS: Nystatin POWDER 30 GM BOTTLE TP SCH ×2 (08:14→22:38)
[2018-03-14] MEDS: Insulin LISPRO 300 UNITS/3 ML VIAL SQ SCH ×7 (08:14→20:21)
[2018-03-14] MEDS: amLODIPine 5 MG TABLET PO SCH (08:14)
[2018-03-14] MEDS: Insulin DETEMIR 100 UNIT/ML X5UNITS SQ SCH (08:33)
--- NOTE | 2018-03-14 08:49 | Internal Med Progress Note ---
<Gianni Victor - Last Filed: 03/14/18 17:52> Date of Encounter: 03/14/18 Time of Encounter: 08:49 - Assessment and plan (1) HERIBERTO (acute kidney injury) Current Visit: Yes Status: Acute Assessment and plan: HERIBERTO with CKD-2 Cr stable today - 4.40 Pt is non oliguric, making adequate urine at 2550mL yday most likely due to ATN induced by sepsis and medications Dialysis planned for today Nephro on board cont close monitoring (2) DMII (diabetes mellitus, type 2) Current Visit: Yes Status: Chronic Assessment and plan: BS running in the 230s-300s Increase Levemir to 30u BID Lispro 5U TIDWM and high dose SSI Continue to monitor closely Qualifiers: Diabetes mellitus helpdesk analyst insulin use: with helpdesk analyst use Diabetes mellitus complication status: with kidney complications Diabetes mellitus complication detail: with chronic kidney disease Chronic kidney disease stage : stage 3 (moderate) Qualified Code(s): E11.22 - Type 2 diabetes mellitus with diabetic chronic kidney disease; N18.3 - Chronic kidney disease, stage 3 ( moderate); Z79.4 - imaging nurse (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 (3) HTN (hypertension), benign Current Visit: No Status: Chronic Assessment and plan: Controlled Continue Lopressor, hold ROSENDA per HERIBERTO (4) Sepsis Current Visit: Yes Status: Resolved Assessment and plan: Due to necrotizing soft tissue infection of thigh s/p I & D improving WBC stable - 15.4 today cont broad spec abx - Zosyn and Daptomycin per ID Wound cx no growth Qualifiers: Sepsis type: sepsis due to unspecified organism Qualified Code(s): A41.9 - Sepsis, unspecified organism (5) Cellulitis Current Visit: Yes Status: Acute Assessment and plan: CT of the LLE showed large subcutaneous gas without obvious necrotizing fascitis or absces Cont IV Zosyn and IV Daptomycin per ID Wound cx - no growth Wound care post op per surgery Qualifiers: Site of cellulitis: extremity Site of cellulitis of extremity: lower extremity Laterality: left Qualified Code(s): L03.116 - Cellulitis of left lower limb (6) DVT prophylaxis Current Visit: Yes Status: Acute Assessment and plan: Heparin drip due to subtherapeutic INR (7) Pneumonia Current Visit: Yes Status: Acute Assessment and plan: Chest x-ray on 03/06 showed new developing right perihilar airspace of patient the concerning for developing pneumonia cont empirical abx on Zosyn and daptomycin Qualifiers: Pneumonia type: due to methicillin-sensitive Staphylococcus aureus (MSSA) Laterality: right Lung location: unspecified part of lung Qualified Code(s) : J15.211 - Pneumonia due to Methicillin susceptible Staphylococcus aureus (8) Diarrhea Current Visit: Yes Status: Acute Assessment and plan: Due to abx improving d/c Clindamycin C Diff negative Qualifiers: Diarrhea type: unspecified type Qualified Code(s): R19.7 - Diarrhea, unspecified - Time Spent With Patient Total time spent is greater than 50% in coordination of care (as documented) at patient's floor/unit and/or counseling patient: - Subjective Interval history: Ms. Salmon is a 68F with a hx of diabetes, PE and DVT, was admitted on 03/02 for malaise. She had left inner leg cellulitis as was treated with zosyn and vancomycin 03/06: Cellulitis had improved. Kidney functions worsening with Cr 2.91. Vanco was discontinued and IVF given. nystatin cream for cellulitis. At this time the patient was still experiencing fevers and leukocytosis was not improving. pt was found to have perihilar opacity on CXR suggesting pneumonia. Abx therapy was changed from zosyn to unasyn due to concerns of aspiration PNA. 03/07: Pt was transitioned from Unasyn to Augmentin po. HERIBERTO continues to worsen with Cr 3.10. 03/08: Cellulitis worsens with increasing erythema and pain upon exam. CT revealed subcutaneous air representing necrosis in but not extending to the fascia of the left upper leg and groin area. Started on Doxycycline and transitioned back to Zosyn. After ID consult pt was placed on IV Zosyn, Clindamycin, and Daptomycin. Surgery was consulted and anticoagulation was stopped due to supratherapeutic INR at 3.4. HERIBERTO continues to worsen with Cr at 3.30 03/09: Pt resting comfortably in bed during this encounter, states she did not sleep well last night. No new or acute complaints at this time. Denies any chest pain , increased SOB, increased cough, nausea, vomiting, headache, numbness, or tingling. States she does not believe the cellulitis has changed much overnight. 03/10: No acute events overnight. Pt sitting in bed eating breakfast. States she feels much better today. Admits to some increased cough with brown sputum production, but states she feels like she can breathe easier now Denies chest pain, increased SOB, nausea, vomiting, headache, numbness, or tingling. 03/13: No acute events overnight. Pt states she feels "ok" today. Denies any headache, chest pain, increased SOB, increased cough, sputum production, abdominal pain, nausea, vomiting, numbness, or tingling. States she has had multiple watery bowel movements. 03/14: No acute events overnight. Pt states she feels "the same" today. Denies any headache, chest pain, increased SOB, cough, sputum production, abdominal pain, nausea, vomiting, numbness, or tingling. Received R IJ dialysis cath this morning with plans for dialysis later today. - Constitutional Vitals: Temp Pulse Resp BP Pulse Ox 98 F 63 16 161/75 99 03/14/18 07:23 03/14/18 07:23 03/14/18 07:37 03/14/18 07:23 03/14/18 07:37 General appearance: Present: A&O X 3, no acute distress, obese Exam: Head: normocephalic and atraumatic. no lesions notedd Eyes: PERRL, EOMI, conjunctiva pink, sclera anicteric Neck: supple, trachea midline, R IJ dialysis catheter in place Lungs: grossly diminished breath sounds. No wheezes, rales, or rhonchi Heart: RRR +S1 +S2. no murmurs, clicks, or rubs appreciated GI: abdomen soft, non-tender, distended. normoactive bowel sounds Extremities: warm, radial pulses palpable and symmetrical. +2 pitting pedal edema bilaterally. no cyanosis Neuro: A&Ox3. no focal deficits. no speech abnormality or difficulty skin: warm, dry and intact Internal Medicine: Result - Labs CBC & Chem 7: 03/14/18 07:10 03/14/18 07:10 Labs: Short CBC 03/13/18 03/14/18 Range/Units 16:23 07:10 WBC 17.4 H 15.4 H (4.3-11.1) K/mcL Hgb 10.0 L 9.5 L (11.5-15.4) g/dL Hct 31.8 L 30.4 L (35.3-44.9) % Plt Count 459 H 415 H (140-400) K/mcL Neutrophils # 12.1 H (1.6-8.9) K/mcL BMP 03/14/18 07:10 Sodium 140 Potassium 4.9 Chloride 104 Carbon Dioxide 19 L BUN 109 H Creatinine 4.40 H Glucose 240 H Calcium 7.7 L - ABG Interpretation ABG results: ABG ABG pH 7.29 pH Units (7.32-7.45) L 03/08/18 16:28 ABG pCO2 41 mmHg (35-45) 03/08/18 16:28 ABG pO2 87 mmHg (85-104) 03/08/18 16:28 ABG O2 Saturation 95 % (95-98) 03/08/18 16:28 PT/INR, D-dimer PT 13.7 Seconds (9.4-12.1) H 03/14/18 07:10 - VTE Documentation of Mechanical Device: Venous foot pump, device Consult Discharge Plan - Plan Referrals: Alonzo Resendiz MD [Primary Care Provider] - <Doroteo Howard A - Last Filed: 03/14/18 19:42> Date of Encounter: 03/14/18 - Assessment and plan (1) DMII (diabetes mellitus, type 2) Current Visit: Yes Status: Chronic Qualifiers: Diabetes mellitus usp insulin use: with usp use Diabetes mellitus complication status: with kidney complications Diabetes mellitus complication detail: with chronic kidney disease Chronic kidney disease stage : stage 3 (moderate) Qualified Code(s): E11.22 - Type 2 diabetes mellitus with diabetic chronic kidney disease; N18.3 - Chronic kidney disease, stage 3 ( moderate); Z79.4 - [facility] (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 (2) HTN (hypertension), benign Current Visit: No Status: Chronic (3) Sepsis Current Visit: Yes Status: Resolved Qualifiers: Sepsis type: sepsis due to unspecified organism Qualified Code(s): A41.9 - Sepsis, unspecified organism (4) Cellulitis Current Visit: Yes Status: Acute Qualifiers: Site of cellulitis: extremity Site of cellulitis of extremity: lower extremity Laterality: left Qualified Code(s): L03.116 - Cellulitis of left lower limb (5) HERIBERTO (acute kidney injury) Current Visit: Yes Status: Acute (6) DVT prophylaxis Current Visit: Yes Status: Acute (7) Pneumonia Current Visit: Yes Status: Suspected Qualifiers: Pneumonia type: due to methicillin-sensitive Staphylococcus aureus (MSSA) Laterality: right Lung location: unspecified part of lung Qualified Code(s) : J15.211 - Pneumonia due to Methicillin susceptible Staphylococcus aureus (8) Diarrhea Current Visit: Yes Status: Acute Qualifiers: Diarrhea type: unspecified type Qualified Code(s): R19.7 - Diarrhea, unspecified (9) Morbid obesity Current Visit: No Status: Chronic (10) Gross hematuria Current Visit: Yes Status: Acute (11) Renal failure Current Visit: Yes Status: Acute Assessment and plan: Multifactorial. Probably vancomycin related. Qualifiers: Renal failure chronicity: acute Acute renal failure type: with other specified pathological lesion Qualified Code(s): N17.8 - Other acute kidney failure - Time Spent With Patient Total time spent is greater than 50% in coordination of care (as documented) at patient's floor/unit and/or counseling patient: - Constitutional Vitals: Temp Pulse Resp BP Pulse Ox 98.3 F 68 16 149/84 95 03/14/18 15:57 03/14/18 15:57 03/14/18 15:57 03/14/18 15:57 03/14/18 15:57 Internal Medicine: Result - Labs CBC & Chem 7: 03/14/18 07:10 03/14/18 07:10 Labs: Short CBC 03/14/18 Range/Units 07:10 WBC 15.4 H (4.3-11.1) K/mcL Hgb 9.5 L (11.5-15.4) g/dL Hct 30.4 L (35.3-44.9) % Plt Count 415 H (140-400) K/mcL Neutrophils # 12.1 H (1.6-8.9) K/mcL BMP 03/14/18 07:10 Sodium 140 Potassium 4.9 Chloride 104 Carbon Dioxide 19 L BUN 109 H Creatinine 4.40 H Glucose 240 H Calcium 7.7 L - ABG Interpretation ABG results: ABG ABG pH 7.29 pH Units (7.32-7.45) L 03/08/18 16:28 ABG pCO2 41 mmHg (35-45) 03/08/18 16:28 ABG pO2 87 mmHg (85-104) 03/08/18 16:28 ABG O2 Saturation 95 % (95-98) 03/08/18 16:28 PT/INR, D-dimer PT 13.7 Seconds (9.4-12.1) H 03/14/18 07:10 - Impressions Impressions Guidance Needle Placement Ultrasound 03/14/18 00:00 IMPRESSION: Successful ultrasound guided non-tunneled temporary hemodialysis catheter placement. D/ / Yousuf Wolfe MD / Yousuf Wolfe MD Interpreting Provider: Yousuf Wolfe MD Insertion Non-Tunneled Catheter 03/14/18 00:00 IMPRESSION: Successful ultrasound guided non-tunneled temporary hemodialysis catheter placement. D/ / Yousuf Wolfe MD / Yousuf Wolfe MD Interpreting Provider: Yousuf Wolfe MD Chest X-Ray 03/14/18 09:17 IMPRESSION: Right IJ central venous catheter with tip in the SVC. No pneumothorax. Mild pulmonary vascular congestion. Mild patchy airspace opacities, right more than left, may relate to atelectasis, multifocal infiltrates or could reflect some asymmetric pulmonary edema. Small left pleural effusion. D/ / 03/14/2018 09:55:02 Marvin Burgess MD / krysten Interpreting Provider: Marvin Burgess MD - Attending Attestation I examined this patient and my medical decision-making was reviewed with the Resident Physician on 03/14/18. I agree with the documented findings, disposition and treatment plan as described except to the extent set forth below. Ms Salmon is currently admitted for necrotizing cellulitis of L leg s/p I&D. She remains moderate to high risk due to potential for worsening clinical status. Ms Salmon is doing OK. She had brief dialysis today and was able to tolerate. Still with some drainage from wound. No fever or chills. Pain controlled currently. Noticed some blood in jones. Exam alert Comfortable Mucus membranes dry Heart reg and not tachy Lungs diminished Abd soft L leg with open incision - some purulent drainage with pressure. Blood noted in jones I/P 1. Hematuria most likely traumatic 2. Necrotizing cellulitis - continue wound care 3. Renal failure Further diagnoses and plan as above.
[2018-03-14] MEDS ORDERED: *HR* Heparin 5,000 UNIT/ML VIAL ONE (09:02)
--- NOTE | 2018-03-14 10:22 | Nephrology Progress Note ---
Date of Encounter: 03/14/18 Time of Encounter: 10:20 - Assessment and Plan (1) HERIBERTO (acute kidney injury) Current Visit: Yes Status: Acute Baseline Scr 1.17 and GFR 42. Scr 4.40 and GFR 10. Uop 2550 yesterday and 1500 today. Continue to renal dose all medications and avoid nephrotoxins. Temp line placed yesterday. HD today. (2) Cellulitis Current Visit: Yes Status: Acute Per primary. Qualifiers: Site of cellulitis: extremity Site of cellulitis of extremity: lower extremity Laterality: left Qualified Code(s): L03.116 - Cellulitis of left lower limb (3) DMII (diabetes mellitus, type 2) Current Visit: Yes Status: Chronic Per primary. 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 Hgb 9.5 today. Qualifiers: Vitamin B12 deficiency anemia type: other dietary B12 deficiency Qualified Code(s): D51.3 - Other dietary vitamin B12 deficiency anemia Subjective Principal diagnosis: fever/chills weakness Interval history: Pt seen and examined. NAD. Objective - Vital Signs Vital signs: Vital Signs Temp Pulse Resp BP Pulse Ox 03/14/18 07:37 16 99 03/14/18 07:23 98 F 63 16 161/75 99 03/14/18 04:30 62 16 161/75 96 03/13/18 23:26 98.7 F 60 18 156/79 94 03/13/18 22:33 94 03/13/18 20:29 20 94 03/13/18 15:47 97.6 F 71 16 187/90 94 Intake and Output 03/13/18 03/14/18 03/14/18 23:59 07:59 15:59 Intake Total 600 / 600 473 / 473 Output Total 1350 / 1350 1500 / 1500 Balance -1350 / -1350 -900 / -900 473 / 473 Intake: IV Fluids 600 / 600 113 / 113 Heparin 25,000 UNIT/500 ML D5W 500 / 500 113 / 113 25,000 unit In 500 ml @ 14 UNIT /KG/HR 43.26 mls/hr IVC . [id number] [facility]ITZA Rx#:[id number] Zosyn 3.375 GM In 0.9 % Sodium 100 / 100 Chloride (Mini-Bag +) 100 ML @ 25 mls/hr IVPB Q12HR [facility] Rx#: [id number] Oral 360 / 360 Output: Catheter 1350 / 1350 1500 / 1500 Other: Meal Breakfast Percent of Meal Consumed 35% Weight 155 kg Blood Glucose* 316 234 Patient Weight 03/14/18 23:59 Weight 155 kg - General Appearance General appearance: Present: well-developed, well-nourished, obese EENT: Present: ATNC, hearing intact, vision intact Neck: Present: supple Respiratory: Present: clear Cardiology: Present: edema (+2 pitting edema noted. ), normal S1, normal S2 Dialysis Vascular Access: Venous Catheter Additional Comments: DRSG C/D/I. Gastrointestinal: Present: normoactive bowel sounds, no tenderness, no guarding Integumentary: Present: no rash, warm and dry Neurologic: Present: alert and oriented x3 Psychiatric: Present: mood/affect appropriate, cooperative - Lab 03/14/18 07:10 03/14/18 07:10 Most recent lab results ABG pH 7.29 pH Units (7.32-7.45) L 03/08/18 16:28 ABG pCO2 41 mmHg (35-45) 03/08/18 16:28 ABG pO2 87 mmHg (85-104) 03/08/18 16:28 ABG HCO3 20 mEq/L (21-27) L 03/08/18 16:28 ABG O2 Saturation 95 % (95-98) 03/08/18 16:28 Calcium 7.7 mg/dL (8.6-10.3) L 03/14/18 07:10 Phosphorus 8.9 mg/dL (2.7-4.5) H 03/09/18 04:18 Magnesium 2.7 mg/dL (1.6-2.6) H 03/09/18 04:18 Urine Creatinine 87 mg/dL 03/07/18 00:10 Urine Sodium 36.5 mEq/L 03/07/18 00:10 Urine Total Protein 138 mg/dL (1-14) H 03/07/18 00:10 - VTE Documentation of Mechanical Device: Venous foot pump, device Consult Discharge Plan - Plan Referrals: Alonzo Resendiz MD [Primary Care Provider] -
[2018-03-14] MEDS ORDERED: *HR* Heparin 10,000 UNIT/10 ML VIAL IV PRN (10:37)
--- NOTE | 2018-03-14 12:01 | Infectious Disease Progress No ---
Date of Encounter: 03/14/18 Time of Encounter: 09:30 - Assessment and Plan (1) Severe sepsis Current Visit: Yes Status: Acute The patient had four SIRS criteria on admission with HERIBERTO and lactic acidosis. Likely we secondary to left thigh cellulitis and necrotizing fasciitis. Improved. WBC trending down. Tachycardia has resolved. She has been afebrile. Blood cultures drawn March 02 were +1 out of 2 sets for staph epi. Repeat blood cultures drawn March 05 are negative 2 sets. Additional blood cultures drawn March 08 2 sets are negative. (2) Necrotizing fasciitis Current Visit: Yes Status: Acute Location: Left thigh. Causative organism: unclear. Intra-op cultures are negative. Etiology unclear. CT of the LLE showed large amount of subcutaneous gas in the medial and anterior soft tissues of the proximal mid thigh consistent with necrotizing fasciitis and cellulitis. CK level 354. Repeat CK level normal. General surgery consulted. Status post I & D 03/09/[address] Barnes. Operative note reviewed. Large amount of pus noted intra-op. Cultures are negative. ESR and CRP markedly elevated. Repeat blood cultures x 2 sets drawn March 08 are negative. Discontinue Dapto and Zosyn (day 5 post-op). Start Augmentin 500mg PO daily (dose-adjusted for HD status). Start doxycycline 100mg PO BID. Continue probiotics. Duration of treatment depends on the clinical picture. Hold simvastatin while on Daptomycin. Monitor renal function and for drug toxicity and dose-adjust antibiotics. (3) Cellulitis Current Visit: Yes Status: Acute Location: Left thigh. Causative organism unclear. Etiology unclear. The patient reports a cat bite to the left foot about three weeks ago that has not healed, but otherwise denies known trauma to the extremity. Appears improved. Continue antibiotics as above. Qualifiers: Site of cellulitis: extremity Site of cellulitis of extremity: lower extremity Laterality: left Qualified Code(s): L03.116 - Cellulitis of left lower limb (4) Pneumonia Current Visit: Yes Status: Acute Location: Right perihilar region. Causative organism unclear. Chest XR showed right perihilar airspace opacity concerning for asymmetrical edema vs. PNA. Has likely received adequate antibiotic therapy, but will require prolonged antibiotic therapy for LLE cellulitis and necrotizing fasciitis. Qualifiers: Pneumonia type: due to methicillin-sensitive Staphylococcus aureus (MSSA) Laterality: right Lung location: unspecified part of lung Qualified Code(s) : J15.211 - Pneumonia due to Methicillin susceptible Staphylococcus aureus (5) Bacteremia Current Visit: Yes Status: Resolved Blood cultures drawn 03/02/18 are positive 1/2 sets for S. epi. Repeat blood cultures drawn 03/05/18 are negative x 2 sets. Likely a contaminant. No further treatment indicated. (6) HERIBERTO (acute kidney injury) Current Visit: Yes Status: Acute Serum creatinine elevated on admission, likely secondary to sepsis. Resolved initially, but worsened. Nephology consulted. Status post temporary dialysis catheter placement 03/14/18. Plans for HD later today. Serum creatinine has worsened. Continue to trend. Dose-adjust antibiotics. Avoid nephrotoxins as able. Strict I's and O's. (7) DMII (diabetes mellitus, type 2) Current Visit: Yes Status: Chronic Uncontrolled. HgbA1C 9.9% on admission. Recommend aggressive glucose monitoring and control to promote wound healing and prevent re-infection. Management per the primary team. Qualifiers: Diabetes mellitus care home insulin use: with filterer use Diabetes mellitus complication status: with kidney complications Diabetes mellitus complication detail: with chronic kidney disease Chronic kidney disease stage : stage 3 (moderate) Qualified Code(s): E11.22 - Type 2 diabetes mellitus with diabetic chronic kidney disease; N18.3 - Chronic kidney disease, stage 3 ( moderate); Z79.4 - skilled nursing (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 (8) HTN (hypertension), benign Current Visit: No Status: Chronic (9) Morbid obesity Current Visit: No Status: Chronic (10) Hyperglycemia Current Visit: Yes Status: Acute (11) Diarrhea Current Visit: Yes Status: Acute Likely antibiotic-related. C. diff negative. Appears to be improving. Continue probiotics. Qualifiers: Diarrhea type: unspecified type Qualified Code(s): R19.7 - Diarrhea, unspecified - Subjective Interval history: Patient seen and examined. No acute events noted overnight. Status post I&D of the left thigh 03/09/[address] Barnes. The patient states that she feels better today. She denies any fevers or chills or rigors. She denies any headache or neck pain. She does complain of chronic lower back pain that is at baseline. Denies chest pain or cough. She reports chronic DENZEL that is at baseline. She denies nausea or vomiting. She report some loose stools yesterday 2, but states it seems to be more firm. C. diff was checked and was negative. She denies abdominal pain. She states her appetite is better. Jones catheter remains patent. She denies oral thrush or new skin lesions. She states her left lower extremity isn't bothering her at all. Status post TDC placement this morning with HD scheduled for this afternoon. Infect Dis PN-Objective Data - Labs CBC & Chem 7: 03/14/18 07:10 03/14/18 07:10 Labs: Laboratory Results - last 24 hr 03/13/18 03/13/18 03/13/18 12:55 16:13 16:23 WBC 17.4 H RBC 3.83 Hgb 10.0 L Hct 31.8 L MCV 83.0 MCH 26.1 L MCHC 31.4 L RDW 15.2 H Plt Count 459 H MPV 9.8 Immature Gran % Seg Neutrophils % Lymphocytes % Monocytes % Eosinophils % Basophils % Neutrophils # Lymphocytes # Monocytes # Eosinophils # Basophils # Nucleated RBCs/100 WBC PT INR Heparin Anti-Xa, Unfract Sodium Potassium Chloride Carbon Dioxide BUN Creatinine Est GFR ( Amer) Est GFR (Non-Af Amer) BUN/Creatinine Ratio Glucose POC Glucose 296 H Calculated Osmolality Calcium Hep Bs Antigen Nonreactive Hep Bs Antibody 107.97 03/13/18 03/13/18 03/13/18 16:23 22:57 22:59 WBC RBC Hgb Hct MCV MCH MCHC RDW Plt Count MPV Immature Gran % Seg Neutrophils % Lymphocytes % Monocytes % Eosinophils % Basophils % Neutrophils # Lymphocytes # Monocytes # Eosinophils # Basophils # Nucleated RBCs/100 WBC PT 12.9 H INR 1.1 Heparin Anti-Xa, Unfract 0.03 L 0.93 H Sodium Potassium Chloride Carbon Dioxide BUN Creatinine Est GFR ( Amer) Est GFR (Non-Af Amer) BUN/Creatinine Ratio Glucose POC Glucose 316 H Calculated Osmolality Calcium Hep Bs Antigen Hep Bs Antibody 03/14/18 03/14/18 03/14/18 07:10 07:10 07:10 WBC 15.4 H RBC 3.67 L Hgb 9.5 L Hct 30.4 L MCV 82.8 L MCH 25.9 L MCHC 31.3 L RDW 15.2 H Plt Count 415 H MPV 9.6 Immature Gran % 2.7 Seg Neutrophils % 78.4 Lymphocytes % 13.1 Monocytes % 3.6 Eosinophils % 1.9 Basophils % 0.3 Neutrophils # 12.1 H Lymphocytes # 2.0 Monocytes # 0.6 Eosinophils # 0.3 Basophils # 0.0 Nucleated RBCs/100 WBC 0.2 H PT 13.7 H INR 1.2 Heparin Anti-Xa, Unfract 0.37 Sodium 140 Potassium 4.9 Chloride 104 Carbon Dioxide 19 L BUN 109 H Creatinine 4.40 H Est GFR ( Amer) 12 L Est GFR (Non-Af Amer) 10 L BUN/Creatinine Ratio 25 Glucose 240 H POC Glucose Calculated Osmolality 332 H Calcium 7.7 L Hep Bs Antigen Hep Bs Antibody 03/14/18 07:25 WBC RBC Hgb Hct MCV MCH MCHC RDW Plt Count MPV Immature Gran % Seg Neutrophils % Lymphocytes % Monocytes % Eosinophils % Basophils % Neutrophils # Lymphocytes # Monocytes # Eosinophils # Basophils # Nucleated RBCs/100 WBC PT INR Heparin Anti-Xa, Unfract Sodium Potassium Chloride Carbon Dioxide BUN Creatinine Est GFR ( Amer) Est GFR (Non-Af Amer) BUN/Creatinine Ratio Glucose POC Glucose 234 H Calculated Osmolality Calcium Hep Bs Antigen Hep Bs Antibody Cultures: Cultures 03/08/18 15:16 Blood Culture - Final Peripheral Venipuncture No growth. Final report. 03/08/18 15:46 Blood Culture - Final Peripheral Venipuncture No growth. Final report. 03/09/18 12:18 Anaerobic Culture - Preliminary Other-Specify in Comments At this time, no anaerobic growth is present. The culture will be finalized after 5 days of incubation. 03/09/18 12:18 Wound Culture - Final Other-Specify in Comments No growth. 03/05/18 08:34 Blood Culture - Final Peripheral Venipuncture No growth. Final report. 03/05/18 08:34 Blood Culture - Final Peripheral Venipuncture No growth. Final report. 03/07/18 00:10 Urine Culture - Final Urine,Clean Catch No growth. Serology 03/13/18 03/12/18 03/07/18 Range/Units 12:55 10:30 19:05 Urine Color (Yellow) Urine Clarity (Clear) Urine pH (5.0-8.0) pH Units Ur Specific Sharon (1.010-1.025) Urine Protein (Neg-Trace) mg/dL Urine Glucose (UA) (Normal) mg/dL Urine Ketones (Negative) mg/dL Urine Blood (Negative) Urine Nitrite (Negative) Urine Bilirubin (Negative) Urine Urobilinogen (Normal) mg/dL Ur Leukocyte Esterase (Negative) Urine Microscopic RBC (0-3) per hpf Urine Microscopic WBC (0-3) per hpf Ur Eosinophil Smear 0 (None Seen) % Ur Squamous Epith Cells (None-Few) per lpf Amorphous Sediment (Few) Urine Bacteria (None-Few) per hpf Hyaline Casts (None-Few) per lpf Ur Culture Indicated? Urine Osmolality (300-1090) mOsm/kg Urine Creatinine mg/dL Protein/Creatinin Ratio (0.00-0.20) mg/mg Urine Sodium mEq/L Ur Uric Acid mg/dL Urine Total Protein (1-14) mg/dL Stl C. diff Tox B Gene Negative (Negative) Hep Bs Antigen Nonreactive (Nonreactive) Hep Bs Antibody 107.97 mIU/mL 03/07/18 03/07/18 03/07/18 Range/Units 00:10 00:10 00:10 Urine Color (Yellow) Urine Clarity (Clear) Urine pH (5.0-8.0) pH Units Ur Specific Sharon (1.010-1.025) Urine Protein (Neg-Trace) mg/dL Urine Glucose (UA) (Normal) mg/dL Urine Ketones (Negative) mg/dL Urine Blood (Negative) Urine Nitrite (Negative) Urine Bilirubin (Negative) Urine Urobilinogen (Normal) mg/dL Ur Leukocyte Esterase (Negative) Urine Microscopic RBC (0-3) per hpf Urine Microscopic WBC (0-3) per hpf Ur Eosinophil Smear (None Seen) % Ur Squamous Epith Cells (None-Few) per lpf Amorphous Sediment (Few) Urine Bacteria (None-Few) per hpf Hyaline Casts (None-Few) per lpf Ur Culture Indicated? Urine Osmolality 377 (300-1090) mOsm/kg Urine Creatinine 87 mg/dL Protein/Creatinin Ratio 1.59 H (0.00-0.20) mg/mg Urine Sodium 36.5 mEq/L Ur Uric Acid 33 mg/dL Urine Total Protein 138 H (1-14) mg/dL Stl C. diff Tox B Gene (Negative) Hep Bs Antigen (Nonreactive) Hep Bs Antibody mIU/mL 03/07/18 Range/Units 00:10 Urine Color Yellow (Yellow) Urine Clarity Cloudy A (Clear) Urine pH 5.5 (5.0-8.0) pH Units Ur Specific Sharon 1.020 (1.010-1.025) Urine Protein 30 H (Neg-Trace) mg/dL Urine Glucose (UA) 500 H (Normal) mg/dL Urine Ketones Negative (Negative) mg/dL Urine Blood Small H (Negative) Urine Nitrite Negative (Negative) Urine Bilirubin Negative (Negative) Urine Urobilinogen Normal (Normal) mg/dL Ur Leukocyte Esterase Negative (Negative) Urine Microscopic RBC 0-3 (0-3) per hpf Urine Microscopic WBC 3-5 H (0-3) per hpf Ur Eosinophil Smear (None Seen) % Ur Squamous Epith Cells Many H (None-Few) per lpf Amorphous Sediment Moderate H (Few) Urine Bacteria Many H (None-Few) per hpf Hyaline Casts None Seen (None-Few) per lpf Ur Culture Indicated? Cancelled Urine Osmolality (300-1090) mOsm/kg Urine Creatinine mg/dL Protein/Creatinin Ratio (0.00-0.20) mg/mg Urine Sodium mEq/L Ur Uric Acid mg/dL Urine Total Protein (1-14) mg/dL Stl C. diff Tox B Gene (Negative) Hep Bs Antigen (Nonreactive) Hep Bs Antibody mIU/mL - Impressions Impressions Chest X-Ray 03/14/18 09:17 IMPRESSION: Right IJ central venous catheter with tip in the SVC. No pneumothorax. Mild pulmonary vascular congestion. Mild patchy airspace opacities, right more than left, may relate to atelectasis, multifocal infiltrates or could reflect some asymmetric pulmonary edema. Small left pleural effusion. D/ / 03/14/2018 09:55:02 Marvin Burgess MD / [facility] Interpreting Provider: Marvin Burgess MD Exam - Constitutional Vitals: Temp Pulse Resp BP Pulse Ox 98.2 F 61 16 145/77 99 03/14/18 11:09 03/14/18 11:09 03/14/18 11:09 03/14/18 11:09 03/14/18 11:09 General appearance: cooperative, morbidly obese, no acute distress - Head Head exam: Present: atraumatic, normal inspection, normocephalic - Eye Eye exam: Present: EOMI, normal appearance, PERRL Pupils: Present: normal accommodation - ENT ENT exam: Present: mucous membranes moist - Neck Neck exam: Present: normal inspection Additional comments: Temporary dialysis catheter noted to the right neck with transparent dressing C/ D/I. - Respiratory Respiratory exam: Present: CTAB. Absent: rales, respiratory distress, rhonchi, wheezes - Cardiovascular Cardiovascular exam: Present: RRR, +S1, +S2 - GI/Abdominal GI/Abdominal exam: Present: distended (obese), normal bowel sounds, soft. Absent: tenderness Additional comments: jones catheter noted to be draining clear yellow urine. - Extremities Exam Extremities exam: Present: pedal edema (1+ BLE). Absent: joint swelling, tenderness Additional comments: Left upper thigh dressing C/D/I. No erythema or warmth noted to be surrounding the dressing. - Neurological Exam Neurological exam: Present: alert, oriented X3, no focal deficits - Psychiatric Psychiatric exam: Present: normal affect, normal mood - Skin Skin exam: Present: dry, intact, normal color, warm - VTE Documentation of Mechanical Device: Venous foot pump, device Consult Discharge Plan - Plan Referrals: Alonzo Resendiz MD [Primary Care Provider] - - Attending Attestation I examined this patient and my medical decision-making was reviewed with the Resident Physician. I agree with the documented findings, disposition and treatment plan as described except to the extent set forth below.
[2018-03-14] MEDS: traMADol 50 MG TABLET PO PRN (12:34)
[2018-03-14] MEDS ORDERED: Insulin LISPRO 300 UNITS/3 ML VIAL SQ SCH (13:56)
[2018-03-14] MEDS: Amoxicillin/Clavulanate 500 MG TABLET PO SCH (17:29)
[2018-03-14] MEDS ORDERED: *HR* Warfarin 7.5 MG TABLET PO ONE (18:00)
[2018-03-14] MEDS: Acetaminophen 325 MG TABLET PO PRN (20:21)
[2018-03-14] MEDS: Doxycycline 100 MG CAPSULE PO SCH (20:21)
[2018-03-14] MEDS ORDERED: Insulin DETEMIR 100 UNIT/ML X5UNITS SQ SCH (21:00)
[2018-03-15 05:12] LABS: Basophils % 0.3 %; Eosinophils # 0.3 K/mcL (0.0-0.6); Hematocrit 28.7 % (35.3-44.9); Hemoglobin 8.8 g/dL (11.5-15.4); Immature Granulocytes % 1.9 % (0-4); Lymphocytes # 2.1 K/mcL (0.6-4.6); Lymphocytes % 16.6 %; Mean Corpuscular HGB Conc 30.7 g/dL (31.6-35.5); Mean Corpuscular Hemoglobin 25.2 pg (28.0-33.3); Mean Corpuscular Volume 82.2 fL (83.0-100.0); Mean Platelet Volume 9.7 fL (9.4-12.4); Monocytes # 0.5 K/mcL (0.0-1.3); Monocytes % 3.8 %; Neutrophils # 9.6 K/mcL (1.6-8.9); Nucleated Red Blood Cells 0.2 /100 WBC (0); Platelet Count 383 K/mcL (140-400); Red Blood Count 3.49 M/mcL (3.82-4.97); Red Cell Distribution Width 15.4 % (11.5-14.5); Segmented Neutrophils % 75.4 %
[2018-03-15 05:26] LABS: INR 1.2; Prothrombin Time 13.4 Seconds (9.4-12.1)
[2018-03-15 05:27] LABS: Calcium 8.1 mg/dL (8.6-10.3); Potassium 4.2 mEq/L (3.5-5.1)
[2018-03-15] MEDS: Acetaminophen 325 MG TABLET PO PRN ×2 (05:47→15:04)
[2018-03-15] MEDS ORDERED: 0.9 % Sodium Chloride 250 ML IVC PRN (06:33)
[2018-03-15] MEDS ORDERED: 0.9 % Sodium Chloride 1,000 ML ONE (07:03)
[2018-03-15] MEDS: Budesonide/Formoterol 160/4.5 MDI IH SCH ×2 (07:58→21:27)
[2018-03-15] MEDS: Gabapentin 300 MG CAPSULE PO SCH ×2 (09:22→21:27)
[2018-03-15] MEDS: Calcium Acetate 667 MG CAPSULE PO SCH ×3 (09:22→18:36)
[2018-03-15] MEDS: Multivit/Ca/Min/Fe/FA 1 TAB TABLET PO SCH (09:22)
[2018-03-15] MEDS: Lactobacillus 1 EACH CAP.SPRINK PO SCH (09:22)
[2018-03-15] MEDS: Insulin LISPRO 300 UNITS/3 ML VIAL SQ SCH ×7 (09:22→21:28)
--- NOTE | 2018-03-15 09:28 | Internal Med Progress Note ---
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 (2) HTN (hypertension), benign Current Visit: No Status: Chronic (3) Morbid obesity Current Visit: No Status: Chronic (4) Sepsis Current Visit: Yes Status: Resolved Qualifiers: Sepsis type: sepsis due to unspecified organism Qualified Code(s): A41.9 - Sepsis, unspecified organism (5) Cellulitis Current Visit: Yes Status: Acute Qualifiers: Site of cellulitis: extremity Site of cellulitis of extremity: lower extremity Laterality: left Qualified Code(s): L03.116 - Cellulitis of left lower limb (6) HERIBERTO (acute kidney injury) Current Visit: Yes Status: Acute (7) DVT prophylaxis Current Visit: Yes Status: Acute (8) Pneumonia Current Visit: Yes Status: Suspected Qualifiers: Pneumonia type: due to methicillin-sensitive Staphylococcus aureus (MSSA) Laterality: right Lung location: unspecified part of lung Qualified Code(s) : J15.211 - Pneumonia due to Methicillin susceptible Staphylococcus aureus (9) Diarrhea Current Visit: Yes Status: Acute Qualifiers: Diarrhea type: unspecified type Qualified Code(s): R19.7 - Diarrhea, unspecified (10) Gross hematuria Current Visit: Yes Status: Acute (11) Renal failure Current Visit: Yes Status: Acute Qualifiers: Renal failure chronicity: acute Acute renal failure type: with other specified pathological lesion Qualified Code(s): N17.8 - Other acute kidney failure - Time Spent With Patient Total time spent is greater than 50% in coordination of care (as documented) at patient's floor/unit and/or counseling patient: - Constitutional Vitals: Temp Pulse Resp BP Pulse Ox 99.2 F 72 16 158/67 97 03/15/18 15:47 03/15/18 15:47 07/18/18 15:47 03/15/18 15:47 03/15/18 15:47 Internal Medicine: Result - Labs CBC & Chem 7: 03/15/18 04:46 03/15/18 04:46 Labs: Short CBC 03/15/18 Range/Units 04:46 WBC 12.7 H (4.3-11.1) K/mcL Hgb 8.8 L (11.5-15.4) g/dL Hct 28.7 L (35.3-44.9) % Plt Count 383 (140-400) K/mcL Neutrophils # 9.6 H (1.6-8.9) K/mcL BMP 03/15/18 04:46 Sodium 140 Potassium 4.2 Chloride 101 Carbon Dioxide 25 BUN 72 H Creatinine 3.75 H Glucose 236 H Calcium 8.1 L - ABG Interpretation ABG results: ABG ABG pH 7.29 pH Units (7.32-7.45) L 03/08/18 16:28 ABG pCO2 41 mmHg (35-45) 03/08/18 16:28 ABG pO2 87 mmHg (85-104) 03/08/18 16:28 ABG O2 Saturation 95 % (95-98) 03/08/18 16:28 PT/INR, D-dimer PT 13.4 Seconds (9.4-12.1) H 03/15/18 04:46 Consult Discharge Plan - Plan Referrals: Alonzo Resendiz MD [Primary Care Provider] - - Attending Attestation I examined this patient and my medical decision-making was reviewed with the Resident Physician on 03/15/18. I agree with the documented findings, disposition and treatment plan as described except to the extent set forth below. Ms Salmon is currently admitted for acute renal failure and cellulitis with abscess. She remains moderate to high risk due to potential worsening clinical status. Ms Salmon tolerated dialysis today. No fever or chills. No GI issues at this time. Wound is healing. Exam Alert Comfortable Mucus membranes dry Heart reg No wheeze abd soft I/P 1. Cellulitis/abscess - continue abx for 2 weeks per ID 2. Acute renal failure - tolerating dialysis Further diagnoses and plan as above <Gianni Victor - Last Filed: 03/15/18 20:05> Date of Encounter: 03/15/18 Time of Encounter: 09:27 - Assessment and plan (1) DMII (diabetes mellitus, type 2) Current Visit: Yes Status: Chronic Assessment and plan: BS running in the 300s. 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 188/91 Holding ACEI for HERIBERTO Since pt is getting dialysis, will hold on aggressive medical management for changing volume status Continue Metoprolol 50mg BID Continue Amlodipine 10mg qd Hydralazine 10mg prn q6h (3) Morbid obesity Current Visit: No Status: Inactive (4) Sepsis Current Visit: Yes Status: Inactive Qualifiers: Sepsis type: sepsis due to unspecified organism Qualified Code(s): A41.9 - Sepsis, unspecified organism (5) Cellulitis Current Visit: Yes Status: Acute Assessment and plan: CT of the LLE showed large subcutaneous gas without obvious necrotizing fascitis or absces Cont IV Zosyn and IV Daptomycin per ID Wound cx - no growth Wound care per surgery with twice daily irrigation and dressing changes Qualifiers: Site of cellulitis: extremity Site of cellulitis of extremity: lower extremity Laterality: left Qualified Code(s): L03.116 - Cellulitis of left lower limb (6) HERIBERTO (acute kidney injury) Current Visit: Yes Status: Acute Assessment and plan: HERIBERTO with CKD-2 Receiving dialysis per nephro BUN and Cr improved today - 72 and 3.75 respectively Pt is non oliguric, making adequate urine at 3425mL yday most likely due to ATN induced by sepsis and medications Nephro on board cont close monitoring (7) DVT prophylaxis Current Visit: Yes Status: Acute Assessment and plan: Heparin drip due to subtherapeutic INR (8) Pneumonia Current Visit: Yes Status: Suspected Assessment and plan: Chest x-ray on 03/06 showed new developing right perihilar airspace of patient the concerning for developing pneumonia cont empirical abx on Zosyn and daptomycin per ID Qualifiers: Pneumonia type: due to methicillin-sensitive Staphylococcus aureus (MSSA) Laterality: right Lung location: unspecified part of lung Qualified Code(s) : J15.211 - Pneumonia due to Methicillin susceptible Staphylococcus aureus (9) Diarrhea Current Visit: Yes Status: Inactive Assessment and plan: Due to abx improving d/c Clindamycin C Diff negative Qualifiers: Diarrhea type: unspecified type Qualified Code(s): R19.7 - Diarrhea, unspecified (10) Gross hematuria Current Visit: Yes Status: Inactive (11) Renal failure Current Visit: Yes Status: Acute Assessment and plan: Multifactorial. Likely vancomycin related. Qualifiers: Renal failure chronicity: acute Acute renal failure type: with other specified pathological lesion Qualified Code(s): N17.8 - Other acute kidney failure - Time Spent With Patient Total time spent is greater than 50% in coordination of care (as documented) at patient's floor/unit and/or counseling patient: - Subjective Interval history: Ms. Salmon is a 68F with a hx of diabetes, PE and DVT, was admitted on 03/02 for malaise. She had left inner leg cellulitis as was treated with zosyn and vancomycin 03/06: Cellulitis had improved. Kidney functions worsening with Cr 2.91. Vanco was discontinued and IVF given. nystatin cream for cellulitis. At this time the patient was still experiencing fevers and leukocytosis was not improving. pt was found to have perihilar opacity on CXR suggesting pneumonia. Abx therapy was changed from zosyn to unasyn due to concerns of aspiration PNA. 03/07: Pt was transitioned from Unasyn to Augmentin po. HERIBERTO continues to worsen with Cr 3.10. 03/08: Cellulitis worsens with increasing erythema and pain upon exam. CT revealed subcutaneous air representing necrosis in but not extending to the fascia of the left upper leg and groin area. Started on Doxycycline and transitioned back to Zosyn. After ID consult pt was placed on IV Zosyn, Clindamycin, and Daptomycin. Surgery was consulted and anticoagulation was stopped due to supratherapeutic INR at 3.4. HERIBERTO continues to worsen with Cr at 3.30 03/09: Pt resting comfortably in bed during this encounter, states she did not sleep well last night. No new or acute complaints at this time. Denies any chest pain , increased SOB, increased cough, nausea, vomiting, headache, numbness, or tingling. States she does not believe the cellulitis has changed much overnight. 03/10: No acute events overnight. Pt sitting in bed eating breakfast. States she feels much better today. Admits to some increased cough with brown sputum production, but states she feels like she can breathe easier now Denies chest pain, increased SOB, nausea, vomiting, headache, numbness, or tingling. 03/13: No acute events overnight. Pt states she feels "ok" today. Denies any headache, chest pain, increased SOB, increased cough, sputum production, abdominal pain, nausea, vomiting, numbness, or tingling. States she has had multiple watery bowel movements. 03/14: No acute events overnight. Pt states she feels "the same" today. Denies any headache, chest pain, increased SOB, cough, sputum production, abdominal pain, nausea, vomiting, numbness, or tingling. Received R IJ dialysis cath this morning with plans for dialysis later today. 03/15: No acute events overnight. Pt resting comfortably in bed during this encounter. States she feels tired. Denies any chest pain, worsening SOB, cough, sputum production, abdominal pain, nausea, vomiting, numbness, or tingling. - Constitutional Vitals: Temp Pulse Resp BP Pulse Ox 97.6 F 61 16 166/74 96 03/15/18 07:26 03/15/18 07:26 03/15/18 07:59 03/15/18 07:26 03/15/18 07:59 General appearance: Present: A&O X 3, no acute distress, obese Exam: Head: normocephalic and atruamatic. no lesions Eyes: PERRL, EOMI, sclera anicteric, conjunctiva pink Neck: supple, trachea midline, Right IJ dialysis catheter in place Lungs: grossly diminished breath sounds. non-labored breathing. No wheezes, rales, or rhonchi appreciated. Heart: RRR, +S1, +S2. no murmurs, clicks, or rubs GI: abdomen soft, distended, non-tender. normoactive bowel sounds Extremities: warm, radial pulses palpable and symmetrical. +2 pitting pedal edema bilaterally. no cyanosis Neuro: A&Ox3, no focal deficits. no speech abnormality or difficulty Skin: warm, dry, intact. dressing in place over left upper leg wound with no extending erythema Internal Medicine: Result - Labs CBC & Chem 7: 03/15/18 04:46 03/15/18 04:46 Labs: Short CBC 03/15/18 Range/Units 04:46 WBC 12.7 H (4.3-11.1) K/mcL Hgb 8.8 L (11.5-15.4) g/dL Hct 28.7 L (35.3-44.9) % Plt Count 383 (140-400) K/mcL Neutrophils # 9.6 H (1.6-8.9) K/mcL BMP 03/15/18 04:46 Sodium 140 Potassium 4.2 Chloride 101 Carbon Dioxide 25 BUN 72 H Creatinine 3.75 H Glucose 236 H Calcium 8.1 L - ABG Interpretation ABG results: ABG ABG pH 7.29 pH Units (7.32-7.45) L 03/08/18 16:28 ABG pCO2 41 mmHg (35-45) 03/08/18 16:28 ABG pO2 87 mmHg (85-104) 03/08/18 16:28 ABG O2 Saturation 95 % (95-98) 03/08/18 16:28 PT/INR, D-dimer PT 13.4 Seconds (9.4-12.1) H 03/15/18 04:46 - Impressions Impressions Guidance Needle Placement Ultrasound 03/14/18 00:00 IMPRESSION: Successful ultrasound guided non-tunneled temporary hemodialysis catheter placement. D/ / Yousuf Wolfe MD / Yousuf Wolfe MD Interpreting Provider: Yousuf Wolfe MD Insertion Non-Tunneled Catheter 03/14/18 00:00 IMPRESSION: Successful ultrasound guided non-tunneled temporary hemodialysis catheter placement. D/ / Yousuf Wolfe MD / Yousuf Wolfe MD Interpreting Provider: Yousuf Wolfe MD Chest X-Ray 03/14/18 09:17 IMPRESSION: Right IJ central venous catheter with tip in the SVC. No pneumothorax. Mild pulmonary vascular congestion. Mild patchy airspace opacities, right more than left, may relate to atelectasis, multifocal infiltrates or could reflect some asymmetric pulmonary edema. Small left pleural effusion. D/ / 03/14/2018 09:55:02 Marvin Burgess MD / [facility] Interpreting Provider: Marvin Burgess MD - VTE Documentation of Mechanical Device: Venous foot pump, device
[2018-03-15] MEDS: Nystatin POWDER 30 GM BOTTLE TP SCH ×2 (09:31→21:43)
--- NOTE | 2018-03-15 09:36 | Nephrology Progress Note ---
Date of Encounter: 03/15/18 Time of Encounter: 09:32 - Assessment and Plan (1) HERIBERTO (acute kidney injury) Current Visit: Yes Status: Acute Baseline Scr 1.17 and GFR 42. Scr 3.75 nad GFR 12 UF today. Uop 3425 and 700 today. Continue to renal dose all medications and avoid nephrotoxins. (2) Cellulitis Current Visit: Yes Status: Acute Per primary. Qualifiers: Site of cellulitis: extremity Site of cellulitis of extremity: lower extremity Laterality: left Qualified Code(s): L03.116 - Cellulitis of left lower limb (3) DMII (diabetes mellitus, type 2) Current Visit: Yes Status: Chronic Per primary. Qualifiers: Diabetes mellitus retirement insulin use: with retirement use Diabetes mellitus complication status: with kidney complications Diabetes mellitus complication detail: with chronic kidney disease Chronic kidney disease stage : stage 3 (moderate) Qualified Code(s): E11.22 - Type 2 diabetes mellitus with diabetic chronic kidney disease; N18.3 - Chronic kidney disease, stage 3 ( moderate); Z79.4 - snf (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 (4) Anemia Current Visit: Yes Status: Acute Goal Hgb 10-11. Hgb 8.8 today. Will defer transfusions to primary team. Qualifiers: Vitamin B12 deficiency anemia type: other dietary B12 deficiency Qualified Code(s): D51.3 - Other dietary vitamin B12 deficiency anemia Subjective Principal diagnosis: fever/chills weakness Interval history: Pt seen and examined. NAD. Objective - Vital Signs Vital signs: Vital Signs Temp Pulse Resp BP Pulse Ox 03/15/18 07:59 16 96 03/15/18 07:26 97.6 F 61 16 166/74 96 03/15/18 04:51 97.8 F 62 18 188/91 95 03/15/18 01:02 98.6 F 61 18 189/89 96 03/14/18 21:57 18 96 03/14/18 20:00 98 03/14/18 19:51 98.2 F 74 18 162/74 98 03/14/18 15:57 98.3 F 68 16 149/84 95 03/14/18 15:35 97.5 F L 16 164/71 03/14/18 15:25 161/72 03/14/18 15:10 154/73 03/14/18 14:55 156/73 03/14/18 14:40 147/68 03/14/18 14:25 154/64 03/14/18 14:10 146/67 03/14/18 13:55 159/71 03/14/18 13:40 155/69 03/14/18 13:25 97.5 F L 15 145/70 03/14/18 11:09 98.2 F 61 16 145/77 99 Intake and Output 03/14/18 03/15/18 03/15/18 23:59 07:59 15:59 Intake Total 752 / 752 418 / 418 Output Total 400 / 400 700 / 700 Balance 352 / 352 -282 / -282 Intake: IV Fluids 452 / 452 318 / 318 Heparin 25,000 UNIT/500 ML D5W 452 / 452 318 / 318 25,000 unit In 500 ml @ 14 UNIT /KG/HR 43.26 mls/hr IVC . [id number] MARITZA Rx#:[id number] Oral 300 / 300 100 / 100 Output: Catheter 400 / 400 700 / 700 Other: Stool Size Moderate Stool Consistency liquid soft Stool Characteristics [place] Stool Color Brown Green # Voids 1 # Bowel Movements 1 Weight 152 kg Blood Glucose* 275 217 Patient Weight 03/15/18 23:59 Weight 152 kg - General Appearance General appearance: Present: well-developed, well-nourished, obese EENT: Present: ATNC, hearing intact, vision intact Neck: Present: supple Respiratory: Present: clear Cardiology: Present: edema (+1 pitting edema noted bilat lower extremities.), normal S1, normal S2 Dialysis Vascular Access: Venous Catheter (Temp line, DRSG C/D/I.) Gastrointestinal: Present: normoactive bowel sounds, no tenderness, no guarding Integumentary: Present: no rash, warm and dry Neurologic: Present: alert and oriented x3 Psychiatric: Present: mood/affect appropriate, cooperative - Lab 03/15/18 04:46 03/15/18 04:46 Most recent lab results ABG pH 7.29 pH Units (7.32-7.45) L 03/08/18 16:28 ABG pCO2 41 mmHg (35-45) 03/08/18 16:28 ABG pO2 87 mmHg (85-104) 03/08/18 16:28 ABG HCO3 20 mEq/L (21-27) L 03/08/18 16:28 ABG O2 Saturation 95 % (95-98) 03/08/18 16:28 Calcium 8.1 mg/dL (8.6-10.3) L 03/15/18 04:46 Phosphorus 8.9 mg/dL (2.7-4.5) H 03/09/18 04:18 Magnesium 2.7 mg/dL (1.6-2.6) H 03/09/18 04:18 Urine Creatinine 87 mg/dL 03/07/18 00:10 Urine Sodium 36.5 mEq/L 03/07/18 00:10 Urine Total Protein 138 mg/dL (1-14) H 03/07/18 00:10 - VTE Documentation of Mechanical Device: Venous foot pump, device Consult Discharge Plan - Plan Referrals: Alonzo Resendiz MD [Primary Care Provider] -
[2018-03-15] MEDS: Heparin 25,000 UNIT/500 ML D5W 25,000 UNIT/500 ML BAG IVC SCH (12:20)
[2018-03-15] MEDS: Amoxicillin/Clavulanate 500 MG TABLET PO SCH ×2 (13:29→18:36)
[2018-03-15] MEDS: Doxycycline 100 MG CAPSULE PO SCH ×2 (13:30→21:27)
--- NOTE | 2018-03-15 14:56 | Infectious Disease Progress No ---
Date of Encounter: 03/15/18 Time of Encounter: 12:30 - Assessment and Plan (1) Severe sepsis Current Visit: Yes Status: Acute The patient had four SIRS criteria on admission with HERIBERTO and lactic acidosis. Likely we secondary to left thigh cellulitis and necrotizing fasciitis. Improved. WBC trending down. Tachycardia has resolved. She has been afebrile. Blood cultures drawn March 02 were +1 out of 2 sets for staph epi. Repeat blood cultures drawn March 05 are negative 2 sets. Additional blood cultures drawn March 08 2 sets are negative. (2) Necrotizing fasciitis Current Visit: Yes Status: Acute Location: Left thigh. Causative organism: unclear. Intra-op cultures are negative. Etiology unclear. CT of the LLE showed large amount of subcutaneous gas in the medial and anterior soft tissues of the proximal mid thigh consistent with necrotizing fasciitis and cellulitis. CK level 354. Repeat CK level normal. General surgery consulted. Status post I & D 03/09/[address] Barnes. Operative note reviewed. Large amount of pus noted intra-op. Cultures are negative. ESR and CRP markedly elevated. Repeat blood cultures x 2 sets drawn March 08 are negative. Continue Augmentin 500mg PO daily (dose-adjusted for HD status). Continue doxycycline 100mg PO BID. Continue probiotics. Duration of treatment depends on the clinical picture, but likely a total of 14 days from surgery. Okay to re-start simvastatin since Daptomycin stopped. Monitor renal function and for drug toxicity and dose-adjust antibiotics. (3) Cellulitis Current Visit: Yes Status: Acute Location: Left thigh. Causative organism unclear. Etiology unclear. The patient reports a cat bite to the left foot about three weeks ago that has not healed, but otherwise denies known trauma to the extremity. Appears improved. Continue antibiotics as above. Qualifiers: Site of cellulitis: extremity Site of cellulitis of extremity: lower extremity Laterality: left Qualified Code(s): L03.116 - Cellulitis of left lower limb (4) Pneumonia Current Visit: Yes Status: Suspected Location: Right perihilar region. Causative organism unclear. Chest XR showed right perihilar airspace opacity concerning for asymmetrical edema vs. PNA. Has likely received adequate antibiotic therapy, but will require prolonged antibiotic therapy for LLE cellulitis and necrotizing fasciitis. Qualifiers: Pneumonia type: due to methicillin-sensitive Staphylococcus aureus (MSSA) Laterality: right Lung location: unspecified part of lung Qualified Code(s) : J15.211 - Pneumonia due to Methicillin susceptible Staphylococcus aureus (5) Bacteremia Current Visit: Yes Status: Resolved Blood cultures drawn 03/02/18 are positive 1/2 sets for S. epi. Repeat blood cultures drawn 03/05/18 are negative x 2 sets. Likely a contaminant. No further treatment indicated. (6) HERIBERTO (acute kidney injury) Current Visit: Yes Status: Acute Serum creatinine elevated on admission, likely secondary to sepsis. Resolved initially, but worsened. Nephology consulted. Status post temporary dialysis catheter placement 03/14/18. HD initiated 03/14/18. Serum creatinine has worsened. Continue to trend. Dose-adjust antibiotics. Avoid nephrotoxins as able. Strict I's and O's. (7) DMII (diabetes mellitus, type 2) Current Visit: Yes Status: Chronic Uncontrolled. HgbA1C 9.9% on admission. Recommend aggressive glucose monitoring and control to promote wound healing and prevent re-infection. Management per the primary team. 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 C. diff negative. Appears to be improving. Continue probiotics. Qualifiers: Diarrhea type: unspecified type Qualified Code(s): R19.7 - Diarrhea, unspecified - Subjective Interval history: Patient seen and examined. No acute events noted overnight. Status post I&D of the left thigh 03/09/[address] Barnes. The patient states that she feels better today. She denies any fevers or chills or rigors. She denies any headache or neck pain. She does complain of chronic lower back pain that is at baseline. Denies chest pain or cough. She reports chronic DENZEL that is at baseline. She denies nausea or vomiting. She report reports her stools are more formed. She denies abdominal pain. She states her appetite is better. Williamson catheter remains patent. She denies oral thrush or new skin lesions. She states her left lower extremity isn't bothering her at all. Seen in the HD unit. Infect Dis PN-Objective Data - Labs CBC & Chem 7: 03/16/18 03:48 03/16/18 03:48 Labs: Laboratory Results - last 24 hr 03/14/18 03/14/18 03/14/18 11:12 16:07 16:43 WBC RBC Hgb Hct MCV MCH MCHC RDW Plt Count MPV Immature Gran % Seg Neutrophils % Lymphocytes % Monocytes % Eosinophils % Basophils % Neutrophils # Lymphocytes # Monocytes # Eosinophils # Basophils # Nucleated RBCs/100 WBC PT INR Heparin Anti-Xa, Unfract 0.42 Sodium Potassium Chloride Carbon Dioxide BUN Creatinine Est GFR ( Amer) Est GFR (Non-Af Amer) BUN/Creatinine Ratio Glucose POC Glucose 232 H 209 H Calculated Osmolality Calcium 03/14/18 03/14/18 03/15/18 19:55 21:45 04:46 WBC RBC Hgb Hct MCV MCH MCHC RDW Plt Count MPV Immature Gran % Seg Neutrophils % Lymphocytes % Monocytes % Eosinophils % Basophils % Neutrophils # Lymphocytes # Monocytes # Eosinophils # Basophils # Nucleated RBCs/100 WBC PT 13.4 H INR 1.2 Heparin Anti-Xa, Unfract 0.30 Sodium Potassium Chloride Carbon Dioxide BUN Creatinine Est GFR ( Amer) Est GFR (Non-Af Amer) BUN/Creatinine Ratio Glucose POC Glucose 275 H Calculated Osmolality Calcium 03/15/18 03/15/18 03/15/18 04:46 04:46 04:46 WBC 12.7 H RBC 3.49 L Hgb 8.8 L Hct 28.7 L MCV 82.2 L MCH 25.2 L MCHC 30.7 L RDW 15.4 H Plt Count 383 MPV 9.7 Immature Gran % 1.9 Seg Neutrophils % 75.4 Lymphocytes % 16.6 Monocytes % 3.8 Eosinophils % 2.0 Basophils % 0.3 Neutrophils # 9.6 H Lymphocytes # 2.1 Monocytes # 0.5 Eosinophils # 0.3 Basophils # 0.0 Nucleated RBCs/100 WBC 0.2 H PT INR Heparin Anti-Xa, Unfract 0.31 Sodium 140 Potassium 4.2 Chloride 101 Carbon Dioxide 25 BUN 72 H Creatinine 3.75 H Est GFR ( Amer) 15 L Est GFR (Non-Af Amer) 12 L BUN/Creatinine Ratio 19 Glucose 236 H POC Glucose Calculated Osmolality 319 H Calcium 8.1 L Cultures: Cultures 03/09/18 12:18 Anaerobic Culture - Final Other-Specify in Comments No anaerobes were recovered. 03/08/18 15:16 Blood Culture - Final Peripheral Venipuncture No growth. Final report. 03/08/18 15:46 Blood Culture - Final Peripheral Venipuncture No growth. Final report. 03/09/18 12:18 Wound Culture - Final Other-Specify in Comments No growth. 03/05/18 08:34 Blood Culture - Final Peripheral Venipuncture No growth. Final report. 03/05/18 08:34 Blood Culture - Final Peripheral Venipuncture No growth. Final report. 03/07/18 00:10 Urine Culture - Final Urine,Clean Catch No growth. Serology 03/13/18 03/12/18 03/07/18 Range/Units 12:55 10:30 19:05 Urine Color (Yellow) Urine Clarity (Clear) Urine pH (5.0-8.0) pH Units Ur Specific [place] (1.010-1.025) Urine Protein (Neg-Trace) mg/dL Urine Glucose (UA) (Normal) mg/dL Urine Ketones (Negative) mg/dL Urine Blood (Negative) Urine Nitrite (Negative) Urine Bilirubin (Negative) Urine Urobilinogen (Normal) mg/dL Ur Leukocyte Esterase (Negative) Urine Microscopic RBC (0-3) per hpf Urine Microscopic WBC (0-3) per hpf Ur Eosinophil Smear 0 (None Seen) % Ur Squamous Epith Cells (None-Few) per lpf Amorphous Sediment (Few) Urine Bacteria (None-Few) per hpf Hyaline Casts (None-Few) per lpf Ur Culture Indicated? Urine Osmolality (300-1090) mOsm/kg Urine Creatinine mg/dL Protein/Creatinin Ratio (0.00-0.20) mg/mg Urine Sodium mEq/L Ur Uric Acid mg/dL Urine Total Protein (1-14) mg/dL Stl C. diff Tox B Gene Negative (Negative) Hep Bs Antigen Nonreactive (Nonreactive) Hep Bs Antibody 107.97 mIU/mL 03/07/18 03/07/18 03/07/18 Range/Units 00:10 00:10 00:10 Urine Color (Yellow) Urine Clarity (Clear) Urine pH (5.0-8.0) pH Units Ur Specific [place] (1.010-1.025) Urine Protein (Neg-Trace) mg/dL Urine Glucose (UA) (Normal) mg/dL Urine Ketones (Negative) mg/dL Urine Blood (Negative) Urine Nitrite (Negative) Urine Bilirubin (Negative) Urine Urobilinogen (Normal) mg/dL Ur Leukocyte Esterase (Negative) Urine Microscopic RBC (0-3) per hpf Urine Microscopic WBC (0-3) per hpf Ur Eosinophil Smear (None Seen) % Ur Squamous Epith Cells (None-Few) per lpf Amorphous Sediment (Few) Urine Bacteria (None-Few) per hpf Hyaline Casts (None-Few) per lpf Ur Culture Indicated? Urine Osmolality 377 (300-1090) mOsm/kg Urine Creatinine 87 mg/dL Protein/Creatinin Ratio 1.59 H (0.00-0.20) mg/mg Urine Sodium 36.5 mEq/L Ur Uric Acid 33 mg/dL Urine Total Protein 138 H (1-14) mg/dL Stl C. diff Tox B Gene (Negative) Hep Bs Antigen (Nonreactive) Hep Bs Antibody mIU/mL 03/07/18 Range/Units 00:10 Urine Color Yellow (Yellow) Urine Clarity Cloudy A (Clear) Urine pH 5.5 (5.0-8.0) pH Units Ur Specific [place] 1.020 (1.010-1.025) Urine Protein 30 H (Neg-Trace) mg/dL Urine Glucose (UA) 500 H (Normal) mg/dL Urine Ketones Negative (Negative) mg/dL Urine Blood Small H (Negative) Urine Nitrite Negative (Negative) Urine Bilirubin Negative (Negative) Urine Urobilinogen Normal (Normal) mg/dL Ur Leukocyte Esterase Negative (Negative) Urine Microscopic RBC 0-3 (0-3) per hpf Urine Microscopic WBC 3-5 H (0-3) per hpf Ur Eosinophil Smear (None Seen) % Ur Squamous Epith Cells Many H (None-Few) per lpf Amorphous Sediment Moderate H (Few) Urine Bacteria Many H (None-Few) per hpf Hyaline Casts None Seen (None-Few) per lpf Ur Culture Indicated? Cancelled Urine Osmolality (300-1090) mOsm/kg Urine Creatinine mg/dL Protein/Creatinin Ratio (0.00-0.20) mg/mg Urine Sodium mEq/L Ur Uric Acid mg/dL Urine Total Protein (1-14) mg/dL Stl C. diff Tox B Gene (Negative) Hep Bs Antigen (Nonreactive) Hep Bs Antibody mIU/mL Exam - Constitutional Vitals: Temp Pulse Resp BP Pulse Ox 97.8 F 61 18 210/104 96 03/15/18 10:25 03/15/18 07:26 03/15/18 10:25 03/15/18 10:40 03/15/18 07:59 General appearance: cooperative, morbidly obese, no acute distress - Head Head exam: Present: atraumatic, normal inspection, normocephalic - Eye Eye exam: Present: EOMI, normal appearance, PERRL Pupils: Present: normal accommodation - ENT ENT exam: Present: mucous membranes moist - Neck Neck exam: Present: normal inspection Additional comments: Temporary dialysis catheter noted to the right neck with transparent dressing C/ D/I. - Respiratory Respiratory exam: Present: CTAB. Absent: rales, respiratory distress, rhonchi, wheezes - Cardiovascular Cardiovascular exam: Present: RRR, +S1, +S2 - GI/Abdominal GI/Abdominal exam: Present: distended (obese), normal bowel sounds, soft. Absent: tenderness Additional comments: Williamson catheter noted to be draining clear yellow urine. - Extremities Exam Extremities exam: Present: pedal edema (1+ BLE). Absent: joint swelling, tenderness Additional comments: Left upper thigh dressing C/D/I. - Neurological Exam Neurological exam: Present: alert, oriented X3, no focal deficits - Psychiatric Psychiatric exam: Present: normal affect, normal mood - Skin Skin exam: Present: dry, intact, normal color, warm - VTE Documentation of Mechanical Device: Venous foot pump, device Consult Discharge Plan - Plan Referrals: Alonzo Resendiz MD [Primary Care Provider] - - Attending Attestation I examined this patient and my medical decision-making was reviewed with the Resident Physician. I agree with the documented findings, disposition and treatment plan as described except to the extent set forth below.
[2018-03-15] MEDS: amLODIPine 5 MG TABLET PO SCH (15:04)
--- NOTE | 2018-03-15 16:18 | General Surgery Progress Note ---
Date of Encounter: 03/15/18 Time of Encounter: 16:12 Subjective Narrative: General Surgery - POD #6 The patient is voicing no complaints, she is feeling well. In fact she is feeling better after initiating dialysis with significant improvement in renal status The wound proximal medial left thigh is clean with healthy granulation tissue. The patient remains afebrile, maximum temperature 99.2, pulse 72, respirations 16, blood pressure 158/67. Leukocytosis continues to improve, currently 12.7; neutrophils also improving , 9.6 (previously 12.1) Operative cultures: Negative any gross, no pathogens identified. Impression: Postoperative day #6; status post incision and drainage subcutaneous abscess proximal medial left thigh. The patient has been on IV antibiotics since admission, 03/02/18. Surgical intervention on 03/09/18. The infection encountered at the time of surgery was limited to the skin and subcutaneous fat; no obvious fascial or muscle involvement. Improved renal status with dialysis - BUN 72, creatinine 3.75, estimated GFR 12 Recommendations: Continue local wound care, twice a day irrigations with half- strength agitated and peroxide. Consider discontinuation antibiotics as the patient has responded favorably to both ATB and surgical debridement. Objective Vital Signs - Last 8 Hours Temp Pulse Resp BP Pulse Ox 03/15/18 15:47 99.2 F 72 16 158/67 97 03/15/18 13:40 97.8 F 16 178/68 03/15/18 13:25 167/79 03/15/18 13:10 183/77 03/15/18 12:55 185/72 03/15/18 12:40 177/73 03/15/18 12:25 173/77 03/15/18 12:10 180/77 03/15/18 11:55 198/85 03/15/18 11:40 184/83 03/15/18 11:25 200/97 03/15/18 11:10 189/97 03/15/18 10:55 179/101 03/15/18 10:40 210/104 03/15/18 10:25 97.8 F 18 201/97 Intake and Output 03/15/18 03/15/18 03/15/18 07:59 15:59 23:59 Intake Total 418 / 418 957 / 957 Output Total 700 / 700 4500 / 4500 Balance -282 / -282 -4343 / -3543 Intake: IV Fluids 318 / 318 117 / 117 Heparin 25,000 UNIT/500 ML D5W 318 / 318 117 / 117 25,000 unit In 500 ml @ 14 UNIT /KG/HR 43.26 mls/hr IVC . [id number] [facility] Rx#:[id number] Oral 100 / 100 240 / 240 Intake, Rinseback and Flushes 600 / 600 Output: Urine 0 / 0 Total Dialysis (HD) Output 4100 / 4100 Catheter 700 / 700 400 / 400 Other: Meal Breakfast Percent of Meal Consumed 40% Stool Size Moderate Moderate Stool Consistency liquid loose soft Stool Characteristics [place] Stool Color Brown Brown Green # Voids 1 # Bowel Movements 1 Weight 152 kg Blood Glucose* 217 207 Hemodialysis Net Fluid Removed 3500 (mL) Patient Weight 03/15/18 23:59 Weight 152 kg - Labs 03/15/18 04:46 03/15/18 04:46 Diabetes panel 03/15/18 Range/Units 04:46 Sodium 140 (136-145) mEq/L Potassium 4.2 (3.5-5.1) mEq/L Chloride 101 (98-107) mEq/L Carbon Dioxide 25 (23-29) mEq/L BUN 72 H (8-23) mg/dL Creatinine 3.75 H (0.60-1.20) mg/dL Glucose 236 H (70-105) mg/dL Calcium 8.1 L (8.6-10.3) mg/dL Calcium panel 03/15/18 Range/Units 04:46 Calcium 8.1 L (8.6-10.3) mg/dL Pituitary panel 03/15/18 Range/Units 04:46 Sodium 140 (136-145) mEq/L Potassium 4.2 (3.5-5.1) mEq/L Chloride 101 (98-107) mEq/L Carbon Dioxide 25 (23-29) mEq/L BUN 72 H (8-23) mg/dL Creatinine 3.75 H (0.60-1.20) mg/dL Glucose 236 H (70-105) mg/dL Calcium 8.1 L (8.6-10.3) mg/dL Adrenal panel 03/15/18 Range/Units 04:46 Sodium 140 (136-145) mEq/L Potassium 4.2 (3.5-5.1) mEq/L Chloride 101 (98-107) mEq/L Carbon Dioxide 25 (23-29) mEq/L BUN 72 H (8-23) mg/dL Creatinine 3.75 H (0.60-1.20) mg/dL Glucose 236 H (70-105) mg/dL Calcium 8.1 L (8.6-10.3) mg/dL - VTE Documentation of Mechanical Device: Venous foot pump, device Consult Discharge Plan - Plan Referrals: Alonzo Resendiz MD [Primary Care Provider] -
[2018-03-15] MEDS: traMADol 50 MG TABLET PO PRN (17:03)
[2018-03-15] MEDS ORDERED: *HR* Warfarin 10 MG TABLET PO ONE (18:00)
[2018-03-15] MEDS: Insulin DETEMIR 100 UNIT/ML X5UNITS SQ SCH (21:29)
[2018-03-16] MEDS: traMADol 50 MG TABLET PO PRN ×2 (01:21→11:54)
[2018-03-16] MEDS: Heparin 25,000 UNIT/500 ML D5W 25,000 UNIT/500 ML BAG IVC SCH ×2 (02:49→16:14)
[2018-03-16 04:12] LABS: Basophils % 0.2 %; Eosinophils # 0.2 K/mcL (0.0-0.6); Eosinophils % 1.8 %; Hematocrit 27.3 % (35.3-44.9); Hemoglobin 8.4 g/dL (11.5-15.4); Immature Granulocytes % 1.5 % (0-4); Lymphocytes # 1.9 K/mcL (0.6-4.6); Lymphocytes % 14.6 %; Mean Corpuscular HGB Conc 30.8 g/dL (31.6-35.5); Mean Corpuscular Hemoglobin 25.8 pg (28.0-33.3); Mean Platelet Volume 9.8 fL (9.4-12.4); Monocytes # 0.7 K/mcL (0.0-1.3); Monocytes % 5.1 %; Neutrophils # 9.7 K/mcL (1.6-8.9); Nucleated Red Blood Cells 0.2 /100 WBC (0); Platelet Count 328 K/mcL (140-400); Red Blood Count 3.25 M/mcL (3.82-4.97); Red Cell Distribution Width 15.1 % (11.5-14.5); Segmented Neutrophils % 76.8 %
[2018-03-16 04:21] LABS: INR 1.3; Prothrombin Time 14.9 Seconds (9.4-12.1)
[2018-03-16 04:31] LABS: Calcium 8.2 mg/dL (8.6-10.3); Potassium 3.8 mEq/L (3.5-5.1)
[2018-03-16] MEDS: *HR* Heparin 5,000 UNIT/ML VIAL IVP PRN ×2 (06:09→13:41)
[2018-03-16] MEDS: Budesonide/Formoterol 160/4.5 MDI IH SCH ×2 (07:28→21:55)
[2018-03-16] MEDS: Doxycycline 100 MG CAPSULE PO SCH ×2 (08:27→21:41)
[2018-03-16] MEDS: Calcium Acetate 667 MG CAPSULE PO SCH ×3 (08:28→18:05)
[2018-03-16] MEDS: Gabapentin 300 MG CAPSULE PO SCH ×2 (08:28→21:42)
[2018-03-16] MEDS: Lactobacillus 1 EACH CAP.SPRINK PO SCH (08:28)
[2018-03-16] MEDS: Multivit/Ca/Min/Fe/FA 1 TAB TABLET PO SCH (08:28)
[2018-03-16] MEDS: Nystatin POWDER 30 GM BOTTLE TP SCH ×2 (08:29→21:55)
[2018-03-16] MEDS: Amoxicillin/Clavulanate 500 MG TABLET PO SCH ×2 (08:37→16:14)
[2018-03-16] MEDS: Insulin LISPRO 300 UNITS/3 ML VIAL SQ SCH ×7 (08:37→21:52)
[2018-03-16] MEDS: Insulin DETEMIR 100 UNIT/ML X5UNITS SQ SCH ×2 (08:38→21:49)
--- NOTE | 2018-03-16 09:05 | Nephrology Progress Note ---
Date of Encounter: 03/16/18 Time of Encounter: 09:03 - Assessment and Plan (1) HERIBERTO (acute kidney injury) Current Visit: Yes Status: Acute Baseline Scr 1.17 and GFR 42. Scr 3.02 and GFR 15 both improved, expected with HD and UF. Dr. Santoyo will determine if UF is needed for today. Uop 1650 yesterday and 650 already today. Continue to renal dose all medications and avoid nephrotoxins. (2) Cellulitis Current Visit: Yes Status: Acute Per primary. Qualifiers: Site of cellulitis: extremity Site of cellulitis of extremity: lower extremity Laterality: left Qualified Code(s): L03.116 - Cellulitis of left lower limb (3) DMII (diabetes mellitus, type 2) Current Visit: Yes Status: Chronic Per primary. Qualifiers: Diabetes mellitus fpc insulin use: with fpc use Diabetes mellitus complication status: with kidney complications Diabetes mellitus complication detail: with chronic kidney disease Chronic kidney disease stage : stage 3 (moderate) Qualified Code(s): E11.22 - Type 2 diabetes mellitus with diabetic chronic kidney disease; N18.3 - Chronic kidney disease, stage 3 ( moderate); Z79.4 - care home (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 (4) Anemia Current Visit: Yes Status: Acute Goal Hgb 10-11. Hgb 8.4 today. Will defer transfusions to primary team. Qualifiers: Vitamin B12 deficiency anemia type: other dietary B12 deficiency Qualified Code(s): D51.3 - Other dietary vitamin B12 deficiency anemia Subjective Principal diagnosis: fever/chills weakness Interval history: Pt seen and examined. NAD. Objective - Vital Signs Vital signs: Vital Signs Temp Pulse Resp BP Pulse Ox 03/16/18 07:35 98.5 F 79 18 164/67 93 03/16/18 07:30 16 95 03/16/18 06:15 73 160/63 03/16/18 04:29 98.3 F 75 18 167/68 95 03/16/18 01:00 97.6 F 75 18 141/61 94 03/15/18 22:59 65 169/63 03/15/18 21:30 14 95 03/15/18 20:57 98.5 F 83 18 190/97 94 03/15/18 15:47 99.2 F 72 16 158/67 97 03/15/18 13:40 97.8 F 16 178/68 03/15/18 13:25 167/79 03/15/18 13:10 183/77 03/15/18 12:55 185/72 03/15/18 12:40 177/73 03/15/18 12:25 173/77 03/15/18 12:10 180/77 03/15/18 11:55 198/85 03/15/18 11:40 184/83 03/15/18 11:25 200/97 03/15/18 11:10 189/97 03/15/18 10:55 179/101 03/15/18 10:40 210/104 03/15/18 10:25 97.8 F 18 201/97 Intake and Output 03/15/18 03/16/18 03/16/18 23:59 07:59 15:59 Intake Total 100 / 100 612 / 612 Output Total 550 / 550 650 / 650 Balance -450 / -450 -38 / -38 Intake: IV Fluids 612 / 612 Heparin 25,000 UNIT/500 ML D5W 612 / 612 25,000 unit In 500 ml @ 14 UNIT /KG/HR 43.26 mls/hr IVC . [id number] [facility] Rx#:[id number] Oral 100 / 100 0 / 0 Output: Catheter 550 / 550 650 / 650 Other: Stool Size Moderate Stool Consistency loose Stool Characteristics Mucoid Stool Color Green # Bowel Movements 1 Blood Glucose* 329 253 - General Appearance General appearance: Present: well-developed, well-nourished EENT: Present: ATNC, hearing intact, vision intact Respiratory: Present: clear Cardiology: Present: edema (Trace bilateral lower extremity edema. ), normal S1 , normal S2 Dialysis Vascular Access: Venous Catheter (Temp line, DRSG C/D/I.) Gastrointestinal: Present: normoactive bowel sounds, no tenderness, no guarding Integumentary: Present: no rash, warm and dry Neurologic: Present: alert and oriented x3 Psychiatric: Present: mood/affect appropriate, cooperative - Lab 03/16/18 03:48 03/16/18 03:48 Most recent lab results ABG pH 7.29 pH Units (7.32-7.45) L 03/08/18 16:28 ABG pCO2 41 mmHg (35-45) 07/11/18 16:28 ABG pO2 87 mmHg (85-104) 03/08/18 16:28 ABG HCO3 20 mEq/L (21-27) L 03/08/18 16:28 ABG O2 Saturation 95 % (95-98) 03/08/18 16:28 Calcium 8.2 mg/dL (8.6-10.3) L 03/16/18 03:48 Phosphorus 8.9 mg/dL (2.7-4.5) H 03/09/18 04:18 Magnesium 2.7 mg/dL (1.6-2.6) H 03/09/18 04:18 Urine Creatinine 87 mg/dL 03/07/18 00:10 Urine Sodium 36.5 mEq/L 03/07/18 00:10 Urine Total Protein 138 mg/dL (1-14) H 03/07/18 00:10 - VTE Documentation of Mechanical Device: Venous foot pump, device Consult Discharge Plan - Plan Referrals: Alonzo Resendiz MD [Primary Care Provider] -
--- NOTE | 2018-03-16 09:07 | Internal Med Progress Note ---
<Doroteo Howard - Last Filed: 03/16/18 19:31> Date of Encounter: 03/16/18 - Assessment and plan (1) Vaginal candidiasis Current Visit: Yes Status: Acute (2) DMII (diabetes mellitus, type 2) Current Visit: Yes Status: Chronic Qualifiers: Diabetes mellitus computer terminal operator insulin use: with computer terminal operator use Diabetes mellitus complication status: with kidney complications Diabetes mellitus complication detail: with chronic kidney disease Chronic kidney disease stage : stage 3 (moderate) Qualified Code(s): E11.22 - Type 2 diabetes mellitus with diabetic chronic kidney disease; N18.3 - Chronic kidney disease, stage 3 ( moderate); Z79.4 - intermediate frame tender (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 (3) HTN (hypertension), benign Current Visit: Yes Status: Chronic (4) Cellulitis Current Visit: Yes Status: Acute Qualifiers: Site of cellulitis: extremity Site of cellulitis of extremity: lower extremity Laterality: left Qualified Code(s): L03.116 - Cellulitis of left lower limb (5) HERIBERTO (acute kidney injury) Current Visit: Yes Status: Acute (6) DVT prophylaxis Current Visit: Yes Status: Acute (7) Pneumonia Current Visit: Yes Status: Suspected Qualifiers: Pneumonia type: due to methicillin-sensitive Staphylococcus aureus (MSSA) Laterality: right Lung location: unspecified part of lung Qualified Code(s) : J15.211 - Pneumonia due to Methicillin susceptible Staphylococcus aureus (8) Renal failure Current Visit: Yes Status: Acute Qualifiers: Renal failure chronicity: acute Acute renal failure type: with other specified pathological lesion Qualified Code(s): N17.8 - Other acute kidney failure (9) Morbid obesity Current Visit: No Status: Chronic - Time Spent With Patient Total time spent is greater than 50% in coordination of care (as documented) at patient's floor/unit and/or counseling patient: - Constitutional Vitals: Temp Pulse Resp BP Pulse Ox 99.1 F 75 16 159/64 93 03/16/18 15:36 03/16/18 15:36 03/16/18 15:36 03/16/18 15:36 03/16/18 15:36 Internal Medicine: Result - Labs CBC & Chem 7: 03/16/18 03:48 03/16/18 03:48 Labs: Short CBC 03/16/18 Range/Units 03:48 WBC 12.6 H (4.3-11.1) K/mcL Hgb 8.4 L (11.5-15.4) g/dL Hct 27.3 L (35.3-44.9) % Plt Count 328 (140-400) K/mcL Neutrophils # 9.7 H (1.6-8.9) K/mcL BMP 03/16/18 03:48 Sodium 141 Potassium 3.8 Chloride 103 Carbon Dioxide 25 BUN 43 H Creatinine 3.02 H Glucose 272 H Calcium 8.2 L - ABG Interpretation ABG results: ABG ABG pH 7.29 pH Units (7.32-7.45) L 03/08/18 16:28 ABG pCO2 41 mmHg (35-45) 03/08/18 16:28 ABG pO2 87 mmHg (85-104) 03/08/18 16:28 ABG O2 Saturation 95 % (95-98) 03/08/18 16:28 PT/INR, D-dimer PT 14.9 Seconds (9.4-12.1) H 03/16/18 03:48 Consult Discharge Plan - Plan Referrals: Alonzo Resendiz MD [Primary Care Provider] - - Attending Attestation I examined this patient and my medical decision-making was reviewed with the Resident Physician on 03/16/18. I agree with the documented findings, disposition and treatment plan as described except to the extent set forth below. Ms Salmon is currently admitted for cellulitis and acute renal failure. She remains moderate to high risk due to potential for worsening clinical status. Ms Salmon is feeling OK. No fever or chills. Did not have dialysis today. Has vaginal yeast infection. No wound drainage. Exam alert Pleasant Mucus membranes dry Heart reg No wheeze Abd soft I/P 1. Vaginal candidiasis - Diflucan added 2. ARF Further diagnoses and plan as above. <Gianni Victor - Last Filed: 03/17/18 16:43> Date of Encounter: 03/17/18 Time of Encounter: 09:00 - Assessment and plan (1) Vaginal candidiasis Current Visit: Yes Status: Acute Assessment and plan: 100mg fluconazole Nystatin cream and powder to affected area (2) DMII (diabetes mellitus, type 2) Current Visit: Yes Status: Chronic Assessment and plan: BS 272 this AM Levemir 40u BID Lispro 5U TIDWM and high dose SSI Continue to monitor closely Qualifiers: Diabetes mellitus computer terminal operator insulin use: with computer terminal operator use Diabetes mellitus complication status: with kidney complications Diabetes mellitus complication detail: with chronic kidney disease Chronic kidney disease stage : stage 3 (moderate) Qualified Code(s): E11.22 - Type 2 diabetes mellitus with diabetic chronic kidney disease; N18.3 - Chronic kidney disease, stage 3 ( moderate); Z79.4 - retirement (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 (3) HTN (hypertension), benign Current Visit: Yes Status: Chronic Assessment and plan: Elevated. 164/67 Holding ACEI for HERIBERTO Since pt is getting dialysis, will hold on aggressive medical management for changing volume status Continue Metoprolol 50mg BID Continue Amlodipine 10mg qd Hydralazine 10mg prn q6h (4) Cellulitis Current Visit: Yes Status: Acute Assessment and plan: CT of the LLE showed large subcutaneous gas without obvious necrotizing fascitis or absces Cont IV Zosyn and IV Daptomycin per ID Wound cx - no growth Wound care per surgery with twice daily irrigation and dressing changes Qualifiers: Site of cellulitis: extremity Site of cellulitis of extremity: lower extremity Laterality: left Qualified Code(s): L03.116 - Cellulitis of left lower limb (5) HERIBERTO (acute kidney injury) Current Visit: Yes Status: Acute Assessment and plan: HERIBERTO with CKD-2 Per nephro - no dialysis today and continue to monitor kidney functions BUN and Cr improved today - 43 and 3.02 respectively Pt is non oliguric, making adequate urine at 4100mL yday most likely due to ATN induced by sepsis and medications Nephro on board cont close monitoring (6) DVT prophylaxis Current Visit: Yes Status: Acute Assessment and plan: Heparin drip due to subtherapeutic INR (7) Pneumonia Current Visit: Yes Status: Suspected Assessment and plan: Chest x-ray on 03/06 showed new developing right perihilar airspace of patient the concerning for developing pneumonia cont empirical abx on Zosyn and daptomycin per ID Qualifiers: Pneumonia type: due to methicillin-sensitive Staphylococcus aureus (MSSA) Laterality: right Lung location: unspecified part of lung Qualified Code(s) : J15.211 - Pneumonia due to Methicillin susceptible Staphylococcus aureus (8) Renal failure Current Visit: Yes Status: Acute Assessment and plan: Multifactorial. Likely vancomycin related. Qualifiers: Renal failure chronicity: acute Acute renal failure type: with other specified pathological lesion Qualified Code(s): N17.8 - Other acute kidney failure - Time Spent With Patient Total time spent is greater than 50% in coordination of care (as documented) at patient's floor/unit and/or counseling patient: - Subjective Interval history: Ms. Salmon is a 68F with a hx of diabetes, PE and DVT, was admitted on 03/02 for malaise. She had left inner leg cellulitis as was treated with zosyn and vancomycin 03/06: Cellulitis had improved. Kidney functions worsening with Cr 2.91. Vanco was discontinued and IVF given. nystatin cream for cellulitis. At this time the patient was still experiencing fevers and leukocytosis was not improving. pt was found to have perihilar opacity on CXR suggesting pneumonia. Abx therapy was changed from zosyn to unasyn due to concerns of aspiration PNA. 03/07: Pt was transitioned from Unasyn to Augmentin po. HERIBERTO continues to worsen with Cr 3.10. 03/08: Cellulitis worsens with increasing erythema and pain upon exam. CT revealed subcutaneous air representing necrosis in but not extending to the fascia of the left upper leg and groin area. Started on Doxycycline and transitioned back to Zosyn. After ID consult pt was placed on IV Zosyn, Clindamycin, and Daptomycin. Surgery was consulted and anticoagulation was stopped due to supratherapeutic INR at 3.4. HERIBERTO continues to worsen with Cr at 3.30 03/09: Pt resting comfortably in bed during this encounter, states she did not sleep well last night. No new or acute complaints at this time. Denies any chest pain , increased SOB, increased cough, nausea, vomiting, headache, numbness, or tingling. States she does not believe the cellulitis has changed much overnight. 03/10: No acute events overnight. Pt sitting in bed eating breakfast. States she feels much better today. Admits to some increased cough with brown sputum production, but states she feels like she can breathe easier now Denies chest pain, increased SOB, nausea, vomiting, headache, numbness, or tingling. 03/13: No acute events overnight. Pt states she feels "ok" today. Denies any headache, chest pain, increased SOB, increased cough, sputum production, abdominal pain, nausea, vomiting, numbness, or tingling. States she has had multiple watery bowel movements. 03/14: No acute events overnight. Pt states she feels "the same" today. Denies any headache, chest pain, increased SOB, cough, sputum production, abdominal pain, nausea, vomiting, numbness, or tingling. Received R IJ dialysis cath this morning with plans for dialysis later today. 03/15: No acute events overnight. Pt resting comfortably in bed during this encounter. States she feels tired. Denies any chest pain, worsening SOB, cough, sputum production, abdominal pain, nausea, vomiting, numbness, or tingling. 03/16: No acute events overnight. Pt states she feels "pretty good" today Denies any new or acute complaints. Denies any chest pain, worsening SOB, cough, sputum production, abdominal pain, nausea, vomiting, numbness, or tingling. Later in day pt was complaining of foul odor from her vagina. Said she has had a yeast infection recently that never completely resolved. - Constitutional Vitals: Temp Pulse Resp BP Pulse Ox 98.5 F 79 18 164/67 93 03/16/18 07:35 03/16/18 07:35 03/16/18 07:35 03/16/18 07:35 03/16/18 07:35 General appearance: Present: A&O X 3, no acute distress, obese Exam: Head: normocephalic and atruamatic. no lesions Eyes: PERRL, EOMI, sclera anicteric, conjunctiva pink Neck: supple, trachea midline, Right IJ dialysis catheter in place Lungs: grossly diminished breath sounds. non-labored breathing. No wheezes, rales, or rhonchi appreciated. Heart: RRR, +S1, +S2. no murmurs, clicks, or rubs GI: abdomen soft, distended, non-tender. normoactive bowel sounds : erythematous labia with malodorous discharge. jones catheter in place Extremities: warm, radial pulses palpable and symmetrical. +2 pitting pedal edema bilaterally. no cyanosis Neuro: A&Ox3, no focal deficits. no speech abnormality or difficulty Skin: warm, dry, intact. dressing in place over left upper leg wound with no extending erythema Internal Medicine: Result - Labs CBC & Chem 7: 03/17/18 04:53 03/17/18 04:53 Labs: Short CBC 03/16/18 Range/Units 03:48 WBC 12.6 H (4.3-11.1) K/mcL Hgb 8.4 L (11.5-15.4) g/dL Hct 27.3 L (35.3-44.9) % Plt Count 328 (140-400) K/mcL Neutrophils # 9.7 H (1.6-8.9) K/mcL BMP 03/16/18 03:48 Sodium 141 Potassium 3.8 Chloride 103 Carbon Dioxide 25 BUN 43 H Creatinine 3.02 H Glucose 272 H Calcium 8.2 L - ABG Interpretation ABG results: ABG ABG pH 7.29 pH Units (7.32-7.45) L 03/08/18 16:28 ABG pCO2 41 mmHg (35-45) 03/08/18 16:28 ABG pO2 87 mmHg (85-104) 03/08/18 16:28 ABG O2 Saturation 95 % (95-98) 03/08/18 16:28 PT/INR, D-dimer PT 14.9 Seconds (9.4-12.1) H 03/16/18 03:48 - VTE Documentation of Mechanical Device: Venous foot pump, device
[2018-03-16] MEDS: amLODIPine 5 MG TABLET PO SCH (11:59)
--- NOTE | 2018-03-16 13:55 | Infectious Disease Progress No ---
Date of Encounter: 03/16/18 Time of Encounter: 13:53 - Assessment and Plan (1) Severe sepsis Current Visit: Yes Status: Acute The patient had four SIRS criteria on admission with HERIBERTO and lactic acidosis. Likely we secondary to left thigh cellulitis and necrotizing fasciitis. Improved. WBC trending down. Tachycardia has resolved. She has been afebrile. Blood cultures drawn March 02 were +1 out of 2 sets for staph epi. Repeat blood cultures drawn March 05 are negative 2 sets. Additional blood cultures drawn March 08 2 sets are negative. (2) Necrotizing fasciitis Current Visit: Yes Status: Acute Location: Left thigh. Causative organism: unclear. Intra-op cultures are negative. Etiology unclear. CT of the LLE showed large amount of subcutaneous gas in the medial and anterior soft tissues of the proximal mid thigh consistent with necrotizing fasciitis and cellulitis. CK level 354. Repeat CK level normal. General surgery consulted. Status post I & D 03/09/[address] Barnes. Operative note reviewed. Large amount of pus noted intra-op. Cultures are negative. ESR and CRP markedly elevated. Repeat blood cultures x 2 sets drawn March 08 are negative. Continue Augmentin 500mg PO daily (dose-adjusted for HD status). Continue doxycycline 100mg PO BID. Continue probiotics. Duration of treatment depends on the clinical picture, but likely a total of 14 days from surgery. Okay to re-start simvastatin since Daptomycin stopped. Monitor renal function and for drug toxicity and dose-adjust antibiotics. (3) Cellulitis Current Visit: Yes Status: Acute Location: Left thigh. Causative organism unclear. Etiology unclear. The patient reports a cat bite to the left foot about three weeks ago that has not healed, but otherwise denies known trauma to the extremity. Appears improved. Continue antibiotics as above. Qualifiers: Site of cellulitis: extremity Site of cellulitis of extremity: lower extremity Laterality: left Qualified Code(s): L03.116 - Cellulitis of left lower limb (4) Pneumonia Current Visit: Yes Status: Suspected Location: Right perihilar region. Causative organism unclear. Chest XR showed right perihilar airspace opacity concerning for asymmetrical edema vs. PNA. Has likely received adequate antibiotic therapy, but will require prolonged antibiotic therapy for LLE cellulitis and necrotizing fasciitis. Qualifiers: Pneumonia type: due to methicillin-sensitive Staphylococcus aureus (MSSA) Laterality: right Lung location: unspecified part of lung Qualified Code(s) : J15.211 - Pneumonia due to Methicillin susceptible Staphylococcus aureus (5) Bacteremia Current Visit: Yes Status: Resolved Blood cultures drawn 03/02/18 are positive 1/2 sets for S. epi. Repeat blood cultures drawn 03/05/18 are negative x 2 sets. Likely a contaminant. No further treatment indicated. (6) HERIBERTO (acute kidney injury) Current Visit: Yes Status: Acute Serum creatinine elevated on admission, likely secondary to sepsis. Resolved initially, but worsened. Nephology consulted. Status post temporary dialysis catheter placement 03/14/18. HD initiated 03/14/18. Serum creatinine has worsened. Continue to trend. Dose-adjust antibiotics. Avoid nephrotoxins as able. Strict I's and O's. (7) DMII (diabetes mellitus, type 2) Current Visit: Yes Status: Chronic Uncontrolled. HgbA1C 9.9% on admission. Recommend aggressive glucose monitoring and control to promote wound healing and prevent re-infection. Management per the primary team. Qualifiers: Diabetes mellitus long term care social worker insulin use: with alf use Diabetes mellitus complication status: with kidney complications Diabetes mellitus complication detail: with chronic kidney disease Chronic kidney disease stage : stage 3 (moderate) Qualified Code(s): E11.22 - Type 2 diabetes mellitus with diabetic chronic kidney disease; N18.3 - Chronic kidney disease, stage 3 ( moderate); Z79.4 - supervisor intermediates (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 (8) HTN (hypertension), benign Current Visit: Yes Status: Chronic (9) Morbid obesity Current Visit: No Status: Inactive (10) Hyperglycemia Current Visit: Yes Status: Acute (11) Diarrhea Current Visit: Yes Status: Resolved Likely antibiotic-related. C. diff negative. Appears to be improving. Continue probiotics. Qualifiers: Diarrhea type: unspecified type Qualified Code(s): R19.7 - Diarrhea, unspecified - Subjective Interval history: Patient seen and examined. No acute events noted overnight. Status post I&D of the left thigh 03/09/[address] Barnes. The patient states that she feels better today. She denies any fevers or chills or rigors. She denies any headache or neck pain. She does complain of chronic lower back pain that is at baseline. Denies chest pain or cough. She reports chronic DENZEL that is at baseline. She denies nausea or vomiting. She report reports her stools are more formed. She denies abdominal pain. She states her appetite is better. Williamson catheter remains patent. She denies oral thrush or new skin lesions. She states her left lower extremity isn't bothering her at all. Infect Dis PN-Objective Data - Labs CBC & Chem 7: 03/16/18 03:48 03/16/18 03:48 Labs: Laboratory Results - last 24 hr 03/15/18 03/15/18 03/15/18 07:30 11:48 16:22 WBC RBC Hgb Hct MCV MCH MCHC RDW Plt Count MPV Immature Gran % Seg Neutrophils % Lymphocytes % Monocytes % Eosinophils % Basophils % Neutrophils # Lymphocytes # Monocytes # Eosinophils # Basophils # Nucleated RBCs/100 WBC PT INR Heparin Anti-Xa, Unfract Sodium Potassium Chloride Carbon Dioxide BUN Creatinine Est GFR ( Amer) Est GFR (Non-Af Amer) BUN/Creatinine Ratio Glucose POC Glucose 217 H 207 H 293 H Calculated Osmolality Calcium 03/15/18 03/16/18 03/16/18 21:04 03:48 03:48 WBC 12.6 H RBC 3.25 L Hgb 8.4 L Hct 27.3 L MCV 84.0 MCH 25.8 L MCHC 30.8 L RDW 15.1 H Plt Count 328 MPV 9.8 Immature Gran % 1.5 Seg Neutrophils % 76.8 Lymphocytes % 14.6 Monocytes % 5.1 Eosinophils % 1.8 Basophils % 0.2 Neutrophils # 9.7 H Lymphocytes # 1.9 Monocytes # 0.7 Eosinophils # 0.2 Basophils # 0.0 Nucleated RBCs/100 WBC 0.2 H PT 14.9 H INR 1.3 Heparin Anti-Xa, Unfract Sodium Potassium Chloride Carbon Dioxide BUN Creatinine Est GFR ( Amer) Est GFR (Non-Af Amer) BUN/Creatinine Ratio Glucose POC Glucose 329 H Calculated Osmolality Calcium 03/16/18 03/16/18 03/16/18 03:48 03:48 12:17 WBC RBC Hgb Hct MCV MCH MCHC RDW Plt Count MPV Immature Gran % Seg Neutrophils % Lymphocytes % Monocytes % Eosinophils % Basophils % Neutrophils # Lymphocytes # Monocytes # Eosinophils # Basophils # Nucleated RBCs/100 WBC PT INR Heparin Anti-Xa, Unfract 0.24 L 0.28 L Sodium 141 Potassium 3.8 Chloride 103 Carbon Dioxide 25 BUN 43 H Creatinine 3.02 H Est GFR ( Amer) 19 L Est GFR (Non-Af Amer) 15 L BUN/Creatinine Ratio 14 Glucose 272 H POC Glucose Calculated Osmolality 312 H Calcium 8.2 L Cultures: Cultures 03/09/18 12:18 Anaerobic Culture - Final Other-Specify in Comments No anaerobes were recovered. 03/08/18 15:16 Blood Culture - Final Peripheral Venipuncture No growth. Final report. 03/08/18 15:46 Blood Culture - Final Peripheral Venipuncture No growth. Final report. 03/09/18 12:18 Wound Culture - Final Other-Specify in Comments No growth. 03/05/18 08:34 Blood Culture - Final Peripheral Venipuncture No growth. Final report. 03/05/18 08:34 Blood Culture - Final Peripheral Venipuncture No growth. Final report. 03/07/18 00:10 Urine Culture - Final Urine,Clean Catch No growth. Serology 03/13/18 03/12/18 03/07/18 Range/Units 12:55 10:30 19:05 Urine Color (Yellow) Urine Clarity (Clear) Urine pH (5.0-8.0) pH Units Ur Specific [place] (1.010-1.025) Urine Protein (Neg-Trace) mg/dL Urine Glucose (UA) (Normal) mg/dL Urine Ketones (Negative) mg/dL Urine Blood (Negative) Urine Nitrite (Negative) Urine Bilirubin (Negative) Urine Urobilinogen (Normal) mg/dL Ur Leukocyte Esterase (Negative) Urine Microscopic RBC (0-3) per hpf Urine Microscopic WBC (0-3) per hpf Ur Eosinophil Smear 0 (None Seen) % Ur Squamous Epith Cells (None-Few) per lpf Amorphous Sediment (Few) Urine Bacteria (None-Few) per hpf Hyaline Casts (None-Few) per lpf Ur Culture Indicated? Urine Osmolality (300-1090) mOsm/kg Urine Creatinine mg/dL Protein/Creatinin Ratio (0.00-0.20) mg/mg Urine Sodium mEq/L Ur Uric Acid mg/dL Urine Total Protein (1-14) mg/dL Stl C. diff Tox B Gene Negative (Negative) Hep Bs Antigen Nonreactive (Nonreactive) Hep Bs Antibody 107.97 mIU/mL 03/07/18 03/07/18 03/07/18 Range/Units 00:10 00:10 00:10 Urine Color (Yellow) Urine Clarity (Clear) Urine pH (5.0-8.0) pH Units Ur Specific [place] (1.010-1.025) Urine Protein (Neg-Trace) mg/dL Urine Glucose (UA) (Normal) mg/dL Urine Ketones (Negative) mg/dL Urine Blood (Negative) Urine Nitrite (Negative) Urine Bilirubin (Negative) Urine Urobilinogen (Normal) mg/dL Ur Leukocyte Esterase (Negative) Urine Microscopic RBC (0-3) per hpf Urine Microscopic WBC (0-3) per hpf Ur Eosinophil Smear (None Seen) % Ur Squamous Epith Cells (None-Few) per lpf Amorphous Sediment (Few) Urine Bacteria (None-Few) per hpf Hyaline Casts (None-Few) per lpf Ur Culture Indicated? Urine Osmolality 377 (300-1090) mOsm/kg Urine Creatinine 87 mg/dL Protein/Creatinin Ratio 1.59 H (0.00-0.20) mg/mg Urine Sodium 36.5 mEq/L Ur Uric Acid 33 mg/dL Urine Total Protein 138 H (1-14) mg/dL Stl C. diff Tox B Gene (Negative) Hep Bs Antigen (Nonreactive) Hep Bs Antibody mIU/mL 03/07/18 Range/Units 00:10 Urine Color Yellow (Yellow) Urine Clarity Cloudy A (Clear) Urine pH 5.5 (5.0-8.0) pH Units Ur Specific [place] 1.020 (1.010-1.025) Urine Protein 30 H (Neg-Trace) mg/dL Urine Glucose (UA) 500 H (Normal) mg/dL Urine Ketones Negative (Negative) mg/dL Urine Blood Small H (Negative) Urine Nitrite Negative (Negative) Urine Bilirubin Negative (Negative) Urine Urobilinogen Normal (Normal) mg/dL Ur Leukocyte Esterase Negative (Negative) Urine Microscopic RBC 0-3 (0-3) per hpf Urine Microscopic WBC 3-5 H (0-3) per hpf Ur Eosinophil Smear (None Seen) % Ur Squamous Epith Cells Many H (None-Few) per lpf Amorphous Sediment Moderate H (Few) Urine Bacteria Many H (None-Few) per hpf Hyaline Casts None Seen (None-Few) per lpf Ur Culture Indicated? Cancelled Urine Osmolality (300-1090) mOsm/kg Urine Creatinine mg/dL Protein/Creatinin Ratio (0.00-0.20) mg/mg Urine Sodium mEq/L Ur Uric Acid mg/dL Urine Total Protein (1-14) mg/dL Stl C. diff Tox B Gene (Negative) Hep Bs Antigen (Nonreactive) Hep Bs Antibody mIU/mL Exam - Constitutional Vitals: Temp Pulse Resp BP Pulse Ox 98.6 F 64 16 151/69 95 03/16/18 11:36 03/16/18 11:36 03/16/18 11:36 03/16/18 11:36 03/16/18 11:36 General appearance: cooperative, morbidly obese, no acute distress - Head Head exam: Present: atraumatic, normal inspection, normocephalic - Eye Eye exam: Present: EOMI, normal appearance, PERRL Pupils: Present: normal accommodation - ENT ENT exam: Present: mucous membranes moist - Neck Neck exam: Present: normal inspection Additional comments: Temporary dialysis catheter noted to the right neck with transparent dressing C/ D/I. - Respiratory Respiratory exam: Present: CTAB. Absent: rales, respiratory distress, rhonchi, wheezes - Cardiovascular Cardiovascular exam: Present: RRR, +S1, +S2 - GI/Abdominal GI/Abdominal exam: Present: distended (obese), normal bowel sounds, soft. Absent: tenderness Additional comments: Williamson catheter noted to be draining clear yellow urine. - Extremities Exam Extremities exam: Present: pedal edema (1+ BLE). Absent: joint swelling, tenderness Additional comments: Left upper thigh dressing C/D/I. - Neurological Exam Neurological exam: Present: alert, oriented X3, no focal deficits - Psychiatric Psychiatric exam: Present: normal affect, normal mood - Skin Skin exam: Present: dry, intact, normal color, warm - VTE Documentation of Mechanical Device: Venous foot pump, device Consult Discharge Plan - Plan Referrals: Alonzo Resendiz MD [Primary Care Provider] -
[2018-03-16] MEDS ORDERED: Fluconazole 100 MG/50 ML 100 MG/50 ML BAG IVPB SCH ×2 (15:30→15:45)
[2018-03-16] MEDS ORDERED: *HR* Warfarin 7.5 MG TABLET PO SCH (18:00)
[2018-03-16] MEDS: Acetaminophen 325 MG TABLET PO PRN (21:48)
[2018-03-16] MEDS: Nystatin Cream 15 GM TUBE TP SCH (21:56)
[2018-03-17 05:55] LABS: INR 1.5; Prothrombin Time 16.7 Seconds (9.4-12.1)
[2018-03-17] MEDS ORDERED: Furosemide 40 MG/4 ML VIAL IVP ONE (08:58)
[2018-03-17] MEDS ORDERED: Furosemide 40 MG/4 ML VIAL ONE (09:15)
[2018-03-17 09:20] LABS: Calcium 8.3 mg/dL (8.6-10.3); Potassium 3.7 mEq/L (3.5-5.1)
[2018-03-17 09:49] LABS: Basophils % 0.3 %; Eosinophils # 0.3 K/mcL (0.0-0.6); Eosinophils % 2.8 %; Hematocrit 28.6 % (35.3-44.9); Hemoglobin 8.6 g/dL (11.5-15.4); Immature Granulocytes % 1.3 % (0-4); Immature Platelets 3.1 % (1.1-6.1); Lymphocytes # 1.9 K/mcL (0.6-4.6); Lymphocytes % 16.1 %; Mean Corpuscular HGB Conc 30.1 g/dL (31.6-35.5); Mean Corpuscular Hemoglobin 25.7 pg (28.0-33.3); Mean Corpuscular Volume 85.6 fL (83.0-100.0); Monocytes # 0.8 K/mcL (0.0-1.3); Monocytes % 7.2 %; Neutrophils # 8.4 K/mcL (1.6-8.9); Nucleated Red Blood Cells 0.2 /100 WBC (0); Platelet Count 347 K/mcL (140-400); Red Blood Count 3.34 M/mcL (3.82-4.97); Red Cell Distribution Width 15.6 % (11.5-14.5); Segmented Neutrophils % 72.3 %
--- NOTE | 2018-03-17 11:25 | Nephrology Progress Note ---
Date of Encounter: 03/17/18 Time of Encounter: 11:23 - Assessment and Plan (1) HERIBERTO (acute kidney injury) Current Visit: Yes Status: Acute Baseline Scr 1.17 and GFR 42. Scr 3.22 and GFR 14 today. Will hold on UF or HD today. Uop continues to improve. Continue to renal dose all medications and avoid nephrotoxins. We will continue to watch for signs of renal recovery. (2) Cellulitis Current Visit: Yes Status: Acute Per primary. Qualifiers: Site of cellulitis: extremity Site of cellulitis of extremity: lower extremity Laterality: left Qualified Code(s): L03.116 - Cellulitis of left lower limb (3) DMII (diabetes mellitus, type 2) Current Visit: Yes Status: Chronic Per primary. Qualifiers: Diabetes mellitus skilled nursing insulin use: with termite treater use Diabetes mellitus complication status: with kidney complications Diabetes mellitus complication detail: with chronic kidney disease Chronic kidney disease stage : stage 3 (moderate) Qualified Code(s): E11.22 - Type 2 diabetes mellitus with diabetic chronic kidney disease; N18.3 - Chronic kidney disease, stage 3 ( moderate); Z79.4 - oysterman (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 (4) Anemia Current Visit: Yes Status: Acute Goal Hgb 10-11. No new CBC for today. Will defer transfusions to primary team. Qualifiers: Vitamin B12 deficiency anemia type: other dietary B12 deficiency Qualified Code(s): D51.3 - Other dietary vitamin B12 deficiency anemia Subjective Principal diagnosis: fever/chills weakness Interval history: Pt seen and examined. NAD. Objective - Vital Signs Vital signs: Vital Signs Temp Pulse Resp BP Pulse Ox 03/16/18 21:55 16 95 03/16/18 15:36 99.1 F 75 16 159/64 93 03/16/18 11:36 98.6 F 64 16 151/69 95 Intake and Output 03/16/18 03/17/18 03/17/18 23:59 07:59 15:59 Intake Total 110 / 110 Balance 110 / 110 Intake: IV Fluids 110 / 110 Heparin 25,000 UNIT/500 ML D5W 110 / 110 25,000 unit In 500 ml @ 14 UNIT /KG/HR 43.26 mls/hr IVC . [id number] MARITZA Rx#:[id number] - General Appearance General appearance: Present: well-developed, well-nourished EENT: Present: ATNC, hearing intact, vision intact Respiratory: Present: clear Cardiology: Present: edema (+2 pitting edema noted bilat lower extremity.), normal S1, normal S2 Dialysis Vascular Access: Venous Catheter (Temp line DRSG C/D/I.) Gastrointestinal: Present: normoactive bowel sounds, no tenderness, no guarding Integumentary: Present: no rash, warm and dry Neurologic: Present: alert and oriented x3 Psychiatric: Present: mood/affect appropriate, cooperative - Lab 03/17/18 04:53 03/17/18 04:53 Most recent lab results ABG pH 7.29 pH Units (7.32-7.45) L 03/08/18 16:28 ABG pCO2 41 mmHg (35-45) 03/08/18 16:28 ABG pO2 87 mmHg (85-104) 03/08/18 16:28 ABG HCO3 20 mEq/L (21-27) L 03/08/18 16:28 ABG O2 Saturation 95 % (95-98) 03/08/18 16:28 Calcium 8.3 mg/dL (8.6-10.3) L 03/17/18 04:53 Phosphorus 8.9 mg/dL (2.7-4.5) H 03/09/18 04:18 Magnesium 2.7 mg/dL (1.6-2.6) H 03/09/18 04:18 Urine Creatinine 87 mg/dL 03/07/18 00:10 Urine Sodium 36.5 mEq/L 03/07/18 00:10 Urine Total Protein 138 mg/dL (1-14) H 03/07/18 00:10 - VTE Documentation of Mechanical Device: Venous foot pump, device Consult Discharge Plan - Plan Referrals: Alonzo Resendiz MD [Primary Care Provider] -
--- NOTE | 2018-03-17 11:36 | Internal Med Progress Note ---
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 171/79 Holding ACEI for HERIBERTO Since pt may receive more dialysis tomorrow, will hold on aggressive medical management for changing volume status Continue Metoprolol 50mg BID Continue Amlodipine 10mg qd Hydralazine 10mg prn q6h (3) HERIBERTO (acute kidney injury) Current Visit: Yes Status: Acute Assessment and plan: HERIBERTO with CKD-2 Per nephro - no dialysis today and continue to monitor kidney functions BUN and Cr stable today - 42 and 3.22 respectively Pt is non oliguric, making adequate urine most likely due to ATN induced by sepsis and medications Nephro on board cont close monitoring (4) Cellulitis Current Visit: Yes Status: Acute Assessment and plan: CT of the LLE showed large subcutaneous gas without obvious necrotizing fascitis or absces DC IV Zosyn and IV Daptomycin per ID Wound cx - no growth Wound care per surgery with twice daily irrigation and dressing changes Qualifiers: Site of cellulitis: extremity Site of cellulitis of extremity: lower extremity Laterality: left Qualified Code(s): L03.116 - Cellulitis of left lower limb (5) DVT prophylaxis Current Visit: Yes Status: Acute Assessment and plan: Heparin drip due to subtherapeutic INR (6) Pneumonia Current Visit: Yes Status: Suspected Assessment and plan: Chest x-ray on 03/06 showed new developing right perihilar airspace of patient the concerning for developing pneumonia DC Zosyn and daptomycin per ID Qualifiers: Pneumonia type: due to methicillin-sensitive Staphylococcus aureus (MSSA) Laterality: right Lung location: unspecified part of lung Qualified Code(s) : J15.211 - Pneumonia due to Methicillin susceptible Staphylococcus aureus (7) Renal failure Current Visit: Yes Status: Acute Assessment and plan: Multifactorial. Likely vancomycin related. see above Qualifiers: Renal failure chronicity: acute Acute renal failure type: with other specified pathological lesion Qualified Code(s): N17.8 - Other acute kidney failure (8) Vaginal candidiasis Current Visit: Yes Status: Acute Assessment and plan: 100mg fluconazole yesterday Nystatin cream and powder to affected area - Time Spent With Patient Total time spent is greater than 50% in coordination of care (as documented) at patient's floor/unit and/or counseling patient: - Subjective Interval history: Ms. Salmon is a 68F with a hx of diabetes, PE and DVT, was admitted on 03/02 for malaise. She had left inner leg cellulitis as was treated with zosyn and vancomycin 03/06: Cellulitis had improved. Kidney functions worsening with Cr 2.91. Vanco was discontinued and IVF given. nystatin cream for cellulitis. At this time the patient was still experiencing fevers and leukocytosis was not improving. pt was found to have perihilar opacity on CXR suggesting pneumonia. Abx therapy was changed from zosyn to unasyn due to concerns of aspiration PNA. 03/07: Pt was transitioned from Unasyn to Augmentin po. HERIBERTO continues to worsen with Cr 3.10. 03/08: Cellulitis worsens with increasing erythema and pain upon exam. CT revealed subcutaneous air representing necrosis in but not extending to the fascia of the left upper leg and groin area. Started on Doxycycline and transitioned back to Zosyn. After ID consult pt was placed on IV Zosyn, Clindamycin, and Daptomycin. Surgery was consulted and anticoagulation was stopped due to supratherapeutic INR at 3.4. HERIBERTO continues to worsen with Cr at 3.30 03/09: Pt resting comfortably in bed during this encounter, states she did not sleep well last night. No new or acute complaints at this time. Denies any chest pain , increased SOB, increased cough, nausea, vomiting, headache, numbness, or tingling. States she does not believe the cellulitis has changed much overnight. 03/10: No acute events overnight. Pt sitting in bed eating breakfast. States she feels much better today. Admits to some increased cough with brown sputum production, but states she feels like she can breathe easier now Denies chest pain, increased SOB, nausea, vomiting, headache, numbness, or tingling. 03/13: No acute events overnight. Pt states she feels "ok" today. Denies any headache, chest pain, increased SOB, increased cough, sputum production, abdominal pain, nausea, vomiting, numbness, or tingling. States she has had multiple watery bowel movements. 03/14: No acute events overnight. Pt states she feels "the same" today. Denies any headache, chest pain, increased SOB, cough, sputum production, abdominal pain, nausea, vomiting, numbness, or tingling. Received R IJ dialysis cath this morning with plans for dialysis later today. 03/15: No acute events overnight. Pt resting comfortably in bed during this encounter. States she feels tired. Denies any chest pain, worsening SOB, cough, sputum production, abdominal pain, nausea, vomiting, numbness, or tingling. 03/16: No acute events overnight. Pt states she feels "pretty good" today. Denies any new or acute complaints. Denies any chest pain, worsening SOB, cough, sputum production, abdominal pain, nausea, vomiting, numbness, or tingling. Later in day pt was complaining of foul odor from her vagina. Said she has had a yeast infection recently that never completely resolved. 03/17: No acute events overnight. Pt states she feels better today. Denies any new or acute complaints. Denies any chest pain, worsening SOB, increased cough or sputum production, abdominal pain, nausea, vomiting, numbness, or tingling. Pt states odor from her vagina has improved. - Constitutional Vitals: Temp Pulse Resp BP Pulse Ox 99.1 F 75 16 159/64 95 03/16/18 15:36 03/16/18 15:36 03/16/18 21:55 03/16/18 15:36 03/16/18 21:55 General appearance: Present: A&O X 3, no acute distress, obese Exam: Head: normocephalic and atruamatic. no lesions Eyes: PERRL, EOMI, sclera anicteric, conjunctiva pink Neck: supple, trachea midline, Right IJ dialysis catheter in place Lungs: grossly diminished breath sounds. non-labored breathing. No wheezes, rales, or rhonchi appreciated. Heart: RRR, +S1, +S2. no murmurs, clicks, or rubs GI: abdomen soft, distended, non-tender. normoactive bowel sounds Extremities: warm, radial pulses palpable and symmetrical. +2 pitting pedal edema bilaterally. no cyanosis Neuro: A&Ox3, no focal deficits. no speech abnormality or difficulty Skin: warm, dry, intact. dressing in place over left upper leg wound with no extending erythema Internal Medicine: Result - Labs CBC & Chem 7: 03/17/18 04:53 03/17/18 04:53 Labs: Short CBC 03/17/18 Range/Units 04:53 WBC 11.6 H (4.3-11.1) K/mcL Hgb 8.6 L (11.5-15.4) g/dL Hct 28.6 L (35.3-44.9) % Plt Count 347 (140-400) K/mcL Neutrophils # 8.4 (1.6-8.9) K/mcL BMP 03/17/18 04:53 Sodium 141 Potassium 3.7 Chloride 103 Carbon Dioxide 26 BUN 42 H Creatinine 3.22 H Glucose 229 H Calcium 8.3 L - ABG Interpretation ABG results: ABG ABG pH 7.29 pH Units (7.32-7.45) L 03/08/18 16:28 ABG pCO2 41 mmHg (35-45) 03/08/18 16:28 ABG pO2 87 mmHg (85-104) 03/08/18 16:28 ABG O2 Saturation 95 % (95-98) 03/08/18 16:28 PT/INR, D-dimer PT 16.7 Seconds (9.4-12.1) H 03/17/18 04:53 - VTE Documentation of Mechanical Device: Venous foot pump, device Consult Discharge Plan - Plan Referrals: Alonzo Resendiz MD [Primary Care Provider] - <Doroteo Howard - Last Filed: 03/17/18 19:39> Date of Encounter: 03/17/18 - Assessment and plan (1) DMII (diabetes mellitus, type 2) Current Visit: Yes Status: Chronic Qualifiers: Diabetes mellitus care home insulin use: with care home use Diabetes mellitus complication status: with kidney complications Diabetes mellitus complication detail: with chronic kidney disease Chronic kidney disease stage : stage 3 (moderate) Qualified Code(s): E11.22 - Type 2 diabetes mellitus with diabetic chronic kidney disease; N18.3 - Chronic kidney disease, stage 3 ( moderate); 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.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 (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 (2) HTN (hypertension), benign Current Visit: Yes Status: Chronic (3) Cellulitis Current Visit: Yes Status: Acute Qualifiers: Site of cellulitis: extremity Site of cellulitis of extremity: lower extremity Laterality: left Qualified Code(s): L03.116 - Cellulitis of left lower limb (4) HERIBERTO (acute kidney injury) Current Visit: Yes Status: Acute (5) DVT prophylaxis Current Visit: Yes Status: Acute (6) Pneumonia Current Visit: Yes Status: Suspected Qualifiers: Pneumonia type: due to methicillin-sensitive Staphylococcus aureus (MSSA) Laterality: right Lung location: unspecified part of lung Qualified Code(s) : J15.211 - Pneumonia due to Methicillin susceptible Staphylococcus aureus (7) Renal failure Current Visit: Yes Status: Acute Qualifiers: Renal failure chronicity: acute Acute renal failure type: with other specified pathological lesion Qualified Code(s): N17.8 - Other acute kidney failure (8) Vaginal candidiasis Current Visit: Yes Status: Acute - Time Spent With Patient Total time spent is greater than 50% in coordination of care (as documented) at patient's floor/unit and/or counseling patient: - Constitutional Vitals: Temp Pulse Resp BP Pulse Ox 97.7 F 76 18 171/79 93 03/17/18 15:53 03/17/18 15:53 03/17/18 15:53 03/17/18 15:53 03/17/18 15:53 Internal Medicine: Result - Labs CBC & Chem 7: 03/17/18 04:53 03/17/18 04:53 Labs: Short CBC 03/17/18 Range/Units 04:53 WBC 11.6 H (4.3-11.1) K/mcL Hgb 8.6 L (11.5-15.4) g/dL Hct 28.6 L (35.3-44.9) % Plt Count 347 (140-400) K/mcL Neutrophils # 8.4 (1.6-8.9) K/mcL BMP 03/17/18 04:53 Sodium 141 Potassium 3.7 Chloride 103 Carbon Dioxide 26 BUN 42 H Creatinine 3.22 H Glucose 229 H Calcium 8.3 L - ABG Interpretation ABG results: ABG ABG pH 7.29 pH Units (7.32-7.45) L 03/08/18 16:28 ABG pCO2 41 mmHg (35-45) 03/08/18 16:28 ABG pO2 87 mmHg (85-104) 03/08/18 16:28 ABG O2 Saturation 95 % (95-98) 03/08/18 16:28 PT/INR, D-dimer PT 16.7 Seconds (9.4-12.1) H 03/17/18 04:53 - Attending Attestation I examined this patient and my medical decision-making was reviewed with the Resident Physician on 03/17/18. I agree with the documented findings, disposition and treatment plan as described except to the extent set forth below. Ms Salmon is currently admitted for renal failure and cellulitis. She remains moderate to high risk due to potential for worsening clinical status. Ms Salmon is doing OK. She is up in chair. No fever or chills. No cough. No GI issues. Exam Alert Comfortable Mucus membranes dry Heart distant Lungs no wheeze I/P 1. Cellulitis 2. ARF Further diagnoses and plan as above.
[2018-03-17] MEDS: Calcium Acetate 667 MG CAPSULE PO SCH ×3 (11:58→16:30)
[2018-03-17] MEDS: Insulin LISPRO 300 UNITS/3 ML VIAL SQ SCH ×7 (11:58→23:39)
[2018-03-17] MEDS: Amoxicillin/Clavulanate 500 MG TABLET PO SCH (11:58)
[2018-03-17] MEDS: Lactobacillus 1 EACH CAP.SPRINK PO SCH (11:59)
[2018-03-17] MEDS: Nystatin POWDER 30 GM BOTTLE TP SCH ×2 (11:59→23:37)
[2018-03-17] MEDS: amLODIPine 5 MG TABLET PO SCH (11:59)
[2018-03-17] MEDS: Gabapentin 300 MG CAPSULE PO SCH ×2 (11:59→22:56)
[2018-03-17] MEDS: Nystatin Cream 15 GM TUBE TP SCH ×2 (11:59→23:38)
[2018-03-17] MEDS: Insulin DETEMIR 100 UNIT/ML X5UNITS SQ SCH ×2 (11:59→23:38)
[2018-03-17] MEDS: Doxycycline 100 MG CAPSULE PO SCH (11:59)
[2018-03-17] MEDS: Multivit/Ca/Min/Fe/FA 1 TAB TABLET PO SCH (12:00)
[2018-03-17] MEDS: Budesonide/Formoterol 160/4.5 MDI IH SCH ×2 (12:40→20:16)
--- NOTE | 2018-03-17 14:37 | Infectious Disease Progress No ---
Date of Encounter: 03/17/18 Time of Encounter: 14:36 - Assessment and Plan (1) Severe sepsis Current Visit: Yes Status: Acute The patient had four SIRS criteria on admission with HERIBERTO and lactic acidosis. Likely we secondary to left thigh cellulitis and necrotizing fasciitis. Improved. WBC trending down. Tachycardia has resolved. She has been afebrile. Blood cultures drawn March 02 were +1 out of 2 sets for staph epi. Repeat blood cultures drawn March 05 are negative 2 sets. Additional blood cultures drawn March 08 2 sets are negative. (2) Necrotizing fasciitis Current Visit: Yes Status: Acute Location: Left thigh. Causative organism: unclear. Intra-op cultures are negative. Etiology unclear. CT of the LLE showed large amount of subcutaneous gas in the medial and anterior soft tissues of the proximal mid thigh consistent with necrotizing fasciitis and cellulitis. CK level 354. Repeat CK level normal. General surgery consulted. Status post I & D 03/09/[address] Barnes. Operative note reviewed. Large amount of pus noted intra-op. Cultures are negative. ESR and CRP markedly elevated. Repeat blood cultures x 2 sets drawn March 08 are negative. Continue Augmentin 500mg PO daily (dose-adjusted for HD status). Continue doxycycline 100mg PO BID. Continue probiotics. Duration of treatment depends on the clinical picture, but likely a total of 14 days from surgery. Okay to re-start simvastatin since Daptomycin stopped. Monitor renal function and for drug toxicity and dose-adjust antibiotics. (3) Cellulitis Current Visit: Yes Status: Acute Location: Left thigh. Causative organism unclear. Etiology unclear. The patient reports a cat bite to the left foot about three weeks ago that has not healed, but otherwise denies known trauma to the extremity. Appears improved. Continue antibiotics as above. Qualifiers: Site of cellulitis: extremity Site of cellulitis of extremity: lower extremity Laterality: left Qualified Code(s): L03.116 - Cellulitis of left lower limb (4) Pneumonia Current Visit: Yes Status: Suspected Location: Right perihilar region. Causative organism unclear. Chest XR showed right perihilar airspace opacity concerning for asymmetrical edema vs. PNA. Has likely received adequate antibiotic therapy, but will require prolonged antibiotic therapy for LLE cellulitis and necrotizing fasciitis. Qualifiers: Pneumonia type: due to methicillin-sensitive Staphylococcus aureus (MSSA) Laterality: right Lung location: unspecified part of lung Qualified Code(s) : J15.211 - Pneumonia due to Methicillin susceptible Staphylococcus aureus (5) Bacteremia Current Visit: Yes Status: Resolved Blood cultures drawn 03/02/18 are positive 1/2 sets for S. epi. Repeat blood cultures drawn 03/05/18 are negative x 2 sets. Likely a contaminant. No further treatment indicated. (6) HERIBERTO (acute kidney injury) Current Visit: Yes Status: Acute Serum creatinine elevated on admission, likely secondary to sepsis. Resolved initially, but worsened. Nephology consulted. Status post temporary dialysis catheter placement 03/14/18. HD initiated 03/14/18. Serum creatinine has worsened. Continue to trend. Dose-adjust antibiotics. Avoid nephrotoxins as able. Strict I's and O's. (7) DMII (diabetes mellitus, type 2) Current Visit: Yes Status: Chronic Uncontrolled. HgbA1C 9.9% on admission. Recommend aggressive glucose monitoring and control to promote wound healing and prevent re-infection. Management per the primary team. Qualifiers: Diabetes mellitus long term care administrator insulin use: with correction use Diabetes mellitus complication status: with kidney complications Diabetes mellitus complication detail: with chronic kidney disease Chronic kidney disease stage : stage 3 (moderate) Qualified Code(s): E11.22 - Type 2 diabetes mellitus with diabetic chronic kidney disease; N18.3 - Chronic kidney disease, stage 3 ( moderate); Z79.4 - terminal superintendent (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 (8) HTN (hypertension), benign Current Visit: Yes Status: Chronic (9) Morbid obesity Current Visit: No Status: Chronic (10) Hyperglycemia Current Visit: Yes Status: Acute (11) Diarrhea Current Visit: Yes Status: Resolved Likely antibiotic-related. C. diff negative. Appears to be improving. Continue probiotics. Qualifiers: Diarrhea type: unspecified type Qualified Code(s): R19.7 - Diarrhea, unspecified - Subjective Interval history: Patient seen and examined. appears comfortable. no pain no diarrhea limited ROS Infect Dis PN-Objective Data - Labs CBC & Chem 7: 03/17/18 04:53 03/17/18 04:53 Labs: Laboratory Results - last 24 hr 03/16/18 03/16/18 03/16/18 07:41 11:41 15:41 WBC RBC Hgb Hct MCV MCH MCHC RDW Plt Count MPV Immature Gran % Seg Neutrophils % Lymphocytes % Monocytes % Eosinophils % Basophils % Neutrophils # Lymphocytes # Monocytes # Eosinophils # Basophils # Nucleated RBCs/100 WBC Immature Plt Fraction PT INR Heparin Anti-Xa, Unfract Sodium Potassium Chloride Carbon Dioxide BUN Creatinine Est GFR ( Amer) Est GFR (Non-Af Amer) BUN/Creatinine Ratio Glucose POC Glucose 253 H 292 H 344 H Calculated Osmolality Calcium 03/16/18 03/16/18 03/17/18 19:45 21:19 04:53 WBC RBC Hgb Hct MCV MCH MCHC RDW Plt Count MPV Immature Gran % Seg Neutrophils % Lymphocytes % Monocytes % Eosinophils % Basophils % Neutrophils # Lymphocytes # Monocytes # Eosinophils # Basophils # Nucleated RBCs/100 WBC Immature Plt Fraction PT 16.7 H INR 1.5 Heparin Anti-Xa, Unfract 0.56 Sodium Potassium Chloride Carbon Dioxide BUN Creatinine Est GFR ( Amer) Est GFR (Non-Af Amer) BUN/Creatinine Ratio Glucose POC Glucose 298 H Calculated Osmolality Calcium 03/17/18 03/17/18 04:53 04:53 WBC 11.6 H RBC 3.34 L Hgb 8.6 L Hct 28.6 L MCV 85.6 MCH 25.7 L MCHC 30.1 L RDW 15.6 H Plt Count 347 MPV 10.0 Immature Gran % 1.3 Seg Neutrophils % 72.3 Lymphocytes % 16.1 Monocytes % 7.2 Eosinophils % 2.8 Basophils % 0.3 Neutrophils # 8.4 Lymphocytes # 1.9 Monocytes # 0.8 Eosinophils # 0.3 Basophils # 0.0 Nucleated RBCs/100 WBC 0.2 H Immature Plt Fraction 3.1 PT INR Heparin Anti-Xa, Unfract Sodium 141 Potassium 3.7 Chloride 103 Carbon Dioxide 26 BUN 42 H Creatinine 3.22 H Est GFR ( Amer) 17 L Est GFR (Non-Af Amer) 14 L BUN/Creatinine Ratio 13 Glucose 229 H POC Glucose Calculated Osmolality 310 H Calcium 8.3 L Cultures: Cultures 03/09/18 12:18 Anaerobic Culture - Final Other-Specify in Comments No anaerobes were recovered. 03/08/18 15:16 Blood Culture - Final Peripheral Venipuncture No growth. Final report. 03/08/18 15:46 Blood Culture - Final Peripheral Venipuncture No growth. Final report. 03/09/18 12:18 Wound Culture - Final Other-Specify in Comments No growth. 03/05/18 08:34 Blood Culture - Final Peripheral Venipuncture No growth. Final report. 03/05/18 08:34 Blood Culture - Final Peripheral Venipuncture No growth. Final report. 03/07/18 00:10 Urine Culture - Final Urine,Clean Catch No growth. Serology 03/13/18 03/12/18 03/07/18 Range/Units 12:55 10:30 19:05 Urine Color (Yellow) Urine Clarity (Clear) Urine pH (5.0-8.0) pH Units Ur Specific [place] (1.010-1.025) Urine Protein (Neg-Trace) mg/dL Urine Glucose (UA) (Normal) mg/dL Urine Ketones (Negative) mg/dL Urine Blood (Negative) Urine Nitrite (Negative) Urine Bilirubin (Negative) Urine Urobilinogen (Normal) mg/dL Ur Leukocyte Esterase (Negative) Urine Microscopic RBC (0-3) per hpf Urine Microscopic WBC (0-3) per hpf Ur Eosinophil Smear 0 (None Seen) % Ur Squamous Epith Cells (None-Few) per lpf Amorphous Sediment (Few) Urine Bacteria (None-Few) per hpf Hyaline Casts (None-Few) per lpf Ur Culture Indicated? Urine Osmolality (300-1090) mOsm/kg Urine Creatinine mg/dL Protein/Creatinin Ratio (0.00-0.20) mg/mg Urine Sodium mEq/L Ur Uric Acid mg/dL Urine Total Protein (1-14) mg/dL Stl C. diff Tox B Gene Negative (Negative) Hep Bs Antigen Nonreactive (Nonreactive) Hep Bs Antibody 107.97 mIU/mL 03/07/18 03/07/18 03/07/18 Range/Units 00:10 00:10 00:10 Urine Color (Yellow) Urine Clarity (Clear) Urine pH (5.0-8.0) pH Units Ur Specific [place] (1.010-1.025) Urine Protein (Neg-Trace) mg/dL Urine Glucose (UA) (Normal) mg/dL Urine Ketones (Negative) mg/dL Urine Blood (Negative) Urine Nitrite (Negative) Urine Bilirubin (Negative) Urine Urobilinogen (Normal) mg/dL Ur Leukocyte Esterase (Negative) Urine Microscopic RBC (0-3) per hpf Urine Microscopic WBC (0-3) per hpf Ur Eosinophil Smear (None Seen) % Ur Squamous Epith Cells (None-Few) per lpf Amorphous Sediment (Few) Urine Bacteria (None-Few) per hpf Hyaline Casts (None-Few) per lpf Ur Culture Indicated? Urine Osmolality 377 (300-1090) mOsm/kg Urine Creatinine 87 mg/dL Protein/Creatinin Ratio 1.59 H (0.00-0.20) mg/mg Urine Sodium 36.5 mEq/L Ur Uric Acid 33 mg/dL Urine Total Protein 138 H (1-14) mg/dL Stl C. diff Tox B Gene (Negative) Hep Bs Antigen (Nonreactive) Hep Bs Antibody mIU/mL 03/07/18 Range/Units 00:10 Urine Color Yellow (Yellow) Urine Clarity Cloudy A (Clear) Urine pH 5.5 (5.0-8.0) pH Units Ur Specific [place] 1.020 (1.010-1.025) Urine Protein 30 H (Neg-Trace) mg/dL Urine Glucose (UA) 500 H (Normal) mg/dL Urine Ketones Negative (Negative) mg/dL Urine Blood Small H (Negative) Urine Nitrite Negative (Negative) Urine Bilirubin Negative (Negative) Urine Urobilinogen Normal (Normal) mg/dL Ur Leukocyte Esterase Negative (Negative) Urine Microscopic RBC 0-3 (0-3) per hpf Urine Microscopic WBC 3-5 H (0-3) per hpf Ur Eosinophil Smear (None Seen) % Ur Squamous Epith Cells Many H (None-Few) per lpf Amorphous Sediment Moderate H (Few) Urine Bacteria Many H (None-Few) per hpf Hyaline Casts None Seen (None-Few) per lpf Ur Culture Indicated? Cancelled Urine Osmolality (300-1090) mOsm/kg Urine Creatinine mg/dL Protein/Creatinin Ratio (0.00-0.20) mg/mg Urine Sodium mEq/L Ur Uric Acid mg/dL Urine Total Protein (1-14) mg/dL Stl C. diff Tox B Gene (Negative) Hep Bs Antigen (Nonreactive) Hep Bs Antibody mIU/mL Exam - Constitutional Vitals: Temp Pulse Resp BP Pulse Ox 98.3 F 68 17 146/109 93 03/17/18 12:18 03/17/18 12:18 03/17/18 12:18 03/17/18 12:18 03/17/18 12:18 General appearance: cooperative, no acute distress - Respiratory Respiratory exam: Present: CTAB. Absent: wheezes - Cardiovascular Cardiovascular exam: Present: RRR, +S1, +S2 - GI/Abdominal GI/Abdominal exam: Present: soft. Absent: tenderness - VTE Documentation of Mechanical Device: Venous foot pump, device Consult Discharge Plan - Plan Referrals: Alonzo Resendiz MD [Primary Care Provider] -
[2018-03-17] MEDS: traMADol 50 MG TABLET PO PRN (14:58)
[2018-03-17] MEDS: Heparin 25,000 UNIT/500 ML D5W 25,000 UNIT/500 ML BAG IVC SCH (15:50)
[2018-03-17] MEDS ORDERED: *HR* Warfarin 10 MG TABLET PO ONE (18:00)
[2018-03-18] MEDS: Heparin 25,000 UNIT/500 ML D5W 25,000 UNIT/500 ML BAG IVC SCH ×2 (04:34→16:36)
[2018-03-18 06:39] LABS: Basophils # 0.1 K/mcL (0.0-0.2); Basophils % 0.6 %; Eosinophils # 0.4 K/mcL (0.0-0.6); Eosinophils % 3.7 %; Hematocrit 27.3 % (35.3-44.9); Hemoglobin 8.1 g/dL (11.5-15.4); Immature Granulocytes % 0.7 % (0-4); Lymphocytes # 1.6 K/mcL (0.6-4.6); Lymphocytes % 16.9 %; Mean Corpuscular HGB Conc 29.7 g/dL (31.6-35.5); Mean Corpuscular Hemoglobin 25.1 pg (28.0-33.3); Mean Corpuscular Volume 84.5 fL (83.0-100.0); Mean Platelet Volume 9.6 fL (9.4-12.4); Monocytes # 0.7 K/mcL (0.0-1.3); Monocytes % 7.3 %; Neutrophils # 6.8 K/mcL (1.6-8.9); Platelet Count 299 K/mcL (140-400); Red Blood Count 3.23 M/mcL (3.82-4.97); Red Cell Distribution Width 15.6 % (11.5-14.5); Segmented Neutrophils % 70.8 %
[2018-03-18 06:50] LABS: INR 1.8; Prothrombin Time 20.8 Seconds (9.4-12.1)
[2018-03-18 07:00] LABS: Calcium 8.5 mg/dL (8.6-10.3); Potassium 3.7 mEq/L (3.5-5.1)
[2018-03-18] MEDS ORDERED: 0.9 % Sodium Chloride 250 ML IVC PRN (07:49)
[2018-03-18] MEDS: Budesonide/Formoterol 160/4.5 MDI IH SCH ×2 (07:59→21:16)
[2018-03-18] MEDS: traMADol 50 MG TABLET PO PRN ×2 (08:26→13:15)
[2018-03-18] MEDS: Multivit/Ca/Min/Fe/FA 1 TAB TABLET PO SCH (08:27)
[2018-03-18] MEDS: Calcium Acetate 667 MG CAPSULE PO SCH ×3 (08:27→16:43)
[2018-03-18] MEDS: Insulin DETEMIR 100 UNIT/ML X5UNITS SQ SCH ×2 (08:27→22:47)
[2018-03-18] MEDS: Gabapentin 300 MG CAPSULE PO SCH ×2 (08:27→22:46)
[2018-03-18] MEDS: Lactobacillus 1 EACH CAP.SPRINK PO SCH (08:27)
--- NOTE | 2018-03-18 11:18 | Nephrology Progress Note ---
Date of Encounter: 03/18/18 Time of Encounter: 09:45 - Assessment and Plan (1) HERIBERTO (acute kidney injury) Current Visit: Yes Status: Acute With rising serum creatinine, and very little urine output response relative to the IV Lasix given yesterday, I recommend dialysis today. She appears to have dialysis dependent HERIBERTO, and I recommend holding the warfarin and planning for a permacath early next week. I will consult the social media editor to help arrange for a dialysis unit chair time in the [facility]. (2) Anemia Current Visit: Yes Status: Acute Goal hemoglobin is 10-11, if she were to need IV iron and/or an erythropoietin stimulating agent, will provide if needed. Qualifiers: Anemia type: unspecified type Qualified Code(s): D64.9 - Anemia, unspecified (3) Morbid obesity Current Visit: No Status: Chronic This is one of her risk factors for developing underlying kidney disease. Of note the renal ultrasound did report increased cortical echogenicity, which is suggestive of chronic kidney disease at baseline. Having CKD a baseline sometimes slows the recovery of HERIBERTO. (4) Family history of CKD (chronic kidney disease) Current Visit: Yes Status: Chronic Her son has kidney disease: he was on dialysis, but now has a functioning renal transplant. Subjective Principal diagnosis: fever/chills weakness Interval history: The patient was seen and examined while on hemodialysis earlier today. She was tolerating dialysis, and did not affirm cramping. She still has significant swelling, she reported and says that she lives near [facility] and agreed for arranging of outpatient dialysis. Objective - Vital Signs Vital signs: Vital Signs Temp Pulse Resp BP Pulse Ox 03/18/18 08:01 16 95 03/18/18 06:52 98.6 F 65 18 140/63 93 03/18/18 05:00 98.1 F 61 17 145/77 95 03/18/18 00:00 98.2 F 56 17 151/66 94 03/17/18 20:18 16 98 03/17/18 20:00 98.2 F 73 16 181/74 98 03/17/18 15:53 97.7 F 76 18 171/79 93 03/17/18 12:18 98.3 F 68 17 146/109 93 Intake and Output 07/20/18 07/21/18 07/21/18 23:59 07:59 15:59 Intake Total 600 / 600 860 / 860 240 / 240 Output Total 800 / 800 850 / 850 Balance -200 / -200 10 / 10 240 / 240 Intake: IV Fluids 500 / 500 Heparin 25,000 UNIT/500 ML D5W 500 / 500 25,000 unit In 500 ml @ 14 UNIT /KG/HR 43.26 mls/hr IVC . [id number] [facility] Rx#:[id number] Oral 600 / 600 360 / 360 240 / 240 Output: Urine 0 / 0 Catheter 800 / 800 850 / 850 Other: Meal Dinner Breakfast Percent of Meal Consumed 65% 100% Weight 147.3 kg Blood Glucose* 311 174 Patient Weight 03/18/18 23:59 Weight 147.3 kg - General Appearance General appearance: Present: well-developed, well-nourished, obese, fatigue EENT: Present: ATNC, PERRL, mucous membranes moist Neck: Present: supple Respiratory: Present: course breath sounds (And diminished in the bases, perhaps due to edema and her body habitus.) Cardiology: Present: edema, regular rate, regular rhythm, normal S1, normal S2 Dialysis Vascular Access: Venous Catheter (Right IJ temporary hemodialysis catheter without surrounding erythema.) Gastrointestinal: Present: normoactive bowel sounds, no tenderness, obese. Absent: distended Integumentary: Present: warm and dry Neurologic: Present: no focal deficit, no asterixis, alert and oriented x3 Musculoskeletal: Present: no erythema, no cyanosis Psychiatric: Present: mood/affect appropriate, cooperative - Lab 03/18/18 06:18 03/18/18 06:18 Most recent lab results ABG pH 7.29 pH Units (7.32-7.45) L 03/08/18 16:28 ABG pCO2 41 mmHg (35-45) 03/08/18 16:28 ABG pO2 87 mmHg (85-104) 03/08/18 16:28 ABG HCO3 20 mEq/L (21-27) L 03/08/18 16:28 ABG O2 Saturation 95 % (95-98) 03/08/18 16:28 Calcium 8.5 mg/dL (8.6-10.3) L 03/18/18 06:18 Phosphorus 8.9 mg/dL (2.7-4.5) H 07/12/18 04:18 Magnesium 2.7 mg/dL (1.6-2.6) H 03/09/18 04:18 Urine Creatinine 87 mg/dL 03/07/18 00:10 Urine Sodium 36.5 mEq/L 03/07/18 00:10 Urine Total Protein 138 mg/dL (1-14) H 03/07/18 00:10 - Imaging Kidney/bladder ultrasound: report reviewed (Renal cortical thinning present bilaterally compatible with medical renal) - VTE Documentation of Mechanical Device: Venous foot pump, device Consult Discharge Plan - Plan Referrals: Alonzo Resendiz MD [Primary Care Provider] -
[2018-03-18] MEDS: Insulin LISPRO 300 UNITS/3 ML VIAL SQ SCH ×7 (13:08→22:46)
[2018-03-18] MEDS: Nystatin POWDER 30 GM BOTTLE TP SCH ×2 (13:16→23:12)
[2018-03-18] MEDS: amLODIPine 5 MG TABLET PO SCH (13:16)
[2018-03-18] MEDS: Nystatin Cream 15 GM TUBE TP SCH ×2 (13:17→23:12)
--- NOTE | 2018-03-18 14:00 | General Surgery Progress Note ---
Date of Encounter: 03/18/18 Time of Encounter: 13:57 Subjective Patient reports: no new complaints Narrative: General Surgery - POD #12 Patient has just returned from dialysis. She is in good spirits. She is voicing no complaints. Abscess cavity proximal medial left thigh - status post I&D 03/09/18, is clean , and healing well. No surrounding erythema. Healthy granulation tissue is present and has virtually filled the abscess cavity. Impression: Abscess medial left thigh- acceptable postoperative status Plan: Continue present wound care Objective Vital Signs - Last 8 Hours Temp Pulse Resp BP Pulse Ox 03/18/18 12:51 98.7 F 84 20 161/61 93 03/18/18 12:30 98.3 F 18 185/88 03/18/18 12:15 172/83 03/18/18 12:00 167/83 03/18/18 11:45 161/77 03/18/18 11:30 170/86 03/18/18 11:15 168/85 03/18/18 11:00 153/71 03/18/18 10:45 155/77 03/18/18 10:30 160/83 03/18/18 10:15 156/82 03/18/18 10:00 162/84 03/18/18 09:45 164/83 03/18/18 09:30 161/77 03/18/18 09:15 98.6 F 18 162/86 03/18/18 08:01 16 95 03/18/18 06:52 98.6 F 65 18 140/63 93 Intake and Output 03/17/18 03/18/18 03/18/18 23:59 07:59 15:59 Intake Total 600 / 600 860 / 860 840 / 840 Output Total 800 / 800 850 / 850 4000 / 4000 Balance -200 / -200 10 / 10 -3160 / -3160 Intake: IV Fluids 500 / 500 Heparin 25,000 UNIT/500 ML D5W 500 / 500 25,000 unit In 500 ml @ 14 UNIT /KG/HR 43.26 mls/hr IVC . [id number] [facility] Rx#:[id number] Oral 600 / 600 360 / 360 240 / 240 Intake, Rinseback and Flushes 600 / 600 Output: Urine 0 / 0 Total Dialysis (HD) Output 3600 / 3600 Catheter 800 / 800 850 / 850 400 / 400 Other: Meal Dinner Breakfast Percent of Meal Consumed 65% 100% Weight 147.3 kg Blood Glucose* 311 174 181 Hemodialysis Net Fluid Removed 3000 (mL) Patient Weight 03/18/18 23:59 Weight 147.3 kg - Labs 03/18/18 06:18 03/18/18 06:18 Diabetes panel 03/18/18 Range/Units 06:18 Sodium 142 (136-145) mEq/L Potassium 3.7 (3.5-5.1) mEq/L Chloride 104 (98-107) mEq/L Carbon Dioxide 29 (23-29) mEq/L BUN 44 H (8-23) mg/dL Creatinine 3.59 H (0.60-1.20) mg/dL Glucose 204 H (70-105) mg/dL Calcium 8.5 L (8.6-10.3) mg/dL Calcium panel 03/18/18 Range/Units 06:18 Calcium 8.5 L (8.6-10.3) mg/dL Pituitary panel 03/18/18 Range/Units 06:18 Sodium 142 (136-145) mEq/L Potassium 3.7 (3.5-5.1) mEq/L Chloride 104 (98-107) mEq/L Carbon Dioxide 29 (23-29) mEq/L BUN 44 H (8-23) mg/dL Creatinine 3.59 H (0.60-1.20) mg/dL Glucose 204 H (70-105) mg/dL Calcium 8.5 L (8.6-10.3) mg/dL Adrenal panel 03/18/18 Range/Units 06:18 Sodium 142 (136-145) mEq/L Potassium 3.7 (3.5-5.1) mEq/L Chloride 104 (98-107) mEq/L Carbon Dioxide 29 (23-29) mEq/L BUN 44 H (8-23) mg/dL Creatinine 3.59 H (0.60-1.20) mg/dL Glucose 204 H (70-105) mg/dL Calcium 8.5 L (8.6-10.3) mg/dL - VTE Documentation of Mechanical Device: Venous foot pump, device Consult Discharge Plan - Plan Referrals: Alonzo Resendiz MD [Primary Care Provider] -
[2018-03-18] MEDS ORDERED: 0.9 % Sodium Chloride 1,000 ML ONE (15:11)
--- NOTE | 2018-03-18 17:35 | Internal Med Progress Note ---
Date of Encounter: 03/18/18 Time of Encounter: 17:15 - Assessment and plan (1) Renal failure Current Visit: Yes Status: Acute Assessment and plan: Multifactorial. Plan for permacath next week and arrangement for outpatient dialysis. Qualifiers: Renal failure chronicity: acute Acute renal failure type: with other specified pathological lesion Qualified Code(s): N17.8 - Other acute kidney failure (2) Vaginal candidiasis Current Visit: Yes Status: Acute (3) Cellulitis Current Visit: Yes Status: Acute Assessment and plan: Off abx at this time and continues to do OK. Dressings continue. Qualifiers: Site of cellulitis: extremity Site of cellulitis of extremity: lower extremity Laterality: left Qualified Code(s): L03.116 - Cellulitis of left lower limb (4) DMII (diabetes mellitus, type 2) Current Visit: Yes Status: Chronic Assessment and plan: Blood sugar remains over 200. Insulin adjusted yesterday. Will follow today and increase tomorrow if still elevated. Qualifiers: Diabetes mellitus gear setter insulin use: with skilled nursing use Diabetes mellitus complication status: with kidney complications Diabetes mellitus complication detail: with chronic kidney disease Chronic kidney disease stage : stage 3 (moderate) Qualified Code(s): E11.22 - Type 2 diabetes mellitus with diabetic chronic kidney disease; N18.3 - Chronic kidney disease, stage 3 ( moderate); Z79.4 - intermediate (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 (5) HTN (hypertension), benign Current Visit: Yes Status: Chronic (6) HERIBERTO (acute kidney injury) Current Visit: Yes Status: Acute (7) DVT prophylaxis Current Visit: Yes Status: Acute (8) Morbid obesity Current Visit: No Status: Chronic - Time Spent With Patient Total time spent is greater than 50% in coordination of care (as documented) at patient's floor/unit and/or counseling patient: - Subjective Interval history: Ms Salmon is currently admitted for cellulitis/abscess and acute renal failure. She remains moderate to high risk due to potential for worsening clinical status. Ms Salmon feels OK. She is very tired. She had dialysis today. No fever or chills. No CP. Nephrology making plans for gear setter dialysis at this time. Permacath needs placed. - Constitutional Vitals: Temp Pulse Resp BP Pulse Ox 98.8 F 68 19 161/69 91 03/18/18 15:15 03/18/18 15:15 03/18/18 15:15 03/18/18 15:15 03/18/18 15:15 General appearance: Present: A&O X 3, obese, answers questions appropriately - Head Head exam: Present: normocephalic - Eye Eye exam: Present: EOMI, conjuntiva pink - ENT ENT exam: Present: mucous membranes moist - Respiratory Respiratory exam: Present: decreased breath sounds, CTAB. Absent: rales, rhonchi, wheezes - Cardiovascular Cardiovascular exam: Present: RRR. Absent: tachycardia - GI/Abdominal GI/Abdominal exam: Present: soft. Absent: tenderness - Extremities Exam Extremities exam: Present: warm. Absent: tenderness - Neurological Exam Neurological exam: Present: alert, oriented X3 - Skin Skin exam: Present: dry, warm Internal Medicine: Result - Labs CBC & Chem 7: 03/18/18 06:18 03/18/18 06:18 Labs: Short CBC 03/18/18 Range/Units 06:18 WBC 9.6 (4.3-11.1) K/mcL Hgb 8.1 L (11.5-15.4) g/dL Hct 27.3 L (35.3-44.9) % Plt Count 299 (140-400) K/mcL Neutrophils # 6.8 (1.6-8.9) K/mcL BMP 03/18/18 06:18 Sodium 142 Potassium 3.7 Chloride 104 Carbon Dioxide 29 BUN 44 H Creatinine 3.59 H Glucose 204 H Calcium 8.5 L - ABG Interpretation ABG results: ABG ABG pH 7.29 pH Units (7.32-7.45) L 03/08/18 16:28 ABG pCO2 41 mmHg (35-45) 03/08/18 16:28 ABG pO2 87 mmHg (85-104) 03/08/18 16:28 ABG O2 Saturation 95 % (95-98) 03/08/18 16:28 PT/INR, D-dimer PT 20.8 Seconds (9.4-12.1) H 03/18/18 06:18 - VTE Documentation of Mechanical Device: Venous foot pump, device Consult Discharge Plan - Plan Referrals: Alonzo Resendiz MD [Primary Care Provider] -
[2018-03-18] MEDS ORDERED: *HR* Warfarin 10 MG TABLET PO ONE (18:00)
[2018-03-19] MEDS: Heparin 25,000 UNIT/500 ML D5W 25,000 UNIT/500 ML BAG IVC SCH ×2 (04:47→17:09)
[2018-03-19 06:32] LABS: Basophils # 0.1 K/mcL (0.0-0.2); Basophils % 0.7 %; Eosinophils # 0.3 K/mcL (0.0-0.6); Eosinophils % 3.2 %; Hematocrit 27.2 % (35.3-44.9); Hemoglobin 8.2 g/dL (11.5-15.4); Immature Granulocytes % 0.7 % (0-4); Lymphocytes # 1.8 K/mcL (0.6-4.6); Lymphocytes % 20.7 %; Mean Corpuscular HGB Conc 30.1 g/dL (31.6-35.5); Mean Corpuscular Hemoglobin 26.1 pg (28.0-33.3); Mean Corpuscular Volume 86.6 fL (83.0-100.0); Mean Platelet Volume 9.9 fL (9.4-12.4); Monocytes # 0.8 K/mcL (0.0-1.3); Monocytes % 8.8 %; Neutrophils # 5.7 K/mcL (1.6-8.9); Platelet Count 259 K/mcL (140-400); Red Blood Count 3.14 M/mcL (3.82-4.97); Red Cell Distribution Width 15.9 % (11.5-14.5); Segmented Neutrophils % 65.9 %
[2018-03-19 06:39] LABS: INR 2.1; Prothrombin Time 24.2 Seconds (9.4-12.1)
[2018-03-19 06:57] LABS: Calcium 8.4 mg/dL (8.6-10.3); Potassium 3.6 mEq/L (3.5-5.1)
[2018-03-19] MEDS: Budesonide/Formoterol 160/4.5 MDI IH SCH ×2 (07:49→21:48)
[2018-03-19] MEDS: Lactobacillus 1 EACH CAP.SPRINK PO SCH (09:37)
[2018-03-19] MEDS: Multivit/Ca/Min/Fe/FA 1 TAB TABLET PO SCH (09:37)
[2018-03-19] MEDS: Gabapentin 300 MG CAPSULE PO SCH ×2 (09:37→22:59)
[2018-03-19] MEDS: Spironolactone 25 MG TABLET PO SCH (09:37)
[2018-03-19] MEDS: Calcium Acetate 667 MG CAPSULE PO SCH ×3 (09:38→16:43)
[2018-03-19] MEDS: Nystatin Cream 15 GM TUBE TP SCH (09:38)
[2018-03-19] MEDS: traMADol 50 MG TABLET PO PRN ×2 (09:38→16:43)
[2018-03-19] MEDS: Nystatin POWDER 30 GM BOTTLE TP SCH (09:38)
[2018-03-19] MEDS: amLODIPine 5 MG TABLET PO SCH (09:38)
[2018-03-19] MEDS: Insulin DETEMIR 100 UNIT/ML X5UNITS SQ SCH ×3 (09:39→22:59)
[2018-03-19] MEDS: Insulin LISPRO 300 UNITS/3 ML VIAL SQ SCH ×7 (09:39→22:59)
--- NOTE | 2018-03-19 12:32 | Nephrology Progress Note ---
Date of Encounter: 03/19/18 Time of Encounter: 10:40 - Assessment and Plan (1) HERIBERTO (acute kidney injury) Current Visit: Yes Status: Acute Having completed dialysis yesterday (Tuesday), she will not need it again today (Tuesday). I recommend she be arranged for a permacath and outpatient dialysis for Dialysis dependent HERIBERTO, and I recommend holding the warfarin. I have placed a consult to the child protective services social worker to help arrange for a dialysis unit chair time in the [facility]. Continue to follow a renal protective strategy. (2) Anemia Current Visit: Yes Status: Acute Goal hemoglobin is 10-11, if she were to need IV iron and/or an erythropoietin stimulating agent, will provide if needed. Qualifiers: Anemia type: unspecified type Qualified Code(s): D64.9 - Anemia, unspecified (3) Morbid obesity Current Visit: No Status: Chronic This is one of her risk factors for developing underlying kidney disease. Of note the renal ultrasound did report increased cortical echogenicity, which is suggestive of chronic kidney disease at baseline. Having CKD a baseline sometimes slows the recovery of HERIBERTO. (4) Family history of CKD (chronic kidney disease) Current Visit: Yes Status: Chronic Her son has kidney disease: he was on dialysis, but now has a functioning renal transplant. (5) Peripheral edema Current Visit: Yes Status: Acute With her acute on chronic edema, I recommend ongoing dialysis not just for clearance, but also to target fluid removal. Dialysis is planned for tomorrow after the permacath placement. (6) HTN (hypertension), benign Current Visit: Yes Status: Chronic Holding ROSENDA / ARB d/t the HERIBERTO. Subjective Principal diagnosis: fever/chills weakness Interval history: The patient was seen and examined earlier today. She was accompanied by her male adult friend. She did not affirm nausea, vomiting, but still reported feeling very swollen. She did not affirm having any problems with yesterday's dialysis. She agrees to proceed with arranging a permacath and outpatient dialysis at the [place], [place], dialysis unit. Objective - Vital Signs Vital signs: Vital Signs Temp Pulse Resp BP Pulse Ox 03/19/18 07:49 16 97 03/19/18 07:17 98.0 F 72 18 169/72 97 03/19/18 05:00 98.2 F 72 18 182/91 90 03/18/18 22:00 91 03/18/18 21:16 16 93 03/18/18 20:00 98.2 F 79 18 169/70 91 03/18/18 15:15 98.8 F 68 19 161/69 91 03/18/18 12:51 98.7 F 84 20 161/61 93 03/18/18 12:30 98.3 F 18 185/88 Intake and Output 03/18/18 03/19/18 03/19/18 23:59 07:59 15:59 Intake Total 80 / 80 660 / 660 120 / 120 Output Total 300 / 300 610 / 610 250 / 250 Balance -220 / -220 50 / 50 -130 / -130 Intake: IV Fluids 80 / 80 420 / 420 Heparin 25,000 UNIT/500 ML D5W 80 / 80 420 / 420 25,000 unit In 500 ml @ 14 UNIT /KG/HR 41.244 mls/hr IVC . Q12H8M [facility] Rx#:[id number] Oral 0 / 0 240 / 240 120 / 120 Output: Urine 0 / 0 Catheter 300 / 300 610 / 610 250 / 250 Other: Meal Breakfast Percent of Meal Consumed 90% Stool Size Large Stool Consistency soft Stool Color Brown Weight 147.3 kg Blood Glucose* 267 208 295 Patient Weight 03/19/18 23:59 Weight 147.3 kg - General Appearance General appearance: Present: well-developed, well-nourished, obese EENT: Present: ATNC, PERRL, mucous membranes moist Neck: Present: supple Respiratory: Present: course breath sounds Cardiology: Present: edema, regular rate, regular rhythm, normal S1, normal S2 Dialysis Vascular Access: Venous Catheter (Rt IJ temporary HD catheter without erythema noted at the exit site.) Gastrointestinal: Present: normoactive bowel sounds, no tenderness, obese Integumentary: Present: warm and dry Neurologic: Present: no focal deficit, no asterixis, alert and oriented x3 Musculoskeletal: Present: no clubbing Psychiatric: Present: mood/affect appropriate, cooperative - Lab 03/19/18 06:12 03/19/18 06:12 Most recent lab results ABG pH 7.29 pH Units (7.32-7.45) L 03/08/18 16:28 ABG pCO2 41 mmHg (35-45) 03/08/18 16:28 ABG pO2 87 mmHg (85-104) 03/08/18 16:28 ABG HCO3 20 mEq/L (21-27) L 03/08/18 16:28 ABG O2 Saturation 95 % (95-98) 03/08/18 16:28 Calcium 8.4 mg/dL (8.6-10.3) L 03/19/18 06:12 Phosphorus 8.9 mg/dL (2.7-4.5) H 03/09/18 04:18 Magnesium 2.7 mg/dL (1.6-2.6) H 03/09/18 04:18 Urine Creatinine 87 mg/dL 03/07/18 00:10 Urine Sodium 36.5 mEq/L 03/07/18 00:10 Urine Total Protein 138 mg/dL (1-14) H 03/07/18 00:10 - VTE Documentation of Mechanical Device: Venous foot pump, device Consult Discharge Plan - Plan Referrals: Alonzo Resendiz MD [Primary Care Provider] -
--- NOTE | 2018-03-19 14:37 | Internal Med Progress Note ---
Date of Encounter: 03/19/18 Time of Encounter: 12:30 - Assessment and plan (1) Renal failure Current Visit: Yes Status: Acute Assessment and plan: She is to begin outpatient dialysis. Will arrange permacath. Hold heparin at 6AM and NPO midnight. Further plan per nephrology appreciated. Qualifiers: Renal failure chronicity: acute Acute renal failure type: with other specified pathological lesion Qualified Code(s): N17.8 - Other acute kidney failure (2) Vaginal candidiasis Current Visit: Yes Status: Acute Assessment and plan: Continue Fluconazole and Nystatin. (3) Cellulitis Current Visit: Yes Status: Acute Assessment and plan: Off abx at this time and continues to do OK. Dressings continue. Qualifiers: Site of cellulitis: extremity Site of cellulitis of extremity: lower extremity Laterality: left Qualified Code(s): L03.116 - Cellulitis of left lower limb (4) DMII (diabetes mellitus, type 2) Current Visit: Yes Status: Chronic Assessment and plan: Blood sugar still over 200. Adjust insulin more today. 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 Will adjust meds today - will start PO Hydralazine. (6) Morbid obesity Current Visit: No Status: Chronic Assessment and plan: Chronic issue (7) DVT prophylaxis Current Visit: Yes Status: Acute - Time Spent With Patient Total time spent is greater than 50% in coordination of care (as documented) at patient's floor/unit and/or counseling patient: - Subjective Interval history: Ms Salmon is currently admitted for cellulitis/abscess and acute renal failure. She remains moderate to high risk due to potential for worsening clinical status. Ms Salmon had dialysis yesterday. She is feeling OK at this time. Watching TV. Pain not an issue. No fever or chills. Appetite OK. No diarrhea. Understands that she needs permacath and continued dialysis. - Constitutional Vitals: Temp Pulse Resp BP Pulse Ox 98.0 F 72 16 169/72 97 03/19/18 07:17 03/19/18 07:17 03/19/18 07:49 03/19/18 07:17 03/19/18 07:49 General appearance: Present: A&O X 3, obese, answers questions appropriately - Head Head exam: Present: normocephalic - Eye Eye exam: Present: EOMI, conjuntiva pink - ENT ENT exam: Present: mucous membranes moist - Neck Additional comments: Dialysis catheter R IJ - Respiratory Respiratory exam: Present: decreased breath sounds, CTAB. Absent: rales, rhonchi, wheezes - Cardiovascular Cardiovascular exam: Present: RRR. Absent: tachycardia - GI/Abdominal GI/Abdominal exam: Present: soft. Absent: tenderness - Extremities Exam Extremities exam: Present: tenderness, warm - Neurological Exam Neurological exam: Present: alert, oriented X3 - Skin Skin exam: Present: dry, warm Internal Medicine: Result - Labs CBC & Chem 7: 03/19/18 06:12 03/19/18 06:12 Labs: Short CBC 03/19/18 Range/Units 06:12 WBC 8.6 (4.3-11.1) K/mcL Hgb 8.2 L (11.5-15.4) g/dL Hct 27.2 L (35.3-44.9) % Plt Count 259 (140-400) K/mcL Neutrophils # 5.7 (1.6-8.9) K/mcL BMP 03/19/18 06:12 Sodium 142 Potassium 3.6 Chloride 103 Carbon Dioxide 29 BUN 29 H Creatinine 2.98 H Glucose 242 H Calcium 8.4 L - ABG Interpretation ABG results: ABG ABG pH 7.29 pH Units (7.32-7.45) L 03/08/18 16:28 ABG pCO2 41 mmHg (35-45) 03/08/18 16:28 ABG pO2 87 mmHg (85-104) 03/08/18 16:28 ABG O2 Saturation 95 % (95-98) 03/08/18 16:28 PT/INR, D-dimer PT 24.2 Seconds (9.4-12.1) H 03/19/18 06:12 - VTE Documentation of Mechanical Device: Venous foot pump, device Consult Discharge Plan - Plan Referrals: Alonzo Resendiz MD [Primary Care Provider] -
[2018-03-19] MEDS: Furosemide 40 MG TABLET PO SCH (16:43)
[2018-03-20] MEDS: Nystatin Cream 15 GM TUBE TP SCH ×3 (00:28→23:02)
[2018-03-20] MEDS: Nystatin POWDER 30 GM BOTTLE TP SCH ×3 (00:28→23:03)
[2018-03-20 04:16] LABS: Basophils # 0.1 K/mcL (0.0-0.2); Basophils % 0.7 %; Eosinophils # 0.3 K/mcL (0.0-0.6); Eosinophils % 2.8 %; Hematocrit 26.7 % (35.3-44.9); Hemoglobin 7.8 g/dL (11.5-15.4); Immature Granulocytes % 0.4 % (0-4); Lymphocytes # 1.8 K/mcL (0.6-4.6); Lymphocytes % 18.2 %; Mean Corpuscular HGB Conc 29.2 g/dL (31.6-35.5); Mean Corpuscular Hemoglobin 25.2 pg (28.0-33.3); Mean Corpuscular Volume 86.4 fL (83.0-100.0); Mean Platelet Volume 10.3 fL (9.4-12.4); Monocytes # 0.9 K/mcL (0.0-1.3); Monocytes % 8.7 %; Neutrophils # 6.8 K/mcL (1.6-8.9); Platelet Count 276 K/mcL (140-400); Red Blood Count 3.09 M/mcL (3.82-4.97); Red Cell Distribution Width 16.1 % (11.5-14.5); Segmented Neutrophils % 69.2 %
[2018-03-20 04:22] LABS: Prothrombin Time 22.8 Seconds (9.4-12.1)
[2018-03-20] MEDS: Heparin 25,000 UNIT/500 ML D5W 25,000 UNIT/500 ML BAG IVC SCH (04:30)
[2018-03-20 04:32] LABS: Calcium 8.7 mg/dL (8.6-10.3); Potassium 3.6 mEq/L (3.5-5.1)
[2018-03-20] MEDS ORDERED: 0.9 % Sodium Chloride 250 ML IVC PRN (06:50)
[2018-03-20] MEDS: Budesonide/Formoterol 160/4.5 MDI IH SCH ×2 (07:45→22:27)
[2018-03-20] MEDS ORDERED: 0.9 % Sodium Chloride 2,000 ML ONE (08:33)
--- NOTE | 2018-03-20 09:23 | Internal Med Progress Note ---
<Doroteo Howard - Last Filed: 03/20/18 17:00> Date of Encounter: 03/20/18 - Assessment and plan (1) Renal failure Current Visit: Yes Status: Acute Qualifiers: Renal failure chronicity: acute Acute renal failure type: with other specified pathological lesion Qualified Code(s): N17.8 - Other acute kidney failure (2) Vaginal candidiasis Current Visit: Yes Status: Acute (3) Cellulitis Current Visit: Yes Status: Resolved Qualifiers: Site of cellulitis: extremity Site of cellulitis of extremity: lower extremity Laterality: left Qualified Code(s): L03.116 - Cellulitis of left lower limb (4) DMII (diabetes mellitus, type 2) Current Visit: Yes Status: Chronic Qualifiers: 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: with intermodal owner operator truck driver use Diabetes mellitus complication status: with kidney complications Diabetes mellitus complication detail: with chronic kidney disease Chronic kidney disease stage : stage 3 (moderate) Qualified Code(s): E11.22 - Type 2 diabetes mellitus with diabetic chronic kidney disease; N18.3 - Chronic kidney disease, stage 3 ( moderate); Z79.4 - detention (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 (5) HTN (hypertension), benign Current Visit: Yes Status: Chronic (6) Morbid obesity Current Visit: No Status: Chronic (7) DVT prophylaxis Current Visit: Yes Status: Acute - Time Spent With Patient Total time spent is greater than 50% in coordination of care (as documented) at patient's floor/unit and/or counseling patient: - Constitutional Vitals: Temp Pulse Resp BP Pulse Ox 98.0 F 78 19 188/99 96 03/20/18 11:30 03/20/18 15:37 03/20/18 15:37 03/20/18 15:37 03/20/18 15:37 Internal Medicine: Result - Labs CBC & Chem 7: 03/20/18 03:26 03/20/18 03:26 Labs: Short CBC 03/20/18 Range/Units 03:26 WBC 9.8 (4.3-11.1) K/mcL Hgb 7.8 L (11.5-15.4) g/dL Hct 26.7 L (35.3-44.9) % Plt Count 276 (140-400) K/mcL Neutrophils # 6.8 (1.6-8.9) K/mcL BMP 03/20/18 03:26 Sodium 137 Potassium 3.6 Chloride 108 H Carbon Dioxide 28 BUN 32 H Creatinine 3.19 H Glucose 265 H Calcium 8.7 - ABG Interpretation ABG results: ABG ABG pH 7.29 pH Units (7.32-7.45) L 03/08/18 16:28 ABG pCO2 41 mmHg (35-45) 03/08/18 16:28 ABG pO2 87 mmHg (85-104) 03/08/18 16:28 ABG O2 Saturation 95 % (95-98) 03/08/18 16:28 PT/INR, D-dimer PT 22.8 Seconds (9.4-12.1) H 03/20/18 03:26 Consult Discharge Plan - Plan Referrals: Alonzo Resendiz MD [Primary Care Provider] - - Attending Attestation I examined this patient and my medical decision-making was reviewed with the Resident Physician on 03/20/18. I agree with the documented findings, disposition and treatment plan as described except to the extent set forth below. Ms Salmon is currently admitted for cellulitis and acute renal failure. She is requiring continued dialysis. She remains moderate to high risk due to potential for worsening clinical status. Ms Salmon feels OK. She just returned from dialysis and is to have permacath today. No fever or chills. No CP. Still with edema. No GI issues. Exam alert Comfortable at this time Mucus membranes dry Heart distant and not tachy Lungs diminished Abd soft I/P 1. Cellulitis - has completed abx at this time. 2. Acute renal failure - permacath placed today. She does not want to go to rehab. She wants to go home. Further diagnoses and plan as above. <Gianni Victor - Last Filed: 03/20/18 18:02> Date of Encounter: 03/20/18 Time of Encounter: 09:23 - Assessment and plan (1) DMII (diabetes mellitus, type 2) Current Visit: Yes Status: Chronic Assessment and plan: Blood sugar intermittently over 200 Continue Levemir 55u BID Increase Lispro to 10u with meals plus High dose SSI Continue to monitor Qualifiers: Diabetes mellitus skilled nursing insulin use: with skilled nursing use Diabetes mellitus complication status: with kidney complications Diabetes mellitus complication detail: with chronic kidney disease Chronic kidney disease stage : stage 3 (moderate) Qualified Code(s): E11.22 - Type 2 diabetes mellitus with diabetic chronic kidney disease; N18.3 - Chronic kidney disease, stage 3 ( moderate); 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 Dressings continue. Qualifiers: Site of cellulitis: extremity Site of cellulitis of extremity: lower extremity Laterality: left Qualified Code(s): L03.116 - Cellulitis of left lower limb (5) DVT prophylaxis Current Visit: Yes Status: Acute Assessment and plan: Hold heparin drip for now in the setting of fresh permacath and receiving coumadin (6) Renal failure Current Visit: Yes Status: Acute Assessment and plan: To begin outpatient dialysis upon discharge. Got permacath today Further plan per nephrology appreciated. Qualifiers: Renal failure chronicity: acute Acute renal failure type: with other specified pathological lesion Qualified Code(s): N17.8 - Other acute kidney failure (7) Vaginal candidiasis Current Visit: Yes Status: Acute Assessment and plan: Continue Fluconazole and Nystatin. - Time Spent With Patient Total time spent is greater than 50% in coordination of care (as documented) at patient's floor/unit and/or counseling patient: - Subjective Interval history: Ms. Salmon is a 68F with a hx of diabetes, PE and DVT, was admitted on 03/02 for malaise. She had left inner leg cellulitis as was treated with zosyn and vancomycin 03/06: Cellulitis had improved. Kidney functions worsening with Cr 2.91. Vanco was discontinued and IVF given. nystatin cream for cellulitis. At this time the patient was still experiencing fevers and leukocytosis was not improving. pt was found to have perihilar opacity on CXR suggesting pneumonia. Abx therapy was changed from zosyn to unasyn due to concerns of aspiration PNA. 03/07: Pt was transitioned from Unasyn to Augmentin po. HERIBERTO continues to worsen with Cr 3.10. 03/08: Cellulitis worsens with increasing erythema and pain upon exam. CT revealed subcutaneous air representing necrosis in but not extending to the fascia of the left upper leg and groin area. Started on Doxycycline and transitioned back to Zosyn. After ID consult pt was placed on IV Zosyn, Clindamycin, and Daptomycin. Surgery was consulted and anticoagulation was stopped due to supratherapeutic INR at 3.4. HERIBERTO continues to worsen with Cr at 3.30 03/09: Pt resting comfortably in bed during this encounter, states she did not sleep well last night. No new or acute complaints at this time. Denies any chest pain , increased SOB, increased cough, nausea, vomiting, headache, numbness, or tingling. States she does not believe the cellulitis has changed much overnight. 03/10: No acute events overnight. Pt sitting in bed eating breakfast. States she feels much better today. Admits to some increased cough with brown sputum production, but states she feels like she can breathe easier now Denies chest pain, increased SOB, nausea, vomiting, headache, numbness, or tingling. 03/13: No acute events overnight. Pt states she feels "ok" today. Denies any headache, chest pain, increased SOB, increased cough, sputum production, abdominal pain, nausea, vomiting, numbness, or tingling. States she has had multiple watery bowel movements. 03/14: No acute events overnight. Pt states she feels "the same" today. Denies any headache, chest pain, increased SOB, cough, sputum production, abdominal pain, nausea, vomiting, numbness, or tingling. Received R IJ dialysis cath this morning with plans for dialysis later today. 03/15: No acute events overnight. Pt resting comfortably in bed during this encounter. States she feels tired. Denies any chest pain, worsening SOB, cough, sputum production, abdominal pain, nausea, vomiting, numbness, or tingling. 03/16: No acute events overnight. Pt states she feels "pretty good" today. Denies any new or acute complaints. Denies any chest pain, worsening SOB, cough, sputum production, abdominal pain, nausea, vomiting, numbness, or tingling. Later in day pt was complaining of foul odor from her vagina. Said she has had a yeast infection recently that never completely resolved. 03/17: No acute events overnight. Pt states she feels better today. Denies any new or acute complaints. Denies any chest pain, worsening SOB, increased cough or sputum production, abdominal pain, nausea, vomiting, numbness, or tingling. Pt states odor from her vagina has improved. 03/20: No acute events overnight. Pt states she feels "tired" today. Denies any new or acute complaints. Denies CP, increased SOB, increased cough or sputum production , abdominal pain, nausea, vomiting, numbness, or tingling. - Constitutional Vitals: Temp Pulse Resp BP Pulse Ox 98.2 F 74 16 160/81 94 03/20/18 07:40 03/20/18 07:40 03/20/18 07:46 03/20/18 07:40 03/20/18 07:46 General appearance: Present: A&O X 3, obese, answers questions appropriately Exam: Head: normocephalic and atraumatic Eyes: PERRL, EOMI, sclera anicteric, conjunctiva pink Neck: supple, trachea midline, dressing in place over former right IJ cath site Lungs: grossly diminished breath sounds. non-labored breathing. no wheezes, rales, or rhonchi noted Heart: RRR +S1 +S2. no murmurs, clicks, or rubs appreciated GI: abdomen soft, non-tender, distended. normoactive bowel sounds Extremities: warm, radial pulses palpable and symmetrical. no pedal edema or cyanosis needed Neuro: A&Ox3. no focal deficits. no speech abnormality or difficulty Skin: warm, dry, intact. Internal Medicine: Result - Labs CBC & Chem 7: 03/20/18 03:26 03/20/18 03:26 Labs: Short CBC 03/20/18 Range/Units 03:26 WBC 9.8 (4.3-11.1) K/mcL Hgb 7.8 L (11.5-15.4) g/dL Hct 26.7 L (35.3-44.9) % Plt Count 276 (140-400) K/mcL Neutrophils # 6.8 (1.6-8.9) K/mcL BMP 03/20/18 03:26 Sodium 137 Potassium 3.6 Chloride 108 H Carbon Dioxide 28 BUN 32 H Creatinine 3.19 H Glucose 265 H Calcium 8.7 - ABG Interpretation ABG results: ABG ABG pH 7.29 pH Units (7.32-7.45) L 03/08/18 16:28 ABG pCO2 41 mmHg (35-45) 03/08/18 16:28 ABG pO2 87 mmHg (85-104) 03/08/18 16:28 ABG O2 Saturation 95 % (95-98) 03/08/18 16:28 PT/INR, D-dimer PT 22.8 Seconds (9.4-12.1) H 03/20/18 03:26 - VTE Documentation of Mechanical Device: Venous foot pump, device
--- NOTE | 2018-03-20 11:13 | Nephrology Progress Note ---
<Melany Dickinson - Last Filed: 03/20/18 11:09> Date of Encounter: 03/20/18 Time of Encounter: 11:09 - Assessment and Plan (1) HERIBERTO (acute kidney injury) Status: Acute Baseline Scr 1.17 and GFR 42. Scr 3.19 and GFR 15. HD in progress today. Uop 900 today, 400 yesterday. Will need set up for [facility] for outpatient HD. IR consulted for Tunneled line placement. Continue to renal dose all medications and avoid nephrotoxins. We will continue to watch for signs of renal recovery. (2) Cellulitis Status: Acute Per primary. Qualifiers: Site of cellulitis: extremity Site of cellulitis of extremity: lower extremity Laterality: left Qualified Code(s): L03.116 - Cellulitis of left lower limb (3) DMII (diabetes mellitus, type 2) Status: Chronic Per primary. 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 Hgb 7.8 today, stable. Qualifiers: Vitamin B12 deficiency anemia type: other dietary B12 deficiency Qualified Code(s): D51.3 - Other dietary vitamin B12 deficiency anemia Subjective Principal diagnosis: fever/chills weakness Interval history: Pt seen and examined during HD, tolerating well. Objective - Vital Signs Vital signs: Vital Signs Temp Pulse Resp BP Pulse Ox 03/20/18 10:20 153/63 03/20/18 10:05 146/59 03/20/18 09:50 149/67 03/20/18 09:35 148/62 03/20/18 09:20 154/70 03/20/18 09:05 143/58 03/20/18 08:50 165/64 03/20/18 08:35 167/73 03/20/18 08:20 97.5 F L 14 202/75 03/20/18 07:46 16 94 07/23/18 07:40 98.2 F 74 16 160/81 94 03/20/18 05:00 98 F 72 15 173/80 97 03/19/18 23:00 90 03/19/18 21:48 18 94 03/19/18 20:00 98.4 F 87 18 158/77 90 03/19/18 15:27 98.3 F 71 18 147/79 94 Intake and Output 03/19/18 03/20/18 03/20/18 23:59 07:59 15:59 Intake Total 340 / 340 400 / 400 600 / 600 Output Total 400 / 400 900 / 900 Balance -60 / -60 -500 / -500 600 / 600 Intake: IV Fluids 100 / 100 400 / 400 Heparin 25,000 UNIT/500 ML D5W 100 / 100 400 / 400 25,000 unit In 500 ml @ 14 UNIT /KG/HR 41.244 mls/hr IVC . Q12H8M MARITZA Rx#:[id number] Oral 240 / 240 0 / 0 0 / 0 Intake, Rinseback and Flushes 600 / 600 Output: Urine 400 / 400 900 / 900 Other: Stool Size Moderate Stool Consistency loose soft Stool Color Brown Green # Bowel Movements 1 Weight 147.3 kg Blood Glucose* 305 223 Hemodialysis Net Fluid Removed 2402 (mL) Patient Weight 03/20/18 23:59 Weight 147.3 kg - General Appearance General appearance: Present: well-developed, well-nourished, obese EENT: Present: ATNC, hearing intact, vision intact Neck: Present: supple Respiratory: Present: clear Cardiology: Present: edema (Trace bilateral lower extremity edema noted.), normal S1, normal S2 Dialysis Vascular Access: Venous Catheter (Temp line, DRSG C/D/I.) Gastrointestinal: Present: normoactive bowel sounds, no tenderness, no guarding Integumentary: Present: no rash, warm and dry Neurologic: Present: alert and oriented x3 Psychiatric: Present: mood/affect appropriate, cooperative - Lab 03/20/18 03:26 03/20/18 03:26 Most recent lab results ABG pH 7.29 pH Units (7.32-7.45) L 03/08/18 16:28 ABG pCO2 41 mmHg (35-45) 03/08/18 16:28 ABG pO2 87 mmHg (85-104) 03/08/18 16:28 ABG HCO3 20 mEq/L (21-27) L 03/08/18 16:28 ABG O2 Saturation 95 % (95-98) 03/08/18 16:28 Calcium 8.7 mg/dL (8.6-10.3) 03/20/18 03:26 Phosphorus 8.9 mg/dL (2.7-4.5) H 03/09/18 04:18 Magnesium 2.7 mg/dL (1.6-2.6) H 03/09/18 04:18 Urine Creatinine 87 mg/dL 03/07/18 00:10 Urine Sodium 36.5 mEq/L 03/07/18 00:10 Urine Total Protein 138 mg/dL (1-14) H 03/07/18 00:10 - VTE Documentation of Mechanical Device: Venous foot pump, device Consult Discharge Plan - Plan Instructions: Hemodialysis (DC), Cellulitis (DC), Dialysis Diet (DC), Dialysis Diet (GEN), Diabetes Mellitus Type 2 in Adults (DC), Sepsis (DC), Chronic Hypertension (DC), Anemia (GEN), End-Stage Kidney Disease (DC) Referrals: Alonzo Resendiz MD [Primary Care Provider] - 03/28/18 10:00 am (discharge follow up appointment) Prescriptions: Furosemide [Lasix] 40 mg PO DAILY 30 Days #30 tablet hydrALAZINE [HydrALAZINE] 25 mg PO QID 30 Days #120 tablet Nystatin Cream [Mycostatin Cream] 1 appl TP BID 30 Days #1 tube Pravastatin Sodium [Pravachol] 10 mg PO DAILY 30 Days #30 tablet Spironolactone [Aldactone] 25 mg PO DAILY 30 Days #30 tablet <Saranya Sung - Last Filed: 03/27/18 00:35> Date of Encounter: 03/20/18 Objective - Lab 03/23/18 04:26 03/23/18 04:26 Most recent lab results ABG pH 7.29 pH Units (7.32-7.45) L 03/08/18 16:28 ABG pCO2 41 mmHg (35-45) 03/08/18 16:28 ABG pO2 87 mmHg (85-104) 03/08/18 16:28 ABG HCO3 20 mEq/L (21-27) L 03/08/18 16:28 ABG O2 Saturation 95 % (95-98) 03/08/18 16:28 Calcium 8.8 mg/dL (8.6-10.3) 03/23/18 04:26 Phosphorus 8.9 mg/dL (2.7-4.5) H 03/09/18 04:18 Magnesium 2.7 mg/dL (1.6-2.6) H 03/09/18 04:18 Urine Creatinine 87 mg/dL 03/07/18 00:10 Urine Sodium 36.5 mEq/L 03/07/18 00:10 Urine Total Protein 138 mg/dL (1-14) H 03/07/18 00:10 - Attending Attestation I examined this patient and my medical decision-making was reviewed with the Resident Physician/GLOB[employer]. I agree with the documented findings, disposition and treatment plan as described except to the extent set forth below. Pt seen and examined on HD with no new complaints. Exam shows trace LE edema bilat SCr noted at 3.19, GFR 15 with 400cc UOP in the past 24hrs hence no renal recovery yet. Jazlyn HD chair time arranged. Ok to discharge from a renal standpoint once all is arranged.
[2018-03-20] MEDS: Acetaminophen 325 MG TABLET PO PRN (11:14)
--- NOTE | 2018-03-20 11:19 | Infectious Disease Progress No ---
Date of Encounter: 03/20/18 Time of Encounter: 11:17 - Assessment and Plan (1) Severe sepsis Current Visit: Yes Status: Acute The patient had four SIRS criteria on admission with HERIBERTO and lactic acidosis. Likely we secondary to left thigh cellulitis and necrotizing fasciitis. Improved. WBC trending down. Tachycardia has resolved. She has been afebrile. Blood cultures drawn March 02 were +1 out of 2 sets for staph epi. Repeat blood cultures drawn March 05 are negative 2 sets. Additional blood cultures drawn March 08 2 sets are negative. (2) Necrotizing fasciitis Current Visit: Yes Status: Acute Location: Left thigh. Causative organism: unclear. Intra-op cultures are negative. Etiology unclear. CT of the LLE showed large amount of subcutaneous gas in the medial and anterior soft tissues of the proximal mid thigh consistent with necrotizing fasciitis and cellulitis. CK level 354. Repeat CK level normal. General surgery consulted. Status post I & D 03/09/[address] Barnes. Operative note reviewed. Large amount of pus noted intra-op. Cultures are negative. ESR and CRP markedly elevated. Repeat blood cultures x 2 sets drawn March 08 are negative. Antibiotics stopped Tuesday. Patient continues to do well clinically. No further recommendations from the ID team. Will sign off. Please re-consult if needed. (3) Cellulitis Current Visit: Yes Status: Resolved Location: Left thigh. Causative organism unclear. Etiology unclear. The patient reports a cat bite to the left foot about three weeks ago that has not healed, but otherwise denies known trauma to the extremity. Resolved. Qualifiers: Site of cellulitis: extremity Site of cellulitis of extremity: lower extremity Laterality: left Qualified Code(s): L03.116 - Cellulitis of left lower limb (4) Pneumonia Current Visit: Yes Status: Suspected Location: Right perihilar region. Causative organism unclear. Chest XR showed right perihilar airspace opacity concerning for asymmetrical edema vs. PNA. Received a prolonged course of antibiotics. No further antibiotics required. Qualifiers: Pneumonia type: due to methicillin-sensitive Staphylococcus aureus (MSSA) Laterality: right Lung location: unspecified part of lung Qualified Code(s) : J15.211 - Pneumonia due to Methicillin susceptible Staphylococcus aureus (5) Bacteremia Current Visit: Yes Status: Resolved Blood cultures drawn 03/02/18 are positive 1/2 sets for S. epi. Repeat blood cultures drawn 03/05/18 are negative x 2 sets. Likely a contaminant. No further treatment indicated. (6) HERIBERTO (acute kidney injury) Current Visit: Yes Status: Acute Serum creatinine elevated on admission, likely secondary to sepsis. Resolved initially, but worsened. Nephology consulted. Status post temporary dialysis catheter placement 03/14/18. HD initiated 03/14/18. Serum creatinine has worsened. Continue to trend. Dose-adjust antibiotics. Avoid nephrotoxins as able. Strict I's and O's. (7) DMII (diabetes mellitus, type 2) Current Visit: Yes Status: Chronic Uncontrolled. HgbA1C 9.9% on admission. Recommend aggressive glucose monitoring and control to promote wound healing and prevent re-infection. Management per the primary team. 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 C. diff negative. Appears to be improving. Continue probiotics. Qualifiers: Diarrhea type: unspecified type Qualified Code(s): R19.7 - Diarrhea, unspecified - Subjective Interval history: Patient seen and examined in the HD unit. No acute events noted overnight. Status post I&D of the left thigh 03/09/[address] Barnes. The patient states that she feels well overall. Scheduled for Perma-cath placement later today. She denies any fevers or chills or rigors. She denies any headache or neck pain. She does complain of chronic lower back pain that is at baseline. Denies chest pain or cough. She reports chronic DENZEL that is at baseline. She denies nausea or vomiting. She report reports her stools are more formed. She denies abdominal pain. She states her appetite is better, but is currently NPO. Williamson catheter remains patent. She denies oral thrush or new skin lesions. She states her left lower extremity isn't bothering her at all. Infect Dis PN-Objective Data - Labs CBC & Chem 7: 03/20/18 03:26 03/20/18 03:26 Labs: Laboratory Results - last 24 hr 03/19/18 03/19/18 03/19/18 07:23 11:29 16:14 WBC RBC Hgb Hct MCV MCH MCHC RDW Plt Count MPV Immature Gran % Seg Neutrophils % Lymphocytes % Monocytes % Eosinophils % Basophils % Neutrophils # Lymphocytes # Monocytes # Eosinophils # Basophils # PT INR Heparin Anti-Xa, Unfract Sodium Potassium Chloride Carbon Dioxide BUN Creatinine Est GFR ( Amer) Est GFR (Non-Af Amer) BUN/Creatinine Ratio Glucose POC Glucose 208 H 295 H 252 H Calculated Osmolality Calcium 03/19/18 03/19/18 03/20/18 18:22 20:34 03:26 WBC RBC Hgb Hct MCV MCH MCHC RDW Plt Count MPV Immature Gran % Seg Neutrophils % Lymphocytes % Monocytes % Eosinophils % Basophils % Neutrophils # Lymphocytes # Monocytes # Eosinophils # Basophils # PT 22.8 H INR 2.0 Heparin Anti-Xa, Unfract 0.44 Sodium Potassium Chloride Carbon Dioxide BUN Creatinine Est GFR ( Amer) Est GFR (Non-Af Amer) BUN/Creatinine Ratio Glucose POC Glucose 305 H Calculated Osmolality Calcium 03/20/18 03/20/18 03/20/18 03:26 03:26 08:15 WBC 9.8 RBC 3.09 L Hgb 7.8 L Hct 26.7 L MCV 86.4 MCH 25.2 L MCHC 29.2 L RDW 16.1 H Plt Count 276 MPV 10.3 Immature Gran % 0.4 Seg Neutrophils % 69.2 Lymphocytes % 18.2 Monocytes % 8.7 Eosinophils % 2.8 Basophils % 0.7 Neutrophils # 6.8 Lymphocytes # 1.8 Monocytes # 0.9 Eosinophils # 0.3 Basophils # 0.1 PT INR Heparin Anti-Xa, Unfract Sodium 137 Potassium 3.6 Chloride 108 H Carbon Dioxide 28 BUN 32 H Creatinine 3.19 H Est GFR ( Amer) 18 L Est GFR (Non-Af Amer) 15 L BUN/Creatinine Ratio 10 Glucose 265 H POC Glucose 223 H Calculated Osmolality 300 Calcium 8.7 Cultures: Cultures 03/09/18 12:18 Anaerobic Culture - Final Other-Specify in Comments No anaerobes were recovered. 03/08/18 15:16 Blood Culture - Final Peripheral Venipuncture No growth. Final report. 03/08/18 15:46 Blood Culture - Final Peripheral Venipuncture No growth. Final report. 03/09/18 12:18 Wound Culture - Final Other-Specify in Comments No growth. 03/05/18 08:34 Blood Culture - Final Peripheral Venipuncture No growth. Final report. 03/05/18 08:34 Blood Culture - Final Peripheral Venipuncture No growth. Final report. 03/07/18 00:10 Urine Culture - Final Urine,Clean Catch No growth. Serology 03/13/18 03/12/18 03/07/18 Range/Units 12:55 10:30 19:05 Urine Color (Yellow) Urine Clarity (Clear) Urine pH (5.0-8.0) pH Units Ur Specific [place] (1.010-1.025) Urine Protein (Neg-Trace) mg/dL Urine Glucose (UA) (Normal) mg/dL Urine Ketones (Negative) mg/dL Urine Blood (Negative) Urine Nitrite (Negative) Urine Bilirubin (Negative) Urine Urobilinogen (Normal) mg/dL Ur Leukocyte Esterase (Negative) Urine Microscopic RBC (0-3) per hpf Urine Microscopic WBC (0-3) per hpf Ur Eosinophil Smear 0 (None Seen) % Ur Squamous Epith Cells (None-Few) per lpf Amorphous Sediment (Few) Urine Bacteria (None-Few) per hpf Hyaline Casts (None-Few) per lpf Ur Culture Indicated? Urine Osmolality (300-1090) mOsm/kg Urine Creatinine mg/dL Protein/Creatinin Ratio (0.00-0.20) mg/mg Urine Sodium mEq/L Ur Uric Acid mg/dL Urine Total Protein (1-14) mg/dL Stl C. diff Tox B Gene Negative (Negative) Hep Bs Antigen Nonreactive (Nonreactive) Hep Bs Antibody 107.97 mIU/mL 03/07/18 03/07/18 03/07/18 Range/Units 00:10 00:10 00:10 Urine Color (Yellow) Urine Clarity (Clear) Urine pH (5.0-8.0) pH Units Ur Specific [place] (1.010-1.025) Urine Protein (Neg-Trace) mg/dL Urine Glucose (UA) (Normal) mg/dL Urine Ketones (Negative) mg/dL Urine Blood (Negative) Urine Nitrite (Negative) Urine Bilirubin (Negative) Urine Urobilinogen (Normal) mg/dL Ur Leukocyte Esterase (Negative) Urine Microscopic RBC (0-3) per hpf Urine Microscopic WBC (0-3) per hpf Ur Eosinophil Smear (None Seen) % Ur Squamous Epith Cells (None-Few) per lpf Amorphous Sediment (Few) Urine Bacteria (None-Few) per hpf Hyaline Casts (None-Few) per lpf Ur Culture Indicated? Urine Osmolality 377 (300-1090) mOsm/kg Urine Creatinine 87 mg/dL Protein/Creatinin Ratio 1.59 H (0.00-0.20) mg/mg Urine Sodium 36.5 mEq/L Ur Uric Acid 33 mg/dL Urine Total Protein 138 H (1-14) mg/dL Stl C. diff Tox B Gene (Negative) Hep Bs Antigen (Nonreactive) Hep Bs Antibody mIU/mL 03/07/18 Range/Units 00:10 Urine Color Yellow (Yellow) Urine Clarity Cloudy A (Clear) Urine pH 5.5 (5.0-8.0) pH Units Ur Specific [place] 1.020 (1.010-1.025) Urine Protein 30 H (Neg-Trace) mg/dL Urine Glucose (UA) 500 H (Normal) mg/dL Urine Ketones Negative (Negative) mg/dL Urine Blood Small H (Negative) Urine Nitrite Negative (Negative) Urine Bilirubin Negative (Negative) Urine Urobilinogen Normal (Normal) mg/dL Ur Leukocyte Esterase Negative (Negative) Urine Microscopic RBC 0-3 (0-3) per hpf Urine Microscopic WBC 3-5 H (0-3) per hpf Ur Eosinophil Smear (None Seen) % Ur Squamous Epith Cells Many H (None-Few) per lpf Amorphous Sediment Moderate H (Few) Urine Bacteria Many H (None-Few) per hpf Hyaline Casts None Seen (None-Few) per lpf Ur Culture Indicated? Cancelled Urine Osmolality (300-1090) mOsm/kg Urine Creatinine mg/dL Protein/Creatinin Ratio (0.00-0.20) mg/mg Urine Sodium mEq/L Ur Uric Acid mg/dL Urine Total Protein (1-14) mg/dL Stl C. diff Tox B Gene (Negative) Hep Bs Antigen (Nonreactive) Hep Bs Antibody mIU/mL Exam - Constitutional Vitals: Temp Pulse Resp BP Pulse Ox 97.5 F L 74 14 153/63 94 03/20/18 08:20 03/20/18 07:40 03/20/18 08:20 03/20/18 10:20 03/20/18 07:46 General appearance: cooperative, morbidly obese, no acute distress - Head Head exam: Present: atraumatic, normal inspection, normocephalic - Eye Eye exam: Present: EOMI, normal appearance, PERRL Pupils: Present: normal accommodation - ENT ENT exam: Present: mucous membranes moist - Neck Neck exam: Present: normal inspection - Respiratory Respiratory exam: Present: CTAB. Absent: rales, respiratory distress, rhonchi, wheezes - Cardiovascular Cardiovascular exam: Present: RRR, +S1, +S2 - GI/Abdominal GI/Abdominal exam: Present: distended (obese), normal bowel sounds, soft. Absent: tenderness - Extremities Exam Extremities exam: Present: normal inspection, pedal edema (1+ BLE). Absent: joint swelling, tenderness Additional comments: Left upper thigh dressing C/D/I. - Neurological Exam Neurological exam: Present: alert, oriented X3, no focal deficits - Psychiatric Psychiatric exam: Present: normal affect, normal mood - Skin Skin exam: Present: dry, intact, normal color, warm - VTE Documentation of Mechanical Device: Venous foot pump, device Consult Discharge Plan - Plan Referrals: Alonzo Resendiz MD [Primary Care Provider] - - Attending Attestation I examined this patient and my medical decision-making was reviewed with the Resident Physician. I agree with the documented findings, disposition and treatment plan as described except to the extent set forth below.
[2018-03-20] MEDS: Insulin LISPRO 300 UNITS/3 ML VIAL SQ SCH ×7 (12:52→23:09)
[2018-03-20] MEDS: Calcium Acetate 667 MG CAPSULE PO SCH ×3 (12:52→16:40)
[2018-03-20] MEDS: Furosemide 40 MG TABLET PO SCH (12:53)
[2018-03-20] MEDS: Gabapentin 300 MG CAPSULE PO SCH ×2 (12:53→23:02)
[2018-03-20] MEDS: amLODIPine 5 MG TABLET PO SCH (12:53)
[2018-03-20] MEDS: traMADol 50 MG TABLET PO PRN ×2 (12:53→23:07)
[2018-03-20] MEDS: Spironolactone 25 MG TABLET PO SCH (12:53)
[2018-03-20] MEDS: Insulin DETEMIR 100 UNIT/ML X5UNITS SQ SCH ×2 (12:54→23:01)
[2018-03-20] MEDS: Lactobacillus 1 EACH CAP.SPRINK PO SCH (12:54)
[2018-03-20] MEDS: Multivit/Ca/Min/Fe/FA 1 TAB TABLET PO SCH (12:54)
[2018-03-20] MEDS ORDERED: Heparin 1,000 UNITS/500 mL 500 ML ONE (15:08)
[2018-03-20] MEDS ORDERED: 0.9 % Sodium Chloride 500 ML ONE (15:22)
[2018-03-20] MEDS ORDERED: *HR* FentaNYL (PF) 100 MCG/2 ML VIAL ONE (15:22)
[2018-03-20] MEDS ORDERED: *HR* FentaNYL (PF) 100 MCG/2 ML VIAL IVP ONE (15:23)
[2018-03-20] MEDS ORDERED: CeFAZolin Premix DUPLEX 2,000 MG/50 ML BAG IVPB ONE (15:30)
[2018-03-20] MEDS ORDERED: *HR* Heparin 5,000 UNIT/ML VIAL ONE (15:40)
--- NOTE | 2018-03-20 15:46 | IR Procedure Note ---
Date of procedure: 03/20/18 Consent Obtained: Verbal consent, Written consent Timeout: Correct patient and procedure verified, Correct site verified, Time out performed, Skin prep completed Local anesthetic: Lidocaine 1% Indications: retirement dialysis Procedure Performed: tunneled dialysis catheter Was there an assistant designer present: No Site/Technique: right IJ Results/Findings: patent right IJ Estimated blood loss (cc): 10 Post Procedure Treatment Plan: catheter ready to use Specimen: NA
[2018-03-20] MEDS ORDERED: Warfarin perPT PO PRN (18:00)
[2018-03-20] MEDS ORDERED: *HR* Warfarin 5 MG TABLET PO ONE (20:56)
[2018-03-20 21:00] LABS: Heparin anti-factor XA UFH 0.02 IU/mL (0.30-0.70); INR 1.6; Prothrombin Time 17.6 Seconds (9.4-12.1)
[2018-03-20] MEDS: hydrALAZINE 25 MG TABLET PO SCH (23:01)
[2018-03-21 05:55] LABS: Basophils # 0.1 K/mcL (0.0-0.2); Basophils % 0.6 %; Eosinophils # 0.2 K/mcL (0.0-0.6); Eosinophils % 2.1 %; Hematocrit 28.3 % (35.3-44.9); Hemoglobin 8.3 g/dL (11.5-15.4); Immature Granulocytes % 0.3 % (0-4); Lymphocytes # 1.5 K/mcL (0.6-4.6); Lymphocytes % 16.7 %; Mean Corpuscular HGB Conc 29.3 g/dL (31.6-35.5); Mean Corpuscular Hemoglobin 25.6 pg (28.0-33.3); Mean Corpuscular Volume 87.3 fL (83.0-100.0); Monocytes # 0.8 K/mcL (0.0-1.3); Neutrophils # 6.4 K/mcL (1.6-8.9); Platelet Count 264 K/mcL (140-400); Red Blood Count 3.24 M/mcL (3.82-4.97); Red Cell Distribution Width 16.5 % (11.5-14.5); Segmented Neutrophils % 71.3 %
[2018-03-21 06:04] LABS: INR 1.4; Prothrombin Time 16.3 Seconds (9.4-12.1)
[2018-03-21 06:05] LABS: Potassium 3.9 mEq/L (3.5-5.1)
[2018-03-21] MEDS: Budesonide/Formoterol 160/4.5 MDI IH SCH ×2 (07:41→20:34)
[2018-03-21] MEDS ORDERED: Insulin LISPRO 300 UNITS/3 ML VIAL SQ SCH (08:00)
[2018-03-21] MEDS: Insulin LISPRO 300 UNITS/3 ML VIAL SQ SCH ×6 (08:19→23:14)
[2018-03-21] MEDS: hydrALAZINE 25 MG TABLET PO SCH ×4 (08:22→23:16)
[2018-03-21] MEDS: Multivit/Ca/Min/Fe/FA 1 TAB TABLET PO SCH (08:22)
[2018-03-21] MEDS: amLODIPine 5 MG TABLET PO SCH (08:22)
[2018-03-21] MEDS: Gabapentin 300 MG CAPSULE PO SCH ×2 (08:22→23:16)
[2018-03-21] MEDS ORDERED: Insulin DETEMIR 100 UNIT/ML X5UNITS SQ SCH (08:22)
[2018-03-21] MEDS: Lactobacillus 1 EACH CAP.SPRINK PO SCH (08:22)
[2018-03-21] MEDS: Spironolactone 25 MG TABLET PO SCH (08:22)
[2018-03-21] MEDS: Calcium Acetate 667 MG CAPSULE PO SCH ×3 (08:23→18:56)
[2018-03-21] MEDS: Nystatin Cream 15 GM TUBE TP SCH ×2 (08:23→23:17)
[2018-03-21] MEDS: Furosemide 40 MG TABLET PO SCH (08:23)
[2018-03-21] MEDS: Insulin DETEMIR 100 UNIT/ML X5UNITS SQ SCH ×2 (08:24→23:15)
[2018-03-21] MEDS: Nystatin POWDER 30 GM BOTTLE TP SCH ×2 (08:25→23:29)
[2018-03-21] MEDS ORDERED: Insulin DETEMIR 100 UNIT/ML X5UNITS SQ ONE (09:30)
--- NOTE | 2018-03-21 11:08 | Internal Med Progress Note ---
<Gianni Victor - Last Filed: 03/21/18 16:16> Date of Encounter: 03/21/18 Time of Encounter: 08:35 - Assessment and plan (1) DMII (diabetes mellitus, type 2) Current Visit: Yes Status: Chronic Assessment and plan: Blood sugar 195 today Based on insulin needs with sliding scale... Increase Levemir to 65u BID Lispro to 8u with meals plus High dose SSI Continue to monitor Qualifiers: Diabetes mellitus snf insulin use: with 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 truck driver use Diabetes mellitus complication status: with kidney complications Diabetes mellitus complication detail: with chronic kidney disease Chronic kidney disease stage : stage 3 (moderate) Qualified Code(s): E11.22 - Type 2 diabetes mellitus with diabetic chronic kidney disease; N18.3 - Chronic kidney disease, stage 3 ( moderate); Z79.4 - 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 truck driver (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 (2) HTN (hypertension), benign Current Visit: Yes Status: Chronic Assessment and plan: Remains elevated but marginally improved at 168/79 Continue po Hydralazine 25mg q6h Continue Metoprolol 50mg BID Continue spironolactone 25 qd has prn hydralazine (3) DVT prophylaxis Current Visit: Yes Status: Acute Assessment and plan: Remains subtherapeutic on coumadin with INR 1.4 today restarted heparin drip (4) Renal failure Current Visit: Yes Status: Acute Assessment and plan: appreciate nephro recs: planning for discharge after dialysis tomorrow morning To begin outpatient dialysis on Tuesday voiding trial for potential jones removal Qualifiers: Renal failure chronicity: acute Acute renal failure type: with other specified pathological lesion Qualified Code(s): N17.8 - Other acute kidney failure (5) Morbid obesity Current Visit: No Status: Chronic Assessment and plan: Chronic issue Discussed lifestyle modifications (6) Cellulitis Current Visit: Yes Status: Resolved Assessment and plan: Off abx at this time and continues to do OK. Dressings continue. Qualifiers: Site of cellulitis: extremity Site of cellulitis of extremity: lower extremity Laterality: left Qualified Code(s): L03.116 - Cellulitis of left lower limb (7) Vaginal candidiasis Current Visit: Yes Status: Acute Assessment and plan: Continue Fluconazole and Nystatin - Time Spent With Patient Total time spent is greater than 50% in coordination of care (as documented) at patient's floor/unit and/or counseling patient: - Subjective Interval history: Ms. Salmon is a 68F with a hx of diabetes, PE and DVT, was admitted on 03/02 for malaise. She had left inner leg cellulitis as was treated with zosyn and vancomycin 03/06: Cellulitis had improved. Kidney functions worsening with Cr 2.91. Vanco was discontinued and IVF given. nystatin cream for cellulitis. At this time the patient was still experiencing fevers and leukocytosis was not improving. pt was found to have perihilar opacity on CXR suggesting pneumonia. Abx therapy was changed from zosyn to unasyn due to concerns of aspiration PNA. 03/07: Pt was transitioned from Unasyn to Augmentin po. HERIBERTO continues to worsen with Cr 3.10. 03/08: Cellulitis worsens with increasing erythema and pain upon exam. CT revealed subcutaneous air representing necrosis in but not extending to the fascia of the left upper leg and groin area. Started on Doxycycline and transitioned back to Zosyn. After ID consult pt was placed on IV Zosyn, Clindamycin, and Daptomycin. Surgery was consulted and anticoagulation was stopped due to supratherapeutic INR at 3.4. HERIBERTO continues to worsen with Cr at 3.30 03/09: Pt resting comfortably in bed during this encounter, states she did not sleep well last night. No new or acute complaints at this time. Denies any chest pain , increased SOB, increased cough, nausea, vomiting, headache, numbness, or tingling. States she does not believe the cellulitis has changed much overnight. 03/10: No acute events overnight. Pt sitting in bed eating breakfast. States she feels much better today. Admits to some increased cough with brown sputum production, but states she feels like she can breathe easier now Denies chest pain, increased SOB, nausea, vomiting, headache, numbness, or tingling. 03/13: No acute events overnight. Pt states she feels "ok" today. Denies any headache, chest pain, increased SOB, increased cough, sputum production, abdominal pain, nausea, vomiting, numbness, or tingling. States she has had multiple watery bowel movements. 03/14: No acute events overnight. Pt states she feels "the same" today. Denies any headache, chest pain, increased SOB, cough, sputum production, abdominal pain, nausea, vomiting, numbness, or tingling. Received R IJ dialysis cath this morning with plans for dialysis later today. 03/15: No acute events overnight. Pt resting comfortably in bed during this encounter. States she feels tired. Denies any chest pain, worsening SOB, cough, sputum production, abdominal pain, nausea, vomiting, numbness, or tingling. 03/16: No acute events overnight. Pt states she feels "pretty good" today. Denies any new or acute complaints. Denies any chest pain, worsening SOB, cough, sputum production, abdominal pain, nausea, vomiting, numbness, or tingling. Later in day pt was complaining of foul odor from her vagina. Said she has had a yeast infection recently that never completely resolved. 03/17: No acute events overnight. Pt states she feels better today. Denies any new or acute complaints. Denies any chest pain, worsening SOB, increased cough or sputum production, abdominal pain, nausea, vomiting, numbness, or tingling. Pt states odor from her vagina has improved. 03/20: No acute events overnight. Pt states she feels "tired" today. Denies any new or acute complaints. Denies CP, increased SOB, increased cough or sputum production , abdominal pain, nausea, vomiting, numbness, or tingling. 03/21: No acute events overnight. Pt states she still feels tired, but was happy she got some sleep last night. No new or acute complaints. Pt expresses strong desire to go home. Denies fever, chills, CP, increasing SOB, increased cough or sputum production, abdominal pain, nausea, vomiting, numbness, or tingling. - Constitutional Vitals: Temp Pulse Resp BP Pulse Ox 98.3 F 64 18 153/71 97 03/21/18 10:56 03/21/18 10:56 03/21/18 10:56 03/21/18 10:56 03/21/18 10:56 General appearance: Present: A&O X 3, obese, answers questions appropriately Exam: Head: Normocephalic, atraumatic Eyes: PERRL, EOMI, conjunctiva pink, sclera anicteric Neck: Supple, trachea midline Lungs: Grossly diminished breath sounds. Nonlabored breathing on 3lpm NC. No wheezes, rales, or rhonchi noted. Cardiac: RRR. +S1 +S2 No murmurs, clicks, or rubs noted. GI: Abdomen soft, nontender, nondistended. Normoactive bowel sounds Extremities: Warm, radial pulses palpable and symmetrical. +1 pitting pedal edema bilaterally. No cyanosis or calf tenderness. Neuro: Alert and oriented 3. No focal deficits. Normal speech. Skin: Warm, dry, and intact. Internal Medicine: Result - Labs CBC & Chem 7: 03/21/18 04:00 03/21/18 04:00 Labs: Short CBC 03/21/18 Range/Units 04:00 WBC 8.9 (4.3-11.1) K/mcL Hgb 8.3 L (11.5-15.4) g/dL Hct 28.3 L (35.3-44.9) % Plt Count 264 (140-400) K/mcL Neutrophils # 6.4 (1.6-8.9) K/mcL BMP 03/21/18 04:00 Sodium 142 Potassium 3.9 Chloride 103 Carbon Dioxide 31 H BUN 20 Creatinine 2.56 H Glucose 233 H Calcium 9.0 - ABG Interpretation ABG results: ABG ABG pH 7.29 pH Units (7.32-7.45) L 03/08/18 16:28 ABG pCO2 41 mmHg (35-45) 03/08/18 16:28 ABG pO2 87 mmHg (85-104) 03/08/18 16:28 ABG O2 Saturation 95 % (95-98) 03/08/18 16:28 PT/INR, D-dimer PT 16.3 Seconds (9.4-12.1) H 03/21/18 04:00 - VTE Documentation of Mechanical Device: Venous foot pump, device Consult Discharge Plan - Plan Referrals: Alonzo Resendiz MD [Primary Care Provider] - <Sarah Rubio - Last Filed: 03/21/18 16:46> Date of Encounter: 03/21/18 - Assessment and plan (1) DMII (diabetes mellitus, type 2) Current Visit: Yes Status: Chronic Qualifiers: Diabetes mellitus 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 driver insulin use: with 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 truck driver use Diabetes mellitus complication status: with kidney complications Diabetes mellitus complication detail: with chronic kidney disease Chronic kidney disease stage : stage 3 (moderate) Qualified Code(s): E11.22 - Type 2 diabetes mellitus with diabetic chronic kidney disease; N18.3 - Chronic kidney disease, stage 3 ( moderate); Z79.4 - FPC (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 (2) HTN (hypertension), benign Current Visit: Yes Status: Chronic (3) Morbid obesity Current Visit: No Status: Chronic (4) Cellulitis Current Visit: Yes Status: Resolved Qualifiers: Site of cellulitis: extremity Site of cellulitis of extremity: lower extremity Laterality: left Qualified Code(s): L03.116 - Cellulitis of left lower limb (5) DVT prophylaxis Current Visit: Yes Status: Acute (6) Renal failure Current Visit: Yes Status: Acute Qualifiers: Renal failure chronicity: acute Acute renal failure type: with other specified pathological lesion Qualified Code(s): N17.8 - Other acute kidney failure (7) Vaginal candidiasis Current Visit: Yes Status: Acute - Time Spent With Patient Total time spent is greater than 50% in coordination of care (as documented) at patient's floor/unit and/or counseling patient: - Constitutional Vitals: Temp Pulse Resp BP Pulse Ox 98.3 F 64 18 153/71 97 03/21/18 10:56 03/21/18 10:56 03/21/18 10:56 03/21/18 10:56 03/21/18 10:56 Internal Medicine: Result - Labs CBC & Chem 7: 03/21/18 04:00 03/21/18 04:00 Labs: Short CBC 03/21/18 Range/Units 04:00 WBC 8.9 (4.3-11.1) K/mcL Hgb 8.3 L (11.5-15.4) g/dL Hct 28.3 L (35.3-44.9) % Plt Count 264 (140-400) K/mcL Neutrophils # 6.4 (1.6-8.9) K/mcL BMP 03/21/18 04:00 Sodium 142 Potassium 3.9 Chloride 103 Carbon Dioxide 31 H BUN 20 Creatinine 2.56 H Glucose 233 H Calcium 9.0 - ABG Interpretation ABG results: ABG ABG pH 7.29 pH Units (7.32-7.45) L 03/08/18 16:28 ABG pCO2 41 mmHg (35-45) 03/08/18 16:28 ABG pO2 87 mmHg (85-104) 03/08/18 16:28 ABG O2 Saturation 95 % (95-98) 03/08/18 16:28 PT/INR, D-dimer PT 16.3 Seconds (9.4-12.1) H 03/21/18 04:00 - Attending Attestation I examined this patient and my medical decision-making was reviewed with the Resident Physician Dr. Victor. I agree with the documented findings, disposition and treatment plan as described except to the extent set forth below. Ms. Salmon is a 68 year old female with pmh of diabetes, PE and DVT on coumadin , presenting with complaints of malaise and generally feeling unwell for about 2 weeks. She did have left thigh cellulites and pneumonia. Pt was started on empirical abx initially. however her Left thigh swelling / cellulities have not improved. So CT of the Left thigh performed which showed necrotizing soft tissue infection. She had an I & D done by surgery Dr. Barnes on 03/09/18. Denied any fever / chills. No events over night. Gen: A, A O x3 Chest: Diminished BS b/l Ext: 1+ pitting edema a/p 1. Acute necrotizing soft tissue infection of thigh 2. Sepsis finished abx course 3. HERIBERTO with CKD-3 Required HD currently on scheduled HD for now cont HD as per Nephro recommendation 4. Physical decondditioning PT / OT re eval
--- NOTE | 2018-03-21 12:36 | Nephrology Progress Note ---
Date of Encounter: 03/21/18 Time of Encounter: 12:34 - Assessment and Plan (1) HERIBERTO (acute kidney injury) Current Visit: Yes Status: Acute Baseline Scr 1.17 and GFR 42. Chair time has been set for Tuesday at [facility]. Pt will stay tonight get HD in am and then go home. Recommend a voiding trial today to ensure she can still urinate with out jones catheter. Continue to renal dose all medications and avoid nephrotoxins. We will continue to watch for signs of renal recovery. (2) Cellulitis Current Visit: Yes Status: Resolved Per primary. Qualifiers: Site of cellulitis: extremity Site of cellulitis of extremity: lower extremity Laterality: left Qualified Code(s): L03.116 - Cellulitis of left lower limb (3) DMII (diabetes mellitus, type 2) Current Visit: Yes Status: Chronic Per primary. 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 Hgb 8.3 today. Qualifiers: Vitamin B12 deficiency anemia type: other dietary B12 deficiency Qualified Code(s): D51.3 - Other dietary vitamin B12 deficiency anemia Subjective Principal diagnosis: fever/chills weakness Interval history: Pt seen and examined doing well, NAD. Objective - Vital Signs Vital signs: Vital Signs Temp Pulse Resp BP Pulse Ox 03/21/18 10:56 98.3 F 64 18 153/71 97 03/21/18 07:41 16 98 03/21/18 07:13 97.7 F 70 18 169/79 100 03/21/18 05:01 98.1 F 70 18 163/88 96 03/20/18 23:57 97.6 F 88 16 181/86 95 03/20/18 23:00 95 03/20/18 22:32 14 94 03/20/18 20:37 98.9 F 79 16 178/82 95 03/20/18 15:37 78 19 188/99 96 03/20/18 15:32 91 18 190/85 97 Intake and Output 03/20/18 03/21/18 03/21/18 23:59 07:59 15:59 Intake Total 0 / 0 120 / 120 Output Total 600 / 600 300 / 300 100 / 100 Balance -600 / -600 -300 / -300 20 / 20 Intake: IV Fluids 0 / 0 Heparin 25,000 UNIT/500 ML D5W 0 / 0 25,000 unit In 500 ml @ 14 UNIT /KG/HR 41.244 mls/hr IVC . Q12H8M [facility] Rx#:[id number] Oral 0 / 0 120 / 120 Output: Urine 0 / 0 Catheter 600 / 600 300 / 300 100 / 100 Other: Meal Breakfast Percent of Meal Consumed 95% Weight 140.5 kg Blood Glucose* 318 195 195 - General Appearance General appearance: Present: well-developed, well-nourished, obese EENT: Present: ATNC, hearing intact, vision intact Neck: Present: supple Respiratory: Present: clear Cardiology: Present: no edema, normal S1, normal S2 Dialysis Vascular Access: Venous Catheter (Tunneled Line, DRSG C/D/I.) Gastrointestinal: Present: normoactive bowel sounds, no tenderness, no guarding Integumentary: Present: no rash, warm and dry Neurologic: Present: alert and oriented x3 Psychiatric: Present: mood/affect appropriate, cooperative - Lab 03/21/18 04:00 03/21/18 04:00 Most recent lab results ABG pH 7.29 pH Units (7.32-7.45) L 03/08/18 16:28 ABG pCO2 41 mmHg (35-45) 03/08/18 16:28 ABG pO2 87 mmHg (85-104) 03/08/18 16:28 ABG HCO3 20 mEq/L (21-27) L 03/08/18 16:28 ABG O2 Saturation 95 % (95-98) 03/08/18 16:28 Calcium 9.0 mg/dL (8.6-10.3) 03/21/18 04:00 Phosphorus 8.9 mg/dL (2.7-4.5) H 03/09/18 04:18 Magnesium 2.7 mg/dL (1.6-2.6) H 03/09/18 04:18 Urine Creatinine 87 mg/dL 03/07/18 00:10 Urine Sodium 36.5 mEq/L 03/07/18 00:10 Urine Total Protein 138 mg/dL (1-14) H 03/07/18 00:10 - VTE Documentation of Mechanical Device: Venous foot pump, device Consult Discharge Plan - Plan Referrals: Alonzo Resendiz MD [Primary Care Provider] -
[2018-03-21] MEDS ORDERED: *HR* Heparin 5,000 UNIT/ML VIAL IVP PRN ×2 (16:00)
[2018-03-21] MEDS ORDERED: *HR* Warfarin 10 MG TABLET PO ONE (18:00)
[2018-03-21] MEDS: Heparin 25,000 UNIT/500 ML D5W 25,000 UNIT/500 ML BAG IVC SCH (23:15)
[2018-03-21] MEDS: traMADol 50 MG TABLET PO PRN (23:16)
[2018-03-22 05:36] LABS: Hematocrit 28.8 % (35.3-44.9); Hemoglobin 8.4 g/dL (11.5-15.4); Mean Corpuscular HGB Conc 29.2 g/dL (31.6-35.5); Mean Corpuscular Hemoglobin 25.9 pg (28.0-33.3); Mean Corpuscular Volume 88.9 fL (83.0-100.0); Mean Platelet Volume 9.9 fL (9.4-12.4); Platelet Count 255 K/mcL (140-400); Red Blood Count 3.24 M/mcL (3.82-4.97)
[2018-03-22 05:47] LABS: Heparin anti-factor XA UFH 0.35 IU/mL (0.30-0.70); INR 1.5; Prothrombin Time 16.8 Seconds (9.4-12.1)
[2018-03-22 05:54] LABS: Calcium 9.1 mg/dL (8.6-10.3); Potassium 3.6 mEq/L (3.5-5.1)
[2018-03-22] MEDS: Budesonide/Formoterol 160/4.5 MDI IH SCH ×2 (07:45→20:55)
--- NOTE | 2018-03-22 08:15 | Discharge Summary ---
Orders not resulted at time of discharge: Pending orders 03/08/18 23:02 UA w. reflex culture [Urinalysis Reflex Cult & Micro] [URIN] Routine Urinalysis reflex Microscopic [URIN] Routine 03/15/18 04:00 Ionized Calcium,venous blood AM 0400 03/20/18 IR cvc insrt tunnel wo prt/body work auto trimmer [IR] Routine IR us guide needle place [IR] Routine 03/22/18 12:30 Heparin anti-factor XA UFH [COAG] Timed 03/23/18 04:00 Basic Metabolic Panel AM 0400 CBC no Diff [Complete Blood Count w/o Diff] [HEME] AM 0400 PT/INR [Prothrombin Time INR] [COAG] AM 0400 03/24/18 04:00 Basic Metabolic Panel AM 0400 CBC no Diff [Complete Blood Count w/o Diff] [HEME] AM 0400 PT/INR [Prothrombin Time INR] [COAG] AM 04003/25/18 04:00 Basic Metabolic Panel AM 0400 CBC no Diff [Complete Blood Count w/o Diff] [HEME] AM 04003/26/18 04:00 Basic Metabolic Panel AM 0400 CBC no Diff [Complete Blood Count w/o Diff] [HEME] AM 0400 03/27/18 04:00 Basic Metabolic Panel AM 0400 CBC no Diff [Complete Blood Count w/o Diff] [HEME] AM 0400 Date of Encounter: 03/22/18 Time of Encounter: 08:15 - Discharge Diagnosis (1) DMII (diabetes mellitus, type 2) Status: Chronic Qualifiers: Diabetes mellitus fpc insulin use: with intermission coordinator use Diabetes mellitus complication status: with kidney complications Diabetes mellitus complication detail: with chronic kidney disease Chronic kidney disease stage : stage 3 (moderate) Qualified Code(s): E11.22 - Type 2 diabetes mellitus with diabetic chronic kidney disease; N18.3 - Chronic kidney disease, stage 3 ( moderate); Z79.4 - alf (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 (2) HTN (hypertension), benign Status: Chronic (3) DVT prophylaxis Status: Acute (4) Renal failure Status: Acute Qualifiers: Renal failure chronicity: acute Acute renal failure type: with other specified pathological lesion Qualified Code(s): N17.8 - Other acute kidney failure (5) Morbid obesity Status: Chronic (6) Cellulitis Status: Resolved Qualifiers: Site of cellulitis: extremity Site of cellulitis of extremity: lower extremity Laterality: left Qualified Code(s): L03.116 - Cellulitis of left lower limb (7) Vaginal candidiasis Status: Acute Hospital course: Ms. Salmon is a 68 year old female - Time Spent with Patient Total time spent providing and/or coordinating discharge services: - Discharge Medications Home Medications: Amlodipine Besylate 10 mg PO DAILY 04/21/17 [History] Gabapentin [Neurontin] 800 mg PO TID 04/21/17 [History] Insulin Regular, Human [Novolin R] 21 - 22 unit SQ TID PRN 04/21/17 [History] Lisinopril [Zestril] 40 mg PO DAILY 04/21/17 [History] Metoprolol [Lopressor] 50 mg PO BID 04/21/17 [History] Linwood-3/Dha/Epa/Fish Oil [Linwood 3 500 Softgel] 2 cap PO DAILY 04/21/17 [History] Tramadol HCl [Ultram] 100 mg PO TID 04/21/17 [History] Venlafaxine [Effexor] 75 mg PO BID 04/21/17 [History] Zolpidem [Ambien] 10 mg PO HS 04/21/17 [History] hydroCHLOROthiazide [Hydrochlorothiazide] 25 mg PO DAILY 04/21/17 [History] Pravastatin Sodium [Pravachol] 40 mg PO DAILY 04/22/17 [History] Metformin HCl [Glucophage] 1,000 mg PO BID #60 04/25/17 [Rx] Albuterol Sulfate [Albuterol Inhaler] 2 puff IH Q6H PRN 03/02/18 [History] Budesonide/Formoterol 160/4.5 [Symbicort 160/4.5] 2 puff IH BIDR 03/02/18 [ History] Ferrous Sulfate [Iron] 325 mg PO DAILY 03/02/18 [History] Insulin NPH, HUMAN [HumuLIN N] 55 unit SQ QPM 03/02/18 [History] Insulin NPH, HUMAN [HumuLIN N] 75 unit SQ QAM 03/02/18 [History] Mv W-Ca/Iron/FA/Lutein/Hrb#179 [Michael Multivit For Women Caplet] 1 each PO DAILY 03/02/18 [History] Nystatin POWDER [Nystop] 1 appl TP DAILY PRN 03/02/18 [History] Warfarin [Coumadin] 7.5 mg PO [id number] 03/02/18 [History] Warfarin [Coumadin] 10 mg PO SUTH 03/02/18 [History] Allergies/Adverse Reactions: 3 Allergy/AdvReac Type Severity Reaction Status Date / Time prochlorperazine Allergy Dry Mucus Verified 03/02/18 09:30 [From Compazine] Membranes Sulfa (Sulfonamide Allergy Blister Verified 03/02/18 09:30 Antibiotics) Date of admission: 03/02/18 10:38 Primary care physician: Alonzo Resendiz MD Consults: 03/03/18 14:36 Consult to Physical Therapy [CONS] Routine Comment: Evaluate, develop and implement POC Reason for Consult: Evaluate for needs at discharge Does patient have active BEDREST order?: No Is patient medically & hemodynamically stable?: Yes Patient assessed for mobility or mobilized this visit?: Yes 03/06/18 08:25 Consult to [facility] Manager [CONS] Routine Reason for SW Consult: PT rec SNF 03/07/18 10:54 Consult to Nephrology [CONS] Routine Consulting Provider: Kidney Lizett/VALDO/SHANNAN/RUBINA Reason for Consult: Worsened HERIBERTO, likely intrarenal vs. post-obstructive Call Completed: No 03/08/18 13:39 Consult to Surgery [CONS] Routine Consulting Provider: Surgery [facility] - [facility] Reason for Consult: L Thigh Cellulitis with suspected abscess Time Notified: 13:39 Call Completed: No 03/08/18 14:28 Consult to Infectious Diseases [CONS] Routine Consulting Provider: Infectious Disease Lizett Reason for Consult: necrotizing fascitiis Time Notified: 14:28 Call Completed: No 03/13/18 12:40 Consult to Interventional Radiology [CONS] Routine Consulting Provider: Radiology Interventional Cols Reason for Consult: Please assess for placement of a Temporary HD catheter. Thank you Call Completed: Yes 03/13/18 12:45 Consult to Dialysis [CONS] ONCE 03/14/18 08:00 Consult to Dialysis [CONS] ONCE 03/15/18 06:45 Consult to Dialysis [CONS] ONCE 03/18/18 08:00 Consult to Dialysis [CONS] ONCE 03/18/18 11:21 Consult to [facility] Manager [CONS] Routine Reason for SW Consult: Please arrange for an outpatient dialysis chair time for Dialysis dependent - HERIBERTO. 03/18/18 11:22 Consult to Interventional Radiology [CONS] Routine Consulting Provider: Radiology Interventional Cols Reason for Consult: Please evaluate for a Permacath on Tuesday Call Completed: No 03/20/18 07:00 Consult to Dialysis [CONS] ONCE - Constitutional Vitals: Temp Pulse Resp BP Pulse Ox 98.4 F 76 17 178/90 98 03/22/18 07:53 03/22/18 07:53 03/22/18 07:53 03/22/18 07:53 03/22/18 07:53 General appearance: Present: A&O X 3, obese, answers questions appropriately - Patient Status Condition: Undetermined - Discharge Instructions Follow Up With: Alonzo Resendiz MD [Primary Care Provider] - - VTE Documentation of Mechanical Device: Venous foot pump, device
[2018-03-22] MEDS: Gabapentin 300 MG CAPSULE PO SCH ×2 (08:49→22:28)
[2018-03-22] MEDS: Lactobacillus 1 EACH CAP.SPRINK PO SCH (08:49)
[2018-03-22] MEDS: Multivit/Ca/Min/Fe/FA 1 TAB TABLET PO SCH (08:49)
[2018-03-22] MEDS: Calcium Acetate 667 MG CAPSULE PO SCH ×3 (08:49→16:12)
[2018-03-22] MEDS: Spironolactone 25 MG TABLET PO SCH (08:49)
[2018-03-22] MEDS: Furosemide 40 MG TABLET PO SCH (08:49)
[2018-03-22] MEDS: Insulin DETEMIR 100 UNIT/ML X5UNITS SQ SCH ×2 (08:51→22:28)
[2018-03-22] MEDS: Insulin LISPRO 300 UNITS/3 ML VIAL SQ SCH ×7 (08:52→22:27)
[2018-03-22] MEDS: Acetaminophen 325 MG TABLET PO PRN (08:56)
[2018-03-22] MEDS: Nystatin Cream 15 GM TUBE TP SCH ×2 (09:05→22:28)
[2018-03-22] MEDS ORDERED: 0.9 % Sodium Chloride 250 ML IVC PRN (09:15)
[2018-03-22] MEDS ORDERED: *HR* Heparin 10,000 UNIT/10 ML VIAL IV PRN (09:15)
[2018-03-22] MEDS ORDERED: 0.9 % Sodium Chloride 1,000 ML PRIME SCH (09:15)
--- NOTE | 2018-03-22 11:22 | Nephrology Progress Note ---
Date of Encounter: 03/22/18 Time of Encounter: 11:21 - Assessment and Plan (1) HERIBERTO (acute kidney injury) Current Visit: Yes Status: Acute Baseline Scr 1.17 and GFR 42. Chair time has been set for Tuesday at [facility]. Continue to renal dose all medications and avoid nephrotoxins. We will continue to watch for signs of renal recovery. May go home from a renal standpoint after HD. (2) Cellulitis Current Visit: Yes Status: Resolved Per primary. Qualifiers: Site of cellulitis: extremity Site of cellulitis of extremity: lower extremity Laterality: left Qualified Code(s): L03.116 - Cellulitis of left lower limb (3) DMII (diabetes mellitus, type 2) Current Visit: Yes Status: Chronic Per primary. 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 Hgb 8.4 today. Qualifiers: Vitamin B12 deficiency anemia type: other dietary B12 deficiency Qualified Code(s): D51.3 - Other dietary vitamin B12 deficiency anemia Subjective Principal diagnosis: fever/chills weakness Interval history: Pt seen and examined doing well, NAD. Objective - Vital Signs Vital signs: Vital Signs Temp Pulse Resp BP Pulse Ox 03/22/18 07:53 98.4 F 76 17 178/90 98 03/22/18 07:45 16 95 03/22/18 05:15 74 17 165/83 95 03/21/18 22:30 96 03/21/18 22:07 98.4 F 86 18 174/80 96 03/21/18 20:34 16 95 03/21/18 17:15 95 170/85 94 Intake and Output 03/21/18 03/22/18 03/22/18 23:59 07:59 15:59 Intake Total 0 / 0 273 / 273 120 / 120 Output Total 0 / 0 0 / 0 Balance 0 / 0 273 / 273 120 / 120 Intake: IV Fluids 273 / 273 Heparin 25,000 UNIT/500 ML D5W 273 / 273 25,000 unit In 500 ml @ 14 UNIT /KG/HR 39.34 mls/hr IVC . [id number] [facility] Rx#:[id number] Oral 0 / 0 120 / 120 Output: Urine 0 / 0 0 / 0 Other: Meal Dinner Breakfast Percent of Meal Consumed 95% 100% Weight 139.8 kg Blood Glucose* 288 132 Patient Weight 03/22/18 23:59 Weight 139.8 kg - General Appearance General appearance: Present: obese EENT: Present: ATNC, hearing intact, vision intact Neck: Present: supple Respiratory: Present: clear Cardiology: Present: no edema, normal S1, normal S2 Dialysis Vascular Access: Venous Catheter (Tunneled Line, DRSG C/D/I) Gastrointestinal: Present: normoactive bowel sounds, no tenderness, no guarding Integumentary: Present: no rash, warm and dry Neurologic: Present: alert and oriented x3 Psychiatric: Present: mood/affect appropriate, cooperative - Lab 03/22/18 05:21 03/22/18 05:21 Most recent lab results ABG pH 7.29 pH Units (7.32-7.45) L 03/08/18 16:28 ABG pCO2 41 mmHg (35-45) 03/08/18 16:28 ABG pO2 87 mmHg (85-104) 03/08/18 16:28 ABG HCO3 20 mEq/L (21-27) L 03/08/18 16:28 ABG O2 Saturation 95 % (95-98) 03/08/18 16:28 Calcium 9.1 mg/dL (8.6-10.3) 03/22/18 05:21 Phosphorus 8.9 mg/dL (2.7-4.5) H 03/09/18 04:18 Magnesium 2.7 mg/dL (1.6-2.6) H 03/09/18 04:18 Urine Creatinine 87 mg/dL 03/07/18 00:10 Urine Sodium 36.5 mEq/L 03/07/18 00:10 Urine Total Protein 138 mg/dL (1-14) H 03/07/18 00:10 - VTE Documentation of Mechanical Device: Venous foot pump, device Consult Discharge Plan - Plan Instructions: Hemodialysis (DC), Cellulitis (DC), Dialysis Diet (DC), Dialysis Diet (GEN), Diabetes Mellitus Type 2 in Adults (DC), Sepsis (DC), Chronic Hypertension (DC), Anemia (GEN), End-Stage Kidney Disease (DC) Referrals: Alonzo Resendiz MD [Primary Care Provider] -
[2018-03-22] MEDS ORDERED: 0.9 % Sodium Chloride 1,000 ML ONE (11:57)
[2018-03-22] MEDS: amLODIPine 5 MG TABLET PO SCH (16:11)
[2018-03-22] MEDS: hydrALAZINE 25 MG TABLET PO SCH ×4 (16:12→22:27)
[2018-03-22] MEDS: Nystatin POWDER 30 GM BOTTLE TP SCH ×2 (16:13→22:29)
--- NOTE | 2018-03-22 16:42 | Internal Med Progress Note ---
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 Diabetes mellitus complication status: with kidney complications Diabetes mellitus complication detail: with chronic kidney disease Chronic kidney disease stage : stage 3 (moderate) Qualified Code(s): E11.22 - Type 2 diabetes mellitus with diabetic chronic kidney disease; N18.3 - Chronic kidney disease, stage 3 ( moderate); Z79.4 - [facility] (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 (2) DVT prophylaxis Current Visit: Yes Status: Acute Assessment and plan: Remains subtherapeutic on coumadin with INR 1.5 today heparin drip continue to strive for bridging with coumadin (3) HTN (hypertension), benign Current Visit: Yes Status: Chronic Assessment and plan: Remains elevated Continue po Hydralazine 25mg q6h Continue Metoprolol 50mg BID Continue spironolactone 25 qd has prn hydralazine (4) Renal failure Current Visit: Yes Status: Acute Assessment and plan: appreciate nephro recs: dialysis this AM To begin outpatient dialysis on Tuesday Qualifiers: Renal failure chronicity: acute Acute renal failure type: with other specified pathological lesion Qualified Code(s): N17.8 - Other acute kidney failure (5) Morbid obesity Current Visit: No Status: Chronic Assessment and plan: Chronic issue Discussed lifestyle modifications (6) Cellulitis Current Visit: Yes Status: Resolved Assessment and plan: Off abx at this time and continues to do OK. Dressings continue. Qualifiers: Site of cellulitis: extremity Site of cellulitis of extremity: lower extremity Laterality: left Qualified Code(s): L03.116 - Cellulitis of left lower limb (7) Vaginal candidiasis Current Visit: Yes Status: Acute Assessment and plan: Continue Fluconazole and Nystatin - Time Spent With Patient Total time spent is greater than 50% in coordination of care (as documented) at patient's floor/unit and/or counseling patient: - Subjective Interval history: Ms. Salmon is a 68F with a hx of diabetes, PE and DVT, was admitted on 03/02 for malaise. She had left inner leg cellulitis as was treated with zosyn and vancomycin 03/06: Cellulitis had improved. Kidney functions worsening with Cr 2.91. Vanco was discontinued and IVF given. nystatin cream for cellulitis. At this time the patient was still experiencing fevers and leukocytosis was not improving. pt was found to have perihilar opacity on CXR suggesting pneumonia. Abx therapy was changed from zosyn to unasyn due to concerns of aspiration PNA. 03/07: Pt was transitioned from Unasyn to Augmentin po. HERIBERTO continues to worsen with Cr 3.10. 03/08: Cellulitis worsens with increasing erythema and pain upon exam. CT revealed subcutaneous air representing necrosis in but not extending to the fascia of the left upper leg and groin area. Started on Doxycycline and transitioned back to Zosyn. After ID consult pt was placed on IV Zosyn, Clindamycin, and Daptomycin. Surgery was consulted and anticoagulation was stopped due to supratherapeutic INR at 3.4. HERIBERTO continues to worsen with Cr at 3.30 03/09: Pt resting comfortably in bed during this encounter, states she did not sleep well last night. No new or acute complaints at this time. Denies any chest pain , increased SOB, increased cough, nausea, vomiting, headache, numbness, or tingling. States she does not believe the cellulitis has changed much overnight. 03/10: No acute events overnight. Pt sitting in bed eating breakfast. States she feels much better today. Admits to some increased cough with brown sputum production, but states she feels like she can breathe easier now Denies chest pain, increased SOB, nausea, vomiting, headache, numbness, or tingling. 03/13: No acute events overnight. Pt states she feels "ok" today. Denies any headache, chest pain, increased SOB, increased cough, sputum production, abdominal pain, nausea, vomiting, numbness, or tingling. States she has had multiple watery bowel movements. 03/14: No acute events overnight. Pt states she feels "the same" today. Denies any headache, chest pain, increased SOB, cough, sputum production, abdominal pain, nausea, vomiting, numbness, or tingling. Received R IJ dialysis cath this morning with plans for dialysis later today. 03/15: No acute events overnight. Pt resting comfortably in bed during this encounter. States she feels tired. Denies any chest pain, worsening SOB, cough, sputum production, abdominal pain, nausea, vomiting, numbness, or tingling. 03/16: No acute events overnight. Pt states she feels "pretty good" today. Denies any new or acute complaints. Denies any chest pain, worsening SOB, cough, sputum production, abdominal pain, nausea, vomiting, numbness, or tingling. Later in day pt was complaining of foul odor from her vagina. Said she has had a yeast infection recently that never completely resolved. 03/17: No acute events overnight. Pt states she feels better today. Denies any new or acute complaints. Denies any chest pain, worsening SOB, increased cough or sputum production, abdominal pain, nausea, vomiting, numbness, or tingling. Pt states odor from her vagina has improved. 03/20: No acute events overnight. Pt states she feels "tired" today. Denies any new or acute complaints. Denies CP, increased SOB, increased cough or sputum production , abdominal pain, nausea, vomiting, numbness, or tingling. 03/21: No acute events overnight. Pt states she still feels tired, but was happy she got some sleep last night. No new or acute complaints. Pt expresses strong desire to go home. Denies fever, chills, CP, increasing SOB, increased cough or sputum production, abdominal pain, nausea, vomiting, numbness, or tingling. 03/22: No acute events overnight. Pt states she is ready to go home after dialysis. No new or acute complaints at this time. Denies any fever, chills, CP, SOB, cough, abdominal pain, nausea, vomiting, numbness, or tingling. - Constitutional Vitals: Temp Pulse Resp BP Pulse Ox 99.3 F 96 15 168/94 95 03/22/18 15:20 03/22/18 15:20 03/22/18 15:20 03/22/18 15:20 03/22/18 15:20 General appearance: Present: A&O X 3, obese, answers questions appropriately Exam: Head: atraumatic and normocephalic Eyes: PERRL, EOMI, conjunctiva pink, sclera anicteric Neck: supple, trachea midline Lungs: CTA bilaterally. non-labored breathing. No wheezes, rales, or rhonchi noted Heart: RRR +S1 +S2. no murmurs, clicks, or rubs GI: abdomen soft, non-tender, non-distended. palpable reducible umbilical hernia. normoactive bowel sounds Extremities: warm, radial pulses palpable and symmetrical. no cyanosis. +1 pitting pedal edema Neuro: A&Ox3. no focal deficits. no speech abnormality or difficulty Skin: warm, dry, intact Internal Medicine: Result - Labs CBC & Chem 7: 03/22/18 05:21 03/22/18 05:21 Labs: Short CBC 03/22/18 Range/Units 05:21 WBC 9.8 (4.3-11.1) K/mcL Hgb 8.4 L (11.5-15.4) g/dL Hct 28.8 L (35.3-44.9) % Plt Count 255 (140-400) K/mcL BMP 03/22/18 05:21 Sodium 143 Potassium 3.6 Chloride 105 Carbon Dioxide 31 H BUN 23 Creatinine 2.85 H Glucose 158 H Calcium 9.1 - ABG Interpretation ABG results: ABG ABG pH 7.29 pH Units (7.32-7.45) L 03/08/18 16:28 ABG pCO2 41 mmHg (35-45) 03/08/18 16:28 ABG pO2 87 mmHg (85-104) 03/08/18 16:28 ABG O2 Saturation 95 % (95-98) 03/08/18 16:28 PT/INR, D-dimer PT 16.8 Seconds (9.4-12.1) H 03/22/18 05:21 - VTE Documentation of Mechanical Device: Venous foot pump, device Consult Discharge Plan - Plan Instructions: Hemodialysis (DC), Cellulitis (DC), Dialysis Diet (DC), Dialysis Diet (GEN), Diabetes Mellitus Type 2 in Adults (DC), Sepsis (DC), Chronic Hypertension (DC), Anemia (GEN), End-Stage Kidney Disease (DC) Referrals: Alonzo Resendiz MD [Primary Care Provider] - <Sarah Rubio - Last Filed: 03/23/18 08:09> Date of Encounter: 03/22/18 - Assessment and plan (1) DMII (diabetes mellitus, type 2) Current Visit: Yes Status: Chronic Qualifiers: Diabetes mellitus longwall foreman insulin use: with longwall foreman use Diabetes mellitus complication status: with kidney complications Diabetes mellitus complication detail: with chronic kidney disease Chronic kidney disease stage : stage 3 (moderate) Qualified Code(s): E11.22 - Type 2 diabetes mellitus with diabetic chronic kidney disease; N18.3 - Chronic kidney disease, stage 3 ( moderate); 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 (2) HTN (hypertension), benign Current Visit: Yes Status: Chronic (3) Morbid obesity Current Visit: No Status: Chronic (4) Cellulitis Current Visit: Yes Status: Resolved Qualifiers: Site of cellulitis: extremity Site of cellulitis of extremity: lower extremity Laterality: left Qualified Code(s): L03.116 - Cellulitis of left lower limb (5) DVT prophylaxis Current Visit: Yes Status: Acute (6) Renal failure Current Visit: Yes Status: Acute Qualifiers: Renal failure chronicity: acute Acute renal failure type: with other specified pathological lesion Qualified Code(s): N17.8 - Other acute kidney failure (7) Vaginal candidiasis Current Visit: Yes Status: Acute - Time Spent With Patient Total time spent is greater than 50% in coordination of care (as documented) at patient's floor/unit and/or counseling patient: - Constitutional Vitals: Temp Pulse Resp BP Pulse Ox 98.5 F 84 16 184/98 96 03/23/18 07:26 03/23/18 07:26 03/23/18 07:36 03/23/18 07:26 03/23/18 07:36 Internal Medicine: Result - Labs CBC & Chem 7: 03/23/18 04:26 03/23/18 04:26 Labs: Short CBC 03/23/18 Range/Units 04:26 WBC 9.4 (4.3-11.1) K/mcL Hgb 8.6 L (11.5-15.4) g/dL Hct 29.4 L (35.3-44.9) % Plt Count 235 (140-400) K/mcL BMP 03/23/18 04:26 Sodium 139 Potassium 3.5 Chloride 106 Carbon Dioxide 29 BUN 13 Creatinine 2.30 H Glucose 134 H Calcium 8.8 - ABG Interpretation ABG results: ABG ABG pH 7.29 pH Units (7.32-7.45) L 03/08/18 16:28 ABG pCO2 41 mmHg (35-45) 03/08/18 16:28 ABG pO2 87 mmHg (85-104) 03/08/18 16:28 ABG O2 Saturation 95 % (95-98) 03/08/18 16:28 PT/INR, D-dimer PT 19.2 Seconds (9.4-12.1) H 03/23/18 04:26 - Attending Attestation I examined this patient and my medical decision-making was reviewed with the Resident Physician Dr. Victor on 03/22/18. I agree with the documented findings, disposition and treatment plan as described except to the extent set forth below. Ms. Salmon is a 68 year old female with pmh of diabetes, PE and DVT on coumadin , presenting with complaints of malaise and generally feeling unwell for about 2 weeks. She did have left thigh cellulites and pneumonia. Pt was started on empirical abx initially. however her Left thigh swelling / cellulites have not improved. So CT of the Left thigh performed which showed necrotizing soft tissue infection. She had an I & D done by surgery Dr. Barnes on 03/09/18. Denied any fever / chills. No events over night. Gen: A, A O x3 Chest: Diminished BS b/l Ext: 1+ pitting edema a/p 1. Acute necrotizing soft tissue infection of thigh 2. Sepsis finished abx course 3. HERIBERTO with CKD-3 Required HD currently on scheduled HD for now cont HD as per Nephro recommendation 4. Physical deconditioning PT / OT re eval 5. h/o DVT and PE On Coumadin bridging with heparin.. INR still sub therapeutic.
[2018-03-22] MEDS ORDERED: *HR* Warfarin 10 MG TABLET PO ONE (18:00)
[2018-03-23] MEDS: Heparin 25,000 UNIT/500 ML D5W 25,000 UNIT/500 ML BAG IVC SCH (01:40)
[2018-03-23] MEDS: Acetaminophen 325 MG TABLET PO PRN (01:43)
[2018-03-23 04:47] LABS: Hematocrit 29.4 % (35.3-44.9); Hemoglobin 8.6 g/dL (11.5-15.4); Mean Corpuscular HGB Conc 29.3 g/dL (31.6-35.5); Mean Corpuscular Hemoglobin 26.1 pg (28.0-33.3); Mean Corpuscular Volume 89.4 fL (83.0-100.0); Platelet Count 235 K/mcL (140-400); Red Blood Count 3.29 M/mcL (3.82-4.97); Red Cell Distribution Width 17.3 % (11.5-14.5)
[2018-03-23 04:56] LABS: INR 1.7; Prothrombin Time 19.2 Seconds (9.4-12.1)
[2018-03-23 05:08] LABS: Calcium 8.8 mg/dL (8.6-10.3); Potassium 3.5 mEq/L (3.5-5.1)
[2018-03-23 07:34] VITALS: BP 184/98
[2018-03-23] MEDS: Budesonide/Formoterol 160/4.5 MDI IH SCH (07:36)
[2018-03-23] MEDS: hydrALAZINE 25 MG TABLET PO SCH ×2 (08:20→11:36)
[2018-03-23] MEDS: Spironolactone 25 MG TABLET PO SCH (08:20)
[2018-03-23] MEDS: Calcium Acetate 667 MG CAPSULE PO SCH (08:20)
[2018-03-23] MEDS: Multivit/Ca/Min/Fe/FA 1 TAB TABLET PO SCH (08:20)
[2018-03-23] MEDS: amLODIPine 5 MG TABLET PO SCH (08:20)
[2018-03-23] MEDS: Lactobacillus 1 EACH CAP.SPRINK PO SCH (08:20)
[2018-03-23] MEDS: Gabapentin 300 MG CAPSULE PO SCH (08:20)
[2018-03-23] MEDS: Furosemide 40 MG TABLET PO SCH (08:20)
[2018-03-23] MEDS: Nystatin Cream 15 GM TUBE TP SCH (08:21)
[2018-03-23] MEDS: Insulin LISPRO 300 UNITS/3 ML VIAL SQ SCH ×2 (08:21→08:30)
[2018-03-23] MEDS: Nystatin POWDER 30 GM BOTTLE TP SCH (08:21)
[2018-03-23] MEDS: Insulin DETEMIR 100 UNIT/ML X5UNITS SQ SCH (08:30)
--- NOTE | 2018-03-23 08:59 | Internal Med Progress Note ---
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 Diabetes mellitus complication status: with kidney complications Diabetes mellitus complication detail: with chronic kidney disease Chronic kidney disease stage : stage 3 (moderate) Qualified Code(s): E11.22 - Type 2 diabetes mellitus with diabetic chronic kidney disease; N18.3 - Chronic kidney disease, stage 3 ( moderate); Z79.4 - [facility] (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 (2) DVT prophylaxis Current Visit: Yes Status: Acute (3) HTN (hypertension), benign Current Visit: Yes Status: Chronic (4) Renal failure Current Visit: Yes Status: Acute Qualifiers: Renal failure chronicity: acute Acute renal failure type: with other specified pathological lesion Qualified Code(s): N17.8 - Other acute kidney failure (5) Morbid obesity Current Visit: No Status: Chronic (6) Cellulitis Current Visit: Yes Status: Resolved Qualifiers: Site of cellulitis: extremity Site of cellulitis of extremity: lower extremity Laterality: left Qualified Code(s): L03.116 - Cellulitis of left lower limb (7) Vaginal candidiasis Current Visit: Yes Status: Acute - Time Spent With Patient Total time spent is greater than 50% in coordination of care (as documented) at patient's floor/unit and/or counseling patient: - Subjective Interval history: Ms. Salmon is a 68F with a hx of diabetes, PE and DVT, was admitted on 03/02 for malaise. She had left inner leg cellulitis as was treated with zosyn and vancomycin 03/06: Cellulitis had improved. Kidney functions worsening with Cr 2.91. Vanco was discontinued and IVF given. nystatin cream for cellulitis. At this time the patient was still experiencing fevers and leukocytosis was not improving. pt was found to have perihilar opacity on CXR suggesting pneumonia. Abx therapy was changed from zosyn to unasyn due to concerns of aspiration PNA. 03/07: Pt was transitioned from Unasyn to Augmentin po. HERIBERTO continues to worsen with Cr 3.10. 03/08: Cellulitis worsens with increasing erythema and pain upon exam. CT revealed subcutaneous air representing necrosis in but not extending to the fascia of the left upper leg and groin area. Started on Doxycycline and transitioned back to Zosyn. After ID consult pt was placed on IV Zosyn, Clindamycin, and Daptomycin. Surgery was consulted and anticoagulation was stopped due to supratherapeutic INR at 3.4. HERIBERTO continues to worsen with Cr at 3.30 03/09: Pt resting comfortably in bed during this encounter, states she did not sleep well last night. No new or acute complaints at this time. Denies any chest pain , increased SOB, increased cough, nausea, vomiting, headache, numbness, or tingling. States she does not believe the cellulitis has changed much overnight. 03/10: No acute events overnight. Pt sitting in bed eating breakfast. States she feels much better today. Admits to some increased cough with brown sputum production, but states she feels like she can breathe easier now Denies chest pain, increased SOB, nausea, vomiting, headache, numbness, or tingling. 03/13: No acute events overnight. Pt states she feels "ok" today. Denies any headache, chest pain, increased SOB, increased cough, sputum production, abdominal pain, nausea, vomiting, numbness, or tingling. States she has had multiple watery bowel movements. 03/14: No acute events overnight. Pt states she feels "the same" today. Denies any headache, chest pain, increased SOB, cough, sputum production, abdominal pain, nausea, vomiting, numbness, or tingling. Received R IJ dialysis cath this morning with plans for dialysis later today. 03/15: No acute events overnight. Pt resting comfortably in bed during this encounter. States she feels tired. Denies any chest pain, worsening SOB, cough, sputum production, abdominal pain, nausea, vomiting, numbness, or tingling. 03/16: No acute events overnight. Pt states she feels "pretty good" today. Denies any new or acute complaints. Denies any chest pain, worsening SOB, cough, sputum production, abdominal pain, nausea, vomiting, numbness, or tingling. Later in day pt was complaining of foul odor from her vagina. Said she has had a yeast infection recently that never completely resolved. 03/17: No acute events overnight. Pt states she feels better today. Denies any new or acute complaints. Denies any chest pain, worsening SOB, increased cough or sputum production, abdominal pain, nausea, vomiting, numbness, or tingling. Pt states odor from her vagina has improved. 03/20: No acute events overnight. Pt states she feels "tired" today. Denies any new or acute complaints. Denies CP, increased SOB, increased cough or sputum production , abdominal pain, nausea, vomiting, numbness, or tingling. 03/21: No acute events overnight. Pt states she still feels tired, but was happy she got some sleep last night. No new or acute complaints. Pt expresses strong desire to go home. Denies fever, chills, CP, increasing SOB, increased cough or sputum production, abdominal pain, nausea, vomiting, numbness, or tingling. 03/22: No acute events overnight. Pt states she is ready to go home after dialysis. No new or acute complaints at this time. Denies any fever, chills, CP, SOB, cough, abdominal pain, nausea, vomiting, numbness, or tingling. - Constitutional Vitals: Temp Pulse Resp BP Pulse Ox 98.5 F 84 16 184/98 96 03/23/18 07:26 03/23/18 07:26 03/23/18 07:36 03/23/18 07:26 03/23/18 07:36 General appearance: Present: A&O X 3, obese, answers questions appropriately Internal Medicine: Result - Labs CBC & Chem 7: 03/23/18 04:26 03/23/18 04:26 Labs: Short CBC 03/23/18 Range/Units 04:26 WBC 9.4 (4.3-11.1) K/mcL Hgb 8.6 L (11.5-15.4) g/dL Hct 29.4 L (35.3-44.9) % Plt Count 235 (140-400) K/mcL BMP 03/23/18 04:26 Sodium 139 Potassium 3.5 Chloride 106 Carbon Dioxide 29 BUN 13 Creatinine 2.30 H Glucose 134 H Calcium 8.8 - ABG Interpretation ABG results: ABG ABG pH 7.29 pH Units (7.32-7.45) L 03/08/18 16:28 ABG pCO2 41 mmHg (35-45) 03/08/18 16:28 ABG pO2 87 mmHg (85-104) 03/08/18 16:28 ABG O2 Saturation 95 % (95-98) 03/08/18 16:28 PT/INR, D-dimer PT 19.2 Seconds (9.4-12.1) H 03/23/18 04:26 - VTE Documentation of Mechanical Device: Venous foot pump, device Consult Discharge Plan - Plan Instructions: Hemodialysis (DC), Cellulitis (DC), Dialysis Diet (DC), Dialysis Diet (GEN), Diabetes Mellitus Type 2 in Adults (DC), Sepsis (DC), Chronic Hypertension (DC), Anemia (GEN), End-Stage Kidney Disease (DC) Referrals: Alonzo Resendiz MD [Primary Care Provider] -
--- NOTE | 2018-03-23 09:35 | Discharge Summary ---
<Gianni Victor - Last Filed: 03/23/18 18:39> Orders not resulted at time of discharge: Pending orders 03/08/18 23:02 UA w. 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 [IR] Routine IR us guide needle place [IR] Routine 03/23/18 15:45 Heparin anti-factor XA UFH [COAG] Timed 03/24/18 04:00 Basic Metabolic Panel AM 0400 CBC no Diff [Complete Blood Count w/o Diff] [HEME] AM 0400 PT/INR [Prothrombin Time INR] [COAG] AM 04003/25/18 04:00 Basic Metabolic Panel AM 0400 CBC no Diff [Complete Blood Count w/o Diff] [HEME] AM 04003/26/18 04:00 Basic Metabolic Panel AM 0400 CBC no Diff [Complete Blood Count w/o Diff] [HEME] AM 04003/27/18 04:00 Basic Metabolic Panel AM 0400 CBC no Diff [Complete Blood Count w/o Diff] [HEME] AM 0400 Date of Encounter: 03/23/18 Time of Encounter: 08:59 - Discharge Diagnosis (1) DMII (diabetes mellitus, type 2) Priority: Secondary Status: Chronic Assessment and Plan: Blood sugar 235 this morning Resume home regimen with humilin and novolin Qualifiers: Diabetes mellitus oil heaterman insulin use: with oil heaterman use Diabetes mellitus complication status: with kidney complications Diabetes mellitus complication detail: with chronic kidney disease Chronic kidney disease stage : stage 3 (moderate) Qualified Code(s): E11.22 - Type 2 diabetes mellitus with diabetic chronic kidney disease; N18.3 - Chronic kidney disease, stage 3 ( moderate); Z79.4 - shelter (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 (2) Renal failure Priority: Primary Status: Acute Assessment and Plan: Likely caused by sepsis and medications Begin outpatient dialysis at [facility] on Tuesday Follow up with nephrology Qualifiers: Renal failure chronicity: acute Acute renal failure type: with other specified pathological lesion Qualified Code(s): N17.8 - Other acute kidney failure (3) HTN (hypertension), benign Priority: Secondary Status: Chronic Assessment and Plan: Remains elevated Resume home medications and follow up with primary care provider (4) Morbid obesity Priority: Secondary Status: Chronic Assessment and Plan: Chronic issue Discussed lifestyle modifications (5) Cellulitis Priority: Secondary Status: Resolved Assessment and Plan: Continue BID dressing changes and irrigation with half-strength Hydrogen Peroxide Follow up with Dr. Barnes Qualifiers: Site of cellulitis: extremity Site of cellulitis of extremity: lower extremity Laterality: left Qualified Code(s): L03.116 - Cellulitis of left lower limb (6) Vaginal candidiasis Priority: Secondary Status: Acute Assessment and Plan: Continue Nystatin cream and powder to affected area Hospital course: Ms. Salmon is a 68 year old female Discharge discussed with: patient, family, nurse, social work, case management, individual pension consultant - Time Spent with Patient Total time spent providing and/or coordinating discharge services: - Discharge Medications Prescriptions: Furosemide [Lasix] 40 mg PO DAILY 30 Days #30 tablet hydrALAZINE [HydrALAZINE] 25 mg PO QID 30 Days #120 tablet Nystatin Cream [Mycostatin Cream] 1 appl TP BID 30 Days #1 tube Pravastatin Sodium [Pravachol] 10 mg PO DAILY 30 Days #30 tablet Spironolactone [Aldactone] 25 mg PO DAILY 30 Days #30 tablet Home Medications: Amlodipine Besylate 10 mg PO DAILY 04/21/17 [History] Insulin Regular, Human [Novolin R] 21 - 22 unit SQ TID PRN 04/21/17 [History] Metoprolol [Lopressor] 50 mg PO BID 04/21/17 [History] [place]-3/Dha/Epa/Fish Oil [[place] 3 500 Softgel] 2 cap PO DAILY 04/21/17 [History] Tramadol HCl [Ultram] 100 mg PO TID 04/21/17 [History] Venlafaxine [Effexor] 75 mg PO BID 04/21/17 [History] Zolpidem [Ambien] 10 mg PO HS 04/21/17 [History] Albuterol Sulfate [Albuterol Inhaler] 2 puff IH Q6H PRN 03/02/18 [History] Budesonide/Formoterol 160/4.5 [Symbicort 160/4.5] 2 puff IH BIDR 03/02/18 [ History] Ferrous Sulfate [Iron] 325 mg PO DAILY 03/02/18 [History] Insulin NPH, HUMAN [HumuLIN N] 55 unit SQ QPM 07/05/18 [History] Insulin NPH, HUMAN [HumuLIN N] 75 unit SQ QAM 03/02/18 [History] Mv W-Ca/Iron/FA/Lutein/Hrb#179 [Michael Multivit For Women Caplet] 1 each PO DAILY 03/02/18 [History] Nystatin POWDER [Nystop] 1 appl TP DAILY PRN 03/02/18 [History] Warfarin [Coumadin] 7.5 mg PO MOTUWEFRSA 03/02/18 [History] Warfarin [Coumadin] 10 mg PO SUTH 03/02/18 [History] Furosemide [Lasix] 40 mg PO DAILY 30 Days #30 tablet 03/23/18 [Rx] Gabapentin [Neurontin] 300 mg PO BID 30 Days #60 03/23/18 [Rx] Nystatin Cream [Mycostatin Cream] 1 appl TP BID 30 Days #1 tube 03/23/18 [Rx] Pravastatin Sodium [Pravachol] 10 mg PO DAILY 30 Days #30 tablet 03/23/18 [Rx] Spironolactone [Aldactone] 25 mg PO DAILY 30 Days #30 tablet 03/23/18 [Rx] hydrALAZINE [HydrALAZINE] 25 mg PO QID 30 Days #120 tablet 03/23/18 [Rx] Allergies/Adverse Reactions: 3 Allergy/AdvReac Type Severity Reaction Status Date / Time prochlorperazine Allergy Dry Mucus Verified 03/02/18 09:30 [From Compazine] Membranes Sulfa (Sulfonamide Allergy Blister Verified 03/02/18 09:30 Antibiotics) Date of admission: 03/02/18 10:38 Primary care physician: Alonzo Resendiz MD Consults: 03/03/18 14:36 Consult to Physical Therapy [CONS] Routine Comment: Evaluate, develop and implement POC Reason for Consult: Evaluate for needs at discharge Does patient have active BEDREST order?: No Is patient medically & hemodynamically stable?: Yes Patient assessed for mobility or mobilized this visit?: Yes 03/06/18 08:25 Consult to Wig Dresser [CONS] Routine Reason for SW Consult: PT rec SNF 03/07/18 10:54 Consult to Nephrology [CONS] Routine Consulting Provider: Kidney [place]/VALDO/SHANNAN/RUBINA Reason for Consult: Worsened HERIBERTO, likely intrarenal vs. post-obstructive Call Completed: No 03/08/18 13:39 Consult to Surgery [CONS] Routine Consulting Provider: Surgery [facility] - [facility] Reason for Consult: L Thigh Cellulitis with suspected abscess Time Notified: 13:39 Call Completed: No 03/08/18 14:28 Consult to Infectious Diseases [CONS] Routine Consulting Provider: Infectious Disease [place] Reason for Consult: necrotizing fascitiis Time Notified: 14:28 Call Completed: No 03/13/18 12:40 Consult to Interventional Radiology [CONS] Routine Consulting Provider: Radiology Interventional Cols Reason for Consult: Please assess for placement of a Temporary HD catheter. Thank you Call Completed: Yes 03/13/18 12:45 Consult to Dialysis [CONS] ONCE 03/14/18 08:00 Consult to Dialysis [CONS] ONCE 03/15/18 06:45 Consult to Dialysis [CONS] ONCE 03/18/18 08:00 Consult to Dialysis [CONS] ONCE 03/18/18 11:21 Consult to Wig Dresser [CONS] Routine Reason for SW Consult: Please arrange for an outpatient dialysis chair time for Dialysis dependent - HERIBERTO. 03/18/18 11:22 Consult to Interventional Radiology [CONS] Routine Consulting Provider: Radiology Interventional Cols Reason for Consult: Please evaluate for a Permacath on Tuesday Call Completed: No 03/20/18 07:00 Consult to Dialysis [CONS] ONCE 03/22/18 09:15 Consult to Dialysis [CONS] ONCE 03/23/18 09:15 Consult to Dialysis [CONS] ONCE Discharging clinician: Gianni Pickard Constitutional Vitals: Temp Pulse Resp BP Pulse Ox 98.5 F 84 16 184/98 96 03/23/18 07:26 03/23/18 07:26 03/23/18 07:36 03/23/18 07:26 03/23/18 07:36 General appearance: Present: A&O X 3, obese, answers questions appropriately Exam: Head: normocephalic and atraumatic Eyes: PERRL, EOMI, sclera anicteric, conjunctiva pink Neck: supple, trachea midline Lungs: grossly diminished breath sounds. non-labored breathing. no wheezes, rales, or rhonchi Heart: RRR +S1 +S2. no murmurs, clicks, or rubs GI: abdomen soft, non-tender, non-distended. palpable reducible umbilical hernia. normoactive bowel sounds Extremities: warm, radial pulses palpable and symmetrical. +1 pitting pedal edema bilaterally. no cyanosis Neuro: A&Ox3. no focal deficits. no speech abnormality or difficulty Skin: warm, dry, and intact - Patient Status Disposition: Home Health Service Condition: Undetermined Functional capacity at discharge: uses cane/walker Overall status at discharge: patient is progressing back to baseline - Discharge Instructions Instructions: Hemodialysis (DC), Cellulitis (DC), Dialysis Diet (DC), Dialysis Diet (GEN), Diabetes Mellitus Type 2 in Adults (DC), Sepsis (DC), Chronic Hypertension (DC), Anemia (GEN), End-Stage Kidney Disease (DC) Follow Up With: Alonzo Resendiz MD [Primary Care Provider] - 03/28/18 10:00 am (discharge follow up appointment) - Diet and Activity Activity: as per physical therapy, increase activity as tolerated, resume usual activities as tolerated Diet: diabetic diet, low fat, low cholesterol, low salt diet - VTE Documentation of Mechanical Device: Venous foot pump, device <Sarah Rubio - Last Filed: 03/24/18 09:05> Orders not resulted at time of discharge: Pending orders 03/08/18 23:02 UA w. reflex culture [Urinalysis Reflex Cult & Micro] [URIN] Routine Urinalysis reflex Microscopic [URIN] Routine Date of Encounter: 03/23/18 - Discharge Diagnosis (1) DMII (diabetes mellitus, type 2) Status: Chronic Qualifiers: Diabetes mellitus oil heaterman insulin use: with chcf use Diabetes mellitus complication status: with kidney complications Diabetes mellitus complication detail: with chronic kidney disease Chronic kidney disease stage : stage 3 (moderate) Qualified Code(s): E11.22 - Type 2 diabetes mellitus with diabetic chronic kidney disease; N18.3 - Chronic kidney disease, stage 3 ( moderate); Z79.4 - technician terminal and repeater (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 (2) HTN (hypertension), benign Status: Chronic (3) Morbid obesity Status: Chronic (4) Cellulitis Status: Resolved Qualifiers: Site of cellulitis: extremity Site of cellulitis of extremity: lower extremity Laterality: left Qualified Code(s): L03.116 - Cellulitis of left lower limb (5) Renal failure Status: Acute Qualifiers: Renal failure chronicity: acute Acute renal failure type: with other specified pathological lesion Qualified Code(s): N17.8 - Other acute kidney failure (6) Vaginal candidiasis Status: Acute Hospital course: Ms. Salmon is a 68 year old female - Time Spent with Patient Total time spent providing and/or coordinating discharge services: Date of admission: 03/02/18 10:38 Primary care physician: Alonzo Resendiz MD Consults: 03/03/18 14:36 Consult to Physical Therapy [CONS] Routine Comment: Evaluate, develop and implement POC Reason for Consult: Evaluate for needs at discharge Does patient have active BEDREST order?: No Is patient medically & hemodynamically stable?: Yes Patient assessed for mobility or mobilized this visit?: Yes 03/06/18 08:25 Consult to Wig Dresser [CONS] Routine Reason for SW Consult: PT rec SNF 03/07/18 10:54 Consult to Nephrology [CONS] Routine Consulting Provider: Kidney [place]/VALDO/SHANNAN/RUBINA Reason for Consult: Worsened HERIBERTO, likely intrarenal vs. post-obstructive Call Completed: No 03/08/18 13:39 Consult to Surgery [CONS] Routine Consulting Provider: Surgery [facility] - [place] Reason for Consult: L Thigh Cellulitis with suspected abscess Time Notified: 13:39 Call Completed: No 03/08/18 14:28 Consult to Infectious Diseases [CONS] Routine Consulting Provider: Infectious Disease Lizett Reason for Consult: necrotizing fascitiis Time Notified: 14:28 Call Completed: No 03/13/18 12:40 Consult to Interventional Radiology [CONS] Routine Consulting Provider: Radiology Interventional Cols Reason for Consult: Please assess for placement of a Temporary HD catheter. Thank you Call Completed: Yes 03/13/18 12:45 Consult to Dialysis [CONS] ONCE 03/14/18 08:00 Consult to Dialysis [CONS] ONCE 03/15/18 06:45 Consult to Dialysis [CONS] ONCE 03/18/18 08:00 Consult to Dialysis [CONS] ONCE 03/18/18 11:21 Consult to Wig Dresser [CONS] Routine Reason for SW Consult: Please arrange for an outpatient dialysis chair time for Dialysis dependent - HERIBERTO. 03/18/18 11:22 Consult to Interventional Radiology [CONS] Routine Consulting Provider: Radiology Interventional Cols Reason for Consult: Please evaluate for a Permacath on Tuesday Call Completed: No 03/20/18 07:00 Consult to Dialysis [CONS] ONCE 03/22/18 09:15 Consult to Dialysis [CONS] ONCE 03/23/18 09:15 Consult to Dialysis [CONS] ONCE - Constitutional Vitals: Temp Pulse Resp BP Pulse Ox 98.5 F 84 16 184/98 96 03/23/18 07:26 03/23/18 07:26 03/23/18 07:36 03/23/18 07:26 03/23/18 07:36 - Attending Attestation I examined this patient and my medical decision-making was reviewed with the Resident Physician Dr. Victor on 03/23/18. I agree with the documented findings, disposition and treatment plan as described except to the extent set forth below. Ms. Salmon is a 68 year old female with pmh of diabetes, PE and DVT on coumadin , presenting with complaints of malaise and generally feeling unwell for about 2 weeks. She did have left thigh cellulites and pneumonia. Pt was started on empirical abx initially. however her Left thigh swelling / cellulites have not improved. So CT of the Left thigh performed which showed necrotizing soft tissue infection. She had an I & D done by surgery Dr. Barnes on 03/09/18. Denied any fever / chills. No events over night. Gen: A, A O x3 Chest: Diminished BS b/l Ext: 1+ pitting edema a/p 1. Acute necrotizing soft tissue infection of thigh 2. Sepsis finished abx course 3. HERIBERTO with CKD-3 Required HD currently on scheduled HD for now cont HD as per Nephro recommendation 4. Physical deconditioning 5. h/o DVT and PE On Coumadin bridging with heparin.. INR still sub therapeutic at 1.7 However will give Lovenox x 1 dose renally dosed today and continue Coumadin Need to check PT / INR in AM to adjust Coumadin dose all the instructions discussed with pt and her Medically stable to d/c home with home health services
--- NOTE | 2018-03-23 09:52 | Nephrology Progress Note ---
Date of Encounter: 03/23/18 Time of Encounter: 09:52 - Assessment and Plan (1) HERIBERTO (acute kidney injury) Current Visit: Yes Status: Acute Baseline Scr 1.17 and GFR 42. Chair time has been set for Tuesday at [facility]. Continue to renal dose all medications and avoid nephrotoxins. We will continue to watch for signs of renal recovery. May go home from a renal standpoint after HD. (2) Cellulitis Current Visit: Yes Status: Resolved Per primary. Qualifiers: Site of cellulitis: extremity Site of cellulitis of extremity: lower extremity Laterality: left Qualified Code(s): L03.116 - Cellulitis of left lower limb (3) DMII (diabetes mellitus, type 2) Current Visit: Yes Status: Chronic Per primary. Qualifiers: Diabetes mellitus care home insulin use: with technician terminal and repeater use Diabetes mellitus complication status: with kidney complications Diabetes mellitus complication detail: with chronic kidney disease Chronic kidney disease stage : stage 3 (moderate) Qualified Code(s): E11.22 - Type 2 diabetes mellitus with diabetic chronic kidney disease; N18.3 - Chronic kidney disease, stage 3 ( moderate); Z79.4 - snf (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 (4) Anemia Current Visit: Yes Status: Acute Goal Hgb 10-11. Hgb is 8.6 today. Qualifiers: Vitamin B12 deficiency anemia type: other dietary B12 deficiency Qualified Code(s): D51.3 - Other dietary vitamin B12 deficiency anemia Subjective Principal diagnosis: fever/chills weakness Interval history: Pt seen and examined doing well, NAD. Objective - Vital Signs Vital signs: Vital Signs Temp Pulse Resp BP Pulse Ox 03/23/18 07:36 16 96 03/23/18 07:26 98.5 F 84 16 184/98 96 03/23/18 04:58 98.0 F 80 18 156/86 99 03/22/18 22:35 99 03/22/18 20:55 18 100 03/22/18 20:38 98.6 F 82 18 158/80 96 03/22/18 15:20 99.3 F 96 15 168/94 95 03/22/18 14:30 98.9 F 15 140/74 03/22/18 14:20 125/72 03/22/18 14:05 134/75 03/22/18 13:50 141/73 03/22/18 13:35 159/81 03/22/18 13:20 157/82 03/22/18 13:05 147/71 03/22/18 12:50 162/79 03/22/18 12:35 174/94 03/22/18 12:20 155/86 03/22/18 12:05 160/86 03/22/18 11:50 168/91 03/22/18 11:35 185/89 03/22/18 11:20 99.0 F 16 201/101 Intake and Output 03/22/18 03/23/18 03/23/18 23:59 07:59 15:59 Intake Total 467 / 467 450 / 450 150 / 150 Output Total 200 / 200 425 / 425 350 / 350 Balance 267 / 267 25 / 25 -200 / -200 Intake: IV Fluids 227 / 227 Heparin 25,000 UNIT/500 ML D5W 227 / 227 25,000 unit In 500 ml @ 14 UNIT /KG/HR 39.34 mls/hr IVC . [id number] [facility] Rx#:[id number] Oral 240 / 240 450 / 450 150 / 150 Output: Urine 200 / 200 425 / 425 350 / 350 Other: Meal Dinner Breakfast Percent of Meal Consumed 100% 85% Stool Size Large Moderate Stool Consistency soft loose Stool Color Brown Green # Voids 1 # Bowel Movements 1 Weight 138.5 kg Blood Glucose* 278 130 Patient Weight 03/23/18 23:59 Weight 138.5 kg - General Appearance General appearance: Present: well-developed, well-nourished EENT: Present: ATNC, hearing intact, vision intact Neck: Present: supple Cardiology: Present: no edema, normal S1, normal S2 Dialysis Vascular Access: Venous Catheter (Tunneled Line DRSG C/D/I.) Gastrointestinal: Present: normoactive bowel sounds, no tenderness, no guarding Integumentary: Present: no rash, warm and dry Neurologic: Present: alert and oriented x3 Psychiatric: Present: mood/affect appropriate, cooperative - Lab 03/23/18 04:26 03/23/18 04:26 Most recent lab results ABG pH 7.29 pH Units (7.32-7.45) L 03/08/18 16:28 ABG pCO2 41 mmHg (35-45) 03/08/18 16:28 ABG pO2 87 mmHg (85-104) 03/08/18 16:28 ABG HCO3 20 mEq/L (21-27) L 03/08/18 16:28 ABG O2 Saturation 95 % (95-98) 03/08/18 16:28 Calcium 8.8 mg/dL (8.6-10.3) 03/23/18 04:26 Phosphorus 8.9 mg/dL (2.7-4.5) H 03/09/18 04:18 Magnesium 2.7 mg/dL (1.6-2.6) H 03/09/18 04:18 Urine Creatinine 87 mg/dL 03/07/18 00:10 Urine Sodium 36.5 mEq/L 03/07/18 00:10 Urine Total Protein 138 mg/dL (1-14) H 03/07/18 00:10 - VTE Documentation of Mechanical Device: Venous foot pump, device Consult Discharge Plan - Plan Instructions: Hemodialysis (DC), Cellulitis (DC), Dialysis Diet (DC), Dialysis Diet (GEN), Diabetes Mellitus Type 2 in Adults (DC), Sepsis (DC), Chronic Hypertension (DC), Anemia (GEN), End-Stage Kidney Disease (DC) Referrals: Alonzo Resendiz MD [Primary Care Provider] - Prescriptions: Furosemide [Lasix] 40 mg PO DAILY 30 Days #30 tablet hydrALAZINE [HydrALAZINE] 25 mg PO QID 30 Days #120 tablet Nystatin Cream [Mycostatin Cream] 1 appl TP BID 30 Days #1 tube Pravastatin Sodium [Pravachol] 10 mg PO DAILY 30 Days #30 tablet Spironolactone [Aldactone] 25 mg PO DAILY 30 Days #30 tablet
[2018-03-23] MEDS ORDERED: *HR* Enoxaparin 150 MG/ML SYRINGE SQ SCH (10:00)
--- NOTE | 2018-03-23 10:01 | Physician Discharge Referral ---
Home Health/Hosp Referral Info Transfer to: Home Health Attending Provider: Dr. Rubio Provider in Charge Post Discharge: PCP - Diagnosis (1) Renal failure Priority: Primary Status: Acute (2) DMII (diabetes mellitus, type 2) Priority: Secondary Status: Chronic (3) HTN (hypertension), benign Priority: Secondary Status: Chronic (4) Morbid obesity Priority: Secondary Status: Chronic (5) Cellulitis Priority: Secondary Status: Resolved (6) Vaginal candidiasis Priority: Secondary Status: Acute - Respiratory Orders Oxygen / L per min (3 lpm) Smoking Cessation: Smoking cessation has been advised. For more information, call the [place] Tobacco Quit Line at 9-907-VKRQ-NOW. - Dressing/Wound Care Site: Medial left thigh Type of Dressing/Treatments w/Frequency: twice a day irrigations with half-strength hydrogen peroxide - Diet/Nutrition Diet/Nutrition Orders: Renal, Cardiac, No Concentrated Sweets - Activity Activity Orders: Up ad glendy, Ambulate - Services Needed Following services are medically necessary services: Nursing, Home Health Aide, Physical Therapy, Occupational Therapy - Transfer Medications Prescriptions: Furosemide [Lasix] 40 mg PO DAILY 30 Days #30 tablet hydrALAZINE [HydrALAZINE] 25 mg PO QID 30 Days #120 tablet Nystatin Cream [Mycostatin Cream] 1 appl TP BID 30 Days #1 tube Pravastatin Sodium [Pravachol] 10 mg PO DAILY 30 Days #30 tablet Spironolactone [Aldactone] 25 mg PO DAILY 30 Days #30 tablet Home Medications: Amlodipine Besylate 10 mg PO DAILY 04/21/17 [History] Insulin Regular, Human [Novolin R] 21 - 22 unit SQ TID PRN 04/21/17 [History] Metoprolol [Lopressor] 50 mg PO BID 04/21/17 [History] [place]-3/Dha/Epa/Fish Oil [[place] 3 500 Softgel] 2 cap PO DAILY 04/21/17 [History] Tramadol HCl [Ultram] 100 mg PO TID 04/21/17 [History] Venlafaxine [Effexor] 75 mg PO BID 04/21/17 [History] Zolpidem [Ambien] 10 mg PO HS 04/21/17 [History] Albuterol Sulfate [Albuterol Inhaler] 2 puff IH Q6H PRN 03/02/18 [History] Budesonide/Formoterol 160/4.5 [Symbicort 160/4.5] 2 puff IH BIDR 03/02/18 [ History] Ferrous Sulfate [Iron] 325 mg PO DAILY 03/02/18 [History] Insulin NPH, HUMAN [HumuLIN N] 55 unit SQ QPM 03/02/18 [History] Insulin NPH, HUMAN [HumuLIN N] 75 unit SQ QAM 03/02/18 [History] Mv W-Ca/Iron/FA/Lutein/Hrb#179 [[place] Multivit For Women Caplet] 1 each PO DAILY 03/02/18 [History] Nystatin POWDER [Nystop] 1 appl TP DAILY PRN 03/02/18 [History] Warfarin [Coumadin] 7.5 mg PO MOTUWEFRSA 03/02/18 [History] Warfarin [Coumadin] 10 mg PO SUTH 03/02/18 [History] Furosemide [Lasix] 40 mg PO DAILY 30 Days #30 tablet 03/23/18 [Rx] Gabapentin [Neurontin] 300 mg PO BID 30 Days #60 03/23/18 [Rx] Nystatin Cream [Mycostatin Cream] 1 appl TP BID 30 Days #1 tube 03/23/18 [Rx] Pravastatin Sodium [Pravachol] 10 mg PO DAILY 30 Days #30 tablet 03/23/18 [Rx] Spironolactone [Aldactone] 25 mg PO DAILY 30 Days #30 tablet 03/23/18 [Rx] hydrALAZINE [HydrALAZINE] 25 mg PO QID 30 Days #120 tablet 03/23/18 [Rx] Allergies/Adverse Reactions: 3 Allergy/AdvReac Type Severity Reaction Status Date / Time prochlorperazine Allergy Dry Mucus Verified 03/02/18 09:30 [From Compazine] Membranes Sulfa (Sulfonamide Allergy Blister Verified 03/02/18 09:30 Antibiotics) Certification: Further, I certify that my clinical findings support that this patient is homebound (i.e. absences from home require considerable and taxing effort and are for medical reasons or yazidism services or infrequently or short duration when for other reasons) because: Homebound Reason: Patient requires assistance of a person or device to safely leave home, Leaving home requires considerable and taxing effort due to condition Attestation: My signature below is to certify that this patient is under my care and that I, or nurse practitioner, or a physician's assistant football coach working with me, has a face-to -face encounter with this patient.
[2018-03-23] MEDS ORDERED: *HR* Warfarin 10 MG TABLET PO ONE (13:00)
== END 2018-03-23 12:11 | disposition home health service (06) | DRG 853 ==
LOC: EMEROO 07:43 → SUATTDRO 10:38 → 2NENU 10:38
PROVIDERS: ADMIT Student in an Organized Health Care Education/Training Program; ATTEND Family Medicine
PROC: IRPERMA (2018-03-20 13:00)